=== PATIENT | female | born 1965 | race Caucasian/White ===

== ENCOUNTER → 2019-11-13 13:57 | Outpatient (BNVA) | payer BC, SELFPAY | PROVIDERS: PCP Internal Medicine; Visit Provider Internal Medicine | DX: Z76.89 Persons encountering health services in other specified circumstances (principal) ==

== ENCOUNTER → 2020-03-11 15:56 | Outpatient (BNVA) | payer BC, SELFPAY | PROVIDERS: PCP Internal Medicine; Visit Provider Internal Medicine ==

== ENCOUNTER 2021-01-25 08:32 | Outpatient (REF) | payer BC, SELFPAY ==
--- NOTE | ~2021-01-25 | XR_ITS ---
EXAMINATION: XR SHOULDER, RIGHT CLINICAL INFORMATION: Pain. COMPARISON: None TECHNIQUE: AP, scapular Y, and axillary views of the right shoulder. FINDINGS: Small acromioclavicular marginal osteophytes. Small lateral and anterior subacromial spurs. No acute fracture or dislocation. No glenohumeral joint space narrowing or marginal osteophytes. No osseous erosion. XR/XR shoulder RT min 2V IMPRESSION: Mild acromioclavicular osteoarthritis with anterior and lateral subchondral spurring.
== END 2021-01-25 08:33 | disposition home or self-care (01) ==
LOC: HO.HOSX 08:32
PROVIDERS: Visit Provider Orthopaedic Surgery
DX: M25.511 Pain in right shoulder (principal); R29.898 Other symptoms and signs involving the musculoskeletal system; G89.29 Other chronic pain; Z98.890 Other specified postprocedural states
CPT/HCPCS: 20610; 73030; J1100

== ENCOUNTER → 2021-02-10 10:58 | Outpatient (BNVA) | payer BC, SELFPAY | PROVIDERS: PCP Internal Medicine; Visit Provider Internal Medicine ==

== ENCOUNTER 2023-08-07 07:30 | Outpatient (REF) | payer BC, SELFPAY ==
--- NOTE | ~2023-08-07 | XR_ITS ---
EXAMINATION: XR BILATERAL KNEES STANDING AND RIGHT KNEE CLINICAL INFORMATION: Reason for Exam M25.561 - Pain in right knee COMPARISON: Knee radiographs 12/26/2013 TECHNIQUE: 1 view of the bilateral knees standing. 2 views of the right knee. FINDINGS: RIGHT KNEE: No acute fracture or dislocation. Moderate osteoporosis of the knee with mild loss of medial compartment joint space and tricompartmental osteophytes. No joint effusion. Soft tissues are unremarkable. LEFT KNEE: Limited single view of the left knee is remarkable for a knee arthroplasty in apparent alignment. XR/XR knee RT 3V IMPRESSION: Moderate degenerative changes of the right knee. Limited single view of the left knee is remarkable for a knee arthroplasty in apparent anatomic alignment.
== END 2023-08-07 07:31 | disposition home or self-care (01) ==
LOC: HO.HOSX 07:30
PROVIDERS: Visit Provider Orthopaedic Surgery
DX: M25.561 Pain in right knee (principal)
CPT/HCPCS: 73562

== ENCOUNTER 2023-08-07 11:31 | Outpatient (AMB) | payer BC, SELFPAY ==
--- NOTE | 2023-08-07 11:41 | A.OFFVIS_ITS ---
Vital Signs 08/07/23 11:43 Height 5 ft 10 in Weight 248 lb BMI 35.6 Intake Visit Reasons: Newprob-Right knee pain/pop noise-two weeks ago Intake Note: Christen is a 58 year old female who presents today as a new patient with complaints of right knee pain. Patient reports she started noticing really sharp pains about a month ago. She expresses she was at her [employer] concert when she stood up to talk to some friends and heard a loud pop when she pivoted her body. She states it got better for a few days but then gradually got a lot worse. She is having pain with flexion and extension. She is having burning sensations in the posterior aspect of her right knee and tightness and stiffness in the anterior aspect with prolonged sitting. She has a rolling chair she uses and a few days ago she tried to move around with her chair which results in shooting pain immediately. She has tried Tylenol and found very little relief. Hx of Left TKA in ~2012 w/ NE. Allergies timolol Allergy (Severe, Verified 08/07/23 15:44) Swelling fluticasone [From FLONASE] Allergy (Unknown, Verified 08/07/23 11:52) SWELLING TONGUE/THROAT propranolol [From INDERAL LA] Allergy (Unknown, Verified 08/07/23 11:52) HEADAACHE salmeterol [From ADVAIR DISKUS] Allergy (Unknown, Verified 08/07/23 11:52) RASH HPI HPI Newprob-Right knee pain/pop noise-two weeks ago: Details: Christen is a 58 year old female who presents today as a new patient with c omplaints of right knee pain. Patient reports she started noticing really sharp pains about a month ago. She expresses she was at her [employer] when she stood up to talk to some friends and heard a loud pop when she pivoted her body. She states it got better for a few days but then gradually got a lot worse. She is having pain with flexion and extension. She is having burning sensations in the posterior aspect of her right knee and tightness and stiffness in the anterior aspect with prolonged sitting. She has a rolling chair she uses and a few days ago she tried to move around with her chair which results in shooting pain immediately. She has tried Tylenol and found very little relief. Hx of Left TKA in ~2012 w/ [place]. [facility] Medical History Detached retina Asthma Allergic rhinitis Surgical History H/O eye surgery H/O hernia repair H/O Spinal surgery Social History Alcohol intake: never Patient Tobacco Use Status: Never used Tobacco Smoked in Last 30 Days: No Use of substances other than those prescribed or required for medical reasons: No Advance Directives: No service: No Current occupational status: unemployed Physical Exam Vital Signs: BMI result Body Mass Index 35.6 Extrem Other: ttp lateral compartment with no effusion + lateral Steinmen's Results Reviewed Results Reviewed: mild medial and anterior compartment OA, left knee Assessment & Plan Assessment & Plan (1) Internal derangement of right knee: Code(s): M23.91 - Unspecified internal derangement of right knee Category: Medical Plan: 58 yo F with mechanical symptoms and internal derangement of right knee. She has painful popping and I recommend MRI. She has not improved with PT. Orders: Orders XR knee RT 3V 08/07/23 M25.561 - Pain in right knee Coding Level of Care Code Est Pt Level 4 (91319) Diagnoses Internal derangement of right knee M23.91
[2023-08-07 11:43] VITALS: BMI 35.6
== END 2023-08-07 12:32 | disposition home or self-care (01) ==
PROVIDERS: PCP Internal Medicine; Referring Provider Internal Medicine; Visit Provider Orthopaedic Surgery
DX: M23.91 Unspecified internal derangement of right knee (principal)
CPT/HCPCS: 99213

== ENCOUNTER 2023-08-07 15:11 | Emergency (ER) | payer BC, SELFPAY ==
--- NOTE | ~2023-08-07 | US_ITS ---
EXAMINATION: US VENOUS ULTRASOUND WITH DOPPLER LOWER EXTREMITY, RIGHT CLINICAL INFORMATION: Pain COMPARISON: None available. TECHNIQUE: Ultrasound of the deep veins is performed from the hip to the calf with compression sonography and color and pulse Doppler assessment. Spectral analysis with color-flow imaging is performed. FINDINGS: There is normal venous compression and respiratory variation and augmented flow. The visualized common femoral vein, superficial femoral vein, profunda femoral vein, popliteal vein, and the trifurcation region shows no evidence of deep venous thrombosis. There is no significant popliteal fossa cyst. If the patient's symptoms persist, followup ultrasound in 5 days 7 days might be of value to exclude proximal propagation from a non-visualized calf vein. Small amount of fluid is seen in the anterior knee. US/US venous duplex LE RT IMPRESSION: No DVT demonstrated in the right lower extremity. Suspected small knee joint effusion.
[2023-08-07 15:35] VITALS: BP 142/60; PULSE 84; O2SAT 99
[2023-08-07 15:36] VITALS: BP 118/70; PULSE 83; RESP 18; TEMP 37.1; O2SAT 97; BMI 35.6
--- NOTE | 2023-08-07 15:48 | ED.GENADULT ---
HPI - General Adult General Chief complaint: Extremity Injury, Lower Stated complaint: R KNEE PAIN/PO,NO INJURY PER EMS Time Seen by Provider: 08/07/23 15:48 Source: patient, EMS and RN notes reviewed Mode of arrival: EMS Limitations: no limitations History of Present Illness ED Provider: Danette HPI narrative: Patient is a 58-year-old female presenting to the emergency department with acute worsening of right knee pain. Patient reports that she has had ongoing pain for the past month and saw Dr. Alvarado this morning for the same complaint. He ordered an MRI which patient has not scheduled yet. After her appointment she was walking upstairs at home and felt a snap/pop sensation and sudden increase in pain. States that previously her pain was to the lateral aspect of her right knee but after this incident on the stairs the pain has moved to her posterior knee. Also complains of some calf pain. Unable to flex due to pain. MD complaint: Right knee pain Onset (ago): month(s) Location: right and lower extremity Severity: severe Quality: aching Pain Consistency: constant Relieving factors: rest Exacerbating factors: movement Treatments prior to arrival: other (Tylenol) Related Data Home Medications ?Medication ?Instructions ?Recorded ?Confirmed atorvastatin 20 mg tablet 20 mg PO DAILY 11/02/19 11/13/19 estradiol 1 mg tablet 1 mg PO DAILY 11/02/19 11/13/19 montelukast 10 mg tablet 10 mg PO DAILY 11/02/19 11/13/19 peak flow meter #1 ea 11/02/19 11/13/19 zolpidem 10 mg tablet 10 mg PO BEDTIME PRN 11/02/19 11/13/19 COVID-19 vacc,mRNA(Pfizer)(PF) 30 ml IM 03/11/20 mcg/0.3 mL IM susp (purple) albuterol sulfate 90 mcg/actuation inhalation 03/11/20 aerosol inhaler azelastine 137 mcg (0.1 %) nasal 2 spray intranasal BID 03/11/20 spray epinephrine 0.3 mg/0.3 mL 1 IM ONCE 03/11/20 injection, auto-injector hydrocortisone 2.5 % topical cream topical 03/11/20 with perineal applicator ipratropium 20 mcg-albuterol 100 1 puff inhalation QID PRN 03/11/20 mcg/actuation mist for inhalation (Combivent Respimat) ketotifen fumarate 0.025 % (0.035 1 drp ophthalmic (eye) BID PRN itch 03/11/20 %) eye drops pantoprazole 20 mg tablet,delayed 20 mg PO DAILY 03/11/20 release diltiazem HCl 60 mg tablet 60 mg PO TID 01/25/21 bupropion HCl 150 mg tablet,12 hr 150 mg PO DAILY 02/10/21 sustained-release diltiazem HCl 180 mg 180 mg PO DAILY 08/07/23 capsule,extended release 24 hr, controlled (DILT-XR) gabapentin 300 mg capsule 300 mg PO PRN headache 08/07/23 Previous Rx's ?Medication ?Instructions ?Recorded Symbicort 160 mcg-4.5 2 puff inhalation BID #10.2 grams 04/26/21 mcg/actuation HFA aerosol inhaler (budesonide-formoterol) diclofenac sodium 3 % topical gel 1 appl topical BID #100 grams 08/07/23 oxycodone 5 mg tablet 5 mg PO Q8H PRN severe pain (scale 08/07/23 score 7-10) #6 tabs Allergies Allergy/AdvReac Type Severity Reaction Status Date / Time timolol Allergy Severe Swelling Verified 08/07/23 15:44 fluticasone [From FLONASE] Allergy Unknown SWELLING Verified 08/07/23 11:52 TONGUE/THROAT propranolol [From INDERAL LA] Allergy Unknown HEADAACHE Verified 08/07/23 11:52 salmeterol Allergy Unknown RASH Verified 08/07/23 11:52 [From ADVAIR DISKUS] Review of Systems Review of Systems: As per HPI. Yes all other systems are reviewed and are negative Constitutional: Constitutional: Reports as per HPI [facility] Past Medical History Medical History Detached retina Asthma Allergic rhinitis Surgical History H/O eye surgery H/O hernia repair H/O Spinal surgery Social History Social History Alcohol intake: never Patient Tobacco Use Status: Never used Tobacco Smoked in Last 30 Days: No Use of substances other than those prescribed or required for medical reasons: No Advance Directives: No service: No Current occupational status: unemployed Physical Exam ED Vital Signs: Vital Signs - 24 hr 08/07/23 15:36 Temperature 98.8 F Pulse Rate 83 Respiratory Rate 18 Blood Pressure 118/70 Pulse Oximetry 97 Oxygen Delivery Method Room Air BMI result Body Mass Index 35.6 Vital signs have been reviewed and appear to be correct. Blood pressure normal. Heart rate normal. Respiratory rate normal. Temperature normal. Oxygen saturation normal. Const General: cooperative, healthy appearing and no acute distress Orientation/consciousness: oriented to person, oriented to place, oriented to time and patient oriented x3 Limitations: no limitations HENMT Head: Yes normocephalic and Yes atraumatic Ears: external ears normal General nose exam: Normal external nose present Face and sinus: Yes face symmetric Mouth: oropharynx normal and moist mucous membranes Throat: Yes uvula midline Eyes Pupils: Equal, round and reactive pupils present Neck Neck: Yes normal visual inspection and Yes supple Resp Effort & Inspection: normal respiratory effort and able to speak in complete sentences Auscultation: clear to auscultation bilaterally Cardio Rate: regular rate Rhythm: regular rhythm Heart sounds: S1 normal heart sound present and S2 normal heart sound present GI Palpation (GI): Soft to palpation and nontender Auscultation: normoactive bowel sounds General: Yes no CVA tenderness Back/Spine/Pelvis Back: no CVA tenderness Skin General skin exam: elasticity normal and turgor normal Neuro General: oriented to person, oriented to place, oriented to time, patient oriented x3, moves all extremities, no focal motor deficits and CN's II-XI intact bilaterally Cranial nerves: Yes Equal, round and reactive pupils present Cognition (Neuro): normal cognition Extrem General: Yes full ROM, Yes no pedal edema and Yes no calf tenderness Right lower extremity: knee (unable to perform full assessment due to pain) Details: normal to inspection, tenderness Location: of the popliteal fossa and of the lateral joint line and abnormal ROM; no swelling, lower leg (calf pain with dorsiflexion) Details: normal to inspection; no tenderness and foot Details: normal capillary refill and vascular exam Details: dorsalis pedis pulse present and posterior tibial pulse present Psych Mental Status: mental status grossly normal Affect: normal affect Thought process: Normal thought process present Medications Administered Discontinued Medications Generic Name Dose Route Start Last Admin Trade Name Freq PRN Reason Stop Dose Admin Acetaminophen 650 mg 08/07/23 15:52 08/07/23 16:06 Acetaminophen 325 Mg Tablet PO 08/07/23 15:53 650 mg ONCE ONE Administration Oxycodone HCl 5 mg 08/07/23 15:52 08/07/23 16:07 Oxycodone Hcl Immed Release 5 Mg Tablet PO 08/07/23 15:53 5 mg ONCE ONE Administration Medical Decision Making Medical Decision Making [facility] Narrative: Patient is a 58-year-old female presenting to the emergency department with acute worsening of right knee pain. On exam patient is awake, A+Ox3, VS WNL, afebrile, normal neurological exam without focal deficits, physical exam findings as above. Given reported symptoms and physical exam findings, initial differential includes right knee strain, sprain, ligamentous injury, Castanon's cyst. Less likely DVT but will obtain ultrasound. Ultrasound notable for no evidence of DVT or cyst. My interpretation is in agreement with the radiologist's interpretation. Case discussed with kristofer Guthrie who is in agreement with placement of knee immobilizer, crutches, and advising patient to schedule her ordered MRI. Return precautions discussed with patient. Advised Tylenol, will prescribe diclofenac gel, oxycodone for severe pain. Discussed ortho follow up. Patient verbalized understanding of and agreement with plan. Differential Diagnosis Differential Diagnoses: The differential diagnosis associated with the presentation includes As per MDM. Consult Healthcare Provider Management of the patient was discussed with: Box Toe Stitcher (kristofer guthrie) Independent Interpretation I performed an independent interpretation of an: Ultrasound Interpretation: No evidence of DVT on ultrasound Radiology Impression Discussion of test interpretation with radiology: I have reviewed the radiologist's reading. Radiologist Impression: US/US venous duplex LE RT IMPRESSION: No DVT demonstrated in the right lower extremity. Suspected small knee joint effusion. External Record Review External record reviewed: Inpatient record, Office record and Outpatient record Prescription Management I considered prescription management with: Pain Medication Discharge Plan Discharge Clinical Impression: Strain of right knee Patient Disposition: Home, Self-Care Instructions: Crutch Instructions (ED), R.I.C.E. Treatment (ED), Knee Immobilizer (ED) Additional Instructions: You were evaluated in the emergency department today for right knee pain. Your ultrasound did not show evidence of DVT, also known as blood clot. You were provided with a knee immobilizer and crutches in the emergency department today. You should keep the knee immobilizer on until you follow-up with orthopedics. Please contact Radiology to schedule the MRI ordered by orthopedics. Return to the emergency department if you develop increasing pain, worsening swelling, redness, fever or any other concerning symptoms. Prescriptions: New diclofenac sodium 3 % gel 1 appl topical BID Qty: 100 0RF oxycodone 5 mg tablet 5 mg PO Q8H PRN (Reason: severe pain (scale score 7-10)) Qty: 6 0RF Rx Instructions: Partial Fill upon patient request. No Action budesonide-formoterol [Symbicort] 160-4.5 mcg/actuation HFA aerosol inhaler 2 puff inhalation BID Qty: 10.2 11RF Combivent Respimat 20-100 mcg/actuation mist 1 puff inhalation QID PRN Rx Instructions: space evenly during waking hours [employer] COVID-19 Vaccine (EUA) 30 mcg/0.3 mL suspension for reconstitution IM pantoprazole 20 mg tablet,delayed release (DR/EC) 20 mg PO DAILY albuterol sulfate 90 mcg/actuation HFA aerosol inhaler inhalation azelastine 137 mcg (0.1 %) aerosol,spray 2 spray intranasal BID ketotifen fumarate 0.025 % (0.035 %) drops 1 drp ophthalmic (eye) BID PRN (Reason: itch) hydrocortisone 2.5 % cream with perineal applicator topical epinephrine 0.3 mg/0.3 mL auto-injector 1 IM ONCE zolpidem 10 mg tablet 10 mg PO BEDTIME PRN montelukast 10 mg tablet 10 mg PO DAILY atorvastatin 20 mg tablet 20 mg PO DAILY (DME) Personal Best Full Range Device See Rx Instructions .ROUTE DIRECTED Qty: 1 Rx Instructions: As directed estradiol 1 mg tablet 1 mg PO DAILY bupropion HCl 150 mg tablet sustained-release 12 hr 150 mg PO DAILY diltiazem HCl 60 mg tablet 60 mg PO TID gabapentin 300 mg capsule 300 mg PO PRN (Reason: headache) diltiazem HCl [DILT-XR] 180 mg capsule,ext.rel 24h degradable 180 mg PO DAILY Referrals: Russell Alvarado MD [Physician] - Print Language: Tajik
[2023-08-07] MEDS: Acetaminophen 325 MG TABLET 650 MG PO (16:06)
[2023-08-07] MEDS: oxyCODONE HCl Immed Release 5 MG TABLET PO (16:07)
[2023-08-07 18:40] VITALS: BP 118/77; PULSE 78; RESP 16; TEMP 36.6; O2SAT 98
[2023-08-07 18:49] VITALS: BP 118/77; PULSE 78; RESP 16; TEMP 36.6; O2SAT 98
== END 2023-08-07 19:16 | disposition home or self-care (01) ==
PROVIDERS: Emergency Provider Emergency Medicine; PCP Internal Medicine
DX: S83.91XA Sprain of unspecified site of right knee, initial encounter (principal); R60.0 Localized edema; X58.XXXA Exposure to other specified factors, initial encounter; Y93.9 Activity, unspecified; Y92.9 Unspecified place or not applicable; Y99.8 Other external cause status
CPT/HCPCS: 93971; 99284

== ENCOUNTER 2023-08-17 08:38 | Outpatient (AMB) | payer BC, SELFPAY ==
--- NOTE | 2023-08-17 08:48 | A.OFFVIS_ITS ---
Vital Signs 08/17/23 08:49 Height 5 ft 10 in Weight 248 lb BMI 35.6 Intake Visit Reasons: OV-Right knee MRI review Intake Note: Christen is a 58 year old female who presents today for an MRI review of her right knee. MRI done at [facility]. Patient reports that she is having pain in the right knee, she is ambulating with crutches and a knee immobilizer. increased pain with twisting movements. Allergies timolol Allergy (Severe, Verified 08/07/23 15:44) Swelling fluticasone [From FLONASE] Allergy (Unknown, Verified 08/07/23 11:52) SWELLING TONGUE/THROAT propranolol [From INDERAL LA] Allergy (Unknown, Verified 08/07/23 11:52) HEADAACHE salmeterol [From ADVAIR DISKUS] Allergy (Unknown, Verified 08/07/23 11:52) RASH HPI HPI OV-Right knee MRI review: Details: Christen is a 58 year old female who presents today for an MRI review of her right knee. MRI done at [facility] Patient reports that she is having pain in the right knee, she is ambulating with crutches and a knee immobilizer. increased pain with twisting movements. She injured her knee again after I last saw her and reports a locking incident when she was descending stairs. [facility] Medical History Detached retina Asthma Allergic rhinitis Surgical History H/O eye surgery H/O hernia repair H/O Spinal surgery Social History Alcohol intake: never Patient Tobacco Use Status: Never used Tobacco service: No Current occupational status: unemployed Physical Exam Vital Signs: BMI result Body Mass Index 35.6 Extrem Other: ttp lateral compartment with no effusion + lateral Steinmen's Results Reviewed Results Reviewed: I personally reviewed the MR images. Horizontal oblique tear extending to the outer third of the the superior articular surface of post horn of the MM. Vertical tear of the root of the posterior horn of the medial meniscus. mild medial compartment OA Assessment & Plan Assessment & Plan (1) Medial meniscus tear: Code(s): S83.249A - Other tear of medial meniscus, current injury, unspecified knee, initial encounter Category: Medical Plan: This is a 58 yo with a MMT including the posterior root. She has mild OA. She has pain and cannot ambulate. I recommend righty knee with possible meniscectomy vs repair. I discussed this with her and I discussed the risks benefits and alternatives including but not limited to the risk of pain, infection, stiffness, need for further surgery as well as potential medical complications. She expressed understanding Coding Level of Care Code Est Pt Level 4 (65052) Diagnoses Medial meniscus tear S83.249A
[2023-08-17 08:49] VITALS: BMI 35.6
== END 2023-08-17 09:59 | disposition home or self-care (01) ==
PROVIDERS: PCP Internal Medicine; Visit Provider Orthopaedic Surgery
DX: S83.241A Other tear of medial meniscus, current injury, right knee, initial encounter (principal)
CPT/HCPCS: 99214

== ENCOUNTER → 2023-08-17 08:38 | Outpatient (BNVA) | payer BC, SELFPAY | PROVIDERS: PCP Internal Medicine; Visit Provider Orthopaedic Surgery ==

== ENCOUNTER 2023-09-06 05:52 | Day surgery (SDC) | payer BC, SELFPAY ==
[2023-09-04 11:36] VITALS: BMI 35.6
--- NOTE | 2023-09-05 09:55 | HO.ANESPROP2 ---
Documented by User: Yenifer Ace NP 09/05/23 10:06 HPI - Anesthesia Eval Consult details Narrative: 58yo F for Right Knee Arthroscopy medial meniscectomy, possbile root repair Follows [facility]: Afib s/p ablation 07/2022 by P[facility] and ablation of caval tricuspid isthmus dependent atrial flutter, atrial tach. Last office visit 04/2023, stable Hx of detached retina s/p surgical repair PMFSH Active Problems Active Problems: All Active Problems Medial meniscus tear (Acute) Internal derangement of right knee (Acute) H/O eye surgery (Acute) Shoulder weakness (Acute) Chronic periscapular pain on right side (Acute) Asthma (Acute) Allergic rhinitis (Acute) Past Medical History Medical History Eye abnormality Surgery, elective Glaucoma Hemidiaphragm paralysis Afib Detached retina Asthma Allergic rhinitis Surgical History Surgical History History of total left knee replacement H/O: hysterectomy S/P cervical spinal fusion H/O eye surgery H/O hernia repair H/O Spinal surgery Social History Social History Alcohol intake: never Patient Tobacco Use Status: Never used Tobacco Use of substances other than those prescribed or required for medical reasons: No Are you DNR?: No Advance Directives: No Advance Directives Information Provided: Yes service: No Current occupational status: unemployed Meds Allergies Allergy/AdvReac Type Severity Reaction Status Date / Time timolol Allergy Severe Swelling Verified 08/07/23 15:44 fluticasone [From FLONASE] Allergy Unknown SWELLING Verified 08/07/23 11:52 TONGUE/THROAT propranolol [From INDERAL LA] Allergy Unknown HEADAACHE Verified 08/07/23 11:52 salmeterol Allergy Unknown RASH Verified 08/07/23 11:52 [From ADVAIR DISKUS] dorzolamide Allergy Swelling Verified 09/06/23 06:16 Home Medications ?Medication ?Instructions ?Recorded ?Confirmed ?Last Taken ?Type atorvastatin 20 mg tablet 20 mg PO DAILY 11/02/19 11/13/19 Unknown History estradiol 1 mg tablet 1 mg PO DAILY 11/02/19 11/13/19 Unknown History montelukast 10 mg tablet 10 mg PO DAILY 11/02/19 11/13/19 Unknown History peak flow meter #1 ea 11/02/19 11/13/19 Unknown History zolpidem 10 mg tablet 10 mg PO BEDTIME PRN 11/02/19 11/13/19 Unknown History COVID-19 vacc,mRNA(Pfizer)(PF) 30 ml IM 03/11/20 Unknown History mcg/0.3 mL IM susp (purple) albuterol sulfate 90 mcg/actuation inhalation 03/11/20 Unknown History aerosol inhaler azelastine 137 mcg (0.1 %) nasal 2 spray intranasal BID 03/11/20 Unknown History spray epinephrine 0.3 mg/0.3 mL 1 IM ONCE 03/11/20 Unknown History injection, auto-injector hydrocortisone 2.5 % topical cream topical 03/11/20 Unknown History with perineal applicator ipratropium 20 mcg-albuterol 100 1 puff inhalation QID PRN 03/11/20 Unknown History mcg/actuation mist for inhalation (Combivent Respimat) ketotifen fumarate 0.025 % (0.035 1 drp ophthalmic (eye) BID PRN itch 03/11/20 Unknown History %) eye drops pantoprazole 20 mg tablet,delayed 20 mg PO DAILY 03/11/20 09/06/23 History release diltiazem HCl 60 mg tablet 60 mg PO TID 01/25/21 Unknown History bupropion HCl 150 mg tablet,12 hr 150 mg PO DAILY 02/10/21 09/06/23 History sustained-release diltiazem HCl 180 mg 180 mg PO DAILY 08/07/23 Unknown History capsule,extended release 24 hr, controlled (DILT-XR) gabapentin 300 mg capsule 300 mg PO PRN headache 08/07/23 Unknown History Exam Height,Weight and Vital Signs: Height 5 ft 10 in Weight 112.491 kg Narrative Narrative: EKG at 04/2023 cardiac office: [facility]ICH[facility] ECHO 07/2022: EF 65-70% LA nml in size, no WMA Documented by User: Xochitl Méndez MD 09/06/23 07:29 PMFSH Past Medical History Medical History Eye abnormality Surgery, elective Glaucoma Hemidiaphragm paralysis Afib Detached retina Asthma Allergic rhinitis Family History Family history of problems with anesthesia: No Surgical History Surgical History History of total left knee replacement H/O: hysterectomy S/P cervical spinal fusion H/O eye surgery H/O hernia repair H/O Spinal surgery History of Problems with Anesthesia: No Social History Social History Alcohol intake: never Patient Tobacco Use Status: Never used Tobacco Use of substances other than those prescribed or required for medical reasons: No Are you DNR?: No Advance Directives: No Advance Directives Information Provided: Yes service: No Current occupational status: unemployed Meds Allergies Allergy/AdvReac Type Severity Reaction Status Date / Time timolol Allergy Severe Swelling Verified 08/07/23 15:44 fluticasone [From FLONASE] Allergy Unknown SWELLING Verified 08/07/23 11:52 TONGUE/THROAT propranolol [From INDERAL LA] Allergy Unknown HEADAACHE Verified 08/07/23 11:52 salmeterol Allergy Unknown RASH Verified 08/07/23 11:52 [From ADVAIR DISKUS] dorzolamide Allergy Swelling Verified 09/06/23 06:16 Home Medications ?Medication ?Instructions ?Recorded ?Confirmed ?Last Taken ?Type atorvastatin 20 mg tablet 20 mg PO DAILY 11/02/19 11/13/19 Unknown History estradiol 1 mg tablet 1 mg PO DAILY 11/02/19 11/13/19 Unknown History montelukast 10 mg tablet 10 mg PO DAILY 11/02/19 11/13/19 Unknown History peak flow meter #1 ea 11/02/19 11/13/19 Unknown History zolpidem 10 mg tablet 10 mg PO BEDTIME PRN 11/02/19 11/13/19 Unknown History COVID-19 vacc,mRNA(Pfizer)(PF) 30 ml IM 03/11/20 Unknown History mcg/0.3 mL IM susp (purple) albuterol sulfate 90 mcg/actuation inhalation 03/11/20 Unknown History aerosol inhaler azelastine 137 mcg (0.1 %) nasal 2 spray intranasal BID 03/11/20 Unknown History spray epinephrine 0.3 mg/0.3 mL 1 IM ONCE 03/11/20 Unknown History injection, auto-injector hydrocortisone 2.5 % topical cream topical 03/11/20 Unknown History with perineal applicator ipratropium 20 mcg-albuterol 100 1 puff inhalation QID PRN 03/11/20 Unknown History mcg/actuation mist for inhalation (Combivent Respimat) ketotifen fumarate 0.025 % (0.035 1 drp ophthalmic (eye) BID PRN itch 03/11/20 Unknown History %) eye drops pantoprazole 20 mg tablet,delayed 20 mg PO DAILY 03/11/20 09/06/23 History release diltiazem HCl 60 mg tablet 60 mg PO TID 01/25/21 Unknown History bupropion HCl 150 mg tablet,12 hr 150 mg PO DAILY 02/10/21 09/06/23 History sustained-release diltiazem HCl 180 mg 180 mg PO DAILY 08/07/23 Unknown History capsule,extended release 24 hr, controlled (DILT-XR) gabapentin 300 mg capsule 300 mg PO PRN headache 08/07/23 Unknown History Exam Airway Mallampati Class: II TM Dist: >3cm Neck ROM: Full Heart: rrr Lungs: cta Assessment and Plan Assessment Anesthesia Assessment: Anesthesia Plan Discussed and Chart Reviewed Final Anesthetic Review Family History of Problems with Anesthesia: No History of Problems with Anesthesia: No NPO: Yes ASA Class: III Final Preanesthetic Review: No Changes in Pt Med Stat, Meds/Allgs Chart Reviewed, Consent Obtained/Reviewed and Anes Risks/Benef Reviewed Patient Risk: Intermediate Procedure Risk: Low Anesthetic Plan Anesthetic Plan: GA Disposition: Standard PACU
[2023-09-06] VITALS (17 sets, daily range): BP systolic 120–156; BP diastolic 63–90; PULSE 69–87; RESP 16–18; TEMP 36.3–36.4; O2SAT 90–99; BMI 36.3
--- NOTE | 2023-09-06 06:10 | ECG_ITS ---
Test Reason : preop Blood Pressure : / mmHG Vent. Rate : 075 BPM Atrial Rate : 075 BPM P-R Int : 178 ms QRS Dur : 102 ms QT Int : 418 ms P-R-T Axes : 046 -27 -21 degrees QTc Int : 466 ms Normal sinus rhythm Incomplete right bundle branch block Nonspecific ST and T wave abnormality Prolonged QT Abnormal ECG When compared with ECG of 20-FEB-2013 15:45, Nonspecific T wave abnormality now evident in Lateral leads Referred By: Yenifer Ace Electronically Signed By:Oracio Teran
[2023-09-06] MEDS: Lactated Ringers 1,000 ML 100 ML IVCONT (06:51)
--- NOTE | 2023-09-06 07:26 | MHC.SHP ---
Pre-Procedural Eval Section A - 24 Hr Update-Section A only Date of Service: 09/06/23 The patient is an INPATIENT: No Changes since office visit: No Cold of Flu in the past 2 weeks, No New Medical Problems, No Changes in Medication and No Patient answered all questions The patient has been examined within 24 hours of the surgical procedure. The History & Physical has been completed within 30 days and I have reviewed it.: Yes Section B - Complete if H&P > 30 days Chief Complaint: Other tear of medial meniscus, current injury, rig Allergies: Allergies Allergy/AdvReac Type Severity Reaction Status Date / Time timolol Allergy Severe Swelling Verified 08/07/23 15:44 fluticasone [From FLONASE] Allergy Unknown SWELLING Verified 08/07/23 11:52 TONGUE/THROAT propranolol [From INDERAL LA] Allergy Unknown HEADAACHE Verified 08/07/23 11:52 salmeterol Allergy Unknown RASH Verified 08/07/23 11:52 [From ADVAIR DISKUS] dorzolamide Allergy Swelling Verified 09/06/23 06:16 Plan I have reviewed the history and physical and performed a pertinent physical examination on my patient. No changes have occurred unless specified. Time Spent With Patient Time: Total time managing care of this patient today ____ minutes.
--- NOTE | 2023-09-06 08:46 | PM.OP ---
Brief Operative Note Date of Service: 09/06/23 Pre-op diagnosis: Right medial meniscus rrot tear Post-op diagnosis: same Procedure: Root repair right medial meniscus Implants: [employer] and Nephew x 1 Surgeon: Russell Alvarado MD Anesthesia: GETA Was an Manager Technology used for this Procedure?: No Manager Technology: Farrah Krueger Estimated blood loss (mL): 5 Tourniquet time (min): 40 IV fluids (mL): 800 Pathology: none sent Condition: stable Disposition: PACU
[2023-09-06] MEDS: fentaNYL citrate/PF 100 MCG/2 ML VIAL 25 MCG IVPUSH ×8 (09:16→10:05)
--- NOTE | 2023-09-15 13:20 | W.PM.OPN ---
Operative Note Operative Note Date of Service: 09/06/23 Narrative: Date of Service: 09/06/23 Pre-op diagnosis: Right medial meniscus root tear Post-op diagnosis: same Procedure: Root repair right medial meniscus Implants: Foot[employer] Eng and Nephew x 1 Surgeon: Russell Alvarado MD Anesthesia: GETA Was an Impact Retail Service Merchandiser used for this Procedure?: No Impact Retail Service Merchandiser: Farrah Krueger Estimated blood loss (mL): 5 Tourniquet time (min): 40 IV fluids (mL): 800 Pathology: none sent Condition: stable Disposition: PACU Procedure in detail: Patient was brought to the operating room placed supine on the arthroscopic table and prepped and draped in standard sterile fashion. A time-out was called to identify proper site proper procedure proper surgeon and IV antibiotics per weight were administered. I began by exsanguinating the limb and insufflating tourniquet to 300 mm Hg. Then made a standard anterolateral stab incision. The knee was insufflated with water and 30 degree arthroscope was placed. There was grade 1 fibrillations of the patella. The suprapatellar pouch and the gutters were clean. I descended into the medial compartment where I made my medial portal under direct visualization. There was a complete tear of the root at its insertion with an otherwise normal meniscus. There were grade 0-1 changes in the tibial plateau. I used shaver to perform a limited chondroplasty. I then used a suture passer to pass two suture tapes through the free edge of the medial meniscus. I then used a ringed currette to debride the root insertion site. I then drilled a spin through the anterolateral tibia through the footprint using the root repair guide set at 55deg. I passed a nitinol loop through this and retrieved the two limbs of suture tape attached to the meniscus. I then brought the meniscus to its insertion site while flexed at 30 deg. The suture was then dunked into a footprint anchor anterolateral to the tibial tubercle. The repair was anatomic and I was satisfied. The ACL was examined and found to be intact and the lateral compartment also was without the need for intervention. I then removed all instrumentation and closed the portals with skin glue. 25 mL of 2% Marcaine with epinephrine was injected into the joint and the surrounding soft tissues. Patient was then placed in sterile dressing extubated brought recovery room stable condition. There were no known complications.
== END 2023-09-06 10:52 | disposition home or self-care (01) ==
LOC: HO.SSS 05:53
PROVIDERS: PCP Internal Medicine; Visit Provider Orthopaedic Surgery
PROC: (CPT 29870; principal; 2023-09-06 07:30)
DX: S83.241A Other tear of medial meniscus, current injury, right knee, initial encounter (principal); J45.909 Unspecified asthma, uncomplicated; Z98.890 Other specified postprocedural states; Z88.8 Allergy status to other drugs, medicaments and biological substances; Z56.0 Unemployment, unspecified
CPT/HCPCS: 29882; 93005; C1713; J0131; J0171; J0690; J1100; J1170; J1885; J2250; J2405; J2704; J2795; J3010

== ENCOUNTER → 2023-09-06 05:52 | Outpatient (BNV) | payer BC, SELFPAY | PROVIDERS: PCP Internal Medicine; Visit Provider Orthopaedic Surgery | DX: S83.241A Other tear of medial meniscus, current injury, right knee, initial encounter (principal) | CPT/HCPCS: 29882 ==

== ENCOUNTER → 2023-09-06 06:10 | Outpatient (BNV) | payer BC, SELFPAY | PROVIDERS: PCP Internal Medicine; Visit Provider Internal Medicine Cardiovascular Disease | DX: R94.31 Abnormal electrocardiogram [ECG] [EKG] (principal) | CPT/HCPCS: 93010 ==

== ENCOUNTER 2023-09-14 14:53 | Outpatient (AMB) | payer BC, SELFPAY ==
--- NOTE | 2023-09-14 14:55 | MHC.OFFVIS ---
Intake Visit Reasons: PO RT knee /poss root repair 09/06/23 NE Intake Note: Christen is a 58 year old female who presents today for a post op appointment s/p right knee /poss root repair 09/06/23 NE. Patient reports she is having a lot of swelling. She mentions that her knee is feeling a little bit better. Allergies timolol Allergy (Severe, Verified 08/07/23 15:44) Swelling fluticasone [From FLONASE] Allergy (Unknown, Verified 08/07/23 11:52) SWELLING TONGUE/THROAT propranolol [From INDERAL LA] Allergy (Unknown, Verified 08/07/23 11:52) HEADAACHE salmeterol [From ADVAIR DISKUS] Allergy (Unknown, Verified 08/07/23 11:52) RASH dorzolamide Allergy (Verified 09/06/23 06:16) Swelling HPI HPI PO RT knee /poss root repair 09/06/23 NE: Details: 58-year-old female who presents in the office today 8 days status post right medial meniscus root repair, which was performed on 09/06/[address] Alvarado.? ? While in the office today, the patient reports she is having a lot of edema; however, states her right lower extremity feels a bit better. ? [facility] Medical History Eye abnormality Surgery, elective Glaucoma Hemidiaphragm paralysis Afib Detached retina Asthma Allergic rhinitis Surgical History History of total left knee replacement H/O: hysterectomy S/P cervical spinal fusion H/O eye surgery H/O hernia repair H/O Spinal surgery Social History Alcohol intake: never Patient Tobacco Use Status: Never used Tobacco service: No Current occupational status: unemployed Review of Systems Const All systems reviewed & are unremarkable except as noted in HPI and below Physical Exam Const General: cooperative, healthy appearing and no acute distress Resp Effort & Inspection: normal respiratory effort and able to speak in complete sentences Cardio Rate: regular rate Peripheral pulses: Peripheral pulses 2+ throughout GI Palpation (GI): Soft to palpation Skin Lesions: no lesions Rashes: no rashes Extrem Other: Right knee: Incision site is clean, dry, and intact. Steri-stripes are intact. No surrounding erythema or drainage. No signs of infection.? Assessment & Plan Assessment & Plan (1) Medial meniscus tear: Code(s): S83.249A - Other tear of medial meniscus, current injury, unspecified knee, initial encounter Category: Medical Plan Ms. Griggs is a 58-year-old female who presents in the office today 8 days status post right medial meniscus root repair, which was performed on 09/06/[address] Alvarado.? ? While in the office today, the patient reports she is having a lot of edema; however, states her right lower extremity feels a bit better.? ? The patient would like to attend a physical therapy facility outside of [facility]. She was provided with a copy of the protocol I would like for physical therapy to follow. She was also given a paper copy of the physical therapy order. I would like for her to begin PT within the next week. Follow-up will be in four weeks with Dr. Alvarado, or sooner if needed. ? Orders: Orders PT Evaluation and Treatment 09/14/23 M23.91 - Unspecified internal derangement of right knee, S83.249A - Other tear of medial meniscus, current injury, unspecified knee, initial encounter Patient Instructions: Scribed by Tonya Pizano medical office assistant instructor, for Farrah Krueger PA-C on 09/14/2023 at 3:08 pm, EST.? Coding Level of Care Code Global (26159) Diagnoses Medial meniscus tear S83.249A
== END 2023-09-14 16:57 | disposition home or self-care (01) ==
PROVIDERS: PCP Internal Medicine; Visit Provider Physician Assistant
DX: S83.249A Other tear of medial meniscus, current injury, unspecified knee, initial encounter (principal)
CPT/HCPCS: 99024

== ENCOUNTER → 2023-09-14 14:53 | Outpatient (BNVA) | payer BC, SELFPAY | PROVIDERS: PCP Internal Medicine; Visit Provider Physician Assistant ==

== ENCOUNTER 2023-10-12 14:14 | Outpatient (AMB) | payer BC, SELFPAY ==
--- NOTE | 2023-10-12 14:19 | A.OFFVIS_ITS ---
Intake Visit Reasons: PO RT knee /poss root repair 09/06/23 NE Intake Note: Christen is a 58 year old female who presents today for a post operative appointment s.p Right Knee - Root repair of right medial meniscus 09/06/23 Patient reports that she has been doing well, she has managable pain unless she is working with phyical therapy. Allergies timolol Allergy (Severe, Verified 10/12/23 14:23) Swelling fluticasone [From FLONASE] Allergy (Unknown, Verified 10/12/23 14:23) SWELLING TONGUE/THROAT propranolol [From INDERAL LA] Allergy (Unknown, Verified 10/12/23 14:23) HEADAACHE salmeterol [From ADVAIR DISKUS] Allergy (Unknown, Verified 10/12/23 14:23) RASH dorzolamide Allergy (Verified 10/12/23 14:23) Swelling HPI HPI PO RT knee /poss root repair 09/06/23 NE: Details: Doing well. Compliant with PT. No pain. [facility] Medical History Eye abnormality Surgery, elective Glaucoma Hemidiaphragm paralysis Afib Detached retina Asthma Allergic rhinitis Surgical History History of total left knee replacement H/O: hysterectomy S/P cervical spinal fusion H/O eye surgery H/O hernia repair H/O Spinal surgery Social History Alcohol intake: never Patient Tobacco Use Status: Never used Tobacco service: No Current occupational status: unemployed Physical Exam Extrem Other: 0-65 deg comfortably. Inc c/d/i No effusion Assessment & Plan Assessment & Plan (1) S/P medial meniscal repair: Code(s): Z98.890 - Other specified postprocedural states Category: Surgical Plan: s/p medial meniscus repair. Continue as per root repair protocol f/u 6 weeks Coding Level of Care Code Global (08624) Diagnoses S/P medial meniscal repair Z98.890
== END 2023-10-12 15:00 | disposition home or self-care (01) ==
PROVIDERS: PCP Internal Medicine; Visit Provider Orthopaedic Surgery
DX: Z98.890 Other specified postprocedural states (principal)
CPT/HCPCS: 99024

== ENCOUNTER → 2023-10-12 14:14 | Outpatient (BNVA) | payer BC, SELFPAY | PROVIDERS: PCP Internal Medicine; Visit Provider Orthopaedic Surgery ==

== ENCOUNTER 2023-11-23 14:37 | Outpatient (AMB) | payer BC, SELFPAY ==
--- NOTE | 2023-11-23 14:43 | A.OFFVIS_ITS ---
Intake Visit Reasons: PO 6wk RT knee /poss root repair 09/06/23 NE Intake Note: Christen is a 58 year old female who presents today for a post operative appointment s.p Right Knee - Root repair of right medial meniscus 09/06/23 Allergies timolol Allergy (Severe, Verified 10/12/23 14:23) Swelling fluticasone [From FLONASE] Allergy (Unknown, Verified 10/12/23 14:23) SWELLING TONGUE/THROAT propranolol [From INDERAL LA] Allergy (Unknown, Verified 10/12/23 14:23) HEADAACHE salmeterol [From ADVAIR DISKUS] Allergy (Unknown, Verified 10/12/23 14:23) RASH dorzolamide Allergy (Verified 10/12/23 14:23) Swelling HPI HPI PO 6wk RT knee /poss root repair 09/06/23 NE: Details: Christen is a 58 year old female who presents today for a post operative appointment s.p Right Knee - Root repair of right medial meniscus 09/06/23. She is doing pretty well she is still walking with a crutch and using brace and her motion is at 90 degrees. [facility] Medical History Eye abnormality Surgery, elective Glaucoma Hemidiaphragm paralysis Afib Detached retina Asthma Allergic rhinitis Surgical History History of total left knee replacement H/O: hysterectomy S/P cervical spinal fusion H/O eye surgery H/O hernia repair H/O Spinal surgery Social History Alcohol intake: never Patient Tobacco Use Status: Never used Tobacco service: No Current occupational status: unemployed Physical Exam Extrem Other: There is moderate lower extremity swelling with no calf tenderness. She has 0-90 degrees motion with a mild joint effusion Assessment & Plan Assessment & Plan (1) S/P medial meniscal repair: Code(s): Z98.890 - Other specified postprocedural states Category: Surgical Plan: 58-year-old with patellofemoral OA status post medial meniscus root repair. She has motion to 90 degrees with mild swelling. I do not think aspirating fluid would be beneficial for her. I recommend that she continue aggressive physical therapy. She may discontinue the brace and crutches. Work on gait mechanics and range of motion. I sent a prescription of Celebrex to her pharmacy. I will see her back in 4 weeks Medications: New celecoxib (Celebrex) 200 mg PO DAILY 30 caps 0RF Coding Level of Care Code Global (33414) Diagnoses S/P medial meniscal repair Z98.890
== END 2023-11-23 15:26 | disposition home or self-care (01) ==
PROVIDERS: PCP Internal Medicine; Visit Provider Orthopaedic Surgery
DX: Z98.890 Other specified postprocedural states (principal)
CPT/HCPCS: 99024

== ENCOUNTER → 2023-11-23 14:37 | Outpatient (BNVA) | payer BC, SELFPAY | PROVIDERS: PCP Internal Medicine; Visit Provider Orthopaedic Surgery ==

== ENCOUNTER 2023-12-25 08:25 | Outpatient (AMB) | payer BC, SELFPAY ==
--- NOTE | 2023-12-25 08:26 | MHC.OFFVIS ---
Intake Visit Reasons: OV - Right Medial Meniscus Root Repair - 09/06/23 Intake Note: Christen is a 58 year old female who presents today for a post operative appointment s.p Right Knee - Root repair of right medial meniscus 09/06/23. At her last visit on 11/23/23 she was instructed to discontinue brace and crutches, work on aggressive PT and a prescription of Celebrex was sent to her pharmacy. Patient reports that she is doing well, with no concerns. She has complaints of pain in the right Achilles and lower back pain, Low back pain is described as a burning. Denies numbness and tingling in the foot. Allergies timolol Allergy (Severe, Verified 12/25/23 08:33) Swelling fluticasone [From FLONASE] Allergy (Unknown, Verified 12/25/23 08:33) SWELLING TONGUE/THROAT propranolol [From INDERAL LA] Allergy (Unknown, Verified 12/25/23 08:33) HEADAACHE salmeterol [From ADVAIR DISKUS] Allergy (Unknown, Verified 12/25/23 08:33) RASH dorzolamide Allergy (Verified 12/25/23 08:33) Swelling HPI HPI OV - Right Medial Meniscus Root Repair - 09/06/23: Details: Christen is doing well 4 months status post right meniscal root repair. She is having some back and Achilles pain as she progresses with physical therapy. She feels some stiffness in her knee but no pain PFSH Medical History Eye abnormality Surgery, elective Glaucoma Hemidiaphragm paralysis Afib Detached retina Asthma Allergic rhinitis Surgical History History of total left knee replacement H/O: hysterectomy S/P cervical spinal fusion H/O eye surgery H/O hernia repair H/O Spinal surgery Social History Alcohol intake: never Patient Tobacco Use Status: Never used Tobacco service: No Current occupational status: unemployed Physical Exam Extrem Other: Right knee with 0-125 degrees of motion. Trace effusion. Negative Iban's. Mild tenderness over the pes anserinus bursa. No joint line tenderness. Assessment & Plan Assessment & Plan (1) S/P medial meniscal repair: Code(s): Z98.890 - Other specified postprocedural states Category: Surgical Plan: I refilled her Celebrex prescription and recommend she continue physical therapy. Follow up 2 months. Medications: Refilled celecoxib (Celebrex) 200 mg PO DAILY 30 caps 0RF Coding Level of Care Code Est Pt Level 3 (04512) Diagnoses S/P medial meniscal repair Z98.890
== END 2023-12-25 08:51 | disposition home or self-care (01) ==
PROVIDERS: PCP Internal Medicine; Visit Provider Orthopaedic Surgery
DX: S83.241D Other tear of medial meniscus, current injury, right knee, subsequent encounter (principal)
CPT/HCPCS: 99212

== ENCOUNTER 2024-02-19 08:18 | Outpatient (AMB) | payer BC, SELFPAY ==
--- NOTE | 2024-02-19 08:23 | A.OFFVIS_ITS ---
Vital Signs 02/19/24 08:26 Height 5 ft 10 in Weight 250 lb BMI 35.9 Intake Visit Reasons: OV - Right Medial Meniscus Root Repair - 09/06/23 Intake Note: Christen is a 58 year old female who presents today for a post operative appointment s.p Right Knee - Root repair of right medial meniscus 09/06/23. At her last visit her Celebrex was refilled and she was instructed to continue working with physical therapy. Patient reports that she is is doing well, she explains a popping sensation with extension of the leg. she also explains pain in tibial plateau, mostly felt with walking. Allergies timolol Allergy (Severe, Verified 12/25/23 08:33) Swelling fluticasone [From FLONASE] Allergy (Unknown, Verified 12/25/23 08:33) SWELLING TONGUE/THROAT propranolol [From INDERAL LA] Allergy (Unknown, Verified 12/25/23 08:33) HEADAACHE salmeterol [From ADVAIR DISKUS] Allergy (Unknown, Verified 12/25/23 08:33) RASH dorzolamide Allergy (Verified 12/25/23 08:33) Swelling HPI HPI OV - Right Medial Meniscus Root Repair - 09/06/23: Details: Right knee doing well s/p root tear with occasional noise but no pain. Doing well. Engaging in daily activity. [facility] Medical History Eye abnormality Surgery, elective Glaucoma Hemidiaphragm paralysis Afib Detached retina Asthma Allergic rhinitis Surgical History History of total left knee replacement H/O: hysterectomy S/P cervical spinal fusion H/O eye surgery H/O hernia repair H/O Spinal surgery Social History Alcohol intake: never Patient Tobacco Use Status: Never used Tobacco service: No Current occupational status: unemployed Physical Exam Vital Signs: BMI result Body Mass Index 35.9 Extrem Other: full ROM no pain mild ttp over tibial anchor Assessment & Plan Assessment & Plan (1) S/P medial meniscal repair: Code(s): Z98.890 - Other specified postprocedural states Category: Surgical Plan: Doing well with no pain. Continue strengthening and daily activity as tolerated. Coding Level of Care Code Est Pt Level 3 (73728) Diagnoses S/P medial meniscal repair Z98.890
[2024-02-19 08:26] VITALS: BMI 35.9
--- OUTSIDE RECORDS SUMMARY | 2024-02-19 08:27 | XMS_ITS | Data Portability ---
Author Organization [place] - [facility],, ELADIA MILLER MD Address [address] [address] Assessment No assessment recorded. Plan of Treatment Reminders Order Date Submit Date Provider Last Modified By Organization Details Last Modified Time Details Appointments ANNUAL EXAM 2024 10:40A M Eladia Miller MD Not available Not available Not available Lab pap, LB 2018 019 BELKIS [facility], Cytopathology Service, [address] [place] [address], [id number], 02/28/2018 13:20:24 pap, LB, vaginal 2019 020 [email or web address] [facility], Cytopathology Service, [address] [place] [address], [id number], 04/19/2019 07:51:18 fecal occult blood, stool 2019 020 [email or web address] In-Office Order, Internal Use Only DO Not Attach Compendium DO Not Attach Compendium, Do Not Delete/merge, [id number] 04/19/2019 07:51:17 pap test, thinprep , cervical 2020 021 [facility], Cytopathology Service, [address] [place] [address], [id number], 01/18/2021 08:27:08 fecal occult blood, stool 2020 021 [email or web address] 1 In-Office Order, Internal Use Only DO Not Attach Compendium DO Not Attach Compendium, Do Not Delete/merge, [id number] 12/28/2020 11:08:17 pap, LB, vaginal 2021 022 [email or web address] [facility], [address] [place], [address], 01/18/2022 07:42:30 fecal occult blood, stool 2021 022 [email or web address] 1 In-Office Order, Internal Use Only DO Not Attach Compendium DO Not Attach Compendium, Do Not Delete/merge, [id number] 01/10/2022 12:50:14 pap test, thinprep , cervical 2022 023 [facility], [address] [place], [address], 01/23/2023 10:53:54 fecal occult blood, stool 2022 023 [email or web address] 1 In-Office Order, Internal Use Only DO Not Attach Compendium DO Not Attach Compendium, Do Not Delete/merge, [id number] 01/16/2023 09:47:14 Referral None recorded . Procedures None recorded . Surgeries None recorded . Imaging MAMMO, screenin g, digital, bilatera l 2019 020 [facility] ([facility]), [address] [place], [address], 11/25/2019 17:04:33 MAMMO, screenin g, digital, bilatera l 2020 021 [facility] ([facility]), [address] [place], [address], 01/20/2021 16:07:28 MAMMO, screenin g, digital, bilatera l 2021 022 [facility] ([facility]), [address] [place], [address], 04/08/2022 16:32:42 MAMMO, screenin g, digital, bilatera l - Breast Aspirati on and/or Biopsy if needed 2022 023 [facility] (Mammography), [address] [facility], [place], [address], 04/14/2023 18:29:40 Medication Orders estradio l 1 mg tablet 2019 020 [facility], [address] [place] [address], [id number], 01/16/2023 09:18:39 estradio l 1 mg tablet 2020 021 [facility], [address] [place] [address], [id number], 01/16/2023 09:18:39 Patient TargetsNo targets recorded. Patient Instructions Encounter Date Encounter Id Patient Instructions Last Modified By Organization Details Last Modified Time 02/26/2018 [id number] abnormal Pap nate t: care instructions [email or web address] Not available 02/26/2018 13:12:57 She is here for a repeat pap 3 months after pap with ASCUS without HR HPV. Pap is taken, await results, options discussed. If negative then resume annual pap. If ASCUS or worse then colpo vaginal canal. Hysterectomy was done for prolapse, not dysplasia. Not available 02/26/2018 13:14:03 04/12/2019 [id number] She is here for annual exam, is on leave from work because she has severe allergic reactions at work but they do not want to do testing to find out what is causing it. She is doing well on the ERT and elects to continue. Note from 2018: She is here for annual exam, is doing well on the 1 mg estradiol and elects to continue. she has had a hysterectomy. She ran out of her meds for one week and had the return of severe vasomotor symptoms after a week! She appears to be doing well. She is advised to get 1500 mg of calcium daily into her diet and supplements combined. We discussed the benefits of adequate vitamin D supplementation to at least 400 units daily, daily aerobic exercise of 30 minutes, and stress reduction. Monthly self breast exam was taught, and stressed, and is advised to call if she discovers any new mass in the breast. Seat belt use for herself and passengers advised. The significant health benefits of becoming and remaining fit, with an optimal BMI, were discussed. We discussed the potential reduction in chronic discomfort, the diminished risks of hypertension, diabetes, and heart disease with the proper weight management, and improved mobility as she ages. Strategies to reach and maintain her target weight were discussed in detail. We discussed the avoidance of empty calories, the benefit of increasing her protein intake in the morning and diminishing her carbohydrate intake in the evening. A formalized dietary program was discussed, such as Weight Watchers. We discussed the use of the BMI calculator in following her progress. We discussed having her continue to take hormone replacement therapy. We discussed the need to take a progestin if a uterus is present, and the rationale behind that. We discussed the stated risks of one in 10,000 of development of a blood clot/DVT/PE that could be life threatening. We discussed the Women's Health Initiative study and the findings. We discused the PEPPI study as well. She is aware that there are conflicting reports in the medical literature concerning the risks and benefits of HRT. We disussed that women are advised by ACOG to take HRT in the lowest dose necessary, and for the shortest time necessary, to control their symptoms. After a long discussion of the potential risks and benefits of HRT she elects to continue HRT. All questions were answered. Rx for HRT is called in to the pharmacy. Call if any vaginal bleeding occurs upon initiation of HRT, or at any time postmenopausally. Not available 04/12/2019 11:38:11 12/28/2020 [id number] learning about healthy weight [email or web address] Not available 12/28/2020 11:08:18 She is here for annual exam, doing well on the ERT but has decided to wean down off of it because she has been stationary due to her eye surgery and will need to do so again in February. We discussed how to wean down by dropping a day a week. _ note from 2019: She is here for annual exam, is on leave from work because she has severe allergic reactions at work but they do not want to do testing to find out what is causing it. She is doing well on the ERT and elects to continue. She appears to be doing well. She is advised to get 1500 mg of calcium daily into her diet and supplements combined. We discussed the benefits of adequate vitamin D supplementation to at least 400 units daily, daily aerobic exercise of 30 minutes, and stress reduction. Monthly self breast exam was taught, and stressed, and is advised to call if she discovers any new mass in the breast. Not available 12/28/2020 11:09:23 01/10/2022 [id number] learning about healthy weight Not available 01/10/2022 12:50:14 She is here for annual, has had a rough year. Has afib, needs cardiac ablation. Still on half dose HRT, advised she should stop it in in afib, she agree sto do so. Note from 2020: She is here for annual exam, doing well on the ERT but has decided to wean down off of it because she has been stationary due to her eye surgery and will need to do so again in February. We discussed how to wean down by dropping a day a week. She agrees to stop HRT. She will discuss posible use of clonidine with her PCP as she has HTN. We also discussed posible gabapentin for vasomotor symptoms. She belinda try Remifemin black cohash now. She appears to be doing well. Monthly self breast exam was taught, and stressed, and is advised to call if she discovers any new mass in the breast. Not available 01/10/2022 12:51:26 01/16/2023 [id number] learning about healthy weight Not available 01/16/2023 09:47:14 It has been a difficult year. 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 The afib is finally gone, though. She is hainvg very significant depth perception issues. note from 2021: She is here for annual, has had a rough year. Has afib, needs cardiac ablation. Still on half dose HRT, advised she should stop it in in afib, she agree sto do so. We discussed that she should have her PCP get her a referral for home OT to assess her depth of perception problems in the home, on stairs, etc. 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 She appears to be doing well. Monthly self breast exam was taught, and stressed, and is advised to call if she discovers any new mass in the breast. Not available 01/16/2023 09:47:06 Reason for Referral None Reported. Results Created Date Observation Date Name Description Value Unit Range Abnormal Flag Note LastModifiedBy Organization Detail LastModifiedTime 04/12/2019 fecal occul t blood , stool Occult Blood negati ve Not Available In-Office Order Internal Use Only DO Not Attach Compendium DO Not Attach Compendium, Do Not Delete/merge, [id number] 04/12/2019 11:15:42 02/26/19 19 02/26/2018 pap, LB [id number] ThinP rep Pap, Image d: NEGAT CHRISTIANO FOR SQUAM OUS INTRA EPITH ELIAL ERICA Cast AND CARMELLA LOPEZ . Aissatou da is prese nt. Julieta Castanon , NELL( CP) (Case elect esau goldsmith rafaela d 02 28 2018) ADEQU ACY: Satis facto ry Endoc ervic al/tr ansfo rmati on zone compo nent absen t. SOURC E: ThinP rep Pap HPV IF ASCUS , Cervi nneka, Image d CLINI NNEKA INFOR MATIO N: HPV If Diagn osis of ASCUS . Z12.4 , ASCUS (-) HP, 3 MONTH REPEA T PAP Not Available [facility], Cytopathology Service [address] [place], [address], 02/28/2018 13:20:24 04/12/19 20 04/12/2019 pap, LB [id number] ThinP rep Pap, Image d: NEGAT CHRISTIANO FOR SQUAM OUS INTRA EPITH ELIAL LESIO N AND MALIG JESSICA . Mica singh , CT( CP) (Case elect esau goldsmith rafaela d 04 16 2019) ADEQU ACY: Satis facto ry . SOURC E: ThinP rep Pap HPV IF ASCUS , Vagin al, Image d CLINI NNEKA INFOR MATIO N: HPV If Diagn osis of ASCUS . lps neg, hyste recto my, no cervi x, z12.4 , z01.4 19 Not Available [facility], Cytopathology Service [address] [place], [address], 04/16/2019 11:17:55 12/29/19 21 12/28/2020 PAP1C ASE [id number] ThinP rep Pap, Image d: NEGAT CHRISTIANO FOR SQUAM OUS INTRA EPITH ELIAL LESIO N AND MALIG JESSICA . Note: The Pap test is a scree oc test with an inher ent false negat christiano rate. Autom ated presc reebakari ng of all liqui d based speci mens is perfo rmed by the ThinP rep Imagi ng Laly nur [facility] kenia grover , CT( CP) (Case elect esau goldsmith rafaela d 01 12 2021) ADEQU ACY: Satis facto ry . SOURC E: ThinP rep Pap HPV IF ASCUS , Vagin al, Image d CLINI NNEKA INFOR MATIO N: HPV If Diagn osis of ASCUS . LPS 0 neg, z01.4 19 Not Available [facility], Cytopathology Service [address] [place], [address], 01/12/2021 16:15:50 12/29/19 21 12/28/2020 fecal occul t blood , stool Occult Blood negati ve Not Available In-Office Order Internal Use Only DO Not Attach Compendium DO Not Attach Compendium, Do Not Delete/merge, [id number] 12/28/2020 10:03:41 01/11/20 22 01/10/2022 [facility] CYTOL OGY results Paticraig nt Name: ADRIAN LARKIN RA : 1965 (Age: 56) Lab Acces adriel #: [id number] Colle ction Date: 2021 Acces adriel Date: 2021 Sign Out Date: 2021 Tissu e Sourc e: 1: THINP REP MANAGER STERILE PROCESSING PAP TEST, VAGIN AL: Final Diagn osis: NEGAT CHRISTIANO FOR INTRA EPITH ELIAL LESIO N OR MALIG JESSICA . Satis facto ry for evalu ation . Clini nneka Histo ry: Date of Last Menst rual Perio d: not avail able Menst rual Histo ry: Hyste recto my Post- menop ausal Contr acept christiano Histo ry: not avail able Ancil radha Testi ng: HPV (ASCU S) Case image d by the ThinP rep Imagi ng Systcraig m with carmel hernandez or ct mclaughlin Perfprasanth rmed at [facility] ate Refer ence Labor atory depar tment of Cytol ogy, [address] [place] Clini nneka Histo ry (othe r): z01.4 19, LPS 2 neg, routi ne scree n Phone #: [phone], On-Ca ll Patho logis t: [id number] Not Available [facility] [address], [place], [address], 01/13/2022 15:20:05 01/11/20 22 01/10/2022 fecal occul t blood , stool Occult Blood negati ve Not Available In-Office Order Internal Use Only DO Not Attach Compendium DO Not Attach Compendium, Do Not Delete/merge, [id number] 01/10/2022 10:02:51 01/17/2001/16/2023 [facility] CYTOL OGY results Patie nt Name: ADRIAN LARKIN RA : 1965 (Age: 57) Lab Acces adriel #: [id number] Colle ction Date: 01/16 Acces adriel Date: 01/16 Sign Out Date: 01/20 Tissu e Sourc e: 1: THINP REP MANAGER STERILE PROCESSING PAP TEST, VAGIN AL: Final Diagn osis: NEGAT CHRISTIANO FOR INTRA EPITH ELIAL LESIO N OR MALIG JESSICA . Satis facto ry for evalu ation . Clini nneka Histo ry: Date of Last Menst rual Perio d: not avail able Menst rual Histo ry: Post- menop ausal Contr acept christiano Histo ry: not avail able Ancil radha Testi ng: HPV (ASCU S) Case image d by the ThinP rep Imagi ng Syste m with carmel hernandez or ct nugent. Perfo rmed at [facility] ate Refer ence Labor atory depar tment of Cytol ogy, [address] [place] Clini nneka Histo ry (othe r): Z01.4 19, routi ne carlose n, LPS neg Phone #: [phone], On-Ca ll Patho logis t: [id number] Not Available [facility] [address], [place], [address], 01/20/2023 11:19:57 01/17/20 23 01/16/2023 fecal occul t blood , stool Occult Blood negati ve Not Available In-Office Order Internal Use Only DO Not Attach Compendium DO Not Attach Compendium, Do Not Delete/merge, [id number] 01/16/2023 09:18:05 11/20/19 19 11/17/2018 MAMMO , vasu renae, digit al, bilat eral No observ ation record ed. [facility] ([facility]) [address] [facility], [place], [address], 11/19/2018 13:22:13 11/25/19 20 11/23/2019 MAMMO , scree oc, digit al, bilat eral No observ ation record ed. Not Available 11/07 08:49:03 01/21/20 21 01/19/2021 MAMMO , scree oc, digit al, bilat eral No observ ation record ed. Not Available 01/06 08:53:31 04/09/19 23 04/07/2022 MAMMO , scree oc, digit al, bilat eral No observ ation record ed. Not Available 2022 14:06:51 04/13/19 23 04/12/2022 US, breas t No observ ation record ed. Not Available 08/2022 13:56:26 04/13/19 23 04/12/2022 MAMMO , diagn ostic , digit al, unila teral No observ ation record ed. [address], [address], 04/12/2022 13:56:26 04/14/19 24 04/14/2023 MAMMO , scree oc, digit al, bilat eral No observ ation record ed. [facility] [address] [place], [address], 04/16/2023 08:28:33 Result Notes None recorded. Problems Name Problem SNOMED Code Status Onset Date Resolution Date Notes Provider Name and Address Organization Details Recorded Time Menopausal syndrome 106783866 Active Eladia Miller MD [address], [place], [address], [place] - [facility], 5 09:07:22 Candidal vulvovagini tis 41787406 Active Eladia Miller MD [address], [place], [address], [place] - [facility], 5 09:40:02 Vaginitis 64868008 Active Eladia Miller MD [address], [place], [address], [place] [facility], 5 09:40:02 Insomnia 461424920 Active 2017 Eladia Miller MD [address], [place], [address], [place] - [facility], 8 09:09:13 Hiatal hernia 13931145 Active 2020 Clarita chavez [place] - [facility], 1 10:14:30 Retinal detachment 09867101 Active 2020 Clarita chavez [place] - [facility], 1 10:14:37 Atrial fibrillatio n 06660513 Active 2021 Clarita chavez [place] - [facility], 2 10:11:52 Blind right eye 734544229 Active 2022 Clarita chavez [place] - [facility], 3 09:21:55 Complete blindness of right eye 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 Active 2022 Eladia Miller MD [address], [place], [address], [place] - [facility], 3 09:48:04 Tunnel vision of left eye 7412340839185 09 Active 2022 Eladia Miller MD [address], [place], [address], [place] - [facility], 3 09:48:17 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 Spinal stenosis Problem Notes None recorded. Procedures Surgical History Date Name Laterality Status Provider Name and Address Organization Details Recorded Time 04/13/19 23 Most Recent Mammogram completed Jessica Wagner in [facility], 01/09/2023 12:05:32 09/22/19 22 primary fusion of cervical spine completed Clarita Wagner in [facility], 01/10/2022 10:13:43 07/20/19 22 Glaucoma surgery completed Clarita Wagner in [facility], 01/10/2022 10:13:36 02/17/19 22 Eye surgery follow-up add-on completed Clarita Wagner in [facility], 01/10/2022 10:12:52 09/23/19 21 procedure on retina completed Clarita Wagner in [facility], 12/28/2020 10:14:03 07/16/19 21 esophageal hiatus hernia repair completed Clarita Wagner in [facility], 12/28/2020 10:12:43 06/10/19 21 excision of synovial cyst completed Clarita Hills [place] - [facility], 12/28/2020 10:11:56 03/09/19 16 Other completed Jessica Anderson [place] - [facility], 03/18/2016 08:27:52 03/09/19 14 Other completed Teresa Wagner in [facility], 09/22/2014 08:53:02 02/06/19 10 Other completed Jessica Anderson [place] - [facility], 10/24/2011 10:57:56 02/06/19 04 Other completed Jessica Anderson [place] - [facility], 10/24/2011 10:57:56 02/06/18 94 Hysterectomy completed Eladia Miller MD [address] [facility],[address], [place], [address], [place] - [facility], 02/07/2013 08:24:16 Imaging Results Imaging Date Name Status LastModified by [facility] Details LastModified Time 11/17/2018 MAMMO, screening, digital, bilateral completed [facility]) [address] [place], [address], 11/19/2018 13:22:13 11/23/2019 MAMMO, screening, digital, bilateral completed Information not available 11/26/2019 08:49:03 01/19/2021 MAMMO, screening, digital, bilateral completed Information not available 01/21/2021 08:53:31 04/07/2022 MAMMO, screening, digital, bilateral completed Information not available 04/14/2022 14:06:51 04/12/2022 US, breast completed Information n ot available 04/12/2022 13:56:26 04/12/2022 MAMMO, diagnostic, digital, unilateral completed [address], [address], 04/12/2022 13:56:26 04/14/2023 MAMMO, screening, digital, bilateral completed [facility] [address] [place], [address], 04/16/2023 08:28:33 Procedure Notes None recorded. Medical Equipment None Reported. Allergies Allergen ID Allergen Name Allergen Category Reaction Reaction Severity Criticality Documentation Date Start Date Code Code System Note Provider Name and Address Organization Details Recorded Time 81419 dorzolami de medicatio n facial swelling severe high 01/10/2022 24239 RxNorm [place] Valentin in [facility], 2 10:03:35 4141 Inderal medicatio n Not available Not available Not available 10/24/2011 68774 0 RxNorm bad heada ches [place] Marsh in [facility], 2 10:57:56 4142 Flonase medicatio n Not available Not available Not available 10/24/2011 74323 RxNorm throa t swell s [place] Marsh in [facility], 2 10:57:56 4143 fluticaso ne / salmetero l medicatio n Not available Not available Not available 10/24/2011 58601 5 RxNorm rash Jessica Justin chavez [place] - [facility], 2 10:57:56 Medications Name Sig Start Date Stop Date Status Note LastModified by Organization Details LastModified Time amoxicillin 500 mg capsule active Not Available Not Available Not Available latanoprost 0.005 % eye drops INSTILL 1 DROP IN RIGHT EYE AT BEDTIME 01/10 completed Not Available Not Available Not Available bupropion HCl SR 150 mg tablet,12 hr sustained-r elease TAKE 1 TABLET BY MOUTH TWICE DAILY active Not Available Not Available No t Available prednisone 10 mg tablet take 4 tablets by mouth every morning for 3 days then take 3 tabl... (REFER TO PRESCRIPT ION NOTES). 10/18 completed Not Available Not Available Not Available atorvastati n 20 mg tablet active Not Available Not Available Not Available tizanidine 2 mg tablet TAKE 1 TABLET BY MOUTH EVERY 8 HOURS NEEDED FOR SPASM active Not Available Not Available No t Available azithromyci n 250 mg tablet 03/18 completed Not Available Not Available Not Available ofloxacin 0.3 % eye drops INSTILL 1 DROP IN RIGHT EYE FOUR TIMES DAILY 3 DAYS PRIOR TO SURGERY CONTINUE AFTER SURGERY DIRECTED 01/10 completed Not Available Not Available Not Available tizanidine 4 mg tablet TAKE 1/2 TABLET BY MOUTH THREE TIMES DAILY NEEDED FOR SPASM 12/28 completed Not Available Not Available Not Available fluconazole 150 mg tablet TAKE 1 TABLET BY MOUTH AT BEDTIME FOR 1 DAY 03/18 completed Not Available Not Available Not Available citalopram 10 mg tablet 03/18 completed Not Available Not Available Not Available ranitidine 300 mg tablet 04/11 completed Not Available Not Available Not Available diltiazem CD 240 mg capsule,ext ended release 24 hr 01/10 completed Not Available Not Available Not Available fluconazole 200 mg tablet 04/11 completed Not Available Not Available Not Available sucralfate 1 gram tablet TAKE 1 TABLET BY MOUTH EVERY 6 HOURS NEEDED FOR ACID REFLUX 12/28 completed Not Available Not Available Not Available prednisone 20 mg tablet take 3 tablets by mouth for 3 days then take 2 tablets by mouth f... (REFER TO PRESCRIPT ION NOTES). 04/11 completed Not Available Not Available Not Available sulindac 150 mg tablet 12/28 completed Not Available Not Available Not Available amlodipine 2.5 mg tablet TAKE 1 TABLET BY MOUTH ONCE DAILY 12/28 completed Not Available Not Available Not Available acetaminoph en 300 mg-codeine 30 mg tablet TAKE 2 TABLETS BY MOUTH EVERY 4 HOURS NEEDED FOR PAIN. 01/16 completed Not Available Not Available Not Available methazolami de 50 mg tablet TAKE 1 TABLET BY MOUTH THREE TIMES DAILY WITH MEALS 01/16 completed Not Available Not Available Not Available aspirin 81 mg tablet,pradeep yed release 12/28 completed Not Available Not Available Not Available tramadol 50 mg tablet TAKE 1 TO 2 TABLETS BY MOUTH EVERY 8 HOURS NEEDED FOR PAIN 01/16 completed Not Available Not Available Not Available acetaminoph en 500 mg tablet TAKE 2 TABLET BY MOUTH EVERY 8 HOURS 12/28 completed Not Available Not Available Not Available amoxicillin 500 mg tablet 04/11 completed Not Available Not Available Not Available ketorolac 0.5 % eye drops 10/18 completed Not Available Not Available Not Available oxycodone-a cetaminophe n 5 mg-325 mg tablet take 1 tablet by mouth every 12 hours if needed for pain for UP TO 7 DAYS. 10/18 completed Not Available Not Available Not Available hydrocortis one 2.5 % topical cream with perineal applicator active Not Available Not Available N ot Available alprazolam 0.5 mg tablet 10/18 completed Not Available Not Available Not Available famotidine 20 mg tablet TAKE 1 TABLET BY MOUTH TWICE DAILY FOR 6 DAYS. AVOID EATING AND DRINKING FOR 10 MINUTES AFTER EACH DOSE active Not Available Not Available No t Available prednisolon e acetate 1 % eye drops,suspe nsion INSTILL 1 DROP INTO THE RIGHT EYE EVERY DAY DIRECTED active Not Available Not Available No t Available lorazepam 0.5 mg tablet TAKE 1 TABLET BY MOUTH TWICE DAILY FOR UP TO 4 DOSES NEEDED FOR ANXIETY 01/16 completed Not Available Not Available Not Available methocarbam ol 750 mg tablet take 1 tablet by mouth three times a day if needed for MUSCLE SPASM FOR UP TO 10 DAYS. 10/18 completed Not Available Not Available Not Available estradiol 1 mg tablet TAKE 1 TABLET DAILY 01/16 completed Not Available Not Available Not Available diltiazem CD 300 mg capsule,ext ended release 24 hr 01/16 completed Not Available Not Available Not Available pantoprazol e 40 mg tablet,pradeep yed release 04/11 completed Not Available Not Available Not Available erythromyci n 5 mg/gram (0.5 %) eye ointment USE ON THE RIGHT EYE LID AT BEDTIME DIRECTED 01/16 completed Not Available Not Available Not Available nortriptyli ne 10 mg capsule TAKE 1 CAPSULE BY MOUTH AT BEDTIME 01/10 completed Not Available Not Available Not Available oseltamivir 75 mg capsule take 1 capsule by mouth twice a day for 5 days 04/11 completed Not Available Not Available Not Available fluorometho lone 0.1 % eye drops,suspe nsion SHAKE LIQUID AND INSTILL 1 DROP IN RIGHT EYE EVERY DAY DIRECTED active Not Available Not Available No t Available brimonidine 0.2 % eye drops INSTILL 1 DROP RIGHT EYE THREE TIMES DAILY active Not Available Not Available No t Available progesteron e micronized 200 mg capsule TAKE 1 CAPSULE DAILY at HS 04/11 completed Not Available Not Available Not Available nitroglycer in 0.[address] 1 tablet under the tongue every 5 minutes for chest pain if needed 04/11 completed Not Available Not Available Not Available gabapentin 300 mg capsule TAKE 1 CAPSULE BY MOUTH NEEDED FOR HEADACHE UP TO 2 TIMES A DAY active Not Available Not Available No t Available estradiol 2 mg tablet TAKE 1 TABLET DAILY (NEEDS APPOINTME NT) 10/18 completed Not Available Not Available Not Available montelukast 10 mg tablet Take 1 tablet every day by oral route. active Not Available Not Available No t Available lorazepam 1 mg tablet 04/11 completed Not Available Not Available Not Available azelastine 137 mcg (0.1 %) nasal spray USE 2 SPRAYS IN EACH NOSTRIL TWICE DAILY active Not Available Not Available No t Available epinephrine 0.3 mg/0.3 mL injection, auto-inject or active Not Available Not Available Not Available zolpidem 10 mg tablet TAKE 1 TABLET BY MOUTH AT BEDTIME active Not Available Not Available No t Available methylpredn isolone 4 mg tablets in a dose pack FOLLOW PACKAGE DIRECTION S 12/11 /2023 completed Not Available Not Available Not Available albuterol sulfate HFA 90 mcg/actuati on aerosol inhaler active Not Available Not Available Not Available timolol maleate 0.5 % eye drops INSTILL 1 DROP IN RIGHT EYE TWICE DAILY 01/10 completed Not Available Not Available Not Available ketoconazol e 2 % topical cream active Not Available Not Available Not Available atropine 1 % eye drops INSTILL 1 DROP RIGHT EYE TWICE DAILY active Not Available Not Available No t Available diltiazem 60 mg tablet TAKE 1 TABLET BY MOUTH FOUR TIMES DAILY 01/10 completed Not Available Not Available Not Available fludrocorti sone 0.1 mg tablet 04/11 completed Not Available Not Available Not Available doxycycline hyclate 100 mg tablet 03/18 completed Not Available Not Available Not Available brimonidine 0.15 % eye drops INSTILL 1 DROP IN LEFT EYE TWICE DAILY DIRECTED active Not Available Not Available No t Available amoxicillin 875 mg-potassiu m clavulanate 125 mg tablet TAKE 1 TABLET BY MOUTH TWICE DAILY 12/28 completed Not Available Not Available Not Available dorzolamide 2 % eye drops 01/10 completed Not Available Not Available Not Available nabumetone 500 mg tablet active Not Available Not Available Not Available amoxicillin 500 mg-potassiu m clavulanate 125 mg tablet 04/11 completed Not Available Not Available Not Available oxycodone 5 mg tablet TAKE 1 TABLET BY MOUTH EVERY 6 HOURS NEEDED FOR PAIN 01/16 completed Not Available Not Available Not Available Pneumovax-2 3 25 mcg/0.5 mL injection syringe inject 0.5 millilite r intramusc ularly active Not Available Not Available No t Available azithromyci n 500 mg tablet take 1 tablet by mouth once daily for 7 days 04/11 completed Not Available Not Available Not Available moxifloxaci n 0.5 % eye drops INSTILL 1 DROP IN RIGHT EYE FOUR TIMES DAILY DIRECTED active Not Available Not Available No t Available DILT-XR 180 mg capsule, extended release active Not Available Not Available Not Available Alphagan P 0.1 % eye drops INSTILL 1 DROP LEFT EYE TWICE DAILY 01/16 completed Not Available Not Available Not Available Pulmicort Flexhaler 180 mcg/actuati on breath activated 12/28 completed Not Available Not Available Not Available Symbicort 160 mcg-4.5 mcg/actuati on HFA aerosol inhaler INHALE 2 PUFFS BY MOUTH TWICE A DAY active Not Available Not Available No t Available diflupredna te 0.05 % eye drops INSTILL 1 DROP IN RIGHT EYE FOUR TIMES DAILY DIRECTED. DO NOT START UNTIL DIRECTED AFTER SURGERY active Not Available Not Available No t Available Gavilyte-C 240 gram-22.72 gram-6.72 gram-5.84 gram oral solution 12/28 completed Not Available Not Available Not Available Lumigan 0.01 % eye drops INTILL 1 DROP LEFT EYE EVERY NIGHT AT BEDTIME active Not Available Not Available No t Available Combivent Respimat 20 mcg-100 mcg/actuati on solution for inhalation inhale 1 puff by mouth three times a day if needed for shortness of breath ,WHEEZING OR COUGH active Not Available Not Available No t Available Linzess 145 mcg capsule TAKE 1 CAPSULE BY MOUTH DAILY 01/10 completed Not Available Not Available Not Available Eliquis 5 mg tablet TAKE 1 TABLET BY MOUTH TWICE DAILY 01/16 completed Not Available Not Available Not Available Fluvirin 2518-1579(P F) 45 mcg (15 mcg x3)/0.5 mL intramuscul ar syringe inject 0.5 millilite r intramusc ularly active Not Available Not Available No t Available Afluria 8181-9548 (PF) 45 mcg (15 mcg x 3)/0.5 mL IM syringe active Not Available Not Available N ot Available Shingrix (PF) 50 mcg/0.5 mL intramuscul ar suspension, kit active Not Available Not Available Not Available Afluria Quad (PF) 60 mcg (15 mcg x 4)/0.5 mL IM syringe inject 0.5 millilite r intramusc ularly active Not Available Not Available No t Available Flucelvax Quad (PF) 60 mcg (15 mcg x 4)/0.5 mL IM syringe inject 0.5 millilite rs intramusc ularly active Not Available Not Available No t Available Flowflex COVID-19 Antigen Home Test kit active Not Available Not Available Not Available Vitals Date Recorded Body height Body mass index (BMI) Body weight Heart rate Systolic blood pressure Diastolic blood pressure Provider Name and Address Organization Details Last Updated DateTime 9 177.8 cm 35.8 kg/m2 500385. 22 g 73 /min 142 mm[Hg] 66 mm[Hg] Jessica Wagner in [facility], 9 12:58:32 Date Recorded Body height Heart rate Body mass index (BMI) Body weight Systolic blood pressure Diastolic blood pressure Provider Name and Address Organization Details Last Updated DateTime 0 177.8 cm 76 /min 36.3 kg/m2 176408. 87 g 154 mm[Hg] 77 mm[Hg] Jessica Wagner in [facility], 0 11:09:01 Date Recorded Body height Body temperature Body mass index (BMI) Body weight Heart rate Systolic blood pressure Diastolic blood pressure Provider Name and Address Organization Details Last Updated DateTime 1 177.8 cm 97.2 [degF] 32.7 kg/m2 675279. 06 g 67 /min 132 mm[Hg] 63 mm[Hg] Clarita Wagner in [facility], 1 10:06:49 Date Recorded Body weight Body mass index (BMI) Body height Systolic blood pressure Diastolic blood pressure Provider Name and Address Organization Details Last Updated DateTime 01/10/2022 006011.0 9 g 35.9 kg/m2 177.8 cm 116 mm[Hg] 56 mm[Hg] Clarita Wagner in [facility], 2 10:08:08 Date Recorded Body weight Body mass index (BMI) Body height Heart rate Systolic blood pressure Diastolic blood pressure Provider Name and Address Organization Details Last Updated DateTime 3 927383. 02 g 33.4 kg/m2 177.8 cm 73 /min 133 mm[Hg] 66 mm[Hg] Clarita Wagner in [facility], 3 09:21:16 Social History Question Answer Notes LastModified by Organizat ion Details LastModified Time Tobacco Smoking Status Never Smoker Not Available [employer] 12/10/2019 03:19:40 What Is Your Level Of Alcohol Consumption? None Information not available 01/10/2022 How Many Years Have You Consumed Alcohol? 35 Information not available 12/28/2020 What Is Your Level Of Caffeine Consumption? None Information not available 01/10/2022 In The 14 Days Before Symptom Onset, Have You Had Close Contact With A Laboratory-confir med COVID-19 While That Case Was Ill? No Information not available 01/10/2022 In The 14 Days Before Symptom Onset, Have You Had Close Contact With A Person Who Is Under Investigation For COVID-19 While That Person Was Ill? No Information not available 12/28/2020 Have You Been To An Area Known To Be High Risk For COVID-19? No Information not available 12/28/2020 Are You Currently Employed? No Information not available 12/28/2020 What Type Of Diet Are You Following? REGULAR [id number] Information not available 12/10/2019 Which Illicit Or Recreational Drugs Have You Used? No [id number] Information not available 12/10/2019 Do You Reside In Or Have You Traveled To An Area Where Ebola Virus Transmission Is Active? No [id number] Information not available 12/10/2019 Do You Or Have You Ever Used E-cigarettes Or Vape? Never Used Electronic Cigarettes [id number] Information not available 12/10/2019 Education 12 Information no t available 10/24/2011 What Is The Highest Grade Or Level Of School You Have Completed Or The Highest Degree You Have Received? [id number] Information not available 12/28/2020 What Is Your Occupation? Not Working At This Time. [id number] Information not available 12/10/2019 How Many Days In The Past Year Have You Had A Heavy Drinking Consumption (4+ Female, 5+ Male)? 3 Information no t available 04/12/2019 Are There Any Guns Present In Your Home? No Information not available 12/28/2020 High Number Of Sexual Partners No Information not available 03/18/2016 To Which Gender Do You Self-identify? Female Information not available 03/18/2016 Marital Status Informatio n not available 10/24/2011 What Was The Date Of Your Most Recent Tobacco Screening? 01/16/2023 Information not available 01/16/2023 What Is Your Relationship Status? Information not available 12/28/2020 Are You Sexually Active? Yes [id number] Information not available 12/10/2019 Do You Or Have You Ever Used Smokeless Tobacco? Never Used Smokeless Tobacco [id number] Information not available 12/10/2019 How Much Tobacco Do You Smoke? No [id number] Information not available 12/10/2019 General Stress Level High Information not available 10/24/2011 Do You Feel Stressed (tense, Restless, Nervous, Or Anxious, Or Unable To Sleep At Night)? [id number] Information not available 12/28/2020 Do You Use Any Illicit Or Recreational Drugs? No Information not available 12/28/2020 How Many Years Have You Smoked Tobacco? 0 [id number] Information not available 12/10/2019 Have You Recently (within The Last 12 Weeks, Or During A Current ) Traveled To Or Lived In A Zika-affected Area? No Information not available 03/18/2016 Do You Or Have You Ever Used Any Other Forms Of Tobacco Or Nicotine? No Information not available 12/28/2020 How Many Days In The Past Year Have You Consumed 4 Or More Drinks? 0 Information no t available 12/28/2020 Sex: Female Functional Status Question Answer Note LastModified by Organization D etails LastModified Time What is your exercise level? None [id number] Information not available 12/10/2019 Mental Status None recorded. Family History Relationship Description Onset Age of this Age Resolved Age Notes LastModified by Organization Details LastModified Time Maternal Grandmother Problem arthri tis (previ ously record ed as Other) Not available 09/30/2014 09:39:31 Brother Problem arthri tis (previ ously record ed as Other) Not available 09/30/2014 09:39:31 Brother Malignant neoplastic disease skin (previ ously record ed as Cancer ) Not available 09/30/2014 09:39:31 Mother Cerebrovascu lar accident and arthri tis (previ ously record ed as Stroke ) Not available 09/30/2014 09:39:31 Father Problem arthri tis (previ ously record ed as Other) Not available 09/30/2014 09:39:31 Father Malignant tumor of lung previo usly record ed as Lung Cancer Not available 09/30/2014 09:39:31 Paternal Grandfather Malignant neoplastic disease sinus (previ ously record ed as Cancer ) Not available 09/30/2014 09:39:31 Paternal Grandmother Malignant neoplastic disease leukem ia, (previ ously record ed as Cancer ) Not available 09/30/2014 09:39:31 Paternal Grandmother Heart disease previo usly record ed as Heart Proble m Not available 09/30/2014 09:39:31 Maternal Grandfather Diabetes mellitus previo usly record ed as Diabet es Not available 09/30/2014 09:39:31 Maternal Grandfather Heart disease previo usly record ed as Heart Proble m Not available 09/30/2014 09:39:31 Medical History Condition Response Anesthesia complications N High Blood Pressure N Candidate for MyRisk panel N Autoimmune Condition N Thyroid Problems N Kidney or Bladder Problems N GI Problems Y Lung Disease N Depression N Defects or Inherited Disease N History of Ovarian Cancer N Anemia N History of Breast Cancer N LC exposure N BRCA testing in past N Osteopenia N Psychiatric Illness N Anxiety Disorder N Diabetes N Arthritis Y Headaches or Migraines N Infertility N Asthma Y History of Cancer N Endometriosis N Hepatitis N Heart Disease N Hypertension N Osteoporosis N Gynecological History Statement/Question Response Menses Monthly N Age at Menarche 11 Current Control Method Hysterectom y Most Recent Mammogram 04/12/2022 Age at First Child 20 Obstetrics History GPAL:G 2 P 2 0 0 2 Type Value Full Term 2 Living 2 Total 2 Immunizations Vaccine Type Date Status Note Provider Nam e and Address Organization Details Recorded Time influenza, unspecified formulation 3 completed WILLY Valentin in [facility], 01/16/2023 09:20:31 Influenza, split virus, trivalent, preservative 4 completed WILLY Khoury in [facility], 09/22/2014 08:54:38 Influenza, split virus, quadrivalent, preservative 6 completed Jessica [facility]avez, [facility], 03/18/2016 08:25:55 Influenza, split virus, quadrivalent, preservative 8 completed Clarita chavez [facility] - [facility], 01/16/2023 09:20:31 Pneumococcal Conjugate, unspecified formulation 8 completed Clarita chavez [facility] - [facility], 01/16/2023 09:20:32 varicella 9 completed Jessica chavez, [place] - [facility], 04/12/2019 11:04:08 Influenza, split virus, quadrivalent, preservative 9 completed Clarita chavez [facility] - [facility], 01/16/2023 09:20:31 COVID-19, mRNA, LNP-S, PF, 30 mcg/0.3 mL dose 1 completed Clarita chavez [facility] - [facility], 01/16/2023 09:20:31 COVID-19, mRNA, LNP-S, PF, 30 mcg/0.3 mL dose 1 completed Clarita chavez [facility] - [facility], 01/16/2023 09:20:31 COVID-19, mRNA, LNP-S, PF, 30 mcg/0.3 mL dose 1 completed Clarita chavez [facility] - [facility], 01/16/2023 09:20:31 Influenza, split virus, quadrivalent, preservative 1 completed Clarita chavez [facility] - [facility], 01/16/2023 09:20:31 influenza, unspecified formulation 2 completed Clarita chavez [facility] - [facility], 01/16/2023 09:20:31 Pneumococcal Conjugate, unspecified formulation 2 completed Clarita chavez [facility] - [facility], 01/16/2023 09:20:32 Influenza, split virus, trivalent, preservative 2 completed Clarita chavez, [place] - [facility], 01/16/2023 09:20:31 Influenza, MDCK, quadrivalent, PF 0 completed Clarita [place] null, [place] - [facility], 01/16/2023 09:20:31 Influenza, MDCK, quadrivalent, PF 2 completed Clarita [place] null, [place] - [facility], 01/16/2023 09:20:31 zoster recombinant 9 completed Clarita [place] null, [place] - [facility], 01/16/2023 09:20:31 COVID-19, mRNA, LNP-S, PF, 30 mcg/0.3 mL dose 1 completed Clarita [place] null, [place] - [facility], 01/16/2023 09:20:31 COVID-19, mRNA, LNP-S, PF, 30 mcg/0.3 mL dose 1 completed Clarita [place] null, [place] - [facility], 01/16/2023 09:20:31 Pneumococcal conjugate PCV20, polysaccharide [id number] conjugate, adjuvant, PF 2 completed Clarita [place] null, [place] - [facility], 01/16/2023 09:20:31 COVID-19, mRNA, LNP-S, PF, 30 mcg/0.3 mL dose, dmitri-sucrose 2 completed Clarita [place] null, [place] - [facility], 01/16/2023 09:20:31 COVID-19, mRNA, LNP-S, bivalent, PF, 30 mcg/0.3 mL dose 2 completed Clarita chavez, [facility] - [facility], 01/16/2023 09:20:31 pneumococcal polysaccharide PPV23 8 completed Clarita [place] null, [place] - [facility], 01/16/2023 09:20:31 Tdap 8 completed Clarita [place] null, [place] - [facility], 01/16/2023 09:20:31 Pneumococcal conjugate PCV 13 8 completed Clarita chavez [facility] - [facility], 01/16/2023 09:20:31 Influenza, split virus, trivalent, preservative 2 completed Clarita chavez [facility] - [facility], 01/16/2023 09:20:31 Influenza, split virus, trivalent, preservative 2 completed Clarita chavez [facility] - [facility], 01/16/2023 09:20:32 Influenza, split virus, trivalent, preservative 0 completed Clarita chavez [facility] - [facility], 01/16/2023 09:20:32 Influenza, split virus, trivalent, preservative 6 completed Clarita chavez [facility] - [facility], 01/16/2023 09:20:32 Influenza, split virus, trivalent, preservative 9 completed Clarita chavez [facility] - [facility], 01/16/2023 09:20:32 Influenza, split virus, trivalent, preservative 1 completed Clarita chavez [facility] - [facility], 01/16/2023 09:20:32 Influenza, split virus, trivalent, preservative 3 completed Clarita chavez [facility] - [facility], 01/16/2023 09:20:32 Influenza, split virus, trivalent, preservative 9 completed Clarita chavez [facility] - [facility], 01/16/2023 09:20:32 Influenza, split virus, trivalent, PF 6 completed Clarita chavez [facility] - [facility], 01/16/2023 09:20:32 Novel [id number], preservative-free 9 completed Clarita chavez [facility] - [facility], 01/16/2023 09:20:32 Td (adult), 2 Lf tetanus toxoid, preservative free, adsorbed 9 completed WILLY Valentin in [facility], 01/16/2023 09:20:32 Influenza, split virus, quadrivalent, PF 8 completed WILLY Valentin in [facility], 01/16/2023 09:20:32 Past Encounters Encounter ID Performer Location Encounter Start Date Encounter Closed Date Diagnosis/Indication Diagnosis SNOMED-CT Code Diagnosis ICD10 Code Diagnosis Note [id number] MD ELADIA Page MD [address],[place] [address] [place] [address] 10/24/2011 10:31:05 10/24/2011 15:38:00 [id number] Teresa Palafox ELADIA MILLER MD [address] [facility],[place] [address] [place] [address] 02/07/2013 07:52:20 02/07/2013 12:49:34 Specialized medical examination [id number] Screening for malignant neoplasm of rectum 131290783 Screening mammography 34284454 Menopausal syndrome [id number] ELADIA MILLER MD [address] [place] [address] [place] [address] 09/22/2014 08:35:54 09/22/2014 11:06:38 Specialized medical examination [id number] Screening for malignant neoplasm of rectum 971508747 Screening mammography 99904814 Menopausal syndrome [id number] Jessica MILLER MD [address] [place] [address] [place] [address] 09/30/2014 08:19:34 09/30/2014 10:27:10 Candidal vulvovaginitis 85942573 Vaginitis [id number] MD ELADIA Page MD [address] [place] [address] [place] [address] 03/18/2016 08:16:00 03/18/2016 11:30:40 Specialized medical examination 24263108 Z01.419 Screening for malignant neoplasm of rectum 729384892 Z12.12 Screening mammography 24 121631 Z12.31 Menopausal syndrome 1237 38027 N95.9 [id number] MD ELADIA Page MD [address] [place] [address], [address] [address] 10/18/2017 08:07:22 10/18/2017 11:25:05 Specialized medical examination 04919183 Z01.419 Screening for malignant neoplasm of rectum 034795735 Z12.12 Screening mammography 24 683567 Z12.31 Menopausal syndrome 1237 71948 N95.1 [facility] [id number] G47.0 0 [id number] MD ELADIA Page MD [address] [place] [address], [place] [address] 02/26/2018 12:51:24 02/26/2018 14:02:51 Atypical squamous cells of undetermined significance on cervical Papanicolaou smear 144955187 R87.610 [id number] MD ELADIA Page MD [address] [place] [address], [place] [address] 04/12/2019 10:45:52 04/12/2019 12:08:59 Menopausal syndrome 410108356 N95.1 Specialize d medical examination 99340337 Z01.419 Screening for malignant neoplasm of rectum 703343070 Z12.12 Screening mammography 24 609188 Z12.31 [id number] MD ELADIA Page MD [address] [place] [address], [place] [address] 12/28/2020 10:02:44 12/28/2020 11:37:50 Specialized medical examination 07369131 Z01.419 Screening for malignant neoplasm of rectum 102797778 Z12.12 Screening mammography 24 879411 Z12.31 Menopausal syndrome 1237 77445 N95.1 [id number] MD ELADIA Page MD [address] [place] [address], [place] [address] 01/10/2022 09:59:11 01/10/2022 13:57:13 Specialized medical examination 04654727 Z01.419 Screening for malignant neoplasm of rectum 116397802 Z12.12 Screening mammography 24 834139 Z12.31 [id number] MD ELADIA Page MD [address] [place] [address],[place] [address] [place] [id number] 01/16/2023 09:13:08 01/16/2023 10:58:56 Specialized medical examination 75264506 Z01.419 Screening for malignant neoplasm of rectum 017458234 Z12.12 Screening mammography 24 194878 Z12.31 Complete b lindness of right eye 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.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 Tunnel vis ion of left eye 0522463013 17674 H53.40 Health Concerns Section Related Observation LastModified by Organization Detai ls LastModified Time None Recorded Concern Status LastModified by Organization Details LastModified Time None Recorded Advance Directives Directive None Recorded Payers Encounter Date Sequence Insurance Name Policy Number Policy Horne Covered Member ID Horne Member ID Guarantor Name 02/26/2018 1 [place] [facility] [place] - HMO [facility] (O) [id number] Vicente Griggs [id number] Christen Griggs 04/12/2019 1 [place] [facility] [facility] (HMO) [id number] Vicente Griggs [id number] Christen Griggs 12/28/2020 1 [place] [facility] (HMO) [id number] Vicente Griggs [id number] Christen Griggs 01/10/2022 1 [place] [facility] (HMO) [id number] Vicente Griggs [id number] Christen Griggs 01/16/2023 1 [place] [facility] (O) [id number] Vicente Griggs [id number] Christen Griggs Notes Date Note Type Note Provider Name and Address Organization Details Recorded Time 02/26/2018 text/html She is here for a repeat pap 3 months after pap with ASCUS without HR HPV. Eladia Miller MD [address] [facility],[address], [place], [id number], [place] [facility], 02/26/2018 13:14:15 04/12/2019 text/html She is here for annual exam, is on leave from work because she has severe allergic reactions at work but they do not want to do testing to find out what is causing it. She is doing well on the ERT and elects to continue. Note from 2018: She is here for annual exam, is doing well on the 1 mg estradiol and elects to continue. she has had a hysterectomy. She ran out of her meds for one week and had the return of severe vasomotor symptoms after a week! Eladia Miller MD [address], [place], [phone], [facility] in [facility], 04/12/2019 12:05:25 12/28/2020 text/html She is here for annual exam, doing well on the ERT and elects to continue. She had a retinal detachment and also hiatal hernia. __ note from 2019: She is here for annual exam, is on leave from work because she has severe allergic reactions at work but they do not want to do testing to find out what is causing it.She is doing well on the ERT and elects to continue. Eladia Miller MD [address], [place], [phone], [facility], 12/28/2020 11:09:53 01/10/2022 text/html She is here for annual, has had a rough year. Has afib, needs cardiac ablation. Still on half dose HRT, advised she should stop it in in afib, she agree sto do so. Note from 2020: She is here for annual exam, doing well on the ERT but has decided to wean down off of it because she has been stationary due to her eye surgery and will need to do so again in February. We discussed how to wean down by dropping a day a week. Eladia Miller MD [address], [place], [phone], [facility] [employer] in [facility], 01/10/2022 12:51:47 01/16/2023 text/html It has been a difficult year. 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 The afib is finally gone, though. She is hainvg very significant depth perception issues. note from 2021: She is here for annual, has had a rough year. Has afib, needs cardiac ablation. Still on half dose HRT, advised she should stop it in in afib, she agree sto do so. Eladia Miller MD [address] [facility],[address], [place], [phone], [place] - [facility], 01/16/2023 09:52:22 OBGyn Episode No OBEpisode recorded.
== END 2024-02-19 09:11 | disposition home or self-care (01) ==
PROVIDERS: PCP Internal Medicine; Visit Provider Orthopaedic Surgery
DX: S83.281D Other tear of lateral meniscus, current injury, right knee, subsequent encounter (principal)
CPT/HCPCS: 99212

== ENCOUNTER → 2024-02-19 08:18 | Outpatient (BNVA) | payer BC, SELFPAY | PROVIDERS: PCP Internal Medicine; Visit Provider Orthopaedic Surgery ==

== ENCOUNTER 2024-03-04 08:56 | Outpatient (AMB) | payer BC, SELFPAY ==
--- NOTE | 2024-03-04 08:57 | MHC.OFFVIS ---
Intake Visit Reasons: OV - Right MMR - 09/06/23 - Increased pain Intake Note: Christen is a 58 year old female who presents today for a follow up of her Right Knee s/p Right Medial Meniscus Root Repair - 09/06/23. Patient states that she has been having intermittent locking of the knee since Monday (02/27/24) and morning(02/29/24) she went to stand up and had a shooting pain from the posterior aspect of the knee that radiated to her toes. She is having pain with walking and has started using crutches again. She feels a sharp pain ion the medial aspect of the knee and aching/throbbing. She is taking tylenol for her pain - but it is not helping . She is set to have surgery on her Right eye on . Allergies timolol Allergy (Severe, Verified 12/25/23 08:33) Swelling fluticasone [From FLONASE] Allergy (Unknown, Verified 12/25/23 08:33) SWELLING TONGUE/THROAT propranolol [From INDERAL LA] Allergy (Unknown, Verified 12/25/23 08:33) HEADAACHE salmeterol [From ADVAIR DISKUS] Allergy (Unknown, Verified 12/25/23 08:33) RASH dorzolamide Allergy (Verified 12/25/23 08:33) Swelling HPI HPI OV - Right MMR - 09/06/23 - Increased pain: Details: Christen is a 58 year old female who presents today for a follow up of her Right Knee s/p Right Medial Meniscus Root Repair - 09/06/23. Patient states that she has been having intermittent locking of the knee since Monday (02/27/24) and morning(02/29/24) she went to stand up and had a shooting pain from the posterior aspect of the knee that radiated to her toes. She is having pain with walking and has started using crutches again. She feels a sharp pain ion the medial aspect of the knee and aching/throbbing. The knee ?unlocked? on but she is very worried about repeat of locking given her upcoming eye surgery and knee she maintain low pressures postop. [facility] Medical History Eye abnormality Surgery, elective Glaucoma Hemidiaphragm paralysis Afib Detached retina Asthma Allergic rhinitis Surgical History History of total left knee replacement H/O: hysterectomy S/P cervical spinal fusion H/O eye surgery H/O hernia repair H/O Spinal surgery Social History Alcohol intake: never Patient Tobacco Use Status: Never used Tobacco service: No Current occupational status: unemployed Physical Exam Extrem Other: 0-120 degrees motion with discomfort on extension and tenderness over the medial joint line with a positive medial Iban's. Assessment & Plan Assessment & Plan (1) S/P medial meniscal repair: Code(s): Z98.890 - Other specified postprocedural states Category: Surgical Plan: Status post meniscal root repair now with acute onset of locking almost 6 months status post right knee surgery. She has upcoming eye surgery in his very concerned about locking while she is in recovery as she is supposed to maintain low pressures and do no straining. When it does lock up is extremely painful. I ordered a stat MRI as her eye surgery is scheduled for later this week. (2) Locking of right knee: Code(s): M23.91 - Unspecified internal derangement of right knee Category: Medical Plan: Stat MRI Orders: Orders MR knee RT wo con Today M23.91 - Unspecified internal derangement of right knee, Z98.890 - Other specified postprocedural states Coding Level of Care Code Est Pt Level 4 (27279) Diagnoses S/P medial meniscal repair Z98.890 Locking of right knee M23.91
--- OUTSIDE RECORDS SUMMARY | 2024-03-04 13:14 | XMS_ITS | Data Portability ---
Author Organization [place] - [facility],, ELADIA MILLER MD Address [address] [address] Assessment No assessment recorded. Plan of Treatment Reminders Order Date Submit Date Provider Last Modified By Organization Details Last Modified Time Details Appointments ANNUAL EXAM 2024 10:40A M Eladia Miller MD Not available Not available Not available Lab pap, LB 2018 019 BELKIS [facility], Cytopathology Service, [address] [place] [address], [id number], 02/28/2018 13:20:24 pap, LB, vaginal 2019 020 [email or web address] [facility], Cytopathology Service, [address] [place] [address], [id number], 04/19/2019 07:51:18 fecal occult blood, stool 2019 020 [email or web address] In-Office Order, Internal Use Only DO Not Attach Compendium DO Not Attach Compendium, Do Not Delete/merge, [id number] 04/19/2019 07:51:17 pap test, thinprep , cervical 2020 021 [facility], Cytopathology Service, [address] [place] [address], [address], 01/18/2021 08:27:08 fecal occult blood, stool 2020 021 [email or web address] 1 In-Office Order, Internal Use Only DO Not Attach Compendium DO Not Attach Compendium, Do Not Delete/merge, [id number] 12/28/2020 11:08:17 pap, LB, vaginal 2021 022 [email or web address] [facility], [address] [place], [address], 01/18/2022 07:42:30 fecal occult blood, stool 2021 022 [email or web address] 1 In-Office Order, Internal Use Only DO Not Attach Compendium DO Not Attach Compendium, Do Not Delete/merge, [id number] 01/10/2022 12:50:14 pap test, thinprep , cervical 2022 023 [facility], [address] [place], [address], 01/23/2023 10:53:54 fecal occult blood, stool 2022 023 [email or web address] 1 In-Office Order, Internal Use Only DO Not Attach Compendium DO Not Attach Compendium, Do Not Delete/merge, [id number] 01/16/2023 09:47:14 Referral None recorded . Procedures None recorded . Surgeries None recorded . Imaging MAMMO, screenin g, digital, bilatera l 2019 020 [facility] ([facility]), [address] [place], [address], 11/25/2019 17:04:33 MAMMO, screenin g, digital, bilatera l 2020 021 [facility] ([facility]), [address] [place], [address], 01/20/2021 16:07:28 MAMMO, screenin g, digital, bilatera l 2021 022 [facility] ([facility]), [address] [place], [address], 04/08/2022 16:32:42 MAMMO, screenin g, digital, bilatera l - Breast Aspirati on and/or Biopsy if needed 2022 023 [facility] (Mammography), [address] [facility], [place], [address], 04/14/2023 18:29:40 Medication Orders estradio l 1 mg tablet 2019 020 [facility], [address] [place] [address], [address], 01/16/2023 09:18:39 estradio l 1 mg tablet 2020 021 [facility], [address] [place] [address], [address], 01/16/2023 09:18:39 Patient TargetsNo targets recorded. Patient Instructions Encounter Date Encounter Id Patient Instructions Last Modified By Organization Details Last Modified Time 02/26/2018 [id number] abnormal Pap nate t: care instructions [email or web address] Not available 02/26/2018 13:12:57 She is here for a repeat pap 3 months after pap with ASCUS without HR HPV. Pap is taken, await results, options discussed. If negative then resume annual pap. If ASCUS or worse then colpo vaginal canal. Hysterectomy was done for prolapse, not dysplasia. Not available 02/26/2018 13:14:03 04/12/2019 [id number] She is here for annual exam, is [...] time postmenopausally. Not available 04/12/2019 11:38:11 12/28/2020 [id number] learning about healthy weight [email or web address] Not available [...] the breast. Not available 12/28/2020 11:09:23 01/10/2022 [id number] learning about healthy weight Not available 01/10/2022 [...] the breast. Not available 01/10/2022 12:51:26 01/16/2023 [id number] learning about healthy weight Not available 01/16/2023 [...] Abnormal Flag Note LastModifiedBy Organization Detail LastModifiedTime 04/12/19 20 04/12/2019 fecal occul t blood , stool Occult Blood negati ve Not Available In-Office Order Internal Use Only DO Not Attach Compendium DO Not Attach Compendium, Do Not Delete/merge, [id number] 04/12/2019 11:15:42 02/26/19 19 02/26/2018 pap, LB [id number] ThinP rep Pap, Image d: NEGAT CHRISTIANO FOR SQUAM OUS INTRA EPITH ELIAL LESLINA N AND CARMELLA LOPEZ . Aissatou da is prese nt. Julieta Castanon , NELL( CP) (Case elect esau rupal russo d 02 28 2018) ADEQU ACY: Satis facto ry Endoc ervic al/tr ansfo rmati on zone compo nent absen t. SOURC E: ThinP rep Pap HPV IF ASCUS , Cervi nneka, Image d CLINI NNEKA INFOR MATIO N: HPV If Diagn osis of ASCUS . Z12.4 , ASCUS (-) HP, 3 MONTH REPEA T PAP Not Available [facility], Cytopathology Service [address] [place], [address], 02/28/2018 13:20:24 04/12/19 20 04/12/2019 pap, LB [id number] ThinP rep Pap, Image d: NEGAT CHRISTIANO [...] x, z12.4 , z01.4 19 Not Available [facility], Cytopathology Service [address] [place], [address], 04/16/2019 11:17:55 12/29/19 21 12/28/2020 PAP1C ASE [id number] ThinP rep Pap, Image d: NEGAT CHRISTIANO FOR SQUAM OUS INTRA EPITH ELIAL LESIO N AND MALIG JESSICA . Note: The Pap test is a scree oc test with an inher ent false negat christiano rate. Autom ated presc reeni ng of all liqui d based speci mens is perfo rmed by the ThinP rep Imagi ng Laly nur [facility] kenia grover , [place]( CP) (Case elect esau goldsmith rafaela d 01 12 2021) ADEQU ACY: Satis facto ry . SOURC E: ThinP rep Pap HPV IF ASCUS , Vagin al, Image d CLINI NNEKA INFOR MATIO N: HPV If Diagn osis of ASCUS . LPS 0 neg, z01.4 19 Not Available [facility], Cytopathology Service [address] [place], [address], 01/12/2021 16:15:50 12/29/19 21 12/28/2020 fecal occul t blood , stool Occult Blood negati ve Not Available In-Office Order Internal Use Only DO Not Attach Compendium DO Not Attach Compendium, Do Not Delete/merge, [id number] 12/28/2020 10:03:41 01/11/20 22 01/10/2022 [facility]GY results Patie nt Name: ADRIAN LARKIN RA nt : 1965 (Age: 56) Lab Acces adriel #: [id number] Colle ction Date: 2021 Acces adriel Date: 2021 Sign Out Date: 2021 Tissu e Sourc e: 1: THINP REP FILLER ROOM 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 PAP TEST, VAGIN AL: Final Diagn osis: [...] Syste m with carmel hernandez or ct mclaughlin Perfo rmed at [facility] ate Refer ence Labor atory depar tment of Cytol ogy, [address], [place] Clini nneka Histo ry (othe r): z01.4 19, LPS 2 neg, routi ne scree n Phone #: [phone], On-Ca ll Patho logis t: [id number] Not Available [facility] [address], [place], [address], 01/13/2022 15:20:05 01/11/20 22 01/10/2022 fecal occul t blood , stool Occult Blood negati ve Not Available In-Office Order Internal Use Only DO Not Attach Compendium DO Not Attach Compendium, Do Not Delete/merge, [id number] 01/10/2022 10:02:51 01/17/20 23 01/16/2023 [facility] Patie nt Name: ADRIAN LARKIN RA nt : 1965 (Age: 57) Lab Acces adriel #: [id number] Colle ction Date: 01/16 Acces adriel Date: 01/16 Sign Out Date: 01/20 Tissu e Sourc e: 1: THINP REP FILLER ROOM ATTENDANT PAP TEST, VAGIN AL: Final Diagn osis: [...] hernandez or ct nugent. Perfo rmed at [facility] ate Refer ence Labor atory depar tment of Cytol ogy, [address] [place] Clini nneka Histo ry (othe r): Z01.4 19, routi ne carlose n, LPS neg Phone #: [phone], On-Ca ll Patho logis t: [id number] Not Available [facility] [address] [place], [address], 01/20/2023 11:19:57 01/17/20 23 01/16/2023 fecal occul t blood , stool Occult Blood negati ve Not Available In-Office Order Internal Use Only DO Not Attach Compendium DO Not Attach Compendium, Do Not Delete/merge, [id number] 01/16/2023 09:18:05 11/20/19 19 11/17/2018 MAMMO , scree oc, digit al, bilat eral No observ ation record ed. [facility] ([facility]) [address] [facility], [place], [address], 11/19/2018 13:22:13 11/25/19 20 11/23/2019 MAMMO , [...] unila teral No observ ation record ed. [address], [address], 04/12/2022 13:56:26 04/14/19 24 04/14/2023 MAMMO , scree oc, digit al, bilat eral No observ ation record ed. [facility] [address] [place], [address], 04/16/2023 08:28:33 Result Notes None recorded. Problems Name Problem SNOMED Code Status Onset Date Resolution Date Notes Provider Name and Address Organization Details Recorded Time Menopausal syndrome 249675893 Active Eladia Miller MD [address], [place], [address], [place] - [facility], 5 09:07:22 Candidal vulvovagini tis 26601565 Active Eladia Miller MD [address], [place], [address], [place] - [facility], 5 09:40:02 Vaginitis 07443669 Active Eladia Miller MD [address], [place], [address], [place] - [facility], 5 09:40:02 Insomnia 001942962 Active 2017 Eladia Miller MD [address], [place], [address], [place] - [facility], 8 09:09:13 Hiatal hernia 76057599 Active 2020 Clarita chavez [place] - [facility], 1 10:14:30 Retinal detachment 77810079 Active 2020 Clarita chavez [place] - [facility], 1 10:14:37 Atrial fibrillatio n 55544112 Active 2021 Clarita chavez [place] - [facility], 2 10:11:52 Blind right eye 654141195 Active 2022 Clarita chavez [place] - [facility], 3 09:21:55 Complete blindness of right eye 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 2022 Eladia Miller MD [address], [place], [address], [place] - [facility], 3 09:48:04 Tunnel vision of left eye 8777150837799 09 Active 2022 Eladia Miller MD [address], [place], [address], [place] - [facility], 3 09:48:17 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 Spinal stenosis Problem Notes None recorded. Procedures Surgical History Date Name Laterality Status Provider Name and Address Organization Details Recorded Time 04/14/19 24 Most Recent Mammogram completed Jessica Wagner in [facility], 02/19/2024 08:31:03 09/22/19 22 primary fusion of cervical spine completed Clarita Wagner in [facility], 01/10/2022 10:13:43 07/20/19 22 Glaucoma surgery completed Clarita Wagner in [facility], 01/10/2022 10:13:36 02/17/19 22 Eye surgery follow-up add-on completed Clarita Wagner in [facility], 01/10/2022 10:12:52 09/23/19 21 procedure on retina completed Clarita Wagner in [facility], 12/28/2020 10:14:03 07/16/19 21 esophageal hiatus hernia repair completed Clarita Wagner in [facility], 12/28/2020 10:12:43 06/10/19 21 excision of synovial cyst completed Clarita Wagner in [facility], 12/28/2020 10:11:56 03/09/19 16 Other completed Jessica Ramos [facility], 03/18/2016 08:27:52 03/09/19 14 Other completed Teresa Wagner in [facility], 09/22/2014 08:53:02 02/06/19 10 Other completed Jessica Anderson [place] - [facility], 10/24/2011 10:57:56 02/06/19 04 Other completed Jessica Anderson [place] - [facility], 10/24/2011 10:57:56 02/06/18 94 Hysterectomy completed Eladia Miller MD [address] [place] [address],[address], [place], [address], [place] - [facility], 02/07/2013 08:24:16 Imaging Results Imaging Date Name Status LastModified by [facility] Details LastModified Time 11/17/2018 MAMMO, screening, digital, bilateral completed [facility] [address] [place], [address], 11/19/2018 13:22:13 11/23/2019 MAMMO, screening, digital, bilateral completed Information not available 11/26/2019 08:49:03 01/19/2021 MAMMO, screening, digital, bilateral completed Information not available 01/21/2021 08:53:31 04/07/2022 MAMMO, screening, digital, bilateral completed Information not available 04/14/2022 14:06:51 04/12/2022 US, breast completed Information n ot available 04/12/2022 13:56:26 04/12/2022 MAMMO, diagnostic, digital, unilateral completed [address], [address], 04/12/2022 13:56:26 04/14/2023 MAMMO, screening, digital, bilateral completed [facility] [address] [place], [address], 04/16/2023 08:28:33 Procedure Notes None recorded. Medical Equipment None Reported. Allergies Allergen ID Allergen Name Allergen Category Reaction Reaction Severity Criticality Documentation Date Start Date Code Code System Note Provider Name and Address Organization Details Recorded Time 62095 dorzolami de medicatio n facial swelling severe high 01/10/2022 80059 RxNorm [place] Valentin in [facility], 2 10:03:35 4141 Inderal medicatio n Not available Not available Not available 10/24/2011 25792 0 RxNorm bad heada ches [place] Marsh in [facility], 2 10:57:56 4142 Flonase medicatio n Not available Not available Not available 10/24/2011 54443 RxNorm throa t swell s [place] Marsh in [facility], 2 10:57:56 4143 fluticaso ne / salmetero l medicatio n Not available Not available Not available 10/24/2011 10809 5 RxNorm rash Jessica Justin chavez [place] - [facility], 2 10:57:56 Medications Name Sig Start Date [...] a dose pack FOLLOW PACKAGE DIRECTION S 01/16 completed Not Available Not Available Not [...] Not Available Not Available Not Available Fluvirin 7670-6815(P F) 45 mcg (15 mcg x3)/0.5 mL intramuscul ar syringe inject 0.5 millilite r intramusc ularly active Not Available Not Available No t Available Afluria 0450-0435 (PF) 45 mcg (15 mcg x 3)/0.5 [...] Updated DateTime 9 177.8 cm 35.8 kg/m2 368056. 22 g 73 /min 142 mm[Hg] 66 mm[Hg] Jessica Wagner in [facility], 9 12:58:32 Date Recorded Body height Heart rate Body mass index (BMI) Body weight Systolic blood pressure Diastolic blood pressure Provider Name and Address Organization Details Last Updated DateTime 0 177.8 cm 76 /min 36.3 kg/m2 091131. 87 g 154 mm[Hg] 77 mm[Hg] Jessica Wagner in [facility], 0 11:09:01 Date Recorded Body height Body temperature Body mass index (BMI) Body weight Heart rate Systolic blood pressure Diastolic blood pressure Provider Name and Address Organization Details Last Updated DateTime 1 177.8 cm 97.2 [degF] 32.7 kg/m2 542236. 06 g 67 /min 132 mm[Hg] 63 mm[Hg] Clarita Wagner in [facility], 1 10:06:49 Date Recorded Body weight Body mass index (BMI) Body height Systolic blood pressure Diastolic blood pressure Provider Name and Address Organization Details Last Updated DateTime 01/10/2022 181623.0 9 g 35.9 kg/m2 177.8 cm 116 mm[Hg] 56 mm[Hg] Clarita Wagner in [facility], 2 10:08:08 Date Recorded Body weight Body mass index (BMI) Body height Heart rate Systolic blood pressure Diastolic blood pressure Provider Name and Address Organization Details Last Updated DateTime 3 225033. 02 g 33.4 kg/m2 177.8 cm 73 /min 133 mm[Hg] 66 mm[Hg] Clarita Wagner in [facility], 3 09:21:16 Social History Question Answer Notes LastModified by Organizat ion Details LastModified Time Tobacco Smoking Status Never Smoker Not Available [facility] 12/10/2019 03:19:40 What Is Your Level Of [...] Type Of Diet Are You Following? REGULAR [id number] Information not available 12/10/2019 Which Illicit Or Recreational Drugs Have You Used? No [id number] Information not available 12/10/2019 Do You Reside In Or Have You Traveled To An Area Where Ebola Virus Transmission Is Active? No [id number] Information not available 12/10/2019 Do You Or Have You Ever Used E-cigarettes Or Vape? Never Used Electronic Cigarettes [id number] Information not available 12/10/2019 Education 12 Information no t available 10/24/2011 What Is The Highest Grade Or Level Of School You Have Completed Or The Highest Degree You Have Received? [id number] Information not available 12/28/2020 What Is Your Occupation? Not Working At This Time. [id number] Information not available 12/10/2019 How Many Days [...] available 12/28/2020 Are You Sexually Active? Yes [id number] Information not available 12/10/2019 Do You Or Have You Ever Used Smokeless Tobacco? Never Used Smokeless Tobacco [id number] Information not available 12/10/2019 How Much Tobacco Do You Smoke? No [id number] Information not available 12/10/2019 General Stress Level High Information not available 10/24/2011 Do You Feel Stressed (tense, Restless, Nervous, Or Anxious, Or Unable To Sleep At Night)? [id number] Information not available 12/28/2020 Do You Use Any Illicit Or Recreational Drugs? No Information not available 12/28/2020 How Many Years Have You Smoked Tobacco? 0 [id number] Information not available 12/10/2019 Have You Recently [...] Time What is your exercise level? None [id number] Information not available 12/10/2019 Mental Status None [...] Control Method Hysterectom y Most Recent Mammogram 04/14/2023 Age at First Child 20 Obstetrics History GPAL:G 2 P 2 0 0 2 Type Value Full Term 2 Living 2 Total 2 Immunizations Vaccine Type Date Status Note Provider Nam e and Address Organization Details Recorded Time influenza, unspecified formulation 3 completed Clarita chavez [place] - [facility], 01/16/2023 09:20:31 Influenza, split virus, trivalent, preservative 4 completed [place] Khoury in [facility], 09/22/2014 08:54:38 Influenza, split virus, quadrivalent, preservative 6 completed Jessica chavez [place] - [facility], 03/18/2016 08:25:55 Influenza, split virus, quadrivalent, preservative 8 completed Clarita chavez [place] - [facility], 01/16/2023 09:20:31 Pneumococcal Conjugate, unspecified formulation 8 completed Clarita chavez [place] - [facility], 01/16/2023 09:20:32 varicella 9 completed Jessica chavez [place] - [facility] [...] split virus, trivalent, preservative 2 completed Clarita Hills null, [place] - [...] Care, 01/16/2023 09:20:31 Pneumococcal conjugate PCV20, polysaccharide [id number] conjugate, adjuvant, PF 2 completed Clarita [place] null, [place] - [facility], 01/16/2023 09:20:31 COVID-19, mRNA, LNP-S, PF, 30 mcg/0.3 mL dose, dmitri-sucrose 2 completed Clarita [place] null, [place] - [facility], 01/16/2023 09:20:31 COVID-19, mRNA, LNP-S, bivalent, PF, 30 mcg/0.3 mL dose 2 completed Clarita [place] null, [place] - [...] [facility], 01/16/2023 09:20:32 Novel [id number], preservative-free 9 completed Clarita chavez [place] - [facility], 01/16/2023 09:20:32 Td (adult), 2 Lf tetanus toxoid, preservative free, adsorbed 9 completed [place] Valentin in [facility], 01/16/2023 09:20:32 Influenza, split virus, quadrivalent, PF 8 completed [place] Valentin in [facility], 01/16/2023 09:20:32 Past Encounters Encounter ID Performer Location Encounter Start Date Encounter Closed Date Diagnosis/Indication Diagnosis SNOMED-CT Code Diagnosis ICD10 Code Diagnosis Note [id number] MD ELADIA Page MD [address] [facility] [place] [address] 10/24/2011 10:31:05 10/24/2011 15:38:00 [id number] Teresa Quirozdeboracamilo MILLER MD [address] [facility] [place] [address] 02/07/2013 07:52:20 02/07/2013 12:49:34 Specialized medical examination 82499643 Screening for malignant neoplasm of rectum 006555841 Screening mammography 50894785 Menopausal syndrome 060201553 [id number] ELADIA MILLER MD [address] [facility] [place] [address] 09/22/2014 08:35:54 09/22/2014 11:06:38 Specialized medical examination 97591499 Screening for malignant neoplasm of rectum 190849269 Screening mammography 22123136 Menopausal syndrome 429436712 [id number] Jessica MILLER MD [address] [facility] [place] [address] 09/30/2014 08:19:34 09/30/2014 10:27:10 Candidal vulvovaginitis 41954676 Vaginitis 35870783 [id number] MD ELADIA Page MD [address] [facility] [place] [address] 03/18/2016 08:16:00 03/18/2016 11:30:40 Specialized medical examination 98014799 Z01.419 Screening for malignant neoplasm of rectum 479184091 Z12.12 Screening mammography 24 402458 Z12.31 Menopausal syndrome 1237 37405 N95.9 [id number] MD ELADIA Page MD [address] [place] [address], [place] [address] 10/18/2017 08:07:22 10/18/2017 11:25:05 Specialized medical examination 69446053 Z01.419 Screening for malignant neoplasm of rectum 717449121 Z12.12 Screening mammography 24 466366 Z12.31 Menopausal syndrome 1237 41035 N95.1 [facility] 243528545 G47.0 0 [id number] MD ELADIA Page MD [address] [place] [address], [place] [address] 02/26/2018 12:51:24 02/26/2018 14:02:51 Atypical squamous cells of undetermined significance on cervical Papanicolaou smear 519301528 R87.610 [id number] MD ELADIA Page MD [address] [place] [address], [address] [place] [address] 04/12/2019 10:45:52 04/12/2019 12:08:59 Menopausal syndrome 290116271 N95.1 Specialize d medical examination 27212583 Z01.419 Screening for malignant neoplasm of rectum 605159618 Z12.12 Screening mammography 24 220125 Z12.31 [id number] MD ELADIA Page MD [address] [place] [address], [address] [place] [address] 12/28/2020 10:02:44 12/28/2020 11:37:50 Specialized medical examination 74671883 Z01.419 Screening for malignant neoplasm of rectum 729894757 Z12.12 Screening mammography 24 843110 Z12.31 Menopausal syndrome 1237 82445 N95.1 [id number] MD ELADIA Page MD [address] [place] [address], [place] [address] 01/10/2022 09:59:11 01/10/2022 13:57:13 Specialized medical examination 37756767 Z01.419 Screening for malignant neoplasm of rectum 643554624 Z12.12 Screening mammography 24 928445 Z12.31 [id number] MD ELADIA PageAN MD [address] [facility] [place] [address] 01/16/2023 09:13:08 01/16/2023 10:58:56 Specialized medical examination 57071802 Z01.419 Screening for malignant neoplasm of rectum 908903157 Z12.12 Screening mammography 24 168308 Z12.31 Complete b lindness of right eye 843456839 H54.415A Tunnel vis ion of left eye 4810696801 25621 H53.40 Health Concerns Section Related Observation LastModified by Organization Detai ls LastModified Time None Recorded Concern Status LastModified by Organization Details LastModified Time None Recorded Advance Directives Directive None Recorded Payers Encounter Date Sequence Insurance Name Policy Number Policy Horne Covered Member ID Horne Member ID Guarantor Name 02/26/2018 1 [place] [facility] (HMO) [id number] Vicente Griggs [id number] Christen Griggs 04/12/2019 1 [place] [id number] Vicente Griggs [id number] Christen Griggs 12/28/2020 1 [place]) [id number] Vicente Griggs [id number] Christen Griggs 01/10/2022 1 [place] BLUE - HMO [place]) [id number] Vicente Griggs [id number] 40 Christen Griggs 01/16/2023 1 [place] [id number] Vicente Griggs [id number] 40 Christen Griggs Notes Date Note Type Note Provider Name and Address Organization Details Recorded Time 02/26/2018 text/html She is here for a repeat pap 3 months after pap with ASCUS without HR HPV. Eladia Miller MD [address] [facility],[address], [place], [address], [place] [facility], [...] [address], [place], [address], [employer] in [facility], 04/12/2019 12:05:25 12/28/2020 text/html She is here [...] [address], [place], [address], [place] [facility], 12/28/2020 11:09:53 01/10/2022 text/html She is here [...] [address], [place], [address], [employer] in [facility], 01/10/2022 12:51:47 01/16/2023 text/html It has been [...] sto do so. Eladia Miller MD [address] [facility],[address], [place], [address], [place] - [facility], 01/16/2023 09:52:22 OBGyn Episode No OBEpisode recorded.
--- OUTSIDE RECORDS SUMMARY | 2024-03-04 13:14 | XMS_ITS | Encounter Summary ---
Author Organization [facility] Address [address] [place] [address] Care Team Providers Care Aircraft Maintenance Director Name Role Phone Anuja Gale MD Primary Care Prov ider Reason for Visit * Reason Onset Date Comments Referral 02/16/2024 Encounter Details Date Type Department Care Team (Late st Contact Info) Description 02/16/2024 Telephone Adult [facility] [address] [place] [phone] Anuja Gale MD [address] [place] [phone] Referral Social History Tobacco Use Types Packs/Day Years Used Date Smoking Tobacco: Never Smokeless Tobacco: Never Alcohol Use Standard Drinks/Week Comments Yes 0 (1 standard drink = 0.6 oz pur e alcohol) Sex and Gender Information Value Date Recorded Sex Assigned at Female 12/15/2023 1:39 PM EST Gender Identity Female 12/15/2023 1:39 PM EST Sexual Orientation Straight 12/15/2023 1: 39 PM EST Job Start Date Occupation Industry Not on file Not on file Not on file documented as of this encounter Progress Notes * Thais Sommers RN - 02/16/2024 11:02 AM EST Please see other from today seems order for received and sent to pcp to sign already * Pia King - 02/16/2024 9:35 AM EST Referral Request: What insurance does the patient have today? BC-BS Referrals cannot be processed if the insurance is not accurate. If the insurance listed above in red is NO BILLING INFORMATION FOUND FOR THIS ENCOUTNER The patients correct insurance must be obtained and registered in [facility] or their referral can not be processed. Is this a retro request? yes. If yes for what date of service do you need the retro referral? 02-08-24 Who is calling to request this referral? [facility] If the caller is not the patient, what is their name? Romy Ask the patient WHO referred them to this specialty: Patient self referred FIRST and LAST NAME of SPECIALIST PATIENT is seeing: n/a What specialty is this? Physical Therapy DIAGNOSIS Patient is being seen for (Not a body part or a procedure): Surgery Have you seen this SPECIALIST for this PROBLEM/DX before? If YES, when? Yes. Have you checked REVIEW or the APPT DESK to see if this referral has already been done or has visits left? yes Is this visit: Follow Up Address of Specialist: [address], [place] [address] Phone # of Specialist: [phone] Fax #: (if applicable): [phone] Does patient have an appointment scheduled?: no Date of appointment- (including a retro-request): n/a Is this appointment related to: Surgery documented in this encounter Plan of Treatment Upcoming Encounters Date Type Department Care Team (Late st Contact Info) Description 03/05/2024 10:00 AM EST Consult Adult Medicine [address] [phone] Anuja Gale MD [address] [place] [address] 04/11/2024 12:00 PM EST Office Visit Adult Medicine [address] [phone] Anuja Gale MD [address] [place] [address] 04/15/2024 8:45 AM EDT Office Visit Pulmonolgy - [place] [address] [phone] Sarah Beckett MD [address] [address] 04/16/2024 2:10 PM EDT Appointment Radiology Department - [address] [phone] documented as of this encounter Visit Diagnoses Not on filedocumented in this encounter Care Teams Aircraft Maintenance Director Relationship Specialty Start Date End Date Anuja Gale MD [address] [place] [address] PCP - General Internal Medicine 08/13/21 documented as of this encounter
--- OUTSIDE RECORDS SUMMARY | 2024-03-04 13:15 | XMS_ITS | Encounter Summary ---
Author Organization [facility] Address [address] [place] [address] Care Team Providers Care Caretaker Grounds Name Role Phone Anuja Gale MD Primary Care Prov ider Reason for Visit * Reason Onset Date Comments faxed order 02/16/2024 AT Physical The rapy Doc ID:[id number] Encounter Details Date Type Department Care Team (Late Contact Info) Description 02/16/2024 Telephone Adult [address] [phone] Mallorie Leal MA faxed order ([facility] Physical Therapy Doc ID:[id number]) Social History Tobacco Use Types Packs/Day Years [...] as of this encounter Progress Notes * Mallorie Leal MA - 02/16/2024 9:31 AM EST Received orders from [facility] Physical Therapy Doc ID:[id number]. Please sign and fax to [phone] documented in this encounter Plan of Treatment Upcoming Encounters Date Type Department Care Team (Late st Contact Info) Description 03/05/2024 10:00 AM EST Consult Adult Medicine [address] [phone] Anuja Gale MD [address] [place] [address] 04/11/2024 12:00 PM EST Office Visit Adult Medicine [address] [phone] Anuja Gale MD [address] [place] [address] 04/15/2024 8:45 AM EDT Office Visit Pulmonolgy - [address] [phone] Sarah Beckett MD [address] [place] [phone] 04/16/2024 2:10 PM EDT Appointment Radiology Department [address] [phone] documented as of this encounter Visit Diagnoses Not on filedocumented in this encounter Care Teams Caretaker Grounds Relationship Specialty Start Date End Date Anuja Gale MD [address] [place] [address] PCP - General Internal Medicine 08/13/21 documented as of this encounter
--- OUTSIDE RECORDS SUMMARY | 2024-03-04 13:15 | XMS_ITS | Encounter Summary ---
Author Organization [facility] Address [address] [place] [address] Care Team Providers Care Press Clipper Name Role Phone Anuja Gale MD Primary Care Prov ider Encounter Details Date Type Department Care Team (Latest Contact Info) Description 03/01/2024 9:46 AM EST - 03/01/2024 11:59 PM [facility] Hospital Encounter XRAY - [place] [address] [place] [address] Acute pain of right knee Discharge Disposition: Home or Self Care Social History Tobacco Use Types Packs/Day Years Used Date Smoking Tobacco: Never Smokeless Tobacco: Never Alcohol Use Standard Drinks/Week Comments Yes 0 (1 standard drink = 0.6 oz pur e alcohol) Housing Instability Answer Date Recorde d Are you worried that in the next 2 months you may not have stable housing? No 02/29/2024 Food Access & Nutrition Answer Date Rec orded Do you have access to a vari ety of food including fruits and vegetables? Yes 02/29/2024 Access to Healthcare Answer Date Record ed Within the last 3 months, ho w many times did you visit the emergency department for your medical care? 0 02/29/2024 Health Literacy Answer Date Recorded How often do you need to hav e someone help you when you read instructions, pamphlets, or other written material from your doctor or pharmacy? Patient declined 02/29/2024 Caregiver: How often do you need to have someone help you when you read instructions, pamphlets, or other written material from your doctor or pharmacy? Not on file 025 Financial Risk Answer Date Recorded How hard is it for you to pa y for the very basics like food, housing, medical care, and air conditioning / heating? Patient declined 02/29/2024 Transportation Answer Date Recorded Has the lack of transportati on kept you from meetings, work, or from getting things needed for daily living? No Has the lack of transportati on kept you from medical appointments or from getting medications? No 02/29/2024 Social Isolation Answer Date Recorded How often do you feel lonely or isolated from th ose around you? Never 02/29/2024 Food Risk Answer Date Recorded Within the past 12 months we worried whether our food would run out before we got money to buy more. Never true 02/29/2024 Within the past 12 months th e food we bought just didn't last and we didn't have money to get more. Never true 02/29/2024 Dependent Care Answer Date Recorded Do you need help finding or paying for care for your loved ones. For example, child and adolescent psychologist or elderly care for an older adult? No 02/29/2024 Education Answer Date Recorded Do you think completing more education or training, like finishing a GED, going to college, or learning a trade, would be helpful for you? Patient declined 02/29/2024 Employment and Income Answer Date Recor ded During the last four weeks, have you been actively looking for work? No 02/29/2024 Living Situation Answer Date Recorded What is your living situation? 0 02/29/2024 Sex and Gender Information Value Date Recorded Sex Assigned at Female 12/15/2023 1:39 PM EST Gender Identity Female 12/15/2023 1:39 PM EST Sexual Orientation Straight 12/15/2023 1: 39 PM EST Job Start Date Occupation Industry Not on file Not on file Not on file documented as of this encounter Medications at Time of Discharge Medication Sig Dispensed Refills Start Date End Date albuterol HFA (PROAIR HFA ; PROVENTIL HFA ; VENTOLIN HFA) 90 mcg/actuation inhaler USE 2 INHALATIONS ORALLY EVERY 6 HOURS NEEDED FORCOUGH OR WHEEZING 07/07/2022 atorvastatin (LIPITOR) 20 mg tablet TAKE 1 TABLET DAILY 10/16/2023 atropine sulfate (ATROPINE-CARE OPHT) apply to the eye 2 times daily. r eye azelastine (ASTELIN) 137 mcg (0.1 %) nasal spray USE 2 SPRAYS IN EACH NOSTRIL TWICE DAILY bimatoprost (Lumigan) 0.01 % ophthalmic drops INSTIL 1 DROP IN BOTH EYES AT BEDTIME DIRECTED 03/07/2023 brimonidine (ALPHAGAN) 0.2 % ophthalmic solution 10/26/2023 budesonide-formoteroL (SYMBICORT) 160-4.5 mcg/actuation inhaler Inhale 2 Puffs into the lungs 2 times daily for 360 days. 07/28/2023 07/22/2024 buPROPion SR (WELLBUTRIN SR) 150 mg 12 hr tablet Take 1 Tablet by mouth daily. 03/22/2022 calcium carbonate (CALCIUM 600 ORAL) Take 1 Tab by mouth 2 times daily. diclofenac sodium 3 % gel APPLY TOPICALLY TO THE AFFECTED AREA TWICE DAILY 08/08/2023 dilTIAZem XR (DILACOR XR) 240 mg 24 hr capsule Take 1 Capsule by mouth daily for 360 days. 03/14/2023 03/08/2024 EPINEPHrine (EpiPen 2-Jd) 0.3 mg/0.3 mL injection Inject 0.3 mg as directed as needed (As needed for anaphylaxis). Use as directed 10/20/2023 fexofenadine HCl (HUMA ORAL) Take by mouth. gabapentin (NEURONTIN) 300 mg capsule TAKE 1 CAPSULE BY MOUTH NEEDED FOR HEADACHE UP TO 2 TIMES A DAY 04/04/2023 glucose blood test strip Test every day 10/25/2023 11/18/2024 hydrocortisone (ANUSOL-HC) 2.5 % rectal cream APPLY 1 APPLICATOR TOPICALLY TWO TIMES A DAY NEEDED FOR HEMORRHOID 11/13/2023 ipratropium-albuteroL (Combivent Respimat) 20-100 mcg/actuation inhaler Inhale 1 Puff into the lungs every 6 hours as needed for Other (wheezing) for up to 363 days. 07/28/2023 07/25/2024 loteprednol (LOTEMAX) 0.5 % ophthalmic suspension INSTILL 1 DROP IN RIGHT EYE AT BEDTIME DIRECTED. 03/07/2023 montelukast (SINGULAIR) 10 mg tablet TAKE 1 TABLET AT BEDTIME 11/01/2023 pantoprazole (PROTONIX) 40 mg EC tablet Take 1 Tablet by mouth 2 times daily for 360 days. 05/10/2023 05/04/2024 tiZANidine (ZANAFLEX) 2 mg tablet Take 1 tablet (2 mg total) by mouth at bedtime as needed for muscle spasms. 30 tablet 01/25/2024 zolpidem (AMBIEN) 10 mg tablet Take by mouth at bedtime as needed. documented as of this encounter Discharge Disposition Disposition Code Departure Means Destination Home or Self Care documented in this encounter Plan of Treatment Upcoming Encounters Date Type Department Care Team (Late st Contact Info) Description 03/05/2024 10:00 AM EST Consult Adult Medicine [address] [phone] Anuja Gale MD [address] [place] [address] 04/11/2024 12:00 PM EST Office Visit Adult Medicine [address] [phone] Anuja Gale MD [address] [place] [address] 04/15/2024 8:45 AM EDT Office Visit Pulmonolgy - [address] [phone] Sarah Beckett MD [address] [place] [phone] 04/16/2024 2:10 PM EDT Appointment Radiology Department - [address] [phone] documented as of this encounter Procedures Procedure Name Priority Date/Time Associated Diagnosis Comments XR KNEE 4+ VIEWS RIGHT STAT 03/01/2024 10:02 AM EST Acute pain of right knee documented in this encounter Results * XR Knee 4+ Views Right (03/01/2024 10:02 AM EST) Anatomical Region Laterality Modality Lower Extremities, Knee Right Radiogra phic Imaging 03/01/2024 11:1 1 AM EST Impressions 03/01/2024 11:13 AM EST No acute fracture or dislocation of the right knee. ?? Degenerative changes as above -------- FINAL REPORT -------- Dictated By: Tai Steven Dictated Date: 03/01/2024 11:11 ET Assigned Physician: Tai Steven Reviewed and Electronically Signed By: Tai Steven Signed Date: 03/01/2024 11:13 ET Workstation ID: [id number] Transcribed By: Self Edit Transcribed Date: 03/01/2024 11:11 ET Narrative 03/01/2024 11:13 AM EST HISTORY: pain TECHNIQUE: 6 views of the right knee COMPARISON: None FINDINGS: ?? No acute fracture or dislocation is identified. ??There is mild medial and lateral compartmental joint space narrowing. ??Small osteophytes of the medial femoral condyle and medial tibial plateau. ??A small suprapatellar joint effusion is present. ??No significant patellofemoral joint space narrowing. ??Enthesopathy of the patella. ??Spurring of the tibial spine Procedure Note Tai Steven MD - 03/01/2024 HISTORY: pain TECHNIQUE: 6 views of the right knee COMPARISON: None FINDINGS: No acute fracture or dislocation is identified. There is mild medial andlateral compartmental joint space narrowing. Small osteophytes of themedial femoral condyle and medial tibial plateau. A small suprapatellarjoint effusion is present. No significant patellofemoral joint spacenarrowing. Enthesopathy of the patella. Spurring of the tibial spine IMPRESSION: No acute fracture or dislocation of the right knee. Degenerative changes as above -------- FINAL REPORT -------- Dictated By: Tai Steven Dictated Date: 03/01/2024 11:11 ET Assigned Physician: Tai Steven Reviewed and Electronically Signed By: Tai Steven Signed Date: 03/01/2024 11:13 ET Workstation ID: [id number] Transcribed By: Self Edit Transcribed Date: 03/01/2024 11:11 ET Janeth BIANCHI IMG XR PROCEDURES documented in this encounter Visit Diagnoses Diagnosis Acute pain of right knee Encounter for screening mammogram for breast cancer documented in this encounter Additional Health Concerns Assessment Noted Time PHQ-9 Depression Total Score: 0 02/28/19 25 5:30 PM EST documented as of this encounter Care Teams Press Clipper Relationship Specialty Start Date End Date Anuja Gale MD [address] [place] [address] PCP - General Internal Medicine 08/13/21 documented as of this encounter
--- OUTSIDE RECORDS SUMMARY | 2024-03-04 13:15 | XMS_ITS | Clinical Summary ---
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 Name Role Phone Anuja Gale MD Primary Care Prov ider Allergies Active Allergy Reactions Criticality Noted Date Comments Dorzolamide High 06/29/2021 Other reaction(s): Facial Swelling Fluticasone Propion-Salmeterol 07/19/2005 Other Reaction(s): Rash/Dermatitis Fluticasone Propionate 03/10/2005 Other Reaction(s): Numbness, tingling or swelling of the lips, tongue or mouth Mometasone-Formoterol Other Medium 03/23/2023 Has sore throat Propranolol Hcl Headache 03/10/2005 Medications Medication Sig Dispensed Refills Start Date End Date Status hydrocortisone (ANUSOL-HC) 2.5 % rectal cream APPLY 1 APPLICATOR TOPICALLY TWO TIMES A DAY NEEDED FOR HEMORRHOID 11/13/2023 Active montelukast (SINGULAIR) 10 mg tablet TAKE 1 TABLET AT BEDTIME 11/01/2023 Active EPINEPHrine (EpiPen 2-Jd) 0.3 mg/0.3 mL injection Inject 0.3 mg as directed as needed (As needed for anaphylaxis). Use as directed 10/20/2023 Active atorvastatin (LIPITOR) 20 mg tablet TAKE 1 TABLET DAILY 10/16/2023 Active budesonide-formo teroL (SYMBICORT) 160-4.5 mcg/actuation inhaler Inhale 2 Puffs into the lungs 2 times daily for 360 days. 07/28/2023 07/22/2024 Active ipratropium-albu teroL (Combivent Respimat) 20-100 mcg/actuation inhaler Inhale 1 Puff into the lungs every 6 hours as needed for Other (wheezing) for up to 363 days. 07/28/2023 07/25/2024 Active pantoprazole (PROTONIX) 40 mg EC tablet Take 1 Tablet by mouth 2 times daily for 360 days. 05/10/2023 05/04/2024 Active bimatoprost (Lumigan) 0.01 % ophthalmic drops INSTIL 1 DROP IN BOTH EYES AT BEDTIME DIRECTED 03/07/2023 Active gabapentin (NEURONTIN) 300 mg capsule TAKE 1 CAPSULE BY MOUTH NEEDED FOR HEADACHE UP TO 2 TIMES A DAY 04/04/2023 Active loteprednol (LOTEMAX) 0.5 % ophthalmic suspension INSTILL 1 DROP IN RIGHT EYE AT BEDTIME DIRECTED. 03/07/2023 Active dilTIAZem XR (DILACOR XR) 240 mg 24 hr capsule Take 1 Capsule by mouth daily for 360 days. 03/14/2023 03/08/2024 Active albuterol HFA (PROAIR HFA ; PROVENTIL HFA ; VENTOLIN HFA) 90 mcg/actuation inhaler USE 2 INHALATIONS ORALLY EVERY 6 HOURS NEEDED FORCOUGH OR WHEEZING 07/07/2022 Active buPROPion SR (WELLBUTRIN SR) 150 mg 12 hr tablet Take 1 Tablet by mouth daily. 03/22/2022 Active atropine sulfate (ATROPINE-CARE OPHT) apply to the eye 2 times daily. r eye Active zolpidem (AMBIEN) 10 mg tablet Take by mouth at bedtime as needed. Active calcium carbonate (CALCIUM 600 ORAL) Take 1 Tab by mouth 2 times daily. Active fexofenadine HCl (HUMA ORAL) Take by mouth. Active brimonidine (ALPHAGAN) 0.2 % ophthalmic solution 10/26/2023 Active diclofenac sodium 3 % gel APPLY TOPICALLY TO THE AFFECTED AREA TWICE DAILY 08/08/2023 Active azelastine (ASTELIN) 137 mcg (0.1 %) nasal spray USE 2 SPRAYS IN EACH NOSTRIL TWICE DAILY Active glucose blood test strip Test every day 10/25/2023 11/18/2024 Active tiZANidine (ZANAFLEX) 2 mg tablet Take 1 tablet (2 mg total) by mouth at bedtime as needed for muscle spasms. 30 tablet 01/25/2024 Active budesonide-formo teroL (Symbicort) 160-4.5 mcg/actuation inhaler Inhale 2 Puffs into the lungs 2 times daily. 03/23/2023 03/01/2024 Discontinue d(Duplicate order) oxyCODONE (ROXICODONE) 5 mg immediate release tablet TAKE 1 TABLET BY MOUTH EVERY 8 HOURS NEEDED FOR SEVERE PAIN 08/08/2023 03/01/2024 Discontinue d(Therapy completed) oxyCODONE-acetam inophen (PERCOCET) 5-325 mg per tablet TAKE 1 TABLET BY MOUTH EVERY 4-6 HOURS NEEDED FOR PAIN 09/15/2023 03/01/2024 Discontinue d(Therapy completed) Active Problems Problem Noted Date Diagnosed Date Complete blindness of right eye 01/16/2023 Diaphragmatic paralysis 08/16/2022 Overview (11/14/2023): Last Assessment & Plan: It is encouraging, that the pulmonary function test and symptomatically the dyspnea on exertion has improved. We will continue with the pulmonary rehab at home I explained her that complete recovery is uncertain but patient is usually recovered between 6 and 12 months. Will see her back in 6 months with new pulmonary function test. PAC (premature atrial contraction) 05/25/2022 SOB (shortness of breath) 05/25/2022 Atrial fibrillation 12/20/2021 Atrial tachycardia 12/20/2021 Hyperlipidemia 12/20/2021 Palpitations 12/20/2021 PAF (paroxysmal atrial fibrillation) 09/27/2021 Tachycardia 09/27/2021 Esophageal dysmotility 04/07/2020 HTN (hypertension), benign 12/24/2018 Severe obesity (BMI 35.0-39.9) with comorbidity 10/06/2018 Benign essential tremor 06/04/2018 Musculoskeletal neck pain 06/04/2018 Vasovagal syncope 06/04/2018 Allergic rhinitis due to cat hair 03/09/2018 Overview (11/14/2023): Last Assessment & Plan: Continue with Huma every day as indicated Allergic rhinitis due to pollen 03/09/2018 Hiatal hernia 03/09/2018 Overview (11/14/2023): S/p repair Moderate persistent asthma 03/09/2018 Overview (11/14/2023): without complication Last Assessment & Plan: We will change Symbicort for Dulera (mometasone) 1 puff twice a day. Pure hypercholesterolemia 10/12/2017 Retinal detachment 03/09/2015 Insomnia 12/19/2011 Overview (11/14/2023): Last Assessment & Plan: On [place] Osteoarthritis of knee 12/24/2008 Overview (11/14/2023): Left > Right IBS (irritable bowel syndrome) 03/05/2007 Allergic rhinitis 08/08/2006 Encounters Date Type Department Care Team Description 03/01/2024 9:46 AM EST - 03/01/2024 11:59 PM EST Hospital Encounter [address] [phone] Acute pain of right knee Discharge Disposition: Home or Self Care 03/01/2024 9:30 AM EST Office Visit Adult Medicine [address] [phone] Janeth Neal PA Urinary frequency (Primary Dx); Acute pain of right knee 02/16/2024 Telephone Adult Medicine [address] [phone] Anuja Russo MD Referral 02/16/2024 Telephone Adult Medicine [address] [phone] Mallorie Leal MA faxed order ([facility] Doc ID:[id number]) 01/07/2024 Telephone Adult Medicine [address] [phone] Anuja Russo MD 01/05/[address] [phone] Sarah Beckett MD Medication Problem 12/15/2023 Nurse Triage Adult Medicine [address] [phone] Anuja Russo MD Urinary Problem from Last 3 Months Immunizations Name Administration Dates Next Due H1N1 Inj Preservative Free 01/12/2009 Influenza Quadravalent, MDCK , 0.5ml, preservative free (Flucelvax) 6mo and older 10/13/2023,10/19/2021,09/27/2019 Influenza Quadravalent, MDCK , 0.5ml, with preservative (Flucelvax) 6mo and older 11/05/2022,10/15/2020,11/24/2016 Influenza trivalent, 0.5mL, preservative free (Fluarix; FluLaval; Fluzone) ages 6mo and older (Afluria) 3 years and older 02/07/2015 Influenza trivalent, with pr eservative (Fluzone; Afluria) 6mo and older 11/16/2021,10/19/2021,11/11/2020,10/15,09/27/2019,11/06/2018,11/06/2018 ,10/02/2017,11/24/2016,11/10/2015,10/07,02/07/2015,11/24/2013, 3,10/18/2011,02/06/2011,10/19/2009,08/2008 Influenza, Unspecified 10/19/2021,10/02/2017 Pfizer (ages 12 & older) Biv alent, COVID-19 12/09/2021 Pfizer SARS-CoV-2 COVID-19, mRNA, LNP-S, preservative free 05/20/2021 Pneumococcal conjugate 13 va lent (Prevnar 13, PCV13) 2mo and older 12/28/2021,10/02/2017 Pneumococcal conjugate 20 va lent (Prevnar 20, PCV 20) 2mo and older 10/19/2021 Pneumococcal polysaccharide 23 valent (Pneumovax 23) 2yo and older 12/28/2021,10/02/2017 Td Tetanus diptheria (Tdvax) 7yo and older 06/04/2018 Tdap Tetanus diptheria acell ular pertussis (Boostrix; Adacel) 7yo and older 03/05/2007 Varicella live (Varivax) 12m o and older 09/05/2018 Zoster recombinant (Shingrix ) 19yo and older 06/16/2018,06/16/2018 Surgical History Surgery Date Site/Laterality Comments OTHER SURGICAL HISTORY age 28, PROCEDURE: HISTORICAL TOTAL HYSTERECTOMY W/O BSO; COMMENT: ZORAN ?TVH combined procedure due to adhesions, was in hospital post op for a week SALPINGOOPHORECTOMY 03/08/2002 PROCEDURE: [place] LAPAROSCOPY W/RMVL ADNEXAL STRUCTURES; COMMENT: diagnostic laparoscopy, no pathology found, no adhesions or endometriosis KNEE SURGERY 06/2009 PROCEDURE: HISTORICAL KNEE SURGERY; COMMENT: Left knee EYE SURGERY PROCEDURE: HISTORICAL EYE SURGERY; COMMENT: retina and cataract surgery left EYE SURGERY 03/10/2015 Right PROCEDURE: HISTORICAL EYE SURGERY; COMMENT: Dr. Rojo retinal Detachment BREAST BIOPSY 10/2006 PROCEDURE: BX BREAST; PERC NEEDLE CORE W/IMAG GUID; COMMENT: rt bx neg-fibroadenoma COLONOSCOPY 01/02/2017 PROCEDURE: HISTORICAL COLONOSCOPY; COMMENT: tics and hemorrhoids; repeat in 10 yrs ESOPHAGOGASTRODUODENOSCOPY 01/02/2017 PROCEDURE: [place] ESOPHAGOGASTRODUODENOSCOPY TRANSORAL DIAGNOSTIC; COMMENT: normal OTHER SURGICAL HISTORY 08/28/2020 PROCEDURE: HISTORY OTHER; COMMENT: hiatal hernia procedure KNEE SURGERY Right meniscus Medical History Medical History Date Comments Unspecified asthma(493.90) DX:Un specified asthma(493.90) Abdominal pain, other specified site DX:Abdominal pain, other specified site; COMMENT: right lower quadarant Unsatisfactory cervical cytology smear 1 DX:Unsatisfactory cervical cytology smear; COMMENT: ASCUS/favor Dysplasia Encounter for Papanicolaou c ervical smear to confirm findings of recent normal smear following initial abnormal smear 11/10/2000 DX:Encounter for Papanicolao u cervical smear to confirm findings of recent normal smear following initial abnormal smear; COMMENT: Colpo. BX./Squamous [place] with reactive Squamous Epithellial cahnge and Chronic inflamation Allergic rhinitis, cause unspecified 08/08/2006 DX:Allergic rhinitis, cause unspecified IBS (irritable bowel syndrome) 03/05/2007 D X:IBS (irritable bowel syndrome) VSD (ventricular septal defect) 03/05/2007 DX:VSD (ventricular septal defect) Pulmonic stenosis 03/05/2007 DX:Pulmonic st enosis Osteoarthritis of knee 12/24/2008 DX:Osteoa rthritis of knee Incomplete RBBB 07/09/2012 DX:Incomplete RB BB Pulmonic stenosis 03/05/2007 DX:Pulmonic st enosis Retinal detachment 03/09/2015 DX:Retinal de tachment Musculoskeletal neck pain 06/04/2018 DX:Mus culoskeletal neck pain Benign essential tremor 06/04/2018 DX:Benig n essential tremor Moderate persistent asthma w ithout complication 03/09/2018 DX:Moderate persistent asthm a without complication Esophageal dysmotility 04/07/2020 DX:Esopha geal dysmotility Class 1 obesity DX:Class 1 obesi ty Esophageal spasm DX:Esophageal s pasm Anxiety DX:Anxiety Glaucoma DX:Glaucoma Acid reflux disease DX:Acid refl ux disease Chronic insomnia DX:Chronic inso mnia Hemorrhoids DX:Hemorrhoids Hormone replacement therapy (HRT) DX:Hormone replacement therapy (HRT) Mild major depression (CMS/HCC) DX:Mild major depression (HCC) Moderate persistent asthma DX:Mo derate persistent asthma Other retinal detachments DX:Oth er retinal detachments Family History Medical History Relation Name Comments Other: Lupus Brother 1 Arthritis Father dx'd 65 hx RA Breast cancer Father dx'd 65 Lung cancer Father dx'd 65 Other: aortic aneurysm Father dx'd 65 thora cic and abdominal Stroke Father dx'd 65 Diabetes Maternal Grandfather Arthritis Mother in spine Other: brain aneursym Mother Blindness Neg Hx Cataracts Neg Hx Colon cancer Neg Hx Glaucoma Neg Hx Macular degeneration Neg Hx Ovarian cancer Neg Hx Strabismus Neg Hx Relation Name Status Comments Brother 1 Brother 2 Alive fibromyalgia Brother 3 Alive asthma, melanom a Brother 4 Alive Daughter Alive Asthma Father dx'd 65 Maternal Grandfather Mother (Age 53) brain aneu rysm Son Alive ADD Social History Tobacco Use Types Packs/Day Years Used Date Smoking Tobacco: Never Smokeless Tobacco: Never Tobacco Cessation:Counseling Given: Not Answered Alcohol Use Standard Drinks/Week Comments Yes 0 [...] for your loved ones. For example, child welfare worker or elderly care for an older adult? [...] 1:39 PM EST Sexual Orientation Straight 12/15/2023 1 :39 PM EST Job Start Date Occupation Industry Not on file Not on file Not on file Obstetrics History Last Filed Vital Signs Vital Sign Reading Time Taken Comments Blood Pressure 117/67 03/01/2024 9:19 AM EST Pulse 72 03/01/2024 9:19 AM EST Temperature 36.8 ??C (98.3 ??F) 03/01/2024 9:19 AM ES T Respiratory Rate 16 03/01/2024 9:19 AM EST Oxygen Saturation - - Inhaled Oxygen Concentration - - Weight 118 kg (260 lb) 03/01/2024 9:19 AM EST Height 177.8 cm (5' 10 ) 03/01/2024 9:19 AM EST Body Mass Index 37.31 03/01/2024 9:19 AM EST Plan of Treatment Upcoming Encounters Date Type Department Care Team (Late st Contact Info) Description 03/05/2024 10:00 AM EST Consult Adult Medicine [address] [phone] Anuja Gale MD [address] [place] [address] 04/11/2024 12:00 PM EST Office Visit Adult Medicine [address] [phone] Anuja Gale MD [address] [place] [phone] 04/15/2024 8:45 AM EDT Office Visit Pulmonolgy [facility] [address] [phone] Sarah Beckett MD [address] [phone] 04/16/2024 2:10 PM EDT Appointment Radiology Department [address] [phone] Health Maintenance Due Date Last Done Comments Hepatitis B Vaccines (1 of 3 - 19+ 3-dose series) 1983 Zoster Vaccines (2 of 2) 10/31/2018 019, 06/16/2018, 06/16/2018 HIV Screening 01/15/2022 Cervical Cancer Screening: Pap Smear 03/27/2024 03/27/2021 Hypertension/CHF/CAD Annual BMP Blood Test 10/17/2024 10/18/2023, 10/18/2023 Social Influencers of Health Screening 02/28/2025 02/29/2024 Depression Screening 03/01/2025 03/01/2024, 02/28/19 Breast Cancer Screening 04/13/2025 04/14/19, 04/12/2022, 04/07/2022, Additional history exists Colorectal Cancer Screening: Colonoscopy 01/02/2027 01/02/2017 DTaP,Tdap,and Td Vaccines (3 - Td or Tdap) 06/04/2028 06/04/2018, 03/05/2007 Cholesterol Screening (Lipid Panel) 10/17/2028 10/18/2023, 10/18/2023 RSV Immunization Patients 60+ Years Old (1 - 1-dose 75+ series) 2039 Hepatitis C Screening Completed 09/04/2014 Varicella Vaccines Aged Out 09/05/2018 No longer eligible based on patient's age to complete this topic Pneumococcal Vaccine: Pediatrics (0 to 5 Years) and At-Risk Patients (6 to 64 Years) Completed 12/28/2021, 12/28/2021, 10/19/2021, Additional history exists Influenza Vaccine Completed 10/13/2023, , 11/16/2021, Additional history exists COVID-19 Vaccine Completed 02/24/2024, , 12/09/2021, Additional history exists HIB Vaccines Aged Out No longer eligi ble based on patient's age to complete this topic HPV Vaccines Aged Out No longer eligi ble based on patient's age to complete this topic Hepatitis A Vaccines Aged Out No long er eligible based on patient's age to complete this topic IPV Vaccines Aged Out No longer eligi ble based on patient's age to complete this topic MMR Vaccines Aged Out No longer eligi ble based on patient's age to complete this topic Meningococcal ACWY Vaccine Aged Out N o longer eligible based on patient's age to complete this topic RSV Immunization Patients Under 20 months Aged Out No longer eligible based on patient's age to complete this topic Procedures Procedure Name Priority Date/Time Associated Diagnosis Comments XR KNEE 4+ VIEWS RIGHT STAT 03/01/2024 10:02 AM EST Acute pain of right knee POC URINE AUTO W/O MICRO Routine 03/01/2024 9:29 AM EST Urinary frequency SANCHEZ URINE CULTURE TUBE Routine 12/15/2023 3:57 PM EST Urinary tract infection without hematuria, site unspecified URINALYSIS WITH REFLEX MICROSCOPIC AND CULTURE Routine 12/15/2023 3:57 PM EST Urinary tract infection without hematuria, site unspecified URINALYSIS WITH REFLEX MICROSCOPIC AND CULTURE Routine 12/15/2023 3:57 PM EST Urinary tract infection without hematuria, site unspecified CULTURE URINE Routine 12/15/2023 3:57 PM EST Urinary tract infection without hematuria, site unspecified ANNUAL BMP BLOOD TEST Routine 10/18/2023 LIPID PANEL Routine 10/18/2023 SCREENING MAMMOGRAPHY BI 2-VIEW BREAST INC CAD Routine 04/14/2023 10:01 AM EST Encounter for screening mammogram for malignant neoplasm of breast PAP SMEAR Routine 03/27/2021 COLONOSCOPY Routine 01/02/2017 HEPATITIS C SCREENING Routine 09/04/2014 from Last 3 Months or Most Recently Relevant to Health Maintenance Results * XR Knee 4+ Views Right (03/01/2024 10:02 AM EST) Anatomical Region Laterality Modality Lower Extremities, Knee Right Radiogra [facility] 03/01/2024 11:1 1 AM EST Impressions 03/01/2024 11:13 AM EST No acute fracture or dislocation of the right knee. ?? Degenerative changes as above -------- FINAL REPORT -------- Dictated By: Tai Steven Dictated Date: 03/01/2024 11:11 ET Assigned Physician: Tai Steven Reviewed and Electronically Signed By: Tai Steven Signed Date: 03/01/2024 11:13 ET Workstation ID: [id number] Transcribed By: Self Edit Transcribed Date: 03/01/2024 [...] Signed Date: 03/01/2024 11:13 ET Workstation ID: [id number] Transcribed By: Self Edit Transcribed Date: 03/01/2024 11:11 ET Janeth BIANCHI IMG XR PROCEDURES * POC Urine Auto W/O Micro (03/01/2024 9:29 AM EST) Leukocytes UA POC Negative Negative Nitrite UA POC Negative Negative Urobilinogen UA POC Negative Negative Protein UA POC Negative Negative PH UA POC 7.0 5.0 - 9.0 Blood UA POC Negative Negative, Trace Specific [place] UA POC 1.005 1.001 - 1.035 Ketones UA POC Negative Negative Bilirubin UA POC Negative Negative Glucose UA POC Normal Normal, Trace Urine Urine specimen obtained by clean catch procedure / Unknown 03/01/2024 9:29 AM EST Janeth BIANCHI POINT OF CARE TEST E NTER/EDIT ORDERABLES * (ABNORMAL) Urinalysis with reflex microscopic and culture (12/15/2023 3:57 PM EST) Pathologist [facility] Specific [place] Urine 1.014 1.003 - 1.030 LAB URINALYSIS - AUTOMATED METHOD 12/15/2023 5:49 PM [facility] pH, Urine 6.0 5.0 - 8.0 pH LAB URINALYSIS - AUTOMATED METHOD 12/15/2023 5:49 PM [facility] Leukocytes, Urine Trace(A) Negative LAB URINALYSIS - AUTOMATED METHOD 12/15/2023 5:49 PM [facility] Nitrite, Urine Negative Negative LAB URINALYSIS - AUTOMATED METHOD 12/15/2023 5:49 PM [facility] Protein, Urine Negative <=Trace mg/dL LAB URINALYSIS - AUTOMATED METHOD 12/15/2023 5:49 PM [facility] Glucose, Urine Negative Negative mg/dL LAB URINALYSIS - AUTOMATED METHOD 12/15/2023 5:49 PM [facility] Ketones, Urine Negative Negative mg/dL LAB URINALYSIS - AUTOMATED METHOD 12/15/2023 5:49 PM EST [facility] Urobilinogen, Urine 0.2 0.2 - 1.0 mg/dL LAB URINALYSIS - AUTOMATED METHOD 12/15/2023 5:49 PM [facility] Bilirubin, Urine Negative Negative LAB URINALYSIS - AUTOMATED METHOD 12/15/2023 5:49 PM [facility] Blood, Urine Negative Negative LAB URINALYSIS - AUTOMATED METHOD 12/15/2023 5:49 PM [facility] RBC, Urine 2.0 0 - 4 /HPF LAB URINALYSIS - AUTOMATED METHOD 12/15/2023 5:49 PM [facility] WBC, Urine 4.2(H) 0 - 4 /HPF LAB URINALYSIS - AUTOMATED METHOD 12/15/2023 5:49 PM [facility] Squamous Epithelial, Urine 79(H) 0 - 60 /LPF LAB URINALYSIS - AUTOMATED METHOD 12/15/2023 5:49 PM [facility] Bacteria, Urine Negative Negative /HPF LAB URINALYSIS - AUTOMATED METHOD 12/15/2023 5:49 PM [facility] Hyaline Casts, Urine 2.8 0 - 3 /LPF LAB URINALYSIS - AUTOMATED METHOD 12/15/2023 5:49 PM [facility] Urine Urine specimen obtained by clean catch procedure / Unknown Non-blood Collection / Unknown 12/15/2023 3:57 PM EST 12/15/2023 3:57 PM EST Anuja Gale MD LAB URINE ORDERABLES [facility] [address] [place] [address], * Sanchez urine culture tube (12/15/2023 3:57 PM EST) Extra Tube Hold for add-ons. 12/15/2023 6:01 PM EST [facility] Comment:Auto resulted. Urine Urine specimen obtained by clean catch procedure / Unknown Non-blood Collection / Unknown 12/15/2023 3:57 PM EST 12/15/2023 3:57 PM EST Anuja Gale MD LAB URINE ORDERABLES Performing Organization Address City/[facility]/ZIP Co de Phone Number [facility] [address] [place] [address], [place] [phone] * Culture urine (12/15/2023 3:57 PM EST) [facility] Culture, Urine No growth 12/16/2023 11:35 AM EST [facility] Urine Urine specimen obtained by clean catch procedure / Unknown Non-blood Collection / Unknown 12/15/2023 3:57 PM EST 12/15/2023 5:49 PM EST Anuja Gale MD LAB MICROB IOLOGY - GENERAL ORDERABLES [facility] [address] [place] [address], [place] [phone] * Annual BMP Blood Test (10/18/2023) Pathologist [facility] Annual BMP Blood Test Abstracted Historical Provider [facility] * Lipid panel (10/18/2023) [facility] LDL/HDL Ratio 2 0 - 4 Triglycerides 77 0 - 150 mg/dL Cholesterol 171 0 - 200 mg/dL HDL 79 40 mg/dL LDL Cholesterol 77 0 - 100 mg/dL Blood Venous blood specimen / Unknown Historical Provider LAB BLOOD ORDERAB LES * SCREENING MAMMOGRAPHY BI 2-VIEW BREAST INC CAD (04/14/2023 10:01 AM EST) Anatomical Region Laterality Modality Radiographic Ivory ging 04/07/2022 5:28 PM EST Narrative 04/14/2023 6:27 PM EST This is a summary report. The complete report is available in the patient's medical record. If you cannot access the medical record, please contact the sending organization for a detailed fax or copy. Exam: Screening mammogram Findings: Digital bilateral full-field screening mammography is performed with tomosynthesis and interpreted with the aid of computer-aided detection. ??Comparison is made with 04/07/2022 and as far back as 11/17/2018. Breast parenchyma is composed of scattered fibroglandular densities. ??No new suspicious mass, architectural distortion, or suspicious calcifications. Impression: No mammographic evidence of malignancy. BI-RADS 1 - negative Procedure Note Johnna Mansfield MD - 09/25/2023 This is a summary report. The complete report is available in thepatient's medical record. If you cannot access the medical record, pleasecontact the sending organization for a detailed fax or copy. Exam: Screening mammogram Findings: Digital bilateral full-field screening mammography is performedwith tomosynthesis and interpreted with the aid of computer-aideddetection. Comparison is made with 04/07/2022 and as far back as1. Breast parenchyma is composed of scattered fibroglandular densities. Nonew suspicious mass, architectural distortion, or suspiciouscalcifications. Impression: No mammographic evidence of malignancy. 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 Health Care Decision (hx) 10/12/2020 AD OLIVAS DIRECTIVE Health Care Decision (hx) 10/12/2020 AD OLIVAS DIRECTIVE Health Care Decision (hx) 10/12/2020 AD OLIVAS DIRECTIVE Health Care Decision (hx) 10/12/2020 AD OLIVAS DIRECTIVE Health Care Decision (hx) 10/12/2020 AD OLIVAS DIRECTIVE Health Care Decision (hx) 10/12/2020 AD OLIVAS DIRECTIVE Health Care Decision (hx) 10/12/2020 AD OLIVAS DIRECTIVE Health Care Decision (hx) 10/12/2020 AD OLIVAS DIRECTIVE Health Care Decision (hx) 10/12/2020 AD OLIVAS DIRECTIVE Health Care Decision (hx) 10/12/2020 AD OLIVAS DIRECTIVE Health Care Decision (hx) 10/12/2020 AD OLIVAS DIRECTIVE Health Care Decision (hx) 10/12/2020 AD OLIVAS DIRECTIVE Health Care Decision (hx) 10/12/2020 AD OLIVAS DIRECTIVE Care Teams 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
--- OUTSIDE RECORDS SUMMARY | 2024-03-04 13:15 | XMS_ITS | Encounter Summary ---
Author Organization [facility] Address [address] [place] [address] Care Team Providers Care Medical Reimbursement Manager Name Role Phone Anuja Gale MD Primary Care Prov ider Reason for Visit * Reason Comments UTI Encounter Details Date Type Department Care Team ([facility] st Contact Info) Description 03/01/2024 9:30 AM EST Office Visit Adult Medicine [facility] [address] [place] [address] Janeth Neal PA [address] [place] [address] Urinary frequency (Primary Dx); Acute pain of right knee Social History Tobacco Use Types Packs/Day Years [...] Record ed Within the last 3 months, gladys nugent many times did you visit the emergency [...] for your loved ones. For example, child monitor or elderly care for an older adult? [...] on file documented as of this encounter Last Filed Vital Signs Vital Sign Reading [...] Mass Index 37.31 03/01/2024 9:19 AM EST documented in this encounter Progress Notes * Justina Rico MA - 03/01/2024 9:30 AM EST Depression Screening Over the last 2 weeks, how often have you been bothered by little interest or pleasure in doing things?: Not at all Over the last 2 weeks, how often have you been bothered by feeling down, depressed, or hopeless?: Several days Depression Risk: 1 Social Influencers of Health Within the past 12 months we worried whether our food would run out before we got money to buy more.: Never true Within the past 12 months the food we bought just didn't last and we didn't have money to get more.: Never true How hard is it for you to pay for the very basics like food, housing, medical care, and air conditioning / heating?: Patient declined Are you worried that in the next 2 months you may not have stable housing?: No Do you have access to a variety of food including fruits and vegetables?: Yes Within the last 3 months, how many times did you visit the emergency department for your medical care?: 0 Has the lack of transportation kept you from meetings, work, or from getting things needed for daily living?: No Has the lack of transportation kept you from medical appointments or from getting medications?: No How often do you feel lonely or isolated from those around you?: Never How often do you need to have someone help you when you read instructions, pamphlets, or other written material from your doctor or pharmacy?: Patient declined * TASH Enriquez - 03/01/2024 9:30 AM EST CHIEF COMPLAINT: UTI IDENTIFIER: Christen Griggs is a 58 y.o. old female. HPI: Patient presents to the office today endorsing a few days of urinary frequency, urgency, burning, and odor earlier in the week. She increased water intake and started taking cranberry juice as well. Symptoms are almost fully resolved. No visible blood in the urine. No fever or chills. No flank pain. No N/V. No abdominal pain. No suprapubic discomfort. No vaginal bleeding or discharge. She had right knee meniscal repair in the summer and has been following closely with orthopedics. Notes that she had appointment 1.5 weeks ago and was told that things were doing very well. Yesterdayshe started to experience sudden onset knee pain aggravated by bearing weight, walking. Feels different than her most recent knee pain. Feels like the bone . No injury, fall, or blunt trauma. No swelling. No redness or warmth. No blue or pale discoloration. Extremity is not cold to touch. No numbness or tingling. No weakness. Ambulating with crutches. She contacted orthopedics and has an appointment scheduled in 3 days. ROS: GENERAL: SEE HPI and No malaise, significant weight loss RESPIRATORY: No cough, wheezing or shortness of breath CARDIOVASCULAR: No chest pain, leg swelling or palpitations GI: SEE HPI : SEE HPI DOPER OPERATOR: SEE HPI. MUSCULOSKELETAL: See HPI NEURO: No persistent headache, syncope, seizures, weakness or numbness PAST MEDICAL HISTORY: Patient Active Problem List Diagnosis Date Noted Complete blindness of right eye 01/16/2023 Diaphragmatic paralysis 08/16/2022 PAC (premature atrial contraction) 05/25/2022 SOB (shortness of breath) 05/25/2022 Atrial fibrillation ([facility]) 12/20/2021 Atrial tachycardia ([facility]) 12/20/2021 Hyperlipidemia 12/20/2021 Palpitations 12/20/2021 PAF (paroxysmal atrial fibrillation) (CMS/HCC) 09/27/2021 Tachycardia 09/27/2021 Esophageal dysmotility 04/07/2020 HTN (hypertension), benign 12/24/2018 Severe obesity (BMI 35.0-39.9) with comorbidity ([facility]) 10/06/2018 Benign essential tremor 06/04/2018 Musculoskeletal neck pain 06/04/2018 Vasovagal syncope 06/04/2018 Allergic rhinitis due to cat hair 03/09/2018 Allergic rhinitis due to pollen 03/09/2018 Hiatal hernia 03/09/2018 Moderate persistent asthma 03/09/2018 Pure hypercholesterolemia 10/12/2017 Retinal detachment 03/09/2015 Insomnia 12/19/2011 Osteoarthritis of knee 12/24/2008 IBS (irritable bowel syndrome) 03/05/2007 Allergic rhinitis 08/08/2006 SOCIAL HISTORY: Social History Tobacco Use Smoking status: Never Smokeless tobacco: Never Substance Use Topics Alcohol use: Yes FAMILY HISTORY: Family Status Relation Name Status Mother at age 53 brain aneurysm Father dx'd 65 Brother (Not Specified) MGF (Not Specified) Neg Hx (Not Specified) Brother Alive fibromyalgia Brother Alive asthma, melanoma Brother Alive Daughter Alive Asthma Son Alive ADD No partnership data on file Family History Problem Relation Name Age of Onset Arthritis Mother in spine Other (Other: brain aneursym) Mother Stroke Father dx'd 65 Breast cancer Father dx'd 65 Arthritis Father dx'd 65 hx RA Lung cancer Father dx'd 65 Other (Other: aortic aneurysm) Father dx'd 65 thoracic and abdominal Other (Other: Lupus) Brother Diabetes Maternal Grandfather Blindness Neg Hx Cataracts Neg Hx Glaucoma Neg Hx Macular degeneration Neg Hx Strabismus Neg Hx Ovarian cancer Neg Hx Colon cancer Neg Hx ACTIVE MEDICATIONS: Outpatient Medications Marked as Taking for the 03/01/24 encounter (Office Visit) with TASH Enriquez Medication Sig Dispense Refill albuterol HFA (PROAIR HFA ; PROVENTIL HFA ; VENTOLIN HFA) 90 mcg/actuation inhaler USE 2 INHALATIONS ORALLY EVERY 6 HOURS NEEDED FORCOUGH OR WHEEZING atorvastatin (LIPITOR) 20 mg tablet TAKE 1 TABLET DAILY atropine sulfate (ATROPINE-CARE OPHT) apply to the eye 2 times daily. r eye azelastine (ASTELIN) 137 mcg (0.1 %) nasal spray USE 2 SPRAYS IN EACH NOSTRIL TWICE DAILY bimatoprost (Lumigan) 0.01 % ophthalmic drops INSTIL 1 DROP IN BOTH EYES AT BEDTIME DIRECTED brimonidine (ALPHAGAN) 0.2 % ophthalmic solution budesonide-formoteroL (SYMBICORT) 160-4.5 mcg/actuation inhaler Inhale 2 Puffs into the lungs 2 times daily for 360 days. buPROPion SR (WELLBUTRIN SR) 150 mg 12 hr tablet Take 1 Tablet by mouth daily. calcium carbonate (CALCIUM 600 ORAL) Take 1 Tab by mouth 2 times daily. diclofenac sodium 3 % gel APPLY TOPICALLY TO THE AFFECTED AREA TWICE DAILY dilTIAZem XR (DILACOR XR) 240 mg 24 hr capsule Take 1 Capsule by mouth daily for 360 days. EPINEPHrine (EpiPen 2-Jd) 0.3 mg/0.3 mL injection Inject 0.3 mg as directed as needed (As needed for anaphylaxis). Use as directed fexofenadine HCl (HUMA ORAL) Take by mouth. gabapentin (NEURONTIN) 300 mg capsule TAKE 1 CAPSULE BY MOUTH NEEDED FOR HEADACHE UP TO 2 TIMES A DAY glucose blood test strip Test every day hydrocortisone (ANUSOL-HC) 2.5 % rectal cream APPLY 1 APPLICATOR TOPICALLY TWO TIMES A DAY NEEDED FOR HEMORRHOID ipratropium-albuteroL (Combivent Respimat) 20-100 mcg/actuation inhaler Inhale 1 Puff into the lungs every 6 hours as needed for Other (wheezing) for up to 363 days. loteprednol (LOTEMAX) 0.5 % ophthalmic suspension INSTILL 1 DROP IN RIGHT EYE AT BEDTIME DIRECTED. montelukast (SINGULAIR) 10 mg tablet TAKE 1 TABLET AT BEDTIME pantoprazole (PROTONIX) 40 mg EC tablet Take 1 Tablet by mouth 2 times daily for 360 days. tiZANidine (ZANAFLEX) 2 mg tablet Take 1 tablet (2 mg total) by mouth at bedtime as needed for muscle spasms. 30 tablet 0 zolpidem (AMBIEN) 10 mg tablet Take by mouth at bedtime as needed. [DISCONTINUED] budesonide-formoteroL (Symbicort) 160-4.5 mcg/actuation inhaler Inhale 2 Puffs into the lungs 2 times daily. [DISCONTINUED] oxyCODONE (ROXICODONE) 5 mg immediate release tablet TAKE 1 TABLET BY MOUTH EVERY 8 HOURS NEEDED FOR SEVERE PAIN [DISCONTINUED] oxyCODONE-acetaminophen (PERCOCET) 5-325 mg per tablet TAKE 1 TABLET BY MOUTH EVERY 4-6 HOURS NEEDED FOR PAIN ALLERGIES: Dorzolamide, Mometasone-formoterol, Fluticasone propion-salmeterol, Fluticasone propionate, and Propranolol hcl PHYSICAL EXAM: Blood pressure 117/67, pulse 72, temperature 36.8 ??C (98.3 ??F), temperature source Temporal, resp. rate 16, height 1.778 m (70 ), weight 118 kg (260 lb). Body mass index is 37.31 kg/m??. Plan is deferred until next visit APPEARANCE: Alert and in no acute distress HEART: RRR with normal S1 and S2, no murmurs LUNG: clear to auscultation ABDOMEN: Bowel sounds normoactive, no bruits, soft, non-tender, without organomegaly or palpable masses BACK: No CVA tenderness EXTREMITIES: Extremities warm and well perfused without clubbing, cyanosis, or edema. No calf tenderness. Negative Homans. No palpable cords. Slight tenderness to palpation of right anterior inferiorpatella. Left patella nontender. NEURO: Awake, alert and oriented x 3. Ambulating with crutches. SKIN: Skin color, texture, turgor normal. No erythema, warmth, rashes, ecchymosis or abrasions. LABS: Urine dipstick 03/01/24 Unremarkable. Negative leukocytes, nitrates, protein, blood, ketones, bilirubin, glucose. Specific gravity 1.005. pH 7.0. NA 144 04/14/2023 K 4.3 04/14/2023 CO2 29 04/14/2023 CL 109 04/14/2023 BUN 14 04/14/2023 CREAT 0.76 04/14/2023 GLU 92 04/14/2023 ALB 3.8 04/14/2023 SGOT 15 04/14/2023 SGPT 22 04/14/2023 TBILI 0.5 04/14/2023 ALKPHOS 80 04/14/2023 TP 6.8 04/14/2023 CA 9.8 04/14/2023 GFR 90 04/14/2023 IMAGIN07/14/2023 RIGHT KNEE VIEWS: Lateral, Frontal (bilateral), and Merchant (bilateral) HISTORY: Arthritis of right knee. Acute pain of right knee. PRIOR: Right knee 07/16/2021. FINDINGS: There is degenerative spurring about all 3 compartments. No fracture or malalignment is seen. Soft tissues are normal. The patellae are normally positioned on the Merchant view. A left knee joint prosthesis is noted on the merchant view. No joint effusion is seen. IMPRESSION: IMPRESSION: Moderate osteoarthritis. IMPRESSION: 1. Urinary frequency 2. Acute pain of right knee PLAN: Patient with 2 days of urinary frequency, urgency, burning, and slight urine odor earlier in the week. Symptoms have almost fully resolved with increase in water intake and consumption of cranberry juice. Urine dipstick in the office today is unremarkable. No indication for urine culture at this time. Patient will continue with good hydration, proper hygiene and wiping practices, UTI prevention. Acute right knee pain with history of recent surgery. She has contacted orthopedics and has appointment in 3 days. She is ordered for right knee x-ray today so that results are available for orthopedic appointment. For now she is advised on rest, ice, compression, elevation, moist heat. She will continue with crutches for ambulation. Pt is educated on alarm sx's that would warrant emergency room evaluation. Patient understands and agrees to plan. Patient will return to the office for routine care with PCP. Will contact the officesooner with any further problems or concerns. Orders Placed This Encounter Procedures XR Knee 4+ Views Right POC Urine Auto W/O Micro ADDITIONAL ORDERS: None TASH Enriquez on 03/01/2024 at 9:55 AM EST documented in this encounter Plan of Treatment Upcoming Encounters Date Type Department Care Team (Late st Contact Info) Description 03/05/2024 10:00 AM EST Consult Adult Medicine [address] [phone] Anuja Gale MD [address] [place] [address] 04/11/2024 12:00 PM EST Office Visit Adult Medicine [address] [phone] Anuja Gale MD [address] [place] [address] 04/15/2024 8:45 AM EDT Office Visit [address] [phone] Sarah Beckett MD [address] [place] [address] 04/16/2024 2:10 PM EDT Appointment Radiology Department [address] [phone] documented as of this encounter Procedures Procedure Name Priority Date/Time Associated Diagnosis Comments POC URINE AUTO W/O MICRO Routine 03/01/2024 9:29 AM EST Urinary frequency documented in this encounter Results * XR [...] Signed Date: 03/01/2024 11:13 ET Workstation ID: [id number] Transcribed By: Self Edit Transcribed Date: 03/01/2024 [...] Signed Date: 03/01/2024 11:13 ET Workstation ID: [id number] Transcribed By: Self Edit Transcribed Date: 03/01/2024 11:11 ET Janeth BIANCHI IMG XR PROCEDURES * POC Urine Auto W/O Micro (03/01/2024 9:29 AM EST) Leukocytes UA POC Negative Negative Nitrite UA POC Negative Negative Urobilinogen UA POC Negative Negative Protein UA POC Negative Negative PH UA POC 7.0 5.0 - 9.0 Blood UA POC Negative Negative, Trace Specific [place] UA POC 1.005 1.001 - 1.035 Ketones UA POC Negative Negative Bilirubin UA POC Negative Negative Glucose UA POC Normal Normal, Trace Urine Urine specimen obtained by clean catch procedure / Unknown 03/01/2024 9:29 AM EST Janeth BIANCHI POINT OF CARE TEST E NTER/EDIT ORDERABLES documented in this encounter Visit Diagnoses Diagnosis Urinary frequency- Primary Acute pain of right knee Acute pain of right knee Encounter for screening mammogram for breast cancer documented in this encounter Discontinued Medications Medication Sig Discontinue Reason Start Date End Da te budesonide-formoteroL (Symbicort) 160-4.5 mcg/actuation inhaler Inhale 2 Puffs into the lungs 2 times daily. Duplicate order 03/23/2023 03/01/2024 oxyCODONE (ROXICODONE) 5 mg immediate release tablet TAKE 1 TABLET BY MOUTH EVERY 8 HOURS NEEDED FOR SEVERE PAIN Therapy completed 08/08/2023 03/01/2024 oxyCODONE-acetaminophen (PERCOCET) 5-325 mg per tablet TAKE 1 TABLET BY MOUTH EVERY 4-6 HOURS NEEDED FOR PAIN Therapy completed 09/15/2023 03/01/2024 documented as of this encounter Additional Health Concerns Assessment Noted Time PHQ-9 Depression Total Score: 0 02/28/19 25 5:30 PM EST documented as of this encounter Care Teams Medical Reimbursement Manager Relationship Specialty Start Date End Date Anuja Gale MD [address] [place] [address] PCP - General Internal Medicine 08/13/21 documented as of this encounter
== END 2024-03-04 09:35 | disposition home or self-care (01) ==
PROVIDERS: PCP Internal Medicine; Visit Provider Orthopaedic Surgery
DX: S83.241D Other tear of medial meniscus, current injury, right knee, subsequent encounter (principal); M23.91 Unspecified internal derangement of right knee
CPT/HCPCS: 99214

== ENCOUNTER → 2024-03-04 19:07 | Outpatient (BNV) | payer BC, SELFPAY | PROVIDERS: PCP Internal Medicine; Visit Provider Radiology Diagnostic Radiology | DX: M23.91 Unspecified internal derangement of right knee (principal); Z98.890 Other specified postprocedural states | CPT/HCPCS: 73721 ==

== ENCOUNTER 2024-03-04 19:15 | Outpatient (REF) | payer BC, SELFPAY ==
--- NOTE | ~2024-03-04 | MR_ITS ---
CLINICAL HISTORY: Z98.890 - Other specified postprocedural states MR right knee without gadolinium Comparison: None Findings: No fractures. No pathologic bone lesions. Moderate tricompartmental periarticular osteophyte formation. Severe articular cartilage loss diffusely overlies the weight-bearing aspects of the medial femoral condyle and medial tibial plateau. Severe articular cartilage loss overlying the posterior weight-bearing aspect of the lateral femoral condyle. Severe articular cartilage loss overlying the medial and lateral patellar facets. Moderate knee joint effusion and small Castanon's cyst. Mild T2 signal elevation within and adjacent to the anterior cruciate ligament. Moderate T2 signal elevation within the posterior cruciate ligament. There is mild T2 signal elevation within the medial and lateral collateral ligaments at the femoral origins Patellar retinacula and iliotibial band are intact. Quadriceps, patellar, popliteus, and flexor tendons are intact. Mild T2 signal elevation within the quadriceps and patellar tendons at the patellar insertion sites. Medial extrusion of the medial meniscus. Vertically oriented tear of the posterior horn medial meniscus at the meniscal root ligament insertion site is present. Lateral meniscus is intact. IMPRESSION: 1. ACL strain. 2. Partial-thickness posterior cruciate ligament tear. 3. Low-grade tearing of the medial and lateral collateral ligaments. 4. Medial meniscal tearing. 5. Knee joint effusion and Castanon's cyst. 6. Tricompartmental osteoarthritis with associated articular cartilage loss 7. Quadriceps and patellar tendinopathy. This document has been electronically signed by: Ankit Nguyen MD on 03/04/2024 20:46:59
--- OUTSIDE RECORDS SUMMARY | 2024-03-04 20:12 | XMS_ITS | Clinical Summary ---
Author Organization [facility] Address [address] [place] [address] Phone Care Team Providers Care Machine Heel Seat Fitter Name Role Phone Anuja Gale MD Primary [...] - 03/01/2024 11:59 PM EST Hospital Encounter [address] [phone] Acute pain of right knee Discharge Disposition: Home or Self Care 03/01/2024 9:30 AM EST Office Visit Adult Medicine [address] [phone] Janeth Neal PA Urinary frequency (Primary Dx); Acute pain of right knee 02/16/2024 Telephone Adult Medicine [address] [phone] Anuja Russo MD Referral 02/16/2024 Telephone Adult Medicine [address] [phone] Mallorie Leal MA faxed order ([facility] Physical Therapy Doc ID:[id number]) 01/07/2024 Telephone Adult Medicine [address] [phone] nAuja Russo MD 01/05/[address] [phone] Sarah Beckett MD Medication Problem 12/15/2023 Nurse Triage Adult Medicine [address] [phone] Anuja Russo MD Urinary Problem from Last [...] op for a week SALPINGOOPHORECTOMY 03/08/2002 PROCEDURE: SD LAPAROSCOPY W/RMVL ADNEXAL STRUCTURES; COMMENT: diagnostic laparoscopy, [...] repeat in 10 yrs ESOPHAGOGASTRODUODENOSCOPY 01/02/2017 PROCEDURE: SD ESOPHAGOGASTRODUODENOSCOPY TRANSORAL DIAGNOSTIC; COMMENT: normal OTHER SURGICAL [...] for your loved ones. For example, child care giver or elderly care for an older adult? [...] 03/05/2024 10:00 AM EST Consult Adult Medicine [address] [phone] Anuja Gale MD [address] [place] [address] 04/11/2024 12:00 PM EST Office Visit Adult Medicine [address] [phone] Anuja Gale MD [address] [place] [address] 04/15/2024 8:45 AM EDT Office Visit Pulmonolgy [facility] [address] [phone] Sarah Beckett MD [address] [address] 04/16/2024 2:10 PM EDT Appointment Radiology Department [address] [phone] Health Maintenance Due Date Last Done Comments [...] Laterality Modality Lower Extremities, Knee Right Radiogra [facility] 03/01/2024 11:1 1 AM EST Impressions 03/01/2024 11:13 AM EST No acute fracture or dislocation of the right knee. ?? Degenerative changes as above -------- FINAL REPORT -------- Dictated By: Tai Steven Dictated Date: 03/01/2024 11:11 ET Assigned Physician: Tai Steven Reviewed and Electronically Signed By: Tai Steven Signed Date: 03/01/2024 11:13 ET Workstation ID: [id number] Transcribed By: Self Edit Transcribed Date: 03/01/2024 [...] Signed Date: 03/01/2024 11:13 ET Workstation ID: [id number] Transcribed By: Self Edit Transcribed Date: 03/01/2024 11:11 ET Janeth BIANCHI IMG XR PROCEDURES * POC Urine Auto W/O Micro (03/01/2024 9:29 AM EST) Leukocytes UA POC Negative Negative Nitrite UA POC Negative Negative Urobilinogen UA POC Negative Negative Protein UA POC Negative Negative PH UA POC 7.0 5.0 - 9.0 Blood UA POC Negative Negative, Trace Specific [place] UA POC 1.005 1.001 - 1.035 Ketones UA POC Negative Negative Bilirubin UA POC Negative Negative Glucose UA POC Normal Normal, Trace Urine Urine specimen obtained by clean catch procedure / Unknown 03/01/2024 9:29 AM EST Janeth BIANCHI POINT OF CARE TEST E NTER/EDIT ORDERABLES * (ABNORMAL) Urinalysis with reflex microscopic and culture (12/15/2023 3:57 PM EST) Pathologist [facility] Specific [place] Urine 1.014 1.003 - 1.030 LAB URINALYSIS - AUTOMATED METHOD 12/15/2023 5:49 PM [facility] pH, Urine 6.0 5.0 - 8.0 pH LAB URINALYSIS - AUTOMATED METHOD 12/15/2023 5:49 PM [facility] Leukocytes, Urine Trace(A) Negative LAB URINALYSIS - AUTOMATED METHOD 12/15/2023 5:49 PM [facility] Nitrite, Urine Negative Negative LAB URINALYSIS - AUTOMATED METHOD 12/15/2023 5:49 PM [facility] Protein, Urine Negative <=Trace mg/dL LAB URINALYSIS - AUTOMATED METHOD 12/15/2023 5:49 PM [facility] Glucose, Urine Negative Negative mg/dL LAB URINALYSIS - AUTOMATED METHOD 12/15/2023 5:49 PM [facility] Ketones, Urine Negative Negative mg/dL LAB URINALYSIS - AUTOMATED METHOD 12/15/2023 5:49 PM EST [facility] Urobilinogen, Urine 0.2 0.2 - 1.0 mg/dL LAB URINALYSIS - AUTOMATED METHOD 12/15/2023 5:49 PM [facility] Bilirubin, Urine Negative Negative LAB URINALYSIS - AUTOMATED METHOD 12/15/2023 5:49 PM [facility] Blood, Urine Negative Negative LAB URINALYSIS - AUTOMATED METHOD 12/15/2023 5:49 PM [facility] RBC, Urine 2.0 0 - 4 /HPF LAB URINALYSIS - AUTOMATED METHOD 12/15/2023 5:49 PM [facility] WBC, Urine 4.2(H) 0 - 4 /HPF LAB URINALYSIS - AUTOMATED METHOD 12/15/2023 5:49 PM [facility] Squamous Epithelial, Urine 79(H) 0 - 60 /LPF LAB URINALYSIS - AUTOMATED METHOD 12/15/2023 5:49 PM [facility] Bacteria, Urine Negative Negative /HPF LAB URINALYSIS - AUTOMATED METHOD 12/15/2023 5:49 PM [facility] Hyaline Casts, Urine 2.8 0 - 3 /LPF LAB URINALYSIS - AUTOMATED METHOD 12/15/2023 5:49 PM [facility] Urine Urine specimen obtained by clean catch procedure / Unknown Non-blood Collection / Unknown 12/15/2023 3:57 PM EST 12/15/2023 3:57 PM EST Anuja Gale MD LAB URINE ORDERABLES [facility] [address] [place] [address], * Sanchez urine culture tube (12/15/2023 3:57 PM EST) Extra Tube Hold for add-ons. 12/15/2023 6:01 PM EST [facility] Comment:Auto resulted. Urine Urine specimen obtained by clean catch procedure / Unknown Non-blood Collection / Unknown 12/15/2023 3:57 PM EST 12/15/2023 3:57 PM EST Anuja Gale MD LAB URINE ORDERABLES Performing Organization Address City/[facility]/ZIP Co de Phone Number [facility] [address] [place] [address], [place] [phone] * Culture urine (12/15/2023 3:57 PM EST) [facility] Culture, Urine No growth 12/16/2023 11:35 AM EST [facility] Urine Urine specimen obtained by clean catch procedure / Unknown Non-blood Collection / Unknown 12/15/2023 3:57 PM EST 12/15/2023 5:49 PM EST Anuja Gale MD LAB MICROB IOLOGY - GENERAL ORDERABLES [facility] [address] [place] [address], [place] [phone] * Annual BMP Blood Test (10/18/2023) Pathologist [facility] Annual BMP Blood Test Abstracted Historical Provider [facility] MAINTENANC E * Lipid panel (10/18/2023) [facility] LDL/HDL Ratio 2 0 - [...] interpretation , Abstracted Historical Provider MD [facility] E * Colonoscopy (01/02/2017) Colonoscopy No interpretation , Abstracted Anatomical Region Laterality Modality Other Historical Provider MD [facility] E * Hepatitis C Screening (09/04/2014) Hepatitis C Screening Abstracted Historical Provider MD FARIDA Butler from Last 3 Months or Most Recently Relevant to Health Maintenance Advance Directives Documents on File Type Date Recorded 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
--- OUTSIDE RECORDS SUMMARY | 2024-03-04 20:12 | XMS_ITS | Encounter Summary ---
Author Organization [facility] Address [address] [place] [address] Care Team Providers Care Metal Cut Off Saw Tender Name Role Phone Anuja Gale MD Primary Care Prov ider Reason for Visit * Reason Onset Date Comments Referral 02/16/2024 Encounter Details Date Type Department Care Team (Late st Contact Info) Description 02/16/2024 Telephone Adult [facility] [address] [place] [phone] Anuja Gale MD [address] [place] [address] Referral Social History Tobacco Use Types Packs/Day [...] insurance must be obtained and registered in [facility] or their referral can not be [...] Up Address of Specialist: [address], [place] [address] Phone # of Specialist: [phone] Fax #: (if applicable): [phone] Does patient have an appointment scheduled?: no Date of appointment- (including a retro-request): n/a Is this appointment related to: Surgery documented in this encounter Plan of Treatment Upcoming Encounters Date Type Department Care Team (Late st Contact Info) Description 03/05/2024 10:00 AM EST Consult Adult Medicine [address] [phone] Anuja Gale MD [address] [place] [address] 04/11/2024 12:00 PM EST Office Visit Adult Medicine [address] [phone] Anuja Gale MD [address] [place] [address] 04/15/2024 8:45 AM EDT Office Visit Pulmonolgy - [place] [address] [phone] Sarah Beckett MD [address] [address] 04/16/2024 2:10 PM EDT Appointment Radiology Department - [address] [phone] documented as of this encounter Visit Diagnoses Not on filedocumented in this encounter Care Teams Metal Cut Off Saw Tender Relationship Specialty Start Date End Date Anuja Gale MD [address] [place] [address] PCP - General Internal Medicine 08/13/21 documented as of this encounter
--- OUTSIDE RECORDS SUMMARY | 2024-03-04 20:12 | XMS_ITS | Encounter Summary ---
Author Organization [facility] Address [address] [place] [address] Care Team Providers Care Digital Performance Analyst Name Role Phone Anuja Gale MD Primary Care Prov ider Reason for Visit * Reason Comments UTI Encounter Details Date Type Department Care Team ([facility] st Contact Info) Description 03/01/2024 9:30 AM EST Office Visit Adult Medicine [facility] [address] [place] [phone] Janeth Neal PA [address] [place] [address] Urinary frequency (Primary Dx); Acute pain of [...] your loved ones. For example, child care center administrator or elderly care for an older adult? 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 MUSCULOSKELETAL: See HPI NEURO: No persistent headache, syncope, seizures, weakness or numbness PAST MEDICAL HISTORY: Patient Active Problem List Diagnosis Date Noted Complete blindness of right eye 01/16/2023 Diaphragmatic paralysis 08/16/2022 PAC (premature atrial contraction) 05/25/2022 SOB (shortness of breath) 05/25/2022 Atrial fibrillation ([facility]) 12/20/2021 Atrial tachycardia ([facility]) 12/20/2021 Hyperlipidemia 12/20/2021 Palpitations 12/20/2021 PAF (paroxysmal atrial fibrillation) (CMS/HCC) 09/27/2021 Tachycardia 09/27/2021 Esophageal dysmotility 04/07/2020 HTN (hypertension), benign 12/24/2018 Severe obesity (BMI 35.0-39.9) with comorbidity ([facility]) 10/06/2018 Benign essential tremor 06/04/2018 Musculoskeletal [...] 03/05/2024 10:00 AM EST Consult Adult Medicine [address] [phone] Anuja Gale MD [address] [place] [address] 04/11/2024 12:00 PM EST Office Visit Adult Medicine [address] [phone] Anuja Gale MD [address] [place] [address] 04/15/2024 8:45 AM EDT Office Visit [address] [phone] Sarah Beckett MD [address] [place] [address] 04/16/2024 2:10 PM EDT Appointment Radiology Department [address] [phone] documented as of this encounter Procedures Procedure [...] Signed Date: 03/01/2024 11:13 ET Workstation ID: [id number] Transcribed By: Self Edit Transcribed Date: 03/01/2024 [...] Signed Date: 03/01/2024 11:13 ET Workstation ID: [id number] Transcribed By: Self Edit Transcribed Date: 03/01/2024 11:11 ET Janeth BIANCHI IMG XR PROCEDURES * POC Urine Auto W/O Micro (03/01/2024 9:29 AM EST) Leukocytes UA POC Negative Negative Nitrite UA POC Negative Negative Urobilinogen UA POC Negative Negative Protein UA POC Negative Negative PH UA POC 7.0 5.0 - 9.0 Blood UA POC Negative Negative, Trace Specific [place] UA POC 1.005 1.001 - 1.035 Ketones [...] documented as of this encounter Care Teams Digital Performance Analyst Relationship Specialty Start Date End Date Anuja Gale MD [address] [place] [address] PCP - General Internal Medicine 08/13/21 documented as of this encounter
--- OUTSIDE RECORDS SUMMARY | 2024-03-04 20:12 | XMS_ITS | Encounter Summary ---
Author Organization [facility] Address [address] [place] [address] Care Team Providers Care Powder Monkey Name Role Phone Anuja Gale MD Primary Care Prov ider Encounter Details Date Type Department Care Team (Latest Contact Info) Description 03/01/2024 9:46 AM EST - 03/01/2024 11:59 PM [facility] Hospital Encounter XRAY - [place] [address] [place] [address] Acute pain of right knee Discharge Disposition: [...] care for your loved ones. For example, early childhood coordinator or elderly care for an older adult? [...] 03/05/2024 10:00 AM EST Consult Adult Medicine [address] [phone] Anuja Gale MD [address] [place] [address] 04/11/2024 12:00 PM EST Office Visit Adult Medicine [address] [phone] Anuja Gale MD [address] [place] [address] 04/15/2024 8:45 AM EDT Office Visit Pulmonolgy - [address] [phone] Sarah Beckett MD [address] [place] [address] 04/16/2024 2:10 PM EDT Appointment Radiology Department - [address] [phone] documented as of this encounter Procedures Procedure [...] Signed Date: 03/01/2024 11:13 ET Workstation ID: [id number] Transcribed By: Self Edit Transcribed Date: 03/01/2024 [...] Signed Date: 03/01/2024 11:13 ET Workstation ID: [id number] Transcribed By: Self Edit Transcribed Date: 03/01/2024 11:11 ET Janeth BIANCHI IMG XR PROCEDURES documented in this encounter Visit Diagnoses Diagnosis Acute pain of right knee Encounter for screening mammogram for breast cancer documented in this encounter Additional Health Concerns Assessment Noted Time PHQ-9 Depression Total Score: 0 02/28/19 25 5:30 PM EST documented as of this encounter Care Teams Powder Monkey Relationship Specialty Start Date End Date Anuja Gale MD [address] [place] [address] PCP - General Internal Medicine 08/13/21 documented as of this encounter
--- OUTSIDE RECORDS SUMMARY | 2024-03-04 20:12 | XMS_ITS | Encounter Summary ---
Author Organization [facility] Address [address] [place] [address] Care Team Providers Care Manager Ethics Name Role Phone Anuja Gale MD Primary Care Prov ider Reason for Visit * Reason Onset Date Comments faxed order 02/16/2024 AT Physical The rapy Doc ID:[id number] Encounter Details Date Type Department Care Team (Late Contact Info) Description 02/16/2024 Telephone Adult [address] [phone] Mallorie Leal [place] faxed order ([facility] Physical Therapy Doc ID:[id number]) Social History Tobacco Use Types Packs/Day Years [...] 02/16/2024 9:31 AM EST Received orders from [facility] Physical Therapy Doc ID:[id number]. Please sign and fax to [phone] documented in this encounter Plan of Treatment Upcoming Encounters Date Type Department Care Team (Late st Contact Info) Description 03/05/2024 10:00 AM EST Consult Adult Medicine [address] [phone] Anuja Gale MD [address] [place] [address] 04/11/2024 12:00 PM EST Office Visit Adult Medicine [address] [phone] Anuja Gale MD [address] [place] [address] 04/15/2024 8:45 AM EDT Office Visit Pulmonolgy - [address] [phone] Sarah Beckett MD [address] [place] [address] 04/16/2024 2:10 PM EDT Appointment Radiology Department [address] [phone] documented as of this encounter Visit Diagnoses Not on filedocumented in this encounter Care Teams Manager Ethics Relationship Specialty Start Date End Date Anuja Gale MD [address] [place] [address] PCP - General Internal Medicine 08/13/21 documented as of this encounter
== END 2024-03-04 19:16 | disposition home or self-care (01) ==
LOC: HO.MRI 19:15
PROVIDERS: PCP Internal Medicine; Visit Provider Orthopaedic Surgery
DX: M23.91 Unspecified internal derangement of right knee (principal); Z98.890 Other specified postprocedural states
CPT/HCPCS: 73721

== ENCOUNTER 2024-04-11 11:21 | Outpatient (AMB) | payer BC, SELFPAY ==
--- NOTE | 2024-04-11 11:30 | MHC.OFFVIS ---
Intake Visit Reasons: OV - Right Knee MRI Review Intake Note: Christen is a 58 year old female who presents today for a follow up of her Right Knee s/p Right Medial Meniscus Root Repair 09/06/23. Patient reports that she is felling about the same, she contiues to have popping an locking of the knee. Allergies timolol Allergy (Severe, Verified 12/25/23 08:33) Swelling fluticasone [From FLONASE] Allergy (Unknown, Verified 12/25/23 08:33) SWELLING TONGUE/THROAT propranolol [From INDERAL LA] Allergy (Unknown, Verified 12/25/23 08:33) HEADAACHE salmeterol [From ADVAIR DISKUS] Allergy (Unknown, Verified 12/25/23 08:33) RASH dorzolamide Allergy (Verified 12/25/23 08:33) Swelling HPI HPI OV - Right Knee MRI Review: Details: Christen is a 58 year old female who presents today for a follow up of her Right Knee s/p Right Medial Meniscus Root Repair 09/06/23. Patient reports that she is felling about the same, she continues to have popping an locking of the knee. She underwent a root repair and was doing very well until she re-injured it about 6 weeks ago. She has since been having recurrent painful locking and csatching. A repeat MRI was obtained and she is here today for follow up. [facility] Medical History Eye abnormality Surgery, elective Glaucoma Hemidiaphragm paralysis Afib Detached retina Asthma Allergic rhinitis Surgical History History of total left knee replacement H/O: hysterectomy S/P cervical spinal fusion H/O eye surgery H/O hernia repair H/O Spinal surgery Social History Alcohol intake: never Patient Tobacco Use Status: Never used Tobacco service: No Current occupational status: unemployed Physical Exam Extrem Other: 0-120 degrees motion with discomfort on extension and tenderness over the medial joint line with a positive medial Iban's. Results Reviewed Results Reviewed: I personally reviewed the MR images. 1. Diffuse complex tearing of the medial meniscal body with a complete radial component measuring 0.4 cm in AP dimension. Complex tearing extends anteriorly through the meniscal body where there is a dominant femoral articular surface component as well as a superiorly displaced meniscal flap. 2. Inner margin fraying of the lateral meniscus anterior and posterior roots as well as the meniscal body. 3. Early mucoid degeneration of the anterior cruciate ligament. 4. Kivuljte-ik-llrnez medial as well as moderate patellofemoral and mild lateral compartment osteoarthritis. Ujifiyoc-wj-ylpeh joint effusion and small Castanon's cyst with moderate synovitis. Assessment & Plan Assessment & Plan (1) S/P medial meniscal repair: Code(s): Z98.890 - Other specified postprocedural states Category: Surgical Plan: Failed repair now with menbiscal mechanical symptoms. I recommend knee for meniscectomy. I discussed the risks benefits and alternatives including but not limited to the risk of pain, infection, stiffness, need for further surgery as well as potential medical complications such as blood clots, pulmonary embolism among others. All her questions were answered. (2) Medial meniscus tear: Code(s): S83.249A - Other tear of medial meniscus, current injury, unspecified knee, initial encounter Category: Medical Plan: (3) Locking of right knee: Code(s): M23.91 - Unspecified internal derangement of right knee Category: Medical Plan: Coding Level of Care Code Est Pt Level 4 (98855) Diagnoses S/P medial meniscal repair Z98.890 Medial meniscus tear S83.249A Locking of right knee M23.91
--- OUTSIDE RECORDS SUMMARY | 2024-04-11 13:58 | XMS_ITS | Clinical Summary ---
Author Organization [facility] Address [address] [place] [address] Phone Care Team Providers Care Shot Polisher Name Role Phone Anuja Gale MD Primary Care Prov ider Allergies Active Allergy Reactions Criticality Noted Date Comments Dorzolamide High 06/29/2021 Other reaction(s): Facial Swelling Fluticasone Propion-Salmeterol 07/19/2005 Other Reaction(s): Rash/Dermatitis Fluticasone Propionate 03/10/2005 Other Reaction(s): Numbness, tingling or swelling of the lips, tongue or mouth Mometasone-Formoterol Other Medium 03/23/2023 Has sore throat Propranolol Hcl Headache 03/10/2005 Medications hydrocortison e (ANUSOL-HC) 2.5 % rectal cream APPLY 1 APPLICATOR TOPICALLY TWO TIMES A DAY NEEDED FOR HEMORRHOID 11/13/19 24 Active montelukast (SINGULAIR) 10 mg tablet TAKE 1 TABLET AT BEDTIME 11/01/19 24 Active EPINEPHrine (EpiPen 2-Jd) 0.3 mg/0.3 mL injection Inject 0.3 mg as directed as needed (As needed for anaphylaxis). Use as directed 10/20/19 24 Active atorvastatin (LIPITOR) 20 mg tablet TAKE 1 TABLET DAILY 10/16/19 24 Active ipratropium-a lbuteroL (Combivent Respimat) 20-100 mcg/actuation inhaler Inhale 1 Puff into the lungs every 6 hours as needed for Other (wheezing) for up to 363 days. 07/28/19 24 025 Active pantoprazole (PROTONIX) 40 mg EC tablet Take 1 Tablet by mouth 2 times daily for 360 days. 05/10/19 24 025 Active bimatoprost (Lumigan) 0.01 % ophthalmic drops INSTIL 1 DROP IN BOTH EYES AT BEDTIME DIRECTED 03/07/19 24 Active gabapentin (NEURONTIN) 300 mg capsule TAKE 1 CAPSULE BY MOUTH NEEDED FOR HEADACHE UP TO 2 TIMES A DAY 04/04/19 24 Active loteprednol (LOTEMAX) 0.5 % ophthalmic suspension INSTILL 1 DROP IN RIGHT EYE AT BEDTIME DIRECTED. 03/07/19 24 Active dilTIAZem XR (DILACOR XR) 240 mg 24 hr capsule Take 1 Capsule by mouth daily for 360 days. 03/14/19 24 Active albuterol HFA (PROAIR HFA ; PROVENTIL HFA ; VENTOLIN HFA) 90 mcg/actuation inhaler USE 2 INHALATIONS ORALLY EVERY 6 HOURS NEEDED FORCOUGH OR WHEEZING 07/08/19 23 Active buPROPion SR (WELLBUTRIN SR) 150 mg 12 hr tablet Take 1 Tablet by mouth daily. 03/22/19 23 Active atropine sulfate (ATROPINE-CAR E OPHT) apply to the eye 2 times daily. r eye Active zolpidem (AMBIEN) 10 mg tablet Take by mouth at bedtime as needed. Active calcium carbonate (CALCIUM 600 ORAL) Take 1 Tab by mouth 2 times daily. Active fexofenadine HCl (HUMA ORAL) Take by mouth. Activ e brimonidine (ALPHAGAN) 0.2 % ophthalmic solution 10/26/19 24 Active diclofenac sodium 3 % gel APPLY TOPICALLY TO THE AFFECTED AREA TWICE DAILY 08/08/19 24 Active azelastine (ASTELIN) 137 mcg (0.1 %) nasal spray USE 2 SPRAYS IN EACH NOSTRIL TWICE DAILY Active glucose blood test strip Test every day 10/25/19 24 025 Active tiZANidine (ZANAFLEX) 2 mg tablet TAKE 1 TABLET(2 MG) BY MOUTH AT BEDTIME NEEDED FOR MUSCLE SPASMS 30 tablet 03/22/19 25 Active budesonide-fo rmoteroL (Symbicort) 160-4.5 mcg/actuation inhaler Inhale 2 puffs by mouth 2 (two) times a day. 3 each 3 04/03/19 25 026 Active budesonide-fo rmoteroL (SYMBICORT) 160-4.5 mcg/actuation inhaler Inhale 2 Puffs into the lungs 2 times daily for 360 days. 07/28/19 24 025 Discontinued tiZANidine (ZANAFLEX) 2 mg tablet Take 1 tablet (2 mg total) by mouth at bedtime as needed for muscle spasms. 30 tablet 01/25/20 24 025 Discontinued(Re order) Symbicort 160-4.5 mcg/actuation inhaler USE 2 INHALATIONS ORALLY TWICE DAILY 30.6 g 3 04/02/19 25 025 Discontinued Active Problems Problem Noted Date Diagnosed Date [...] Overview (11/14/2023): Last Assessment & Plan: On Ambien Osteoarthritis of knee 12/24/2008 Overview (11/14/2023): Left > Right IBS (irritable bowel syndrome) 03/05/2007 Allergic rhinitis 08/08/2006 Encounters Date Type Department Care Team Description 03/05/2024 10:00 AM EST Consult Adult Medicine [address] [phone] Anuja Russo MD Preop cardiovascular exam (Primary Dx) 03/01/2024 9:46 AM EST - 03/01/2024 11:59 PM EST Hospital Encounter [address] [phone] Acute pain of right knee Discharge Disposition: Home or Self Care 03/01/2024 9:30 AM EST Office Visit Adult [address] [phone] Janeth Neal PA Urinary frequency (Primary Dx); Acute pain of right knee 02/16/2024 Telephone Adult Medicine [address] [phone] Anuja Russo MD Referral 02/16/2024 Telephone Adult Medicine [address] [phone] Mallorie Leal [place] faxed order ([facility] Physical Therapy Doc ID:[id number]) from Last 3 Months Immunizations Name Administration [...] op for a week SALPINGOOPHORECTOMY 03/08/2002 PROCEDURE: AL LAPAROSCOPY W/RMVL ADNEXAL STRUCTURES; COMMENT: diagnostic laparoscopy, [...] repeat in 10 yrs ESOPHAGOGASTRODUODENOSCOPY 01/02/2017 PROCEDURE: AL ESOPHAGOGASTRODUODENOSCOPY TRANSORAL DIAGNOSTIC; COMMENT: normal OTHER SURGICAL [...] for your loved ones. For example, child life assistant or elderly care for an older adult? [...] What is your living situation? 0 02/29/2024 Comments No Sex and Gender Information Value Date Recorded Sex Assigned at Female 12/15/2023 1:39 PM EST Legal Sex Female 5:52 AM EST Gender Identity Female 12/15/2023 1:39 PM EST Sexual Orientation Straight 12/15/2023 1: 39 PM EST Obstetrics History Last Filed Vital Signs Vital Sign Reading Time Taken Comments Blood Pressure 118/74 03/05/2024 10:00 AM EST Pulse 68 03/05/2024 10:00 AM EST Temperature 36.2 ??C (97.1 ??F) 03/05/2024 10:[address] Respiratory Rate 16 03/05/2024 10:00 AM EST Oxygen Saturation - - Inhaled Oxygen Concentration - - Weight 116 kg (256 lb 3.2 oz) 03/05/2024 10:00 A M EST Height 177.8 cm (5' 10 ) 03/01/2024 9:19 AM EST Body Mass Index 36.76 03/01/2024 9:19 AM EST Plan of Treatment Upcoming Encounters Date Type Department Care Team (Late st Contact Info) Description 05/29/2024 8:00 AM EDT Office Visit Pulmonolgy - [place] [address] [facility] [address] [place] [phone] Sarah Beckett MD [address] [address] 11/27/2024 7:30 AM EDT Office Visit Adult Medicine [facility] [address] [place] [address] Anuja Gale MD [address] [place] [address] Health Maintenance Due Date Last Done Comments Zoster Vaccines (2 of 2) 10/31/2018 019, 06/16/2018, 06/16/2018 HIV Screening 01/15/2022 RSV Immunization Patients 60+ Years Old (1 - Risk 60-74 years 1-dose series) 2024 Cervical Cancer Screening: Pap Smear 03/27/2024 03/27/2021 Hypertension/CHF/CAD Annual BMP Blood Test 10/17/2024 10/18/2023, 10/18/2023 Social Influencers of Health Screening 02/28/2025 02/29/2024 Depression Screening 03/01/2025 03/01/2024, 02/28/19 Breast Cancer Screening 04/13/2025 04/14/19, 04/12/2022, 04/07/2022, Additional history exists Colorectal Cancer Screening: Colonoscopy 01/02/2027 01/02/2017 DTaP,Tdap,and Td Vaccines (3 - Td or Tdap) 06/04/2028 06/04/2018, 03/05/2007 Cholesterol Screening (Lipid Panel) 10/17/2028 10/18/2023, 10/18/2023 Hepatitis C Screening Completed 09/04/2014 Varicella Vaccines Aged Out 09/05/2018 No longer eligible based on patient's age to complete this topic Pneumococcal Vaccine: 50+ Years Completed 12/28/2021, 12/28/2021, 10/19/2021, Additional history exists Pneumococcal Vaccine: Pediatrics (0 to 5 Years) [...] patient's age to complete this topic Hepatitis B Vaccines Aged Out No long er eligible [...] patient's age to complete this topic Meningococcal B Vacine Aged Out No lo nger eligible based on patient's age to complete this topic RSV Immunization Patients Under 20 months Aged Out No longer eligible based on patient's age to complete this topic Procedures Procedure Name Priority Date/Time Associated Diagnosis Comments MR KNEE WO CONTRAST RIGHT Routine 03/04/2024 8:50 AM EST XR KNEE 4+ VIEWS RIGHT STAT 03/01/2024 10:02 AM EST Acute pain of right knee POC URINE AUTO W/O MICRO Routine 03/01/2024 9:29 AM EST Urinary frequency ANNUAL BMP BLOOD TEST Routine 10/18/2023 LIPID PANEL Routine 10/18/2023 SCREENING MAMMOGRAPHY BI 2-VIEW BREAST INC CAD Routine 04/14/2023 10:01 AM EST Encounter for screening mammogram for malignant neoplasm of breast PAP SMEAR Routine 03/27/2021 COLONOSCOPY Routine 01/02/2017 HEPATITIS C SCREENING Routine 09/04/2014 from Last 3 Months or Most Recently Relevant to Health Maintenance Results * MR Knee wo Contrast Right (03/04/2024 8:50 AM EST) Anatomical Region Laterality Modality Lower Extremities, Knee Right Magnetic Resonance Historical Provider MD [facility]MAN MRI PROCEDURES Final Result * XR Knee 4+ Views Right (03/01/2024 10:02 AM EST) Anatomical Region Laterality Modality Lower Extremities, Knee Right [facility] 03/01/2024 11:1 1 AM EST Impressions 03/01/2024 11:13 AM EST No acute fracture or dislocation of the right knee. ?? Degenerative changes as above -------- FINAL REPORT -------- Dictated By: Tai Steven Dictated Date: 03/01/2024 11:11 ET Assigned Physician: Tai Steven Reviewed and Electronically Signed By: Tai Steven Signed Date: 03/01/2024 11:13 ET Workstation ID: [id number] Transcribed By: Self Edit Transcribed Date: 03/01/2024 [...] Signed Date: 03/01/2024 11:13 ET Workstation ID: [id number] Transcribed By: Self Edit Transcribed Date: 03/01/2024 11:11 ET Janeth BIANCHI IMG XR PROCEDURES Final Result * POC Urine Auto W/O Micro (03/01/2024 9:29 AM EST) Leukocytes UA POC Negative Negative Nitrite UA POC Negative Negative Urobilinogen UA POC Negative Negative Protein UA POC Negative Negative PH UA POC 7.0 5.0 - 9.0 Blood UA POC Negative Negative, Trace Specific [place] UA POC 1.005 1.001 - 1.035 Ketones UA POC Negative Negative Bilirubin UA POC Negative Negative Glucose UA POC Normal Normal, Trace Urine Urine specimen obtained by clean catch procedure / Unknown 03/01/2024 9:29 AM EST Janeth BIANCIH POINT OF CARE TEST ENTER/EDIT OR DERABLES Final Result * Annual BMP Blood Test (10/18/2023) Pathologist [facility] Annual BMP Blood Test Abstracted Historical Provider HEALTH MAINTENANCE Final Result * Lipid panel (10/18/2023) Pathologist [facility] LDL/HDL Ratio 2 0 - 4 Triglycerides 77 0 - 150 mg/dL Cholesterol 171 0 - 200 mg/dL HDL 79 >=40 mg/dL LDL Cholesterol 77 0 - 100 mg/dL Blood Venous blood specimen / Unknown Historical Provider LAB BLOOD ORDERABLES Elizabeth l Result * SCREENING MAMMOGRAPHY BI 2-VIEW BREAST INC [...] negative Eladia Miller MD IMG XR PROCEDURES Final Resu lt * Pap Smear (03/27/2021) Pap smear No interpretation , Abstracted Historical Provider HEALTH MAINTENANCE Final Result * Colonoscopy (01/02/2017) Colonoscopy No interpretation , Abstracted Anatomical Region Laterality Modality Other Historical Provider HEALTH MAINTENANCE Final Result * Hepatitis C Screening (09/04/2014) Hepatitis C Screening Abstracted Historical Provider HEALTH MAINTENANCE Final Result from Last 3 Months or Most Recently Relevant to Health Maintenance Insurance [facility] Advance Directives Documents on File Type Date Recorded Patient Tare Weigher Expl anation Health Care Decision (hx) 10/12/2020 [...] (hx) 10/12/2020 AD OLIVAS DIRECTIVE Care Teams Shot Polisher Relationship Specialty Start Date End Date Anuja Gale MD [address] [place] [id number] PCP - General Internal Medicine 08/13/21
--- OUTSIDE RECORDS SUMMARY | 2024-04-11 13:58 | XMS_ITS | Data Portability ---
Author Organization [place] [facility],, ELADIA MILLER MD Address [address] [address] Care Team Providers Care Rivet Passer Name Role Phone MURALI HOLLIS Primary Care Provider [phone] Assessment No assessment recorded. Plan of Treatment Reminders Order Date Submit Date Provider Last Modified By Organization Details Last Modified Time Details Appointments None recorded. Lab cytology report, thin prep, smear or scraping, cervical or vaginal 2024 025 BELKIS [facility] (Centralized Electronic Ordering - All Locations), Patient Can Go To The Location Of Their Choice, [id number] 5 18:15:55 hemoglobi n, gastroint estinal, stool 2024 025 [email or web address] 1 In-Office Order, Internal Use Only DO Not Attach Compendium DO Not Attach Compendium, Do Not Delete/merge, [id number] 5 11:05:22 pap test, thinprep, cervical 2022 023 [facility] (Centralized Electronic Ordering - All Locations), Patient Can Go To The Location Of Their Choice, [id number] 3 10:53:54 fecal occult blood, stool 2022 023 [email or web address] 1 In-Office Order, Internal Use Only DO Not Attach Compendium DO Not Attach Compendium, Do Not Delete/merge, [id number] 3 09:47:14 pap, LB, vaginal 2021 022 [email or web address] [facility] (Centralized Electronic Ordering - All Locations), Patient Can Go To The Location Of Their Choice, [id number] 2 07:42:30 fecal occult blood, stool 2021 022 [email or web address] 1 In-Office Order, Internal Use Only DO Not Attach Compendium DO Not Attach Compendium, Do Not Delete/merge, [id number] 2 12:50:14 pap test, thinprep, cervical 2020 021 [facility], Cytopathology Service, [address] [place], [address], 1 08:27:08 fecal occult blood, stool 2020 021 [email or web address] 1 In-Office Order, Internal Use Only DO Not Attach Compendium DO Not Attach Compendium, Do Not Delete/merge, [id number] 1 11:08:17 pap, LB, vaginal 2019 020 [email or web address] [facility], Cytopathology Service, [address] [place], [address], 0 07:51:18 fecal occult blood, stool 2019 020 [email or web address] In-Office Order, Internal Use Only DO Not Attach Compendium DO Not Attach Compendium, Do Not Delete/merge, [id number] 0 07:51:17 Referral None recorded. Procedures None recorded. Surgeries None recorded. Imaging MAMMO, screening , digital, bilateral [address] [facility] ([facility]), [address] [place], [address], 5 12:13:05 MAMMO, screening , digital, bilateral - Breast Aspiratio n and/or Biopsy if needed 2022 023 [facility] (Mammography), [address] [place], [address], 4 18:29:40 MAMMO, screening , digital, bilateral 2021 022 [facility] ([facility]), [address] [facility] [place], [address], 3 16:32:42 MAMMO, screening , digital, bilateral 2020 021 [facility] ([facility]), [address] [facility] [place], [address], 1 16:07:28 MAMMO, screening , digital, bilateral 2019 020 [facility] ([facility]), [address] [facility] [place], [address], 0 17:04:33 Medication Orders estradiol 1 mg tablet 2020 021 [facility], [address] [place] [address], [address], 3 09:18:39 estradiol 1 mg tablet 2019 020 [facility], [address] [place] [address], [address], 3 09:18:39 Patient TargetsNo targets recorded. Patient Instructions Encounter Date Encounter Id Patient Instructions Last Modified By Organization Details Last Modified Time 04/12/2019 [id number] She is here for annual exam, is [...] time postmenopausally. Not available 04/12/2019 11:38:11 12/28/2020 [id number] learning about healthy weight Not available 12/28/2020 11:08:18 She is here [...] the breast. Not available 12/28/2020 11:09:23 01/10/2022 [id number] learning about healthy weight Not available 01/10/2022 [...] the breast. Not available 01/10/2022 12:51:26 01/16/2023 [id number] learning about healthy weight Not available 01/16/2023 [...] in the breast. Not available 01/16/2023 09:47:06 03/06/2024 [id number] learning about healthy weight Not available 03/06/2024 11:05:22 She is here for annual. It has been a tough year. She is scheduled to have her right eye removed tomorrow, then will need to be fitted with a prosthesis. Also she needs right knee surgery, likely replacement. She is walking on crutches for now. Note from 2022: It has been a difficult year. she [...] is hainvg very significant depth perception issues. _ She appears to be doing well. She has developed mild incontinence and vaginal dryness, will return to discuss possible estradiol vaginal therapy, for now will try Replens. Monthly self breast exam was taught, and stressed, and is advised to call if she discovers any new mass in the breast. Not available 03/06/2024 11:07:18 Reason for Referral None Reported. Results Created Date Observation Date Name Description Value Unit Range Abnormal Flag Note LastModifiedBy Organization Detail LastModifiedTime 04/12/19 20 04/12/2019 fecal occul t blood , stool Occult Blood negati ve Not Available In-Office Order Internal Use Only DO Not Attach Compendium DO Not Attach Compendium, Do Not Delete/merge, [id number] 04/12/2019 11:15:42 04/12/1904/12/2019 pap, LB [id number] ThinP rep Pap, Image d: NEGAT CHRISTIANO FOR SQUAM OUS INTRA EPITH ELIAL LESIO N AND CARMELLA LOPEZ . Mica Peraza hers , CT( CP) (Case elect esau goldsmith rafaela d 04 16 2019) ADEQU ACY: Satis facto ry . SOURC E: ThinP rep Pap HPV IF ASCUS , Vagin al, Image d CLINI NNEKA INFOR MATIO N: HPV If Diagn osis of ASCUS . lps neg, hyste recto my, no cervi x, z12.4 , z01.4 19 Not Available [facility], Cytopathology Service [address] [facility], [place], [address], 04/16/2019 11:17:55 12/29/19 21 12/28/2020 PAP1C ASE [id number] ThinP rep Pap, Image d: NEGAT CHRISTIANO FOR SQUAM OUS INTRA EPITH ELIAL LESIO N AND CARMELLA LOPEZ . Note: The Pap test is a scree oc test with an inher ent false negat christiano rate. Autom ated presc reeni marlyn of all liqui d based speci mens is perfo rmed by the ThinP rep Imagi ng Syste m em[facility] s [facility] dMiriam Oates r , CT( CP) (Case elect esau goldsmith rafaela d 01 12 2021) ADEQU ACY: Satis facto ry . SOURC E: ThinP rep Pap HPV IF ASCUS , Vagin al, Image d CLINI NNEKA INFOR MATIO N: HPV If Diagn osis of ASCUS . LPS 0 neg, z01.4 19 Not Available [facility], Cytopathology Service [address] [place], [address], 01/12/2021 16:15:50 12/29/19 21 12/28/2020 fecal occul t blood , stool Occult Blood negati ve Not Available In-Office Order Internal Use Only DO Not Attach Compendium DO Not Attach Compendium, Do Not Delete/merge, [id number] 12/28/2020 10:03:41 01/11/20 22 01/10/2022 [facility] Kevin nt Name: ADRIAN LARKIN RA nt : 1965 (Age: 56) Lab Acces adriel #: [id number] Colle ction Date: 2021 Acces adriel Date: 2021 Sign Out Date: 2021 Tissu e Sourc e: 1: THINP REP [facility] [employer] PAP TEST, VAGIN AL: Final Diagn osis: NEGAT CHRISTIANO FOR INTRA EPITH ELIAL LESIO N OR MALASHANTI BASHIRCY . Satis facto ry for evalu ation [...] hernandez or ct mclaughlin Perfprasanth rmed at [facility] ate Refer ence Labor atory depar tment of Cytol ogy, [address] [place] Clini nneka Histo ry (othe r): z01.4 19, LPS 2 neg, routi ne scree n Phone #: [phone], On-Ca ll Patho logis t: [id number] Not Available [facility] (Centralized Electronic Ordering - All Locations) Patient Can Go To The Location Of Their Choice, [id number] 01/13/2022 15:20:05 01/11/20 22 01/10/2022 fecal occul t blood , stool Occult Blood negati ve Not Available In-Office Order Internal Use Only DO Not Attach Compendium DO Not Attach Compendium, Do Not Delete/merge, [id number] 01/10/2022 10:02:51 01/17/20 23 01/16/2023 [facility] results Patie nt Name: ADRIAN LARKIN RA nt : 1965 (Age: 57) Lab Acces adriel #: [id number] Colle ction Date: 01/16 Acces adriel Date: 01/16 Sign Out Date: 01/20 Tissu e Sourc e: 1: THINP REP [facility] [employer] PAP TEST, VAGIN AL: Final Diagn osis: [...] rep Imagi ng Syste m with carmel mazariegosr michelle hernandez or ct nugent. Perfo rmed at [facility] ate Refer ence Labor atory depar tment of Cytol ogy, [address] [place] Clini nneka Histo ry (othe r): Z01.4 19, routi ne scree n, LPS neg Phone #: [phone], On-Ca ll Patho logis t: [id number] Not Available [facility] (Centralized Electronic Ordering - All Locations) Patient Can Go To The Location Of Their Choice, [id number] 01/20/2023 11:19:57 01/17/20 23 01/16/2023 fecal occul t blood , stool Occult Blood negati ve Not Available In-Office Order Internal Use Only DO Not Attach Compendium DO Not Attach Compendium, Do Not Delete/merge, [id number] 01/16/2023 09:18:05 03/06/1903/07/2024 IGP, RFX APTIM A HPV ASCU diagnosis: Radha SHARPE CHRISTIANO FOR INTRA EPITH ELIAL LESIO N OR CARMELLA LOPEZ . THIS SPECI MEN WAS RESCR EENED PART OF OUR QUALI TY CONTR OL PROGR AM. Not Available [facility] ([facility]) [address] [place], [address], 03/07/2024 18:15:55 03/06/19 25 03/07/2024 IGP, RFX APTIM A HPV ASCU specimen adequacy: Radha torres for evalu ation . Not Available [facility] ([facility]) [address] [place], [address], 03/07/2024 18:15:55 03/06/19 25 03/07/2024 IGP, RFX APTIM A HPV ASCU clinician provided ICD10: Radha katz Z01.4 19 Not Available [facility] ([facility]) [address] [place], [address], 03/07/2024 18:15:55 03/06/19 25 03/07/2024 IGP, RFX APTIM A HPV ASCU performed by: Radha Munoz, Cytot echno logis t (ASCP ) Not Available [facility] ([facility]) [address] [place], [address], 03/07/2024 18:15:55 03/06/19 25 03/07/2024 IGP, RFX APTIM A HPV ASCU QC reviewed by: Radha Peralta , Cytot echno logis t (ASCP ) Not Available [facility] ([facility]) [address] [place], [address], 03/07/2024 18:15:55 03/06/19 25 03/07/2024 IGP, RFX APTIM A HPV ASCU . . Not Available [facility] ([facility]) [address] [place], [address], 03/07/2024 18:15:55 03/06/19 25 03/07/2024 IGP, RFX APTIM A HPV ASCU note: Commen t The Pap smear is a scree oc test jessica ross to aid in the detec tion of mya ligna nt and malig nant condi tions of the uteri ne cervi x. It is not a diagn ostic proce dure and shoul d not be used as the sole means of detec ting cervi nneka cance r. Both false -posi tive and false -nega tive repor ts do occur . Not Available [facility] ([facility]) [address] [place], [address], 03/07/2024 18:15:55 03/06/19 25 03/07/2024 IGP, RFX APTIM A HPV ASCU test methodology: Commen t This liqui d based ThinP rep(R ) pap test was scree vandana with the use of an image guide gee elliott. Not Available [facility] ([facility]) [address] [place], [address], 03/07/2024 18:15:55 03/06/19 25 03/07/2024 IGP, RFX APTIM A HPV ASCU . Commen t The HPV DNA refle x crite wilber were not met with this speci men resul t there fore, no HPV testi ng was perfo rmed. Not Available [facility] ([facility]) [address] [place], [address], 03/07/2024 18:15:55 03/06/19 25 03/06/2024 hemog lobin , gastr ointe randolph l, stool Occult Blood negati ve Not Available In-Office Order Internal Use Only DO Not Attach Compendium DO Not Attach Compendium, Do Not Delete/merge, [id number] 03/06/2024 10:47:16 11/25/19 20 11/23/2019 MAMMO , scree oc, [...] unila teral No observ ation record ed. [address], [address], 04/12/2022 13:56:26 04/14/19 24 04/14/2023 MAMMO , scree oc, digit al, bilat eral No observ ation record ed. [facility] [address] [place], [address], 04/16/2023 08:28:33 Result Notes None recorded. Problems Name Problem SNOMED Code Status Onset Date Resolution Date Notes Provider Name and Address Organization Details Recorded Time Menopausal syndrome 153460827 Active Eladia Miller MD [address], [place], [address], [place] [facility], 5 09:07:22 Candidal vulvovagini tis 72893918 Active Eladia Miller MD [address], [place], [address], [place] [facility], 5 09:40:02 Vaginitis 93285364 Active Eladia Miller MD [address], [place], [address], [place] [facility], 5 09:40:02 Insomnia 852120313 Active 2017 Eladia Miller MD [address], [place], [address], [place] [facility], 8 09:09:13 Hiatal hernia 12004449 Active 2020 Clarita chavez [place] - [facility], 1 10:14:30 Retinal detachment 87422706 Active 2020 Clarita chavez [place] - [facility], 1 10:14:37 Atrial fibrillatio n 33433842 Active 2021 Clarita chavez [place] - [facility], 2 10:11:52 Blind right eye 561029288 Active 2022 Clarita chavez [place] - [facility], 3 09:21:55 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 Eladia Miller MD [address], [place], [address], [place] [facility], 3 09:48:04 Tunnel vision of left eye 2331521829327 09 Active 2022 Eladia Miller MD [address], [place], [address], [place] [facility], 3 09:48:17 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 Spinal stenosis Problem Notes None recorded. Procedures Surgical History Date Name Laterality Status Provider Name and Address Organization Details Recorded Time 04/14/19 24 Most Recent Mammogram completed Jessica Wagner in [facility], 02/19/2024 08:31:03 09/22/19 22 primary fusion of cervical spine completed Clarita Wagner in [facility], 01/10/2022 10:13:43 07/20/19 22 Glaucoma surgery completed Clarita Wagner in [facility], 01/10/2022 10:13:36 02/17/19 22 Eye surgery follow-up add-on completed Clarita Wagner in [facility], 01/10/2022 10:12:52 09/23/19 21 procedure on retina completed Clarita Wagner in [facility], 12/28/2020 10:14:03 07/16/19 21 esophageal hiatus hernia repair completed Clarita Wagner in [facility], 12/28/2020 10:12:43 06/10/19 21 excision of synovial cyst completed Clarita Wagner in [facility], 12/28/2020 10:11:56 03/09/19 16 Other completed Jessica Wagner in [facility], 03/18/2016 08:27:52 03/09/19 14 Other completed Teresa Wagner in [facility], 09/22/2014 08:53:02 02/06/19 10 Other completed Jessica Anderson [place] - [facility], 10/24/2011 10:57:56 02/06/19 04 Other completed Jessica Anderson [place] - [facility], 10/24/2011 10:57:56 02/06/18 94 Hysterectomy completed Eladia Miller MD [address] [facility],[address], [place], [address], [place] - [facility], 02/07/2013 08:24:16 Imaging Results Imaging Date Name Status [facility]Modified [facility] Details LastModified Time 11/23/2019 MAMMO, screening, digital, bilateral completed Information not available 11/26/2019 08:49:03 01/19/2021 MAMMO, screening, digital, bilateral completed Information not available 01/21/2021 08:53:31 04/07/2022 MAMMO, screening, digital, bilateral completed Information not available 04/14/2022 14:06:51 04/12/2022 US, breast completed Information n ot available 04/12/2022 13:56:26 04/12/2022 MAMMO, diagnostic, digital, unilateral completed [address], [place], [address], 04/12/2022 13:56:26 04/14/2023 MAMMO, screening, digital, bilateral completed [address], [address], 04/16/2023 08:28:33 Procedure Notes None recorded. Medical Equipment None Reported. Allergies Allergen ID Allergen Name Allergen Category Reaction Reaction Severity Criticality Documentation Date Start Date Code Code System Note Provider Name and Address Organization Details Recorded Time 84242 dorzolami de medicatio n facial swelling severe high 01/10/2022 05012 RxNorm [place] Valentin in [facility], 2 10:03:35 4141 Inderal medicatio n Not available Not available Not available 10/24/2011 61702 0 RxNorm bad heada ches WILLY Marsh in [facility], 2 10:57:56 4142 Flonase medicatio n Not available Not available Not available 10/24/2011 51900 RxNorm throa t swell s [place] Marsh in [facility], 2 10:57:56 4143 fluticaso ne / salmetero l medicatio n Not available Not available Not available 10/24/2011 33743 5 RxNorm rash Jessica Meczywor null, [place] - [facility], 2 10:57:56 Medications Name Sig Start Date Stop Date Status Note LastModified by Organization Details LastModified Time celecoxib 200 mg capsule TAKE 1 CAPSULE BY MOUTH EVERY DAY 03/06 completed Not Available Not Available Not Available amoxicillin 500 mg capsule active Not Available Not Available Not Available latanoprost 0.005 % eye drops INSTILL 1 DROP IN RIGHT EYE AT BEDTIME 01/10 completed Not Available Not Available Not Available bupropion HCl SR 150 mg tablet,12 hr sustained-r elease TAKE 1 TABLET BY MOUTH DAILY DIRECTED active Not Available Not Available No t Available diclofenac 3 % topical gel APPLY TOPICALLY TO THE AFFECTED AREA TWICE DAILY 03/06 completed Not Available Not Available Not Available prednisone 10 mg tablet take 4 tablets by mouth every morning for 3 days then take 3 tabl... (REFER TO PRESCRIPT ION NOTES). 10/18 completed Not Available Not Available Not Available atorvastati n 20 mg tablet TAKE 1 TABLET DAILY active Not Available Not Available No t Available tizanidine 2 mg tablet TAKE 1 TABLET AT BEDTIME ASNEEDED FOR PAIN OR SPASM active Not Available Not Available No [...] Available Not Available prednisone 20 mg tablet TAKE 2 TABLETS BY MOUTH DAILY FOR 5 DAYS 03/06 completed Not Available Not Available Not Available [...] oxycodone-a cetaminophe n 5 mg-325 mg tablet TAKE 1 TABLET BY MOUTH EVERY 4 TO 6 HOURS NEEDED FOR PAIN active Not Available Not Available No t Available hydrocortis one 2.5 % topical cream with perineal applicator APPLY 1 APPLICATO R TOPICALLY TWO TIMES A DAY NEEDED FOR HEMORRHOI D active Not Available Not Available No t Available alprazolam 0.5 mg tablet 10/18 completed Not Available Not Available Not Available famotidine 20 mg tablet TAKE 1 TABLET BY MOUTH TWICE DAILY FOR 6 DAYS. AVOID EATING AND DRINKING FOR 10 MINUTES AFTER EACH DOSE 03/06 completed Not Available Not Available Not Available prednisolon e acetate 1 % eye [...] completed Not Available Not Available Not Available benzonatate 100 mg capsule TAKE 1 CAPSULE BY MOUTH THREE TIMES DAILY FOR UP TO 10 DAYS NEEDED FOR COUGH 03/06 completed Not Available Not Available Not Available cephalexin 500 mg capsule TAKE 1 CAPSULE BY MOUTH THREE TIMES DAILY AFTER SURGERY 03/06 completed Not Available Not Available Not Available pantoprazol e 40 mg tablet,pradeep yed release 04/11 completed Not Available Not Available Not Available erythromyci n 5 mg/gram (0.5 %) eye ointment APPLY THIN LAYER IN RIGHT EYE EVERY NIGHT AT BEDTIME active Not Available Not Available No t Available nortriptyli ne 10 mg capsule TAKE [...] 0.2 % eye drops INSTILL 1 DROP IN LEFT EYE TWICE DAILY AND 1 DROP RIGHT EYE THREE TIMES DAILY [...] mg capsule TAKE 1 CAPSULE BY MOUTH THREE TIMES DAILY NEEDED FOR HEADACHE active Not Available Not Available No t Available estradiol 2 mg tablet TAKE 1 TABLET DAILY (NEEDS APPOINTME NT) 10/18 completed Not Available Not Available Not Available montelukast 10 mg tablet TAKE 1 TABLET AT BEDTIME active Not Available Not Available No t Available loteprednol etabonate 0.5 % eye drops,suspe nsion SHAKE LIQUID AND INSTILL 1 DROP IN BOTH EYES TWICE DAILY active Not Available Not Available [...] 1 % eye drops INSTILL 1 DROP IN THE RIGHT EYE EVERY MORNING active Not Available Not Available No t [...] EVERY 8 HOURS NEEDED FOR SEVERE PAIN active Not Available Not Available No t Available Pneumovax-2 3 25 mcg/0.5 mL injection syringe inject 0.5 millilite r intramusc ularly active Not Available Not Available No t Available azithromyci n 500 mg tablet take 1 tablet by mouth once daily for 7 days 04/11 completed Not Available Not Available Not Available moxifloxaci n 0.5 % eye drops INSTILL 1 DROP IN RIGHT EYE FOUR TIMES DAILY active Not Available Not Available No t Available nitrofurant oin monohydrate /macrocryst als 100 mg capsule TAKE 1 CAPSULE BY MOUTH TWICE DAILY FOR 7 DAYS 03/06 completed Not Available Not Available Not Available DILT-XR 180 mg capsule, extended release active Not Available Not Available Not Available DILT-XR 240 mg capsule, extended release TAKE 1 CAPSULE DAILY active Not Available Not Available No t Available Alphagan P 0.1 % eye drops INSTILL 1 DROP LEFT EYE TWICE DAILY 01/16 completed Not Available Not Available Not Available Pulmicort Flexhaler 180 mcg/actuati on breath activated 12/28 completed Not Available Not Available Not Available Symbicort 160 mcg-4.5 mcg/actuati on HFA aerosol inhaler USE 2 INHALATIO NS ORALLY TWICE DAILY active Not Available Not Available No t Available diflupredna te 0.05 % eye drops INSTILL 1 DROP IN RIGHT EYE FOUR TIMES DAILY DIRECTED. DO NOT START UNTIL DIRECTED AFTER SURGERY active Not Available Not Available No t Available Gavilyte-C 240 gram-22.72 gram-6.72 gram-5.84 gram oral solution 12/28 completed Not Available Not Available Not Available Dulera 100 mcg-5 mcg/actuati on HFA aerosol inhaler active Not Available Not Available Not Available Lumigan 0.01 % eye drops INSTILL 1 DROP INTO BOTH EYES EVERY NIGHT AT BEDTIME active Not Available Not Available No t Available Combivent Respimat 20 mcg-100 mcg/actuati on solution for inhalation USE 1 INHALATIO N ORALLY EVERY 6 HOURS NEEDED FORWHEEZI NG FOR UP TO 30 DAYS active Not Available Not Available No t Available Linzess 145 mcg capsule TAKE 1 CAPSULE BY MOUTH DAILY 03/06 completed Not Available Not Available Not Available Eliquis 5 mg tablet TAKE 1 TABLET BY MOUTH TWICE DAILY 01/16 completed Not Available Not Available Not Available Fluvirin 2842-6527(P F) 45 mcg (15 mcg x3)/0.5 mL intramuscul ar syringe inject 0.5 millilite r intramusc ularly active Not Available Not Available No t Available Afluria (PF) 45 mcg (15 mcg x 3)/0.5 [...] active Not Available Not Available Not Available Paxlovid 300 mg (150 mg x 2)-100 mg tablets in a dose pack TAKE 3 TABLETS BY MOUTH TWICE DAILY FOR 5 DAYS active Not Available Not Available No t Available Vitals Date Recorded Body height Heart rate Body mass index (BMI) Body weight Systolic blood pressure Diastolic blood pressure Provider Name and Address Organization Details Last Updated DateTime 0 177.8 cm 76 /min 36.3 kg/m2 785578. 87 g 154 mm[Hg] 77 mm[Hg] Jessica Wagner in [facility], 0 11:09:01 Date Recorded Body height Body temperature Body mass index (BMI) Body weight Heart rate Systolic blood pressure Diastolic blood pressure Provider Name and Address Organization Details Last Updated DateTime 1 177.8 cm 97.2 [degF] 32.7 kg/m2 688027. 06 g 67 /min 132 mm[Hg] 63 mm[Hg] Clarita Wagner in [facility], 1 10:06:49 Date Recorded Body weight Body mass index (BMI) Body height Systolic blood pressure Diastolic blood pressure Provider Name and Address Organization Details Last Updated DateTime 01/10/2022 343600.0 9 g 35.9 kg/m2 177.8 cm 116 mm[Hg] 56 mm[Hg] Clarita Wagner in [facility], 2 10:08:08 Date Recorded Body weight Body mass index (BMI) Body height Heart rate Systolic blood pressure Diastolic blood pressure Provider Name and Address Organization Details Last Updated DateTime 3 559835. 02 g 33.4 kg/m2 177.8 cm 73 /min 133 mm[Hg] 66 mm[Hg] Clarita Hills [place] [facility] [facility] 09:21:16 Date Recorded Body height Body mass index (BMI) Body weight Heart rate Systolic blood pressure Diastolic blood pressure Provider Name and Address Organization Details Last Updated DateTime 5 177.8 cm 36.8 kg/m2 869610. 37 g 77 /min 136 mm[Hg] 74 mm[Hg] Jessica Anderson MA - [facility], 5 10:40:55 Social History Question Answer Notes LastModified by Organizat ion Details LastModified Time Tobacco Smoking Status Never Smoker Not Available [facility] 12/10/2019 03:19:40 What Is Your Level Of [...] Type Of Diet Are You Following? REGULAR [id number] Information not available 12/10/2019 Which Illicit Or Recreational Drugs Have You Used? No [id number] Information not available 12/10/2019 Do You Reside In Or Have You Traveled To An Area Where Ebola Virus Transmission Is Active? No [id number] Information not available 12/10/2019 Do You Or Have You Ever Used E-cigarettes Or Vape? Never Used Electronic Cigarettes [id number] Information not available 12/10/2019 Education 12 Information no t available 10/24/2011 What Is The Highest Grade Or Level Of School You Have Completed Or The Highest Degree You Have Received? [id number] Information not available 12/28/2020 What Is Your Occupation? Not Working At This Time. [id number] Information not available 12/10/2019 How Many Days [...] Date Of Your Most Recent Tobacco Screening? 03/06/2024 Information not available 03/06/2024 What Is Your Relationship Status? Information not available 12/28/2020 Are You Sexually Active? Yes [id number] Information not available 12/10/2019 Do You Or Have You Ever Used Smokeless Tobacco? Never Used Smokeless Tobacco [id number] Information not available 12/10/2019 How Much Tobacco Do You Smoke? No [id number] Information not available 12/10/2019 General Stress Level High Information not available 10/24/2011 Do You Feel Stressed (tense, Restless, Nervous, Or Anxious, Or Unable To Sleep At Night)? [id number] Information not available 12/28/2020 Do You Use Any Illicit Or Recreational Drugs? No Information not available 12/28/2020 How Many Years Have You Smoked Tobacco? 0 [id number] Information not available 12/10/2019 Have You Recently [...] Time What is your exercise level? None [id number] Information not available 12/10/2019 Mental Status None [...] for MyRisk panel N Autoimmune Condition N Kidney or Bladder Problems N Thyroid Problems N Depression N Lung Disease N GI Problems Y Defects or Inherited Disease N History of [...] unspecified formulation 3 completed WILLY Valentin in [facility], 01/16/2023 09:20:31 Influenza, split virus, trivalent, preservative 4 completed WILLY Khoury in [facility], 09/22/2014 08:54:38 Influenza, split virus, quadrivalent, preservative 6 completed WILLY Marsh in [facility], 03/18/2016 08:25:55 Influenza, split virus, quadrivalent, preservative 8 completed WILLY Valentin in [facility], 01/16/2023 09:20:31 Pneumococcal Conjugate, unspecified formulation 8 completed WILLY Valentin in [facility], 01/16/2023 09:20:32 varicella 9 completed WILLY Marsh in [facility], 04/12/2019 11:04:08 Influenza, split virus, quadrivalent, preservative 9 completed WILLY Valentin in [facility], 01/16/2023 09:20:31 COVID-19, mRNA, LNP-S, PF, 30 mcg/0.3 mL dose 1 WILLY Luna in [facility], 01/16/2023 09:20:31 COVID-19, mRNA, LNP-S, PF, 30 mcg/0.3 mL dose 1 completed Clarita [place] null, [place] - [facility], 01/16/2023 09:20:31 COVID-19, mRNA, LNP-S, PF, 30 mcg/0.3 mL dose 1 completed [place] null, [place] - [facility], 01/16/2023 09:20:31 Influenza, split virus, quadrivalent, preservative 1 completed [place] null, [place] - [facility], 01/16/2023 09:20:31 influenza, unspecified formulation 2 completed [place] null, [place] - [facility], 01/16/2023 09:20:31 Pneumococcal Conjugate, unspecified formulation 2 completed Clarita [place] null, [place] - [...] Care, 01/16/2023 09:20:31 Pneumococcal conjugate PCV20, polysaccharide BOM254 conjugate, adjuvant, PF 2 completed Clarita chavez MA - [facility], 01/16/2023 09:20:31 COVID-19, mRNA, LNP-S, PF, 30 mcg/0.3 mL dose, dmitri-sucrose 2 completed Clarita chavez, [place] - [facility], 01/16/2023 09:20:31 COVID-19, mRNA, LNP-S, bivalent, PF, 30 mcg/0.3 mL dose 2 completed Clarita chavez MA - [facility], 01/16/2023 09:20:31 pneumococcal polysaccharide PPV23 8 completed Clarita chavez MA - [facility], 01/16/2023 09:20:31 Tdap 8 completed Clarita chavez MA - [facility] [...] Influenza, split virus, trivalent, preservative 1 completed WILLY Valentin in [facility], 01/16/2023 09:20:32 Influenza, split virus, trivalent, preservative 3 completed WILLY Valentin in [facility], 01/16/2023 09:20:32 Influenza, split virus, trivalent, preservative 9 completed WILLY Valentin in [facility], 01/16/2023 09:20:32 Influenza, split virus, trivalent, PF 6 completed WILLY Valentin in [facility], 01/16/2023 09:20:32 Novel [id number], preservative-free 9 completed WILLY Valentin in [facility], 01/16/2023 09:20:32 Td (adult), 2 Lf tetanus toxoid, preservative free, adsorbed 9 completed WILLY Valentin in [facility], 01/16/2023 09:20:32 Influenza, split virus, quadrivalent, PF 8 completed WILLY Valentin in [facility], 01/16/2023 09:20:32 COVID-19, mRNA, LNP-S, PF, dmitri-sucrose, 30 mcg/0.3 mL 3 completed WILLY Marsh in [facility], 03/06/2024 10:41:19 Influenza, split virus, quadrivalent, PF 3 completed Jessicasammy Jorgeywor WILLY chavez in [facility], 03/06/2024 10:41:20 Past Encounters Encounter ID Performer Location Encounter Start Date Encounter Closed Date Diagnosis/Indication Diagnosis SNOMED-CT Code Diagnosis ICD10 Code Diagnosis Note [id number] MD ELADIA Page MD [address] [facility] [address] [place] [address] 10/24/2011 10:31:05 10/24/2011 15:38:00 [id number] Teresa Palafox ELADIA MILLER MD [address] [facility],[place] [address] 02/07/2013 07:52:20 02/07/2013 12:49:34 Specialized medical examination 15575802 Screening for malignant neoplasm of rectum 774738594 Screening mammography 53868328 Menopausal syndrome [id number] ELADIA MILLER MD [address] [facility] [address] 09/22/2014 08:35:54 09/22/2014 11:06:38 Specialized medical examination 99556157 Screening for malignant neoplasm of rectum 922452568 Screening mammography 91679506 Menopausal syndrome [id number] Jessica Justin MILLER MD [address] [facility] [address] 09/30/2014 08:19:34 09/30/2014 10:27:10 Candidal vulvovaginitis 85830811 Vaginitis [id number] MD ELADIA Page MD [address] [facility] [address] 03/18/2016 08:16:00 03/18/2016 11:30:40 Specialized medical examination 36019828 Z01.419 Screening for malignant neoplasm of rectum 302771316 Z12.12 Screening mammography 24 213811 Z12.31 Menopausal syndrome 1237 49731 N95.9 [id number] MD ELADIA Page MD [address] [facility] [address] 10/18/2017 08:07:22 10/18/2017 11:25:05 Specialized medical examination 27106202 Z01.419 Screening for malignant neoplasm of rectum 421526966 Z12.12 Screening mammography 24 898156 Z12.31 Menopausal syndrome 1237 35450 N95.1 Insomnia 609847637 G47.0 0 [id number] MD ELADIA Page MD [address] [facility] [address] 02/26/2018 12:51:24 02/26/2018 14:02:51 Atypical squamous cells of undetermined significance on cervical Papanicolaou smear 947769470 R87.610 [id number] MD ELADIA Page MD [address] [facility], [place] [address] 04/12/2019 10:45:52 04/12/2019 12:08:59 Menopausal syndrome 181570763 N95.1 Specialize d medical examination 76481296 Z01.419 Screening for malignant neoplasm of rectum 164977708 Z12.12 Screening mammography 24 164312 Z12.31 [id number] MD ELADIA Page MD [address] [place] [address], [place] [address] 12/28/2020 10:02:44 12/28/2020 11:37:50 Specialized medical examination 92569303 Z01.419 Screening for malignant neoplasm of rectum 329136136 Z12.12 Screening mammography 24 707492 Z12.31 Menopausal syndrome 1237 25674 N95.1 [id number] MD ELADIA Page MD [address] [place] [address], [place] [address] 01/10/2022 09:59:11 01/10/2022 13:57:13 Specialized medical examination 01487281 Z01.419 Screening for malignant neoplasm of rectum 483181408 Z12.12 Screening mammography 24 120511 Z12.31 [id number] MD ELADIA Page MD [address] [place] [address], [place] [address] 01/16/2023 09:13:08 01/16/2023 10:58:56 Specialized medical examination 48970939 Z01.419 Screening for malignant neoplasm of rectum 851075440 Z12.12 Screening mammography 24 131308 Z12.31 Complete b lindness of right eye 485527897 H54.415A Tunnel vis ion of left eye 6591264492 95607 H53.40 [id number] MD ELADIA Page MD [address] [facility], [place] [address] 03/06/2024 10:35:30 03/06/2024 12:13:05 Specialized medical examination 62661896 Z01.419 Screening for malignant neoplasm of rectum 484252415 Z12.12 Screening mammography 24 820481 Z12.31 Health Concerns Section Related Observation LastModified by Organization Detai ls LastModified Time None Recorded Concern Status LastModified by Organization Details LastModified Time None Recorded Advance Directives Directive None Recorded Payers Encounter Date Sequence Insurance Name Policy Number Policy Horne Covered Member ID Horne Member ID Guarantor Name 04/12/2019 1 [place] [facility] (HMO) [id number] Vicente Griggs [id number] Christen Novakyer 12/28/2020 1 [place] [facility] (HMO) [id number] Vicente Griggs [id number] Christen Griggs 01/10/2022 1 [place] [facility] (HMO) [id number] Vicente Griggs [id number] Christen Anson 01/16/2023 1 [place]UE [place] (HMO) [id number] Vicente Griggs [id number] Christen Novakyer 03/06/2024 1 [place] [facility] (HMO) [id number] Vicente Griggs [id number] Christen Griggs Notes Date Note Type Note Provider Name and Address Organization Details Recorded Time 04/12/2019 text/html She is here for annual [...] symptoms after a week! Eladia Miller MD [address] [place] [address],[address], [place], [address], [place] [facility], 04/12/2019 12:05:25 12/28/2020 text/html She is here [...] elects to continue. Eladia Miller MD [address] [facility],[address], [place], [address], [employer] [facility], 12/28/2020 11:09:53 01/10/2022 text/html She [...] day a week. Eladia Miller MD [address] [facility],[address], [place], [address], [employer] [facility], 01/10/2022 12:51:47 01/16/2023 text/html It [...] sto do so. Eladia Miller MD [address] [facility],[address], [place], [address], [place] - [facility], 01/16/2023 09:52:22 03/06/2024 text/html She is here for annual. It has been a tough year. She is scheduled to have her right eye removed tomorrow, then will need to be fitted with a prosthesis. Also she needs right knee surgery, likely replacement. She is walking on crutches for now. Note from 2022: It has been a difficult year. 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 Eladia Miller MD [address] [facility],[address], [place], [address], [place] - [facility], 03/06/2024 11:07:39 OBGyn Episode No OBEpisode recorded.
--- OUTSIDE RECORDS SUMMARY | 2024-04-11 13:58 | XMS_ITS | Encounter Summary ---
Author Organization [facility] Address [address] [place] [address] Care Team Providers Care Sugar Coating Hand Name Role Phone Anuja Gale MD Primary Care Prov ider Reason for Visit * Reason Onset Date Comments faxed order 02/16/2024 [facility] Doc ID:[id number] Encounter Details Date Type Department Care Team ([facility] Contact Info) Description 02/16/2024 Telephone Adult Medicine [address] [address] Mallorie Leal MA faxed order ([facility] Doc ID:[id number]) Social History Tobacco Use Types Packs/Day Years [...] for your loved ones. 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 [...] is your living situation? 0 02/29/2024 Comments Unknown Sex and Gender Information Value Date Recorded Sex Assigned at Female 12/15/2023 1:39 PM EST Legal Sex Female 5:52 AM EST Gender Identity Female 12/15/2023 1:39 PM EST Sexual Orientation Straight 12/15/2023 1: 39 PM EST documented as of this encounter Progress Notes * Mallorie Leal MA - 02/16/2024 9:31 AM EST Received orders from [facility] Physical Therapy Doc ID:[id number]. Please sign and fax to [phone] documented in this encounter Plan of Treatment Upcoming Encounters Date Type Department Care Team (Late st Contact Info) Description 05/29/2024 8:00 AM EDT Office Visit Pulmonolgy - [place] [address] [facility] [address] [place] [address] Sarah Beckett MD [address] [address] 11/27/2024 7:30 AM EDT Office Visit Adult Medicine [address] [address] Anuja Gale MD [address] [place] [address] documented as of this encounter Visit Diagnoses Not on filedocumented in this encounter Care Teams Sugar Coating Hand Relationship Specialty Start Date End Date Anuja Gale MD [address] [place] [address] PCP - General Internal Medicine 08/13/21 documented as of this encounter
== END 2024-04-11 12:10 | disposition home or self-care (01) ==
PROVIDERS: PCP Internal Medicine; Visit Provider Orthopaedic Surgery
DX: M23.91 Unspecified internal derangement of right knee (principal); S83.241A Other tear of medial meniscus, current injury, right knee, initial encounter
CPT/HCPCS: 99214

== ENCOUNTER 2024-05-30 14:05 | Outpatient (AMB) | payer BC, SELFPAY ==
--- NOTE | 2024-05-30 14:13 | MHC.OFFVIS ---
Intake Visit Reasons: Preop RT knee 06/05/24 NE Intake Note: Christen is a 59 year old female who preents today with her for a pre oertaive visit for a right knee scheduled for 06/05/[address] Russell Alvarado. Allergies timolol Allergy (Severe, Verified 05/30/24 14:19) Swelling fluticasone [From FLONASE] Allergy (Unknown, Verified 05/30/24 14:19) SWELLING TONGUE/THROAT propranolol [From INDERAL LA] Allergy (Unknown, Verified 05/30/24 14:19) HEADAACHE salmeterol [From ADVAIR DISKUS] Allergy (Unknown, Verified 05/30/24 14:19) RASH dorzolamide Allergy (Verified 05/30/24 14:19) Swelling HPI HPI Preop RT knee 06/05/24 NE: Details: Ms. Griggs is a 59-year-old left-hand dominant female who presents to the office today for her preoperative appointment pending right knee arthroscopy tentatively scheduled for 06/05/2024. However, when patient reported to the office today she reports extreme left shoulder pain accompanied by weakness and limited motion. This is new in onset and began while she was reaching to shave her legs in the shower. Additionally, she has noted that the pain has remained constant but more concerning she is unable to raise her arm actively and passively she is able to raise her arm without much difficulty. She had seen her primary care provider where they had ordered an MRI of the cervical spine but it was denied due to diagnosis of neck pain. Patient has growing anxiety regarding the weakness that seems to be progressing in the left upper extremity. She has spelled cups trying to drink from them due to shaking and weakness and difficulty using utensils to feed herself. She does have a prior history of C-spine stenosis as well as a cervical fusion that was done by Dr. Carlos. [facility] Medical History Eye abnormality Surgery, elective Glaucoma Hemidiaphragm paralysis Afib Detached retina Asthma Allergic rhinitis Surgical History History of total left knee replacement H/O: hysterectomy S/P cervical spinal fusion H/O eye surgery H/O hernia repair H/O Spinal surgery Social History Alcohol intake: never Patient Tobacco Use Status: Never used Tobacco service: No Current occupational status: unemployed Review of Systems Const All systems reviewed & are unremarkable except as noted in HPI and below Physical Exam Const General: cooperative, healthy appearing and no acute distress Resp Effort & Inspection: normal respiratory effort and able to speak in complete sentences Extrem Other: Left upper extremity 60 degrees of active forward flexion. 45 degrees of active abduction. Able to reach T12. Unable to perform cross body reach due to weakness. Positive drop-arm. 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 Denies numbness and tingling. Assessment & Plan Assessment & Plan (1) History of spinal fusion: Code(s): Z98.1 - Arthrodesis status Category: Surgical (2) Cervical stenosis of spinal canal: Code(s): M48.02 - Spinal stenosis, cervical region Category: Medical (3) Left arm weakness: Code(s): R29.898 - Other symptoms and signs involving the musculoskeletal system Category: Medical (4) Traumatic rupture of rotator cuff of left shoulder: Code(s): S46.012A - Strain of muscle(s) and tendon(s) of the rotator cuff of left shoulder, initial encounter Category: Medical (5) Painful arc syndrome of left shoulder: Code(s): M75.102 - Unspecified rotator cuff tear or rupture of left shoulder, not specified as traumatic Category: Medical Plan Ms. Griggs is a 59-year-old left-hand dominant female who presents to the office today for her preoperative appointment pending right knee arthroscopy tentatively scheduled for 06/05/2024. However, when patient reported to the office today she reports extreme left shoulder pain accompanied by weakness and limited motion. This is new in onset and began while she was reaching to shave her legs in the shower. Additionally, she has noted that the pain has remained constant but more concerning she is unable to raise her arm actively and passively she is able to raise her arm without much difficulty. She had seen her primary care provider where they had ordered an MRI of the cervical spine but it was denied due to diagnosis of neck pain. Patient has growing anxiety regarding the weakness that seems to be progressing in the left upper extremity. Over the past few days she has noticed that while attempting to drink from cups she develops shaking and weakness in the left upper extremity causing her to spill. She also experiences difficulty using utensils to feed herself. She does have a prior history of C-spine stenosis as well as a cervical fusion that was done by Dr. Carlos. While in the office today, we decided to postpone the right knee arthroscopy at this time due to the concerning weakness that is developing in the left upper extremity. I have ordered a stat MRI of the C-spine and left shoulder shoulder to further evaluate the integrity of these areas and surrounding structures. Additionally, I ordered a stat EMG study to evaluate a neurological component contributing to the left upper extremity weakness. Lastly, the patient is experiencing excruciating pain in the left shoulder which sometimes travels to the forearm and into the scapula. I provided her a prescription for hydrocodone-acetaminophen 5-325mg to be taken every 6 hours as needed for pain. After the studies are obtained I will touch base with the patient to discuss the further treatment plan. Orders: Orders NE electromyogram EMG w Botuli Today R29.898 - Other symptoms and signs involving the musculoskeletal system NE electromyogram (EMG) Today R29.898 - Other symptoms and signs involving the musculoskeletal system MR shoulder LT wo con Today M75.102 - Unspecified rotator cuff tear or rupture of left shoulder, not specified as traumatic, R29.898 - Other symptoms and signs involving the musculoskeletal system, S46.012A - Strain of muscle(s) and tendon(s) of the rotator cuff of left shoulder, initial encounter MR cervical spine wo con Today M48.02 - Spinal stenosis, cervical region, R29.898 - Other symptoms and signs involving the musculoskeletal system, Z98.1 - Arthrodesis status Medications: New hydrocodone-acetaminophen 5-325 mg Partial Fill upon patient request. 1 tab PO Q6H PRN 28 tabs 0RF pain 7 days Coding Level of Care Code Est Pt Level 4 (00912) Diagnoses History of spinal fusion Z98.1 Cervical stenosis of spinal canal M48.02 Left arm weakness R29.898 Traumatic rupture of rotator cuff of left shoulder S46.012A Painful arc syndrome of left shoulder M75.102
--- OUTSIDE RECORDS SUMMARY | 2024-05-30 16:34 | XMS_ITS | Data Portability ---
Author Organization [place] - [facility],, ELADIA MILLER MD Address [address] [address] Care Team Providers Care Teleradiologist Name Role Phone MURALI HOLLIS Primary Care Provider Assessment No assessment recorded. Plan of Treatment Reminders Order Date Submit Date Provider Last Modified By Organization Details Last Modified Time Details Appointments None recorded. Lab cytology report, thin prep, smear or scraping, cervical or vaginal 2024 025 BELKIS [facility] (Centralized Electronic Ordering - All Locations), Patient Can Go To The Location Of Their Choice, [id number] 5 18:15:55 hemoglobi n, gastroint estinal, stool 2024 025 [email or web address] 1 In-Office Order, Internal Use Only DO Not Attach Compendium DO Not Attach Compendium, Do Not Delete/merge, [id number] 5 11:05:22 pap test, thinprep, cervical 2022 023 [facility] (Centralized Electronic Ordering - All Locations), Patient Can Go To The Location Of Their Choice, [id number] 3 10:53:54 fecal occult blood, stool 2022 023 [email or web address] 1 In-Office Order, Internal Use Only DO Not Attach Compendium DO Not Attach Compendium, Do Not Delete/merge, [id number] 3 09:47:14 pap, LB, vaginal 2021 022 [email or web address] [facility] (Centralized Electronic Ordering - All Locations), Patient Can Go To The Location Of Their Choice, [id number] 2 07:42:30 fecal occult blood, stool 2021 022 [email or web address] 1 In-Office Order, Internal Use Only DO Not Attach Compendium DO Not Attach Compendium, Do Not Delete/merge, [id number] 2 12:50:14 pap test, thinprep, cervical 2020 021 [facility], Cytopathology Service, [address] [place], [address], 1 08:27:08 fecal occult blood, stool 2020 021 [email or web address] 1 In-Office Order, Internal Use Only DO Not Attach Compendium DO Not Attach Compendium, Do Not Delete/merge, [id number] 1 11:08:17 pap, LB, vaginal 2019 020 [email or web address] [facility], Cytopathology Service, [address] [place], [address], 0 07:51:18 fecal occult blood, stool 2019 020 [email or web address] In-Office Order, Internal Use Only DO Not Attach Compendium DO Not Attach Compendium, Do Not Delete/merge, [id number] 0 07:51:17 Referral None recorded. Procedures None recorded. Surgeries None recorded. Imaging MAMMO, screening , digital, bilateral 2024 025 [facility] ([facility]), [address] [place], [address], 5 12:13:05 MAMMO, screening , digital, bilateral - Breast Aspiratio n and/or Biopsy if needed 2022 023 [facility] (Mammography), [address] [place], [address], 4 18:29:40 MAMMO, screening , digital, bilateral 2021 022 [facility] ([facility]), [address] [facility] [place], [address], 3 16:32:42 MAMMO, screening , digital, bilateral 2020 021 [facility] ([facility]), [address] [facility] [place], [address], 1 16:07:28 MAMMO, screening , digital, bilateral 2019 020 [facility] ([facility]), [address] [facility] [place], [address], 0 17:04:33 Medication Orders estradiol 1 mg tablet 2020 021 [facility], [address] [place] [address], [address], 3 09:18:39 estradiol 1 mg tablet 2019 020 [facility], [address] [place] [address], [address], 3 09:18:39 Patient TargetsNo targets recorded. Patient Instructions Encounter Date Encounter Id Patient Instructions Last Modified By Organization Details Last Modified Time 04/12/2019 [id number] She is here for annual exam, is [...] time postmenopausally. Not available 04/12/2019 11:38:11 12/28/2020 [id number] learning about healthy weight Not available 12/28/2020 [...] the breast. Not available 12/28/2020 11:09:23 01/10/2022 [id number] learning about healthy weight Not available 01/10/2022 [...] the breast. Not available 01/10/2022 12:51:26 01/16/2023 [id number] learning about healthy weight Not available 01/16/2023 [...] the breast. Not available 01/16/2023 09:47:06 03/06/2024 [id number] learning about healthy weight Not available 03/06/2024 [...] DO Not Attach Compendium, Do Not Delete/merge, [id number] 04/12/2019 11:15:42 04/12/1904/12/2019 pap, LB [id number] ThinP rep Pap, Image d: NEGAT CHRISTIANO [...] x, z12.4 , z01.4 19 Not Available [facility], Cytopathology Service [address] [facility], [place], [address], 04/16/2019 11:17:55 12/29/19 21 12/28/2020 PAP1C ASE [id number] ThinP rep Pap, Image d: NEGAT CHRISTIANO FOR SQUAM OUS INTRA EPITH ELIAL LESIO N AND CARMELLA LOPEZ . Note: The Pap test is a scree oc test with an inher ent false negat christiano rate. Autom ated presc reeni marlyn of all liqui d based speci mens is perfo rmed by the ThinP rep Imagi ng Syste m [facility] d[facility] Oates r , CT( CP) (Case elect esau goldsmith rafaela d 01 12 2021) ADEQU ACY: Satis facto ry . SOURC E: ThinP rep Pap HPV IF ASCUS , Vagin al, Image d CLINI NNEKA INFOR MATIO N: HPV If Diagn osis of ASCUS . LPS 0 neg, z01.4 19 Not Available [facility], Cytopathology Service [address] [place], [address], 01/12/2021 16:15:50 12/29/19 21 12/28/2020 fecal occul t blood , stool Occult Blood negati ve Not Available In-Office Order Internal Use Only DO Not Attach Compendium DO Not Attach Compendium, Do Not Delete/merge, [id number] 12/28/2020 10:03:41 01/11/20 22 01/10/2022 [facility] results Kevin nt Name: ADRIAN LARKIN RA nt : 1965 (Age: 56) Lab Acces adriel #: [id number] Colle ction Date: 2021 Acces adriel Date: 2021 Sign Out Date: 2021 Tissu e Sourc e: 1: THINP REP BENCH MECHANIC PAP TEST, VAGIN AL: Final Diagn osis: [...] hernandez or ct mclaughlin Perfprasanth rmed at [facility] ate Refer ence Labor atory depar tment of Cytol ogy, [address] [place] Clini nneka Histo ry (othe r): z01.4 19, LPS 2 neg, routi ne scree n Phone #: [phone], On-Ca ll Patho logis t: [id number] Not Available [facility] (Centralized Electronic Ordering - All Locations) Patient Can Go To The Location Of Their Choice, [id number] 01/13/2022 15:20:05 01/11/20 22 01/10/2022 fecal occul t blood , stool Occult Blood negati ve Not Available In-Office Order Internal Use Only DO Not Attach Compendium DO Not Attach Compendium, Do Not Delete/merge, [id number] 01/10/2022 10:02:51 01/17/20 23 01/16/2023 [facility]TOL [facility]GY results Patie nt Name: ADRIAN LARKIN RA nt : 1965 (Age: 57) Lab Acces adriel #: [id number] Colle ction Date: 01/16 Acces adriel Date: 01/16 Sign Out Date: 01/20 Tissu e Sourc e: 1: THINP REP BENCH MECHANIC PAP TEST, VAGIN AL: Final Diagn osis: [...] hernandez or ct nugent. Perfo rmed at [facility] ate Refer ence Labor atory depar tment of Cytol ogy, [address] [place] Clini nneka Histo ry (othe r): Z01.4 19, routi ne scree n, LPS neg Phone #: [phone], On-Ca ll Patho logis t: [id number] Not Available [facility] (Centralized Electronic Ordering - All Locations) Patient Can Go To The Location Of Their Choice, [id number] 01/20/2023 11:19:57 01/17/20 23 01/16/2023 fecal occul t blood , stool Occult Blood negati ve Not Available In-Office Order Internal Use Only DO Not Attach Compendium DO Not Attach Compendium, Do Not Delete/merge, [id number] 01/16/2023 09:18:05 03/06/1903/07/2024 IGP, RFX APTIM A HPV ASCU diagnosis: Radha SHARPE CHRISTIANO FOR INTRA EPITH ELIAL LESIO N OR CARMELLA LOPEZ . THIS SPECI MEN WAS RESCR EENED PART OF OUR QUALI TY CONTR OL PROGR AM. Not Available [facility] ([facility]) [address] [place], [address], 03/07/2024 18:15:55 03/06/19 25 03/07/2024 IGP, RFX APTIM A HPV ASCU specimen adequacy: Radha torres for evalu ation . Not Available [facility] ([facility]) [address] [place], [address], 03/07/2024 18:15:55 03/06/19 25 03/07/2024 IGP, RFX APTIM A HPV ASCU clinician provided ICD10: Radha katz Z01.4 19 Not Available [facility] ([facility]) [address] [place], [address], 03/07/2024 18:15:55 03/06/19 25 03/07/2024 IGP, RFX APTIM A HPV ASCU performed by: Radha Munoz, Cytot echno logis t (ASCP ) Not Available [facility] ([facility]) [address] [place], [address], 03/07/2024 18:15:55 03/06/19 25 03/07/2024 IGP, RFX APTIM A HPV ASCU QC reviewed by: Radha Peralta , Cytot echno logis t (ASCP ) Not Available [facility] ([facility]) [address] [place], [address], 03/07/2024 18:15:55 03/06/19 25 03/07/2024 IGP, RFX APTIM A HPV ASCU . . Not Available [facility] ([facility]) [address] [place], [address], 03/07/2024 18:15:55 03/06/19 25 03/07/2024 IGP, RFX [...] ts do occur . Not Available [facility] ([facility]) [address] [place], [address], 03/07/2024 18:15:55 03/06/19 25 03/07/2024 IGP, RFX APTIM A HPV ASCU test methodology: Commen t This liqui d based ThinP rep(R ) pap test was scree vandana with the use of an image guide gee elliott. Not Available [facility] ([facility]) [address] [place], [address], 03/07/2024 18:15:55 03/06/19 25 03/07/2024 IGP, RFX APTIM A HPV ASCU . Commen t The HPV DNA refle x crite wilber were not met with this speci men resul t there fore, no HPV testi ng was perfo rmed. Not Available [facility] ([facility]) [address] [place], [address], 03/07/2024 18:15:55 03/06/19 25 03/06/2024 hemog lobin , gastr ointe randolph l, stool Occult Blood negati ve Not Available In-Office Order Internal Use Only DO Not Attach Compendium DO Not Attach Compendium, Do Not Delete/merge, [id number] 03/06/2024 10:47:16 11/25/19 20 11/23/2019 MAMMO , [...] teral No observ ation record ed. [address], [address], 04/12/2022 13:56:26 04/14/19 24 04/14/2023 MAMMO , scree oc, digit al, bilat eral No observ ation record ed. [facility] [address] [place], [address], 04/16/2023 08:28:33 Result Notes None recorded. Problems Name Problem SNOMED Code Status Onset Date Resolution Date Notes Provider Name and Address Organization Details Recorded Time Menopausal syndrome 615287534 Active Eladia Miller MD [address], [place], [address], [place] [facility], 5 09:07:22 Candidal vulvovagini tis 80041615 Active Eladia Miller MD [address], [place], [address], [place] [facility], 5 09:40:02 Vaginitis 53446750 Active Eladia Miller MD [address], [place], [address], [place] [facility], 5 09:40:02 Insomnia 432385897 Active 2017 Eladia Miller MD [address], [place], [address], [place] [facility], 8 09:09:13 Hiatal hernia 62243900 Active 2020 Clarita chavez [place] - [facility], 1 10:14:30 Retinal detachment 47026452 Active 2020 Clarita chavez [place] - [facility], 1 10:14:37 Atrial fibrillatio n 93347063 Active 2021 Clarita chavez [place] - [facility], 2 10:11:52 Blind right eye 747179774 Active 2022 Clarita chavez [place] - [facility], 3 09:21:55 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 Eladia Miller MD [address], [place], [address], [place] [facility], 3 09:48:04 Tunnel vision of left eye 6054424795297 09 Active 2022 Eladia Miller MD [address], [place], [address], [place] - [facility], 3 09:48:17 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 Spinal stenosis Problem Notes None recorded. Procedures Surgical History Date Name Laterality Status Provider Name and Address Organization Details Recorded Time 04/14/19 24 Most Recent Mammogram completed Jessica Wagner in [facility], 02/19/2024 08:31:03 09/22/19 22 primary fusion of cervical spine completed Clarita Wagner in [facility], 01/10/2022 10:13:43 07/20/19 22 Glaucoma surgery completed Clarita Wagner in [facility], 01/10/2022 10:13:36 02/17/19 22 Eye surgery follow-up add-on completed Clarita Wagner in [facility], 01/10/2022 10:12:52 09/23/19 21 procedure on retina completed Clarita Wagner in [facility], 12/28/2020 10:14:03 07/16/19 21 esophageal hiatus hernia repair completed Clarita Wagner in [facility], 12/28/2020 10:12:43 06/10/19 21 excision of synovial cyst completed Clarita Wagner in [facility], 12/28/2020 10:11:56 03/09/19 16 Other completed Jessica Wagner in [facility], 03/18/2016 08:27:52 03/09/19 14 Other completed Teresa Wagner in [facility], 09/22/2014 08:53:02 02/06/19 10 Other completed Jessica Anderson [place] - [facility], 10/24/2011 10:57:56 02/06/19 04 Other completed Jessica Anderson [place] - [facility], 10/24/2011 10:57:56 02/06/18 94 Hysterectomy completed Eladia Miller MD [address] [facility],[address], [place], [address], [place] - [facility], 02/07/2013 08:24:16 Imaging Results Imaging Date Name Status LastModified by [facility] Details LastModified Time 11/23/2019 MAMMO, screening, digital, bilateral completed Information not available 11/26/2019 08:49:03 01/19/2021 MAMMO, screening, digital, bilateral completed Information not available 01/21/2021 08:53:31 04/07/2022 MAMMO, screening, digital, bilateral completed Information not available 04/14/2022 14:06:51 04/12/2022 US, breast completed Information n ot available 04/12/2022 13:56:26 04/12/2022 MAMMO, diagnostic, digital, unilateral completed [address], [place], [address], 04/12/2022 13:56:26 04/14/2023 MAMMO, screening, digital, bilateral completed [address], [address], 04/16/2023 08:28:33 Procedure Notes None recorded. Medical Equipment None Reported. Allergies Allergen ID Allergen Name Allergen Category Reaction Reaction Severity Criticality Documentation Date Start Date Code Code System Note Provider Name and Address Organization Details Recorded Time 05175 dorzolami de medicatio n facial swelling severe high 01/10/2022 06908 RxNorm [place] Valentin in [facility], 2 10:03:35 4141 Inderal medicatio n Not available Not available Not available 10/24/2011 51146 0 RxNorm bad heada ches WILLY Marsh in [facility], 2 10:57:56 4142 Flonase medicatio n Not available Not available Not available 10/24/2011 67634 RxNorm throa t swell s WILLY Marsh in [facility], 2 10:57:56 4143 fluticaso ne / salmetero l medicatio n Not available Not available Not available 10/24/2011 50410 5 RxNorm rash Jessica Meczywor null, [place] [...] Not Available Not Available Not Available Fluvirin 3892-5578(P F) 45 mcg (15 mcg x3)/0.5 mL [...] 0 177.8 cm 76 /min 36.3 kg/m2 583301. 87 g 154 mm[Hg] 77 mm[Hg] Jessica Wagner in [facility], 0 11:09:01 Date Recorded Body height Body temperature Body mass index (BMI) Body weight Heart rate Systolic blood pressure Diastolic blood pressure Provider Name and Address Organization Details Last Updated DateTime 1 177.8 cm 97.2 [degF] 32.7 kg/m2 183350. 06 g 67 /min 132 mm[Hg] 63 mm[Hg] Clarita Wagner in [facility], 1 10:06:49 Date Recorded Body weight Body mass index (BMI) Body height Systolic blood pressure Diastolic blood pressure Provider Name and Address Organization Details Last Updated DateTime 01/10/2022 904709.0 9 g 35.9 kg/m2 177.8 cm 116 mm[Hg] 56 mm[Hg] Clarita Wagner in [facility], 2 10:08:08 Date Recorded Body weight Body mass index (BMI) Body height Heart rate Systolic blood pressure Diastolic blood pressure Provider Name and Address Organization Details Last Updated DateTime 3 768489. 02 g 33.4 kg/m2 177.8 cm 73 /min 133 mm[Hg] 66 mm[Hg] Clarita Hills [place] - [facility], 3 09:21:16 Date Recorded Body height Body mass index (BMI) Body weight Heart rate Systolic blood pressure Diastolic blood pressure Provider Name and Address Organization Details Last Updated DateTime 5 177.8 cm 36.8 kg/m2 222504. 37 g 77 /min 136 mm[Hg] 74 mm[Hg] Jessica Anderson [place] - [facility], 5 10:40:55 Social History Question Answer Notes LastModified by Organizat ion Details LastModified Time Tobacco Smoking Status Never Smoker Not Available [facility] 12/10/2019 03:19:40 What Is Your Level Of [...] Type Of Diet Are You Following? REGULAR [id number] Information not available 12/10/2019 Which Illicit Or Recreational Drugs Have You Used? No [id number] Information not available 12/10/2019 Do You Reside In Or Have You Traveled To An Area Where Ebola Virus Transmission Is Active? No [id number] Information not available 12/10/2019 Do You Or Have You Ever Used E-cigarettes Or Vape? Never Used Electronic Cigarettes [id number] Information not available 12/10/2019 Education 12 Information no t available 10/24/2011 What Is The Highest Grade Or Level Of School You Have Completed Or The Highest Degree You Have Received? [id number] Information not available 12/28/2020 What Is Your Occupation? Not Working At This Time. [id number] Information not available 12/10/2019 How Many Days [...] available 12/28/2020 Are You Sexually Active? Yes [id number] Information not available 12/10/2019 Do You Or Have You Ever Used Smokeless Tobacco? Never Used Smokeless Tobacco [id number] Information not available 12/10/2019 How Much Tobacco Do You Smoke? No [id number] Information not available 12/10/2019 General Stress Level High Information not available 10/24/2011 Do You Feel Stressed (tense, Restless, Nervous, Or Anxious, Or Unable To Sleep At Night)? [id number] Information not available 12/28/2020 Do You Use Any Illicit Or Recreational Drugs? No Information not available 12/28/2020 How Many Years Have You Smoked Tobacco? 0 [id number] Information not available 12/10/2019 Have You Recently [...] Time What is your exercise level? None [id number] Information not available 12/10/2019 Mental Status None [...] unspecified formulation 3 completed [place] Valentin in [facility], 01/16/2023 09:20:31 Influenza, split virus, trivalent, preservative 4 completed [place]Y Khoury in [facility], 09/22/2014 08:54:38 Influenza, split virus, quadrivalent, preservative 6 completed [place] Marsh in [facility], 03/18/2016 08:25:55 Influenza, split virus, quadrivalent, preservative 8 completed [place] Valentin in [facility], 01/16/2023 09:20:31 Pneumococcal Conjugate, unspecified formulation 8 completed [place] Valentin in [facility], 01/16/2023 09:20:32 varicella 9 completed [place] Marsh in [facility], 04/12/2019 11:04:08 Influenza, split virus, quadrivalent, preservative 9 completed [place] Valentin in [facility], 01/16/2023 09:20:31 COVID-19, mRNA, LNP-S, PF, 30 mcg/0.3 mL dose 1 [place] Luna in [facility], 01/16/2023 09:20:31 COVID-19, mRNA, LNP-S, PF, 30 [...] Care, 01/16/2023 09:20:31 Pneumococcal conjugate PCV20, polysaccharide [id number] conjugate, adjuvant, PF 2 completed Clarita chavez [...] trivalent, preservative 1 completed [place] Valentin in [facility], 01/16/2023 09:20:32 Influenza, split virus, trivalent, preservative 3 completed [place] Valentin in [facility], 01/16/2023 09:20:32 Influenza, split virus, trivalent, preservative 9 completed [place] Valentin in [facility], 01/16/2023 09:20:32 Influenza, split virus, trivalent, PF 6 completed [place] Valentin in [facility], 01/16/2023 09:20:32 Novel [id number], preservative-free 9 completed [place] Valentin in [facility], 01/16/2023 09:20:32 Td (adult), 2 Lf tetanus toxoid, preservative free, adsorbed 9 completed [place] Valentin in [facility], 01/16/2023 09:20:32 Influenza, split virus, quadrivalent, PF 8 completed [place] Valentin in [facility], 01/16/2023 09:20:32 COVID-19, mRNA, LNP-S, PF, dmitri-sucrose, 30 mcg/0.3 mL 3 completed [place] Marsh in [facility], 03/06/2024 10:41:19 Influenza, split virus, quadrivalent, PF 3 completed Jessicasammy Jorgeywor [place] chavez in [facility], 03/06/2024 10:41:20 Past Encounters Encounter ID Performer Location Encounter Start Date Encounter Closed Date Diagnosis/Indication Diagnosis SNOMED-CT Code Diagnosis ICD10 Code Diagnosis Note [id number] MD ELADIA Page MD [address] [facility] [address] [place] [address] 10/24/2011 10:31:05 10/24/2011 15:38:00 [id number] Teresa Palafox ELADIA MILLER MD [address] [facility],[place] [address] 02/07/2013 07:52:20 02/07/2013 12:49:34 Specialized medical examination [id number] Screening for malignant neoplasm of rectum 885682950 Screening mammography 20352038 Menopausal syndrome 750569630 [id number] ELADIA MILLER MD [address] [facility],[place] [address] 09/22/2014 08:35:54 09/22/2014 11:06:38 Specialized medical examination 37797790 Screening for malignant neoplasm of rectum 012467456 Screening mammography 06159103 Menopausal syndrome 095780432 [id number] Jessica Justin MILLER MD [address] [facility],[place] [address] 09/30/2014 08:19:34 09/30/2014 10:27:10 Candidal vulvovaginitis 76947866 Vaginitis 48870787 [id number] MD ELADIA Page MD [address] [facility],[place] [address] 03/18/2016 08:16:00 03/18/2016 11:30:40 Specialized medical examination 43092417 Z01.419 Screening for malignant neoplasm of rectum 365122276 Z12.12 Screening mammography 24 118879 Z12.31 Menopausal syndrome 1237 96241 N95.9 [id number] MD ELADIA Page MD [address] [facility],[place] [address] 10/18/2017 08:07:22 10/18/2017 11:25:05 Specialized medical examination 64289533 Z01.419 Screening for malignant neoplasm of rectum 116143082 Z12.12 Screening mammography 24 363839 Z12.31 Menopausal syndrome 1237 07642 N95.1 Insomnia 146092670 G47.0 0 [id number] MD ELADIA Page MD [address] [facility],[place] [address] 02/26/2018 12:51:24 02/26/2018 14:02:51 Atypical squamous cells of undetermined significance on cervical Papanicolaou smear 929774582 R87.610 [id number] MD ELADIA Page MD [address] [facility], [place] [address] 04/12/2019 10:45:52 04/12/2019 12:08:59 Menopausal syndrome 769886271 N95.1 Specialize d medical examination 62366215 Z01.419 Screening for malignant neoplasm of rectum 828954132 Z12.12 Screening mammography 24 280866 Z12.31 [id number] MD ELADIA Page MD [address] [place] [address], [place] [address] 12/28/2020 10:02:44 12/28/2020 11:37:50 Specialized medical examination 65907804 Z01.419 Screening for malignant neoplasm of rectum 091740643 Z12.12 Screening mammography 24 056728 Z12.31 Menopausal syndrome 1237 42487 N95.1 [id number] MD ELADIA Page MD [address] [place] [address], [place] [address] 01/10/2022 09:59:11 01/10/2022 13:57:13 Specialized medical examination [id number] Z01.419 Screening for malignant neoplasm of rectum [id number] Z12.12 Screening mammography 24 066612 Z12.31 [id number] MD ELADIA Page MD [address] [place] [address], [place] [address] 01/16/2023 09:13:08 01/16/2023 10:58:56 Specialized medical examination [id number] Z01.419 Screening for malignant neoplasm of rectum [id number] Z12.12 Screening mammography 24 205039 Z12.31 Complete b lindness of right eye [id number] H54.415A Tunnel vis ion of left eye [id number] 13830 H53.40 [id number] MD ELADIA Page MD [address] [facility], [place] [address] 03/06/2024 10:35:30 03/06/2024 12:13:05 Specialized medical examination [id number] Z01.419 Screening for malignant neoplasm of rectum [id number] Z12.12 Screening mammography 24 612622 Z12.31 Health Concerns Section Related Observation LastModified by Organization Detai ls LastModified Time None Recorded Concern Status LastModified by Organization Details LastModified Time None Recorded Advance Directives Directive None Recorded Payers Encounter Date Sequence Insurance Name Policy Number Policy Horne Covered Member ID Horne Member ID Guarantor Name 04/12/2019 1 [place] [facility] (HMO) [id number] Vicente Griggs [id number] Christen Novakyer 12/28/2020 1 [place] [facility] (HMO) [id number] Vicente Griggs [id number] Christen Griggs 01/10/2022 1 [place] [facility] (HMO) [id number] Vicente Griggs [id number] Christen Anson 01/16/2023 1 [place] (H[place]) [id number] Vicente Griggs [id number] Christen Novakyer 03/06/2024 1 [place] [facility] (HMO) [id number] Vicente Griggs [id number] Christen Griggs Notes Date Note Type [...] symptoms after a week! Eladia Miller MD [address] [place] [address],[address], [place], [address], [place] [facility], [...] elects to continue. Eladia Miller MD [address] [facility],[address], [place], [address], [employer] [facility], 12/28/2020 11:09:53 01/10/2022 text/html [...] day a week. Eladia Miller MD [address] [facility],[address], [place], [address], [employer] [facility], 01/10/2022 12:51:47 01/16/2023 text/html [...] sto do so. Eladia Miller MD [address] [facility],[address], [place], [address], [place] - [facility], 01/16/2023 09:52:22 03/06/2024 text/html She is here [...] depth perception issues. Eladia Miller MD [address] [facility],[address], [place], [address], [place] - [facility], 03/06/2024 11:07:39 OBGyn Episode No OBEpisode recorded.
--- OUTSIDE RECORDS SUMMARY | 2024-05-30 16:34 | XMS_ITS | Encounter Summary ---
Author Organization [facility] Address [id number] [place] [address] Care Team Providers Care Cattle Sprayer Name Role Phone Anuja Gale MD Primary Care Prov ider Reason for Referral * Other Medical (Routine) - Authorized Specialty Diagnoses / Procedures Referred By David katz Referred To Contact Sleep Medicine Diagnoses Other fatigue Procedures Home sleep test Sarah Beckett MD [address] [facility] 200 [place] [address] Phone: tel: fax: [facility] [address] [facility] [address] [place] [address] Phone: tel: fax: Referral ID Status Reason Start Date Expiration Date V isits Requested Visits Authorized [id number] Authorized 05/29/2024 07/28/2024 1 1 Reason for Visit * Consultation (Routine) - Authorized Specialty Diagnoses / Procedures Referred By Contdutch t Referred To Contact Pulmonology Diagnoses Disorders of diaphragm FOLLOW UP ASTHMA 12/21 lvm to confirm LC Procedures FOLLOW UP Anuja Gale MD [address] [place] [address] Phone: tel: fax: Sarah Beckett MD [address] [facility] [address] [place] [address] Phone: tel: fax: Referral ID Status Reason Start Date Expiration Date V isits Requested Visits Authorized [id number] Authorized 07/13/2023 07/12/2024 6 6 Encounter Details Date Type Department Care Team ([facility] Contact Info) Description 05/29/2024 8:00 AM EDT Office Visit Pulmonolgy - [place] 175 [facility] 200 [place] [id number] Sarah Beckett MD [address] [facility] 200 [place] [address] Moderate persistent asthma, unspecified whether complicated (Primary Dx); Loud snoring; Other fatigue; Obesity (BMI 35.0-39.9 without comorbidity) Social History Tobacco Use Types Packs/Day Years [...] do you feel lonely or isolated from ose around you? Never 02/29/2024 Food Risk [...] care for your loved ones. For example, teacher early childhood development or elderly care for an older adult? [...] PM EST documented as of this encounter Last Filed Vital Signs Vital Sign Reading Time Taken Comments Blood Pressure 125/74 05/29/2024 8:03 AM EDT Pulse 72 05/29/2024 8:03 AM EDT Temperature 36.2 ??C (97.2 ??F) 05/29/2024 8:03 AM ED T Respiratory Rate 16 05/29/2024 8:03 AM EDT Oxygen Saturation 99% 05/29/2024 8:03 AM EDT Inhaled Oxygen Concentration - - Weight 118 kg (261 lb) 05/29/2024 8:03 AM EDT Height 177.8 cm (5' 10 ) 05/29/2024 8:03 AM EDT Body Mass Index 37.45 05/29/2024 8:03 AM EDT documented in this encounter Ordered Prescriptions Prescription Sig Dispense Quantity Refills Last Filled Start Date End Date ipratropium-albute roL (Combivent Respimat) 20-100 mcg/actuation inhalerIndications :Moderate persistent asthma, unspecified whether complicated Inhale 1 puff by mouth 4 (four) times a day. 1 each 6 05/29/2024 6 budesonide-formote roL (SYMBICORT) 160-4.5 mcg/actuation inhalerIndications :Moderate persistent asthma, unspecified whether complicated Inhale 2 puffs by mouth 2 (two) times a day. Rinse mouth with water after use to reduce aftertaste and incidence of candidiasis. Do not swallow. 3 each 2 05/29/2024 6 documented in this encounter Progress Notes * Sarah Beckett MD - 05/29/2024 8:00 AM EDT ADULT PULMONARY Followup CHIEF COMPLAINT or REASON FOR CONSULTATION: No chief complaint on file. Last seen 07/28/2023 HISTORY OF PRESENT ILLNESS: Christen Griggs is a 59 y.o. 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 COVID Vaccination: Pfizer. 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 No occupational chemical or fume exposure. Pets: dog. No exposure to TB or abestosis. FH: Father lung cancer. Brother with lupus. ACT: 22. [place] Sleepiness Scale Sitting and reading: Would never doze Watching TV: Would never doze Sitting, inactive in a public place (e.g. a theatre or a meeting): Would never doze As a passenger in a car for an hour without a break: Would never doze Lying down to rest in the afternoon when circumstances permit: Slight chance of dozing Sitting and talking to someone: Would never doze Sitting quietly after a lunch without alcohol: Would never doze In a car, while stopped for a few minutes in traffic: Would never doze Total score: 1 Since last seen: -Chest x-ray 07/27/2023 unremarkable. -Issues w/ knee issues requiring surgery and eye surgery. -Wasn't able to proceed with sleep study. REVIEW OF SYSTEMS: Review of Systems Constitutional: Negative for chills, decreased appetite, diaphoresis, fever, malaise/fatigue, nightsweats and weight loss. HENT: Negative for congestion. Cardiovascular: Negative for chest pain, dyspnea on exertion, irregular heartbeat and leg swelling. Respiratory: Positive for snoring and wheezing. Negative for cough, hemoptysis, shortness of breathand sputum production. Endocrine: Negative for cold intolerance and heat intolerance. Skin: Negative for rash. Musculoskeletal: Negative for myalgias. Gastrointestinal: Positive for abdominal pain. Negative for anorexia, constipation, diarrhea, dysphagia, flatus, hematochezia, melena, nausea and vomiting. Genitourinary: Negative for dysuria, frequency and hematuria. Neurological: Negative for headaches. ALLERGIES: Allergies Allergen Reactions Dorzolamide Other reaction(s): Facial Swelling Mometasone-Formoterol Other Has sore throat Fluticasone Propion-Salmeterol Other Reaction(s): Rash/Dermatitis Fluticasone Propionate Other Reaction(s): Numbness, tingling or swelling of the lips, tongue or mouth Propranolol Hcl Headache ACTIVE MEDICATIONS: Outpatient Medications Marked as Taking for the 05/29/24 encounter (Office Visit) with Sarah Beckett MD Medication Sig Dispense Refill albuterol HFA (PROAIR HFA ; PROVENTIL HFA ; VENTOLIN HFA) 90 mcg/actuation inhaler USE 2 INHALATIONS ORALLY EVERY 6 HOURS NEEDED FORCOUGH OR WHEEZING atorvastatin (LIPITOR) 20 mg tablet TAKE 1 TABLET DAILY 90 tablet 1 bimatoprost (Lumigan) 0.01 % ophthalmic drops INSTIL 1 DROP IN BOTH EYES AT BEDTIME DIRECTED budesonide-formoteroL (Symbicort) 160-4.5 mcg/actuation inhaler Inhale 2 puffs by mouth 2 (two) times a day. 3 each 3 buPROPion SR (WELLBUTRIN SR) 150 mg 12 hr tablet Take 1 Tablet by mouth daily. calcium carbonate (CALCIUM 600 ORAL) Take 1 Tab by mouth 2 times daily. diclofenac sodium 3 % gel APPLY TOPICALLY TO THE AFFECTED AREA TWICE DAILY EPINEPHrine (EpiPen 2-Jd) 0.3 mg/0.3 mL injection Inject 0.3 mg as directed as needed (As needed for anaphylaxis). Use as directed fexofenadine HCl (HUMA ORAL) Take by mouth. gabapentin (NEURONTIN) 300 mg capsule TAKE 1 CAPSULE BY MOUTH NEEDED FOR HEADACHE UP TO 2 TIMES A DAY hydrocortisone (ANUSOL-HC) 2.5 % rectal cream APPLY 1 APPLICATOR TOPICALLY TWO TIMES A DAY NEEDED FOR HEMORRHOID ipratropium-albuteroL (Combivent Respimat) 20-100 mcg/actuation inhaler Inhale 1 Puff into the lungs every 6 hours as needed for Other (wheezing) for up to 363 days. montelukast (SINGULAIR) 10 mg tablet TAKE 1 TABLET AT BEDTIME 90 tablet 1 pantoprazole (PROTONIX) 40 mg EC tablet Take 1 tablet (40 mg total) by mouth 2 (two) times a day. Do not crush, chew, or split. 180 each 3 traMADoL (ULTRAM) 50 mg tablet Take 1 tablet (50 mg total) by mouth 2 (two) times a day if needed for severe pain. Max Daily Amount: 100 mg 15 tablet 0 zolpidem (AMBIEN) 10 mg tablet Take by mouth at bedtime as needed. PROVIDER ATTESTS THAT THE MEDICATION LIST WAS OBTAINED, REVIEWED AND UPDATED. PAST MEDICAL HISTORY: Patient Active Problem List Diagnosis Date Noted Complete blindness of right eye 01/16/2023 Diaphragmatic paralysis 08/16/2022 PAC (premature atrial contraction) 05/25/2022 SOB (shortness of breath) 05/25/2022 Atrial fibrillation ([facility] V24, [facility] V28) 12/20/2021 Atrial tachycardia ([facility] V24) 12/20/2021 Hyperlipidemia 12/20/2021 Palpitations 12/20/2021 PAF (paroxysmal atrial fibrillation) ([facility] V24, [facility] V28) 09/27/2021 Tachycardia 09/27/2021 Esophageal dysmotility 04/07/2020 HTN (hypertension), benign 12/24/2018 Severe obesity (BMI 35.0-39.9) with comorbidity ([facility] V24, [facility] V28) 10/06/2018 Benign essential tremor 06/04/2018 Musculoskeletal neck pain 06/04/2018 Vasovagal syncope 06/04/2018 Allergic rhinitis due to cat hair 03/09/2018 Allergic rhinitis due to pollen 03/09/2018 Hiatal hernia 03/09/2018 Moderate persistent asthma 03/09/2018 Pure hypercholesterolemia 10/12/2017 Retinal detachment 03/09/2015 Insomnia 12/19/2011 Osteoarthritis of knee 12/24/2008 IBS (irritable bowel syndrome) 03/05/2007 Allergic rhinitis 08/08/2006 Past Surgical History: Procedure Laterality Date BREAST BIOPSY 10/2006 PROCEDURE: BX BREAST; PERC NEEDLE CORE W/IMAG GUID; COMMENT: rt bx neg-fibroadenoma COLONOSCOPY 01/02/2017 PROCEDURE: HISTORICAL COLONOSCOPY; COMMENT: tics and hemorrhoids; repeat in 10 yrs ESOPHAGOGASTRODUODENOSCOPY 01/02/2017 PROCEDURE: SD ESOPHAGOGASTRODUODENOSCOPY TRANSORAL DIAGNOSTIC; COMMENT: normal EYE SURGERY PROCEDURE: HISTORICAL EYE SURGERY; COMMENT: retina and cataract surgery left EYE SURGERY Right 03/10/2015 PROCEDURE: HISTORICAL EYE SURGERY; COMMENT: Dr. Rojo retinal Detachment KNEE SURGERY 06/2009 PROCEDURE: HISTORICAL KNEE SURGERY; COMMENT: Left knee KNEE SURGERY Right meniscus OTHER SURGICAL HISTORY age 28 PROCEDURE: HISTORICAL TOTAL HYSTERECTOMY W/O BSO; COMMENT: ZORAN ?TVH combined procedure due to adhesions, was in hospital post op for a week OTHER SURGICAL HISTORY 08/28/2020 PROCEDURE: HISTORY OTHER; COMMENT: hiatal hernia procedure SALPINGOOPHORECTOMY 03/08/2002 PROCEDURE: SD LAPAROSCOPY W/RMVL ADNEXAL STRUCTURES; COMMENT: diagnostic laparoscopy, no pathology found, no adhesions or endometriosis Past Surgical History: Procedure Laterality Date BREAST BIOPSY 10/2006 PROCEDURE: BX BREAST; PERC NEEDLE CORE W/IMAG GUID; COMMENT: rt bx neg-fibroadenoma COLONOSCOPY 01/02/2017 PROCEDURE: HISTORICAL COLONOSCOPY; COMMENT: tics and hemorrhoids; repeat in 10 yrs ESOPHAGOGASTRODUODENOSCOPY 01/02/2017 PROCEDURE: SD ESOPHAGOGASTRODUODENOSCOPY TRANSORAL DIAGNOSTIC; COMMENT: normal EYE SURGERY PROCEDURE: HISTORICAL EYE SURGERY; COMMENT: retina and cataract surgery left EYE SURGERY Right 03/10/2015 PROCEDURE: HISTORICAL EYE SURGERY; COMMENT: Dr. Rojo retinal Detachment KNEE SURGERY 06/2009 PROCEDURE: HISTORICAL KNEE SURGERY; COMMENT: Left knee KNEE SURGERY Right meniscus OTHER SURGICAL HISTORY age 28 PROCEDURE: HISTORICAL TOTAL HYSTERECTOMY W/O BSO; COMMENT: ZORAN ?TVH combined procedure due to adhesions, was in hospital post op for a week OTHER SURGICAL HISTORY 08/28/2020 PROCEDURE: HISTORY OTHER; COMMENT: hiatal hernia procedure SALPINGOOPHORECTOMY 03/08/2002 PROCEDURE: SD LAPAROSCOPY W/RMVL ADNEXAL STRUCTURES; COMMENT: diagnostic laparoscopy, no pathology found, no adhesions or endometriosis FAMILY HISTORY: Family History Problem Relation Name Age of [...] cancer Neg Hx Colon cancer Neg Hx SOCIAL HISTORY Social History Socioeconomic History Marital status: Spouse name: Not on file Number of children: Not on file Years of education: Not on file Highest education level: Not on file Occupational History Not on file Tobacco Use Smoking status: Never Smokeless tobacco: Never Substance and Sexual Activity Alcohol use: Yes Drug use: No Sexual activity: Not on file Comment: partial hysterectomy Other Topics Concern Not on file Social History Narrative 10/16 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 [employer] 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/2014 - [employer] 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 12/19/2019 - stopped working due to occupational exposure(was having anaphylaxis symptoms to something at wo rk) IMMUNIZATION: Immunization History Administered Date(s) Administered COVID-19 (Pfizer/Comirnaty) 12yo and older 02/24/2024 H1N1 Inj Preservative Free 01/12/2009 Influenza Quadravalent, MDCK, 0.5ml, preservative free (Flucelvax) 6mo and older 09/27/2019, 10/19/2021, 10/13/2023 Influenza Quadravalent, MDCK, 0.5ml, with preservative (Flucelvax) 6mo and older 11/24/2016, 10/15/2020, 11/05/2022 Influenza trivalent, 0.5mL, preservative free (Fluarix; FluLaval; Fluzone) ages 6mo and older (Afluria) 3 years and older 02/07/2015 Influenza trivalent, with preservative (Fluzone; Afluria) 6mo and older 01/12/2009, 10/19/2009, 02/06/2011, 10/18/2011, 11/12/2012, 11/24/2013, 02/07/2015, 10/26/2015, 11/10/2015, 11/24/2016, 10/02/2017, 11/06/2018, 11/06/2018, 09/27/2019, 10/15/2020, 11/11/2020, 10/19/2021, 11/16/2021 Influenza, Unspecified 10/02/2017, 10/19/2021 Pfizer (ages 12 & older) Bivalent, COVID-19 12/09/2021 Pfizer SARS-CoV-2 COVID-19, mRNA, LNP-S, preservative free 02/27/2020, 03/19/2020, 11/04/2020, 05/20/2021, 11/05/2022 Pneumococcal conjugate 13 valent (Prevnar 13, PCV13) 2mo and older 10/02/2017, 12/28/2021 Pneumococcal conjugate 20 valent (Prevnar 20, PCV 20) 2mo and older 10/19/2021 Pneumococcal polysaccharide 23 valent (Pneumovax 23) 2yo and older 10/02/2017, 12/28/2021 Td Tetanus diptheria (Tdvax) 7yo and older 06/04/2018 Tdap Tetanus diptheria acellular pertussis (Boostrix; Adacel) 7yo and older 03/05/2007 Varicella live (Varivax) 12mo and older 09/05/2018 Zoster recombinant (Shingrix) 19yo and older 06/16/2018, 06/16/2018 PHYSICAL EXAM: Visit Vitals BP 125/74 Pulse 72 Temp 36.2 ??C (97.2 ??F) (Temporal) Resp 16 Ht 1.778 m (70 ) Wt 118 kg (261 lb) SpO2 99% BMI 37.45 kg/m?? OB Status Premenopausal Smoking Status Never BSA 2.33 m?? Physical Exam Constitutional: General: She is not in acute distress. Appearance: Normal appearance. She is obese. She is not ill-appearing. HENT: Head: Normocephalic and atraumatic. Comments: Right eye abnormality w/ focus Nose: Nose normal. No congestion or rhinorrhea. Mouth/Throat: Mouth: Mucous membranes are moist. Pharynx: No oropharyngeal exudate or posterior oropharyngeal erythema. Comments: Mallampati class II Eyes: Pupils: Pupils are equal, round, and reactive to light. Cardiovascular: Rate and Rhythm: Normal rate and regular rhythm. Pulses: Normal pulses. Heart sounds: No murmur heard. Pulmonary: Effort: Pulmonary effort is normal. No respiratory distress. Breath sounds: Normal breath sounds. No stridor. No wheezing, rhonchi or rales. Abdominal: General: Bowel sounds are normal. Palpations: Abdomen is soft. Tenderness: There is no abdominal tenderness. Musculoskeletal: Right lower leg: No edema. Left lower leg: No edema. Neurological: Mental Status: She is alert. Diagnostic: CURRENTS ICD-10 PULMONARY DIAGNOSIS 1. Moderate persistent asthma, unspecified whether complicated 2. Loud snoring 3. Other fatigue 4. Obesity (BMI 35.0-39.9 without comorbidity) ASSESSMENT/PLAN: 1. Moderate persistent asthma -Pathophysiology of asthma was discussed. Treatment options of the various inhalers, along with techniques of use, and side effects were discussed. Maintenace of care of obstructive lung disease health such as various vaccinations, smoking cessation & avoidance of chemicals/fumes/inhalants were discussed. All questions were answered. - Continue current Symbicort 160/4.5, 2 puffs twice a day. -Patient feels that his Combivent works better than the albuterol for rescue. Continue current Combivent 1 puff every 6 hours as needed. -Issues of side effects regarding Singulair were discussed. Patient unsure, but will address with her PCP whether or not to continue. 2. Loud snoring, suspicion for ARRON with elevated BMI of 38. -Pathophysiology, diagnostic, and various treatment options regarding sleep apnea (ARRON/CSA/mixed apnea/OHS) were discussed. Risks and benefits of CPAP/Bipap/iVaps use along with risks of nontreatmentwere discussed. Patient agreed not to drive or operate heavy machinery if he/she should feel sleepy, tack puller to a safe part of the road and not resume until fully awake. Both the medical and financial implications of poor compliance with NIPPV were discussed. All issues regarding financial aspects of NIPPV to be addressed w/ DME vendor, and insurance company. All questions were answered. -Patient wish to proceed with sleep study, order placed. -Proceed w/ TSH & reflex free T4. -Follow up with Anuja Walker MD for the other co-morbilities. RETURN TO THE NEXT VISIT: Based on physical exam, symptomatology, tests requested and baseline pulmonary evaluation/disease, I instructed the patient to come back to see me in 6 months for reevaluation after the test has beendone or earlier if the patient needed. Thanks Anuja Walker MD for allowing me to have the opportunity to assist in the careof this patient. This chart was generated by the [employer] EMR system and [email or web address] speech recognition software and may contain inherent errors or omissions not intended by the user. Grammatical errors, random word insertions, deletions, pronoun errors and incomplete sentences are occasional consequences of this technologydue to software limitations. Not all errors are caught or corrected. If there are questions or concerns about the content of this note or information contained within the body of this dictation they should be addressed directly with the author for clarification. @ELECSIG@ documented in this encounter Plan of Treatment Upcoming Encounters Date Type Department Care Team (Late st Contact Info) Description 08/01/2024 8:15 AM EDT Appointment [facility] Xray [address] [place] [address] 11/27/2024 7:30 AM EDT Office Visit Adult Medicine [facility] [address] [place] [phone] Anuja Gale MD [address] [place] [address] 11/29/2024 9:30 AM EDT [facility] [address] [phone] Sarah Beckett MD [address] [address] Scheduled Orders Name Type Priority Associated Diagnoses Orde r Schedule Home sleep test Sleep Center Routine Other fatigue Expected: 05/29/2024, Expires: 05/29/2025 documented as of this encounter Visit Diagnoses Diagnosis Moderate persistent asthma, unspecified whether complicated- Primary Loud snoring Other fatigue Obesity (BMI 35.0-39.9 without comorbidity) documented in this encounter Discontinued Medications Medication Sig Discontinue Reason Start Date End Da te methocarbamoL (ROBAXIN) 500 mg tablet Take 1 tablet (500 mg total) by mouth 3 (three) times a day if needed for muscle spasms. 05/21/2024 05/29/2024 loteprednol (LOTEMAX) 0.5 % ophthalmic suspension INSTILL 1 DROP IN RIGHT EYE AT BEDTIME DIRECTED. 03/07/2023 05/29/2024 azelastine (ASTELIN) 137 mcg (0.1 %) nasal spray USE 2 SPRAYS IN EACH NOSTRIL TWICE DAILY 05/29/2024 documented as of this encounter Orders Lab Orders Without Results Count Last Ordered D ate First Ordered Date THYROID STIMULATING HORMONE WITH REFLEX FREE T4 1 05/29/2024 documented in this encounter Additional Health Concerns Assessment Noted Time PHQ-9 Depression Total Score: 0 02/28/19 25 5:30 PM EST documented as of this encounter Care Teams Cattle Sprayer Relationship Specialty Start Date End Date Anuja Gale MD [address] [place] [address] PCP - General Internal Medicine 08/13/21 documented as of this encounter
--- OUTSIDE RECORDS SUMMARY | 2024-05-30 16:34 | XMS_ITS | Encounter Summary ---
Author Organization [facility] Address [id number] [place] [phone] Care Team Providers Care Engine Manager Name Role Phone Anuja Gale MD Primary Care Prov ider Reason for Referral * Imaging (Emergency) - Pending Review Specialty Diagnoses / Procedures Referred By Contac t Referred To Contact Radiology Diagnoses Cervical radiculopathy Cervical stenosis of spine H/O cervical spine surgery Neck pain with history of cervical spinal surgery Procedures MR Cervical Spine wo Contrast MR Cervical Spine wo Contrast Anuja Gale MD [address] [place] [address] Phone: tel: fax: [address] [address] Phone: tel: Referral ID Status Reason Start Date Expiration Date V isits Requested Visits Authorized [id number] Pending Review 05/29/2024 05/29/2025 1 1 Reason for Visit * Reason Onset Date Comments MRI order 05/29/2024 Encounter Details Date Type Department Care Team (Late st Contact Info) Description 05/29/2024 Telephone Adult Medicine [address] [phone] Anuja Gale MD [address] [place] [address] MRI order Social History Tobacco Use Types Packs/Day Years [...] care for your loved ones. For example, childhood teacher or elderly care for an older adult? [...] as of this encounter Progress Notes * Eladia Giron RN - 05/30/2024 8:33 AM EDT Pt is aware * Anuja Glae MD - 05/30/2024 7:57 AM EDT New order was placed * Shari Diallo RN - 05/29/2024 4:[address] this order as urgent * Anuja Gale MD - 05/29/2024 12:56 PM EDT New order was placed. * Shari Diallo RN - 05/29/2024 10:00 AM EDT Will send request for new order to PCP Castro Tillman denied the patient MRI due to the reasoning being to vague. The patient was told to haveus resubmit it stating that she has severe arm and neck pain, lost of function in left arm, historyof cervical neck stenosis. It needs to be rushed or it can take another 2-3 weeks to get approved. Please call patient with any questions. * Anna Chauhan - 05/29/2024 9:36 AM EDT [employer] denied the patient MRI due to the reasoning being to vague. The patient was told to haveus resubmit it stating that she has severe arm and neck pain, lost of function in left arm, historyof cervical neck stenosis. It needs to be rushed or it can take another 2-3 weeks to get approved. Please call patient with any questions. documented in this encounter Plan of Treatment Upcoming Encounters Date Type Department Care Team (Late st Contact Info) Description 08/01/2024 8:15 AM EDT Appointment [facility] Xray [address] [place] [address] 11/27/2024 7:30 AM EDT Office Visit Adult Medicine [facility] [address] [place] [address] Anuja Gale MD [address] [place] [address] 11/29/2024 9:30 AM EDT [facility] [address] [phone] Sarah Beckett MD [address] [address] Scheduled Orders Name Type Priority Associated Diagnoses Orde r Schedule MR Cervical Spine wo Contrast Imaging STAT Cervical radiculopathy Cervical stenosis of spine H/O cervical spine surgery Neck pain with history of cervical spinal surgery Expected: 05/30/2024, Expires: 05/29/2025 documented as of this encounter Visit Diagnoses Diagnosis Cervical radiculopathy- Primary Brachial neuritis or radiculitis nos Cervical stenosis of spine Spinal stenosis in cervical region H/O cervical spine surgery Neck pain with history of cervical spinal surgery documented in this encounter Additional Health Concerns Assessment Noted Time PHQ-9 Depression Total Score: 0 02/28/19 25 5:30 PM EST documented as of this encounter Care Teams Engine Manager Relationship Specialty Start Date End Date Anuja Gale MD [address] [place] [id number] PCP - General Internal Medicine 08/13/21 documented as of this encounter
--- OUTSIDE RECORDS SUMMARY | 2024-05-30 16:34 | XMS_ITS | Clinical Summary ---
Author Organization [facility] Address [address] [place] [address] Phone Care Team Providers Care Waste Elimination Name Role Phone Anuja Gale MD Primary Care Prov ider Allergies Active Allergy Reactions Criticality Noted Date Comments Dorzolamide High 06/29/2021 Other reaction(s): Facial Swelling Fluticasone Propion-Salmeterol 07/19/2005 Other Reaction(s): Rash/Dermatitis Fluticasone Propionate 03/10/2005 Other Reaction(s): Numbness, tingling or swelling of the lips, tongue or mouth Mometasone-Formoterol Other Medium 03/23/2023 Has sore throat Propranolol Hcl Headache 03/10/2005 Medications hydrocortisone (ANUSOL-HC) 2.5 % rectal cream APPLY 1 APPLICATOR TOPICALLY TWO TIMES A DAY NEEDED FOR HEMORRHOID 11/13/19 24 Active EPINEPHrine (EpiPen 2-Jd) 0.3 mg/0.3 mL injection Inject 0.3 mg as directed as needed (As needed for anaphylaxis). Use as directed 10/20/19 24 Active ipratropium-al buteroL (Combivent Respimat) 20-100 mcg/actuation inhaler Inhale 1 Puff into the lungs every 6 hours as needed for Other (wheezing) for up to 363 days. 07/28/19 24 025 Active bimatoprost (Lumigan) 0.01 % ophthalmic drops INSTIL 1 DROP IN BOTH EYES AT BEDTIME DIRECTED 03/07/19 24 Active gabapentin (NEURONTIN) 300 mg capsule TAKE 1 CAPSULE BY MOUTH NEEDED FOR HEADACHE UP TO 2 TIMES A DAY 04/04/19 24 Active dilTIAZem XR (DILACOR XR) 240 [...] mouth daily. 03/22/19 23 Active atropine sulfate (ATROPINE-CARE OPHT) apply to the eye 2 times daily. r eye Active zolpidem (AMBIEN) 10 mg tablet Take by mouth at bedtime as needed. Active calcium carbonate (CALCIUM 600 ORAL) Take 1 Tab by mouth 2 times daily. Active fexofenadine HCl (MARIEL ORAL) Take by mouth. Activ e brimonidine (ALPHAGAN) 0.2 % ophthalmic solution 10/26/19 24 Active diclofenac sodium 3 % gel APPLY TOPICALLY TO THE AFFECTED AREA TWICE DAILY 08/08/19 24 Active glucose blood test strip Test every day 10/25/19 24 025 Active budesonide-for moteroL (Symbicort) 160-4.5 mcg/actuation inhaler Inhale 2 puffs by mouth 2 (two) times a day. 3 each 3 04/03/19 25 026 Active montelukast (SINGULAIR) 10 mg tablet TAKE 1 TABLET AT BEDTIME 90 tablet 1 04/12/19 25 Active atorvastatin (LIPITOR) 20 mg tablet TAKE 1 TABLET DAILY 90 tablet 1 04/12/19 25 Active traMADoL (ULTRAM) 50 mg tablet Take 1 tablet (50 mg total) by mouth 2 (two) times a day if needed for severe pain. Max Daily Amount: 100 mg 15 tablet 05/22/19 25 Active pantoprazole (PROTONIX) 40 mg EC tablet Take 1 tablet (40 mg total) by mouth 2 (two) times a day. Do not crush, chew, or split. 180 each 3 05/28/19 25 026 Active budesonide-for moteroL (SYMBICORT) 160-4.5 mcg/actuation inhalerIndicat ions:Moderate persistent asthma, unspecified whether complicated Inhale 2 puffs by mouth 2 (two) times a day. Rinse mouth with water after use to reduce aftertaste and incidence of candidiasis. Do not swallow. 3 each 2 05/30/19 25 Active ipratropium-al buteroL (Combivent Respimat) 20-100 mcg/actuation inhalerIndicat ions:Moderate persistent asthma, unspecified whether complicated Inhale 1 puff by mouth 4 (four) times a day. 1 each 6 05/30/19 25 026 Active pantoprazole (PROTONIX) 40 mg EC tablet Take 1 Tablet by mouth 2 times daily for 360 days. 05/10/19 24 loteprednol (LOTEMAX) 0.5 % ophthalmic suspension INSTILL 1 DROP IN RIGHT EYE AT BEDTIME DIRECTED. 03/07/19 24 025 Discontinued azelastine (ASTELIN) 137 mcg (0.1 %) nasal spray USE 2 SPRAYS IN EACH NOSTRIL TWICE DAILY 025 Discontinued tiZANidine (ZANAFLEX) 2 mg tablet TAKE 1 TABLET AT BEDTIME ASNEEDED FOR PAIN OR SPASM 30 tablet 1 04/24/19 025 Discontinued(T herapy completed) methocarbamoL (ROBAXIN) 500 mg tablet Take 1 tablet (500 mg total) by mouth 3 (three) times a day if needed for muscle spasms. 40 tablet 05/22/19 025 Discontinued Active Problems Problem Noted Date [...] SOB (shortness of breath) 05/25/2022 Atrial fibrillation (CMS/HCC V24, CMS/HCC V28) 1 02/19/2021 Atrial tachycardia ([facility] V24) 12/20/2021 Hyperlipidemia 12/20/2021 Palpitations 12/20/2021 PAF (paroxysmal atrial fibri llation) ([facility] V24, [facility] V28) 09/27/2021 Tachycardia 09/27/2021 Esophageal dysmotility 04/07/2020 HTN (hypertension), benign 12/24/2018 Severe obesity (BMI 35.0-39. 9) with comorbidity ([facility] V24, [facility] V28) 10/06/2018 Benign essential tremor 06/04/2018 Musculoskeletal neck pain 06/04/2018 Vasovagal syncope 06/04/2018 Allergic rhinitis due to cat hair 03/09/2018 Overview (11/14/2023): Last Assessment & Plan: Continue with Mariel every day as indicated Allergic rhinitis due [...] Encounters Date Type Department Care Team Description 05/29/2024 8:50 AM EDT Lab Draw Station - [address] [phone] Obesity (Primary Dx) 05/29/2024 8:00 AM EDT Office Visit Pulmonolgy - [address] [place] [address] Sarah Beckett MD Moderate persistent asthma, unspecified whether complicated (Primary Dx); Loud snoring; Other fatigue; Obesity (BMI 35.0-39.9 without comorbidity) 05/29/2024 Telephone Adult Medicine [address] [phone] Anuja Gale MD MRI order 05/27/2024 9:45 AM EDT Office Visit Bariatric Surgery [address] [phone] Briana Junior MD Gastroesophageal reflux disease, unspecified whether esophagitis present (Primary Dx); Hiatal hernia; Joint hypermobility syndrome involving hand; Hx of hiatal hernia; Umbilical hernia without obstruction and without gangrene; Hx of tear of meniscus of knee joint; Right retinal detachment 05/24/[address] [phone] Anuja Gale MD 05/23/[address] [phone] Anuja Gale MD Arm Pain 05/21/2024 10:33 AM EDT - 05/21/2024 11:59 PM EDT Hospital Encounter [address] [phone] Neck pain; Chronic left shoulder pain Discharge Disposition: Home or Self Care 05/21/2024 10:32 AM EDT - 05/21/2024 11:59 PM EDT Hospital Encounter [address] [phone] Neck pain; Chronic left shoulder pain Discharge Disposition: Home or Self Care 05/21/2024 10:00 AM EDT Office Visit [address] [phone] Anuja Gale MD Neck pain (Primary Dx); Chronic left shoulder pain 05/20/2024 Telephone Adult Medicine [address] [phone] Anuja Gale MD Arm Pain; Neck Pain 03/05/2024 10:00 AM EST Consult Adult [address] [phone] Anuja Gale MD Preop cardiovascular exam (Primary Dx) 03/01/2024 9:46 AM EST - 03/01/2024 11:59 PM EST Hospital Encounter [address] [phone] Acute pain of right knee Discharge Disposition: Home or Self Care 03/01/2024 9:30 AM EST Office Visit [address] [phone] Janeth Neal PA Urinary frequency (Primary Dx); Acute pain of right knee from Last 3 Months Immunizations Name Administration [...] op for a week SALPINGOOPHORECTOMY 03/08/2002 PROCEDURE: WI LAPAROSCOPY W/RMVL ADNEXAL STRUCTURES; COMMENT: diagnostic laparoscopy, [...] repeat in 10 yrs ESOPHAGOGASTRODUODENOSCOPY 01/02/2017 PROCEDURE: WI ESOPHAGOGASTRODUODENOSCOPY TRANSORAL DIAGNOSTIC; COMMENT: normal OTHER SURGICAL [...] DX:Hormone replacement therapy (HRT) Mild major depression (CMS/HCC V24) DX:Mild major depression (HCC) Moderate persistent asthma [...] your loved ones. For example, early childhood aide classroom or elderly care for an older adult? [...] Mass Index 37.45 05/29/2024 8:03 AM EDT Plan of Treatment Upcoming Encounters Date Type Department Care Team (Late st Contact Info) Description 08/01/2024 8:15 AM EDT Appointment [facility] Xray [address] [place] [address] 11/27/2024 7:30 AM EDT Office Visit Adult Medicine [address] [phone] Anuja Gale MD [address] [place] [address] 11/29/2024 9:30 AM EDT Office Visit Pulmonolgy - [place] [address] [facility] [address] [place] [address] Sarah Beckett MD 175 [facility] [address] [place] [address] Health Maintenance Due Date Last Done Comments Zoster Vaccines (2 of 2) 10/31/2018 019, 06/16/2018, 06/16/2018 HIV Screening 01/15/2022 RSV Immunization Adult Patients (1 - Risk 60-74 years 1-dose series) [...] age to complete this topic Meningococcal B Vaccine Aged Out No l onger eligible based on patient's age to complete this topic RSV Immunization Patients Under 20 months Aged Out No longer eligible based on patient's age to complete this topic Procedures Procedure Name Priority Date/Time Associated Diagnosis Comments TRIIODOTHYRONINE FREE Routine 05/29/2024 8:51 AM EDT Obesity FREE THYROXINE WITH REFLEX TO FREE TRIIODOTHYRONINE Routine 05/29/2024 8:51 AM EDT Obesity THYROID STIMULATING HORMONE WITH REFLEX TO FREE T4 AND FREE T3 Routine 05/29/2024 8:51 AM EDT Obesity XR SHOULDER 2+ VIEWS LEFT Routine 05/21/2024 10:43 AM EDT Neck pain Chronic left shoulder pain XR CERVICAL SPINE 4-5 VIEWS Routine 05/21/2024 10:43 AM EDT Neck pain Chronic left shoulder pain MR KNEE WO CONTRAST RIGHT Routine 03/04/2024 8:50 AM EST XR KNEE 4+ VIEWS RIGHT STAT 10:02 AM EST Acute pain of right knee POC URINE AUTO W/O MICRO Routine 025 9:29 AM EST Urinary frequency ANNUAL BMP BLOOD TEST Routine 10/18/2023 LIPID PANEL Routine 10/18/2023 SCREENING MAMMOGRAPHY BI 2-VIEW BREAST INC CAD Routine 04/14/2023 10:01 AM EST Encounter for screening mammogram for malignant neoplasm of breast PAP SMEAR Routine 03/27/2021 COLONOSCOPY Routine 01/02/2017 HEPATITIS C SCREENING Routine 09/04/2014 from Last 3 Months or Most Recently Relevant to Health Maintenance Results * (ABNORMAL) Thyroid stimulating hormone with reflex to free t4 and free t3 (05/29/2024 8:51 AM EDT) TSH 5.10(H) 0.40 - 4.00 mcIU/mL LAB CHEMISTRY METHOD 05/29/2024 2:01 PM EDT [facility] Blood Venous blood specimen / Unknown Venipuncture / Unknown 05/29/2024 8:51 AM EDT 05/29/2024 8:51 AM EDT us Sarah Beckett MD LAB BLOOD ORDERABLES Final Resul t [facility] [address] [place] [address], [place] [phone] * Free thyroxine with reflex to free triiodothyronine (05/29/2024 8:51 AM EDT) Free T4 1.33 0.70 - 1.80 ng/dL LAB CHEMISTRY METHOD 05/29/2024 2:39 PM EDT [facility] Blood Venous blood specimen / Unknown Venipuncture / Unknown 05/29/2024 8:51 AM EDT 05/29/2024 8:51 AM EDT us Sarah Beckett MD LAB BLOOD ORDERABLES Final Resul t Performing Organization Address City/[facility]/ZIP Co de Phone Number [facility] [address] [place] [address], [place] [phone] * Triiodothyronine free (05/29/2024 8:51 AM EDT) T3, Free 345 230 - 420 pcg/dL LAB CHEMISTRY METHOD 05/29/2024 3:12 PM EDT [facility] Blood Venous blood specimen / Unknown Venipuncture / Unknown 05/29/2024 8:51 AM EDT 05/29/2024 8:51 AM EDT Sarah Beckett MD LAB BLOOD ORDERABLES Final Resul t Performing Organization Address [facility] Co de Phone Number [facility] [address] [place] [address], [place] [phone] * XR Shoulder 2+ Views Left (05/21/2024 10:43 AM EDT) Anatomical Region Laterality Modality Upper Extremities, Shoulder Left Radi ographic Imaging 05/21/2024 7:05 PM EDT Impressions 05/21/2024 7:08 PM EDT Mild degenerative changes. POS - [id number] -------- FINAL REPORT -------- Dictated By: Johnna Mansfield Dictated Date: 05/21/2024 19:05 ET Assigned Physician: Johnna Mansfield Reviewed and Electronically Signed By: Johnna Mansfield Signed Date: 05/21/2024 19:08 ET Workstation ID: [id number] Transcribed By: Self Edit Transcribed Date: 05/21/2024 19:05 ET Narrative 05/21/2024 7:08 PM EDT EXAM: Left shoulder x-ray HISTORY: Left shoulder pain. COMPARISON: 06/02/2022 FINDINGS: 4 views performed. Mild degenerative changes again noted at the acromioclavicular joint. ??Minimal degenerative changes at the glenohumeral joint. ??No evidence of an acute fracture or dislocation. ??No destructive bone lesion. ??No soft tissue calcifications. Procedure Note Johnna Mansfield MD - 05/21/2024 EXAM: Left shoulder x-ray HISTORY: Left shoulder pain. COMPARISON: 06/02/2022 FINDINGS: 4 views performed. Mild degenerative changes again noted at the acromioclavicular joint.Minimal degenerative changes at the glenohumeral joint. No evidence of anacute fracture or dislocation. No destructive bone lesion. No softtissue calcifications. IMPRESSION: Mild degenerative changes. POS - [id number] -------- FINAL REPORT -------- Dictated By: Johnna Mansfield Dictated Date: 05/21/2024 19:05 ET Assigned Physician: Johnna Mansfield Reviewed and Electronically Signed By: Johnna Mansfield Signed Date: 05/21/2024 19:08 ET Workstation ID: [id number] Transcribed By: Self Edit Transcribed Date: 05/21/2024 19:05 ET Anuja Gale MD IMG XR PROCEDURES Final Result * XR Cervical Spine 4-5 Views (05/21/2024 10:43 AM EDT) Anatomical Region Laterality Modality Spine, C-spine Radiographic Ivory ging 05/21/2024 6:56 PM EDT Impressions 05/21/2024 7:05 PM EDT Interval changes of anterior spinal fusion at C5-6 without a complication evident. ??Multilevel degenerative changes. ??Progressive disc space narrowing at C4-5. ??Right-sided neural foraminal encroachment. POS - [id number] -------- FINAL REPORT -------- Dictated By: Johnna Mansfield Dictated Date: 05/21/2024 18:56 ET Assigned Physician: Johnna Mansfield Reviewed and Electronically Signed By: Johnna Mansfield Signed Date: 05/21/2024 19:05 ET Workstation ID: [id number] Transcribed By: Self Edit Transcribed Date: 05/21/2024 18:56 ET Narrative 05/21/2024 7:05 PM EDT EXAM: Cervical spine x-ray HISTORY: Neck pain. ??Chronic left shoulder pain. ??No known trauma. COMPARISON: 03/22/2021 FINDINGS: 4 views performed. Cervical spine is visualized through the upper aspect of C7 on the lateral projection. No compression deformities. ??Chronic straightening of the normal cervical lordosis. New changes of anterior spinal fusion at C5-6 with an intervertebral disc prosthesis. ??Fusion hardware appears intact without surrounding lucency to indicate loosening or infection. Progressive mild disc space narrowing at C4-5. ??Multilevel uncovertebral spurring and facet arthropathy. ??On the right, severe right neural foraminal encroachment at C5-6 and moderate at C2-3. ??On the left, no significant neural foraminal encroachment. Atlantoaxial distance is within normal limits. ??No abnormal thickening of the prevertebral soft tissues. Procedure Note Johnna Mansfield MD - 05/21/2024 EXAM: Cervical spine x-ray HISTORY: Neck pain. Chronic left shoulder pain. No known trauma. COMPARISON: 03/22/2021 FINDINGS: 4 views performed. Cervical spine is visualized through the upper aspect of C7 on the lateralprojection. No compression deformities. Chronic straightening of thenormal cervical lordosis. New changes of anterior spinal fusion at C5-6 with an intervertebral discprosthesis. Fusion hardware appears intact without surrounding lucency toindicate loosening or infection. Progressive mild disc space narrowing at C4-5. Multilevel uncovertebralspurring and facet arthropathy. On the right, severe right neuralforaminal encroachment at C5-6 and moderate at C2-3. On the left, nosignificant neural foraminal encroachment. Atlantoaxial distance is within normal limits. No abnormal thickening ofthe prevertebral soft tissues. IMPRESSION: Interval changes of anterior spinal fusion at C5-6 without a complicationevident. Multilevel degenerative changes. Progressive disc spacenarrowing at C4-5. Right- sided neural foraminal encroachment. POS - [id number] -------- FINAL REPORT -------- Dictated By: Johnna Mansfield Dictated Date: 05/21/2024 18:56 ET Assigned Physician: Johnna Mansfield Reviewed and Electronically Signed By: Johnna Mansfield Signed Date: 05/21/2024 19:05 ET Workstation ID: [id number] Transcribed By: Self Edit Transcribed Date: 05/21/2024 18:56 ET Anuja Gale MD [facility] XR PROCEDURES Final Result * MR Knee wo Contrast Right (03/04/2024 8:50 AM EST) Anatomical Region Laterality Modality Lower Extremities, Knee Right Magnetic Resonance Historical Provider [facility] MRI PROCEDURES Final Result * XR Knee [...] Tai Steven Reviewed and Electronically Signed By: aTi Steven Signed Date: 03/01/2024 11:13 ET Workstation ID: [id number] Transcribed By: Self Edit Transcribed Date: 03/01/2024 [...] Signed Date: 03/01/2024 11:13 ET Workstation ID: [id number] Transcribed By: Self Edit Transcribed Date: 03/01/2024 11:11 ET Janeth BIANCHI IMG XR PROCEDURES Final Result * POC Urine Auto W/O Micro (03/01/2024 9:29 AM EST) [facility] Leukocytes UA POC Negative Negative Nitrite UA POC Negative Negative Urobilinogen UA POC Negative Negative Protein UA POC Negative Negative PH UA POC 7.0 5.0 - 9.0 Blood UA POC Negative Negative, Trace Specific [place] UA POC 1.005 1.001 - 1.035 Ketones UA POC Negative Negative Bilirubin UA POC Negative Negative Glucose UA POC Normal Normal, Trace Urine Urine specimen obtained by clean catch procedure / Unknown 03/01/2024 9:29 AM EST Janeth BINACHI POINT OF CARE TEST ENTER/EDIT OR DERABLES Final Result * Annual BMP Blood Test (10/18/2023) [facility] Annual BMP Blood Test Abstracted Historical Provider HEALTH MAINTENANCE Final Result * Lipid panel (10/18/2023) [facility] LDL/HDL Ratio 2 0 - 4 Triglycerides 77 0 - 150 mg/dL Cholesterol 171 0 - 200 mg/dL HDL 79 >=40 mg/dL LDL Cholesterol 77 0 - 100 mg/dL Blood Venous blood specimen / Unknown Historical Provider LAB BLOOD ORDERABLES Elizabeth ibrahim Result * SCREENING MAMMOGRAPHY BI 2-VIEW BREAST [...] IMG XR PROCEDURES Final Resu lt * Hm Pap Smear (03/27/2021) HM Pap smear No interpretation , Abstracted us Historical Provider HEALTH MAINTENANCE Final Result * Colonoscopy (01/02/2017) Colonoscopy No interpretation , Abstracted Anatomical Region Laterality Modality Other Historical Provider HEALTH MAINTENANCE Final Result * Hepatitis C Screening (09/04/2014) Hepatitis C Screening Abstracted Historical Provider HEALTH MAINTENANCE Final Result from Last 3 Months or Most Recently Relevant to Health Maintenance Insurance [facility] Advance Directives Documents on File Type Date Recorded Patient Information Support Project Manager Expl anation Health Care Decision (hx) 10/12/2020 [...] (hx) 10/12/2020 AD OLIVAS DIRECTIVE Care Teams Waste Elimination Relationship Specialty Start Date End Date Anjua Gale MD [address] [place] [phone] PCP - General Internal Medicine 08/13/21
--- OUTSIDE RECORDS SUMMARY | 2024-05-30 16:34 | XMS_ITS | Encounter Summary ---
Author Organization [facility] Address [address] [place] [address] Care Team Providers Care Locomotive Crane Engineer Name Role Phone Anuja Gale MD Primary Care Prov ider Encounter Details Date Type Department Care Team (Late st Contact Info) Description 05/24/2024 Telephone Adult [facility] [address] [place] [phone] Anuja Gale MD [address] [place] [address] Social History Tobacco Use Types Packs/Day Years [...] as of this encounter Progress Notes * Gabrielle Rivas MA - 05/24/2024 4:12 PM EDT Nurse spoke to pt this AM, she was given recommendations from provider and the advised MRI was scheduled. * Anuja Gale MD - 05/24/2024 3:57 PM EDT Please see recommendations from yesterday. documented in this encounter Plan of Treatment Upcoming Encounters Date Type Department Care Team (Late st Contact Info) Description 08/01/2024 8:15 AM EDT Appointment [facility] Xray [address] [place] [address] 11/27/2024 7:30 AM EDT Office Visit Adult Medicine [facility] [address] [place] [address] Anuja Gale MD [address] [place] [address] 11/29/2024 9:30 AM EDT Office Visit Pulmonolgy [facility] [address] [address] Sarah Beckett MD [address] [address] documented as of this encounter Visit Diagnoses Not on filedocumented in this encounter Additional Health Concerns Assessment Noted Time PHQ-9 Depression Total Score: 0 02/28/19 25 5:30 PM EST documented as of this encounter Care Teams Locomotive Crane Engineer Relationship Specialty Start Date End Date Anuja Gale MD [address] [place] [address] PCP - General Internal Medicine 08/13/21 documented as of this encounter
--- OUTSIDE RECORDS SUMMARY | 2024-05-30 16:34 | XMS_ITS | Encounter Summary ---
Author Organization [facility] Address [address] [place] [address] Care Team Providers Care Aboriginal Education Teacher Name Role Phone Anuja Gale MD Primary Care Prov ider Reason for Referral * Consultation (Routine) - Pending Review Specialty Diagnoses / Procedures Referred By David katz Referred To Contact Genetics Diagnoses Joint hypermobility syndrome involving hand Hx of hiatal hernia Umbilical hernia without obstruction and without gangrene Hx of tear of meniscus of knee joint Right retinal detachment Briana Junior MD [address] [address] Phone: tel: fax: Referral ID Status Reason Start Date Expiration Date Visits Requested Visits Authorized [id number] Pending Review Specialty Services Required 05/27/2024 05/27/2025 1 1 * Imaging (Routine) - Pending Review Specialty Diagnoses / Procedures Referred By David katz Referred To Contact Radiology Diagnoses Gastroesophageal reflux disease, unspecified whether esophagitis present Procedures XR UGI w Single Contrast Briana Junior MD [address] [address] Phone: tel: fax: [facility] Referral ID Status Reason Start Date Expiration Date V isits Requested Visits Authorized [id number] Pending Review 05/27/2024 05/27/2025 1 1 Reason for Visit * Reason Comments Follow-up FU * Consultation (Routine) - Authorized Specialty Diagnoses / Procedures Referred By David katz Referred To Contact Diagnoses Body mass index (BMI) 37.0-37.9, adult Procedures [place] CONSULTATION OFFICE NEW/ESTAB PATIENT 30 MIN Anuja Gale MD [address] [place] [address] Phone: tel: fax: Briana Junior MD [address] [address] Phone: tel: fax: Referral ID Status Reason Start Date Expiration Date V isits Requested Visits Authorized [id number] Authorized 05/24/2024 05/24/2025 12 12 Encounter Details Date Type Department Care Team (Late st Contact Info) Description 05/27/2024 9:45 AM EDT Office Visit Bariatric Surgery - [place] [address] [address] Briana Junior MD [address] [address] Gastroesophageal reflux disease, unspecified whether esophagitis present (Primary Dx); Hiatal hernia; Joint hypermobility syndrome involving hand; Hx of hiatal hernia; Umbilical hernia without obstruction and without gangrene; Hx of tear of meniscus of knee joint; Right retinal detachment Social History Tobacco Use Types Packs/Day Years [...] care for your loved ones. For example, children librarian or elderly care for an older adult? [...] Sign Reading Time Taken Comments Blood Pressure 139/88 05/27/2024 9:45 AM EDT Pulse 75 05/27/2024 9:45 AM EDT Temperature 36.2 ??C (97.1 ??F) 05/27/2024 9:45 AM ED T Respiratory Rate - - Oxygen Saturation - - Inhaled Oxygen Concentration - - Weight 119 kg (262 lb) 05/27/2024 9:45 AM EDT Height 177.8 cm (5' 10 ) 05/27/2024 9:45 AM EDT Body Mass Index 37.59 05/27/2024 9:45 AM EDT documented in this encounter Ordered Prescriptions Prescription Sig Dispense Quantity Refills Last Filled Start Date End Date pantoprazole (PROTONIX) 40 mg EC tablet Take 1 tablet (40 mg total) by mouth 2 (two) times a day. Do not crush, chew, or split. 180 each 3 05/27/2024 05/22/2025 documented in this encounter Progress Notes * Briana Junior MD - 05/27/2024 9:45 AM EDT Last seen in office in July 2021 for hiatal hernia. Was interested in surgical repair however unfortunately had subsequent multiple other health issues which took precedence. Since that time, continues to have multiple health difficulties, including Has right knee replacement scheduled in June 05. Had additional eye surgeries, complicate by catastrophic hemorrhage. 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 More recently, has been having left arm numbness and tingling, and difficulty raising arm. She is left handed dominant. Has MRI ordered Had hx of a-fib s/p ablation. Regarding her hiatal hernia and reflux: Now within the past month or so has been experiencing worsening food regurgitation. Eating steak causes pretty severe epigastric pain which then resolves spontaneously. Solid foods cause similar symptoms. Soft foods such as mashed potatoes and soups are much better tolerated. This is associate with burning esophageal pain. No esophageal spasms-on diltiazam and PPI Has an umbilical hernia too which is occasionally painful Timeline/Workup: August 2020 : PEH repair surgery September 2020: UGI does not show any recurrence Oct 2020: CT chest shows small PEH Vitals: 05/27/24 0945 BP: 139/88 BP Location: Right arm Patient Position: Sitting BP Cuff Size: Adult Pulse: 75 Temp: 36.2 ??C (97.1 ??F) TempSrc: Temporal Weight: 119 kg (262 lb) Height: 1.778 m (70 ) A/P: 59F with repair of hiatal hernia and fundoplication in 2020, with subsequent recurrence, and worsening symptoms of reflux. Unfortunately has been having a multitude of severe health issues and complications, which put the acid reflux on the back burner. Her GERD symptoms have been worsening. Continue GERD diet and PPI. Continue on trying to lose weight. Difficult due to bedrest needed for her eye surgeries and symptomatic meniscus tear. Will reorder UGI study, to re-evaluate anatomy, as it has been about 4 years since her last study. Worrisome that she continues to have so many complications after her surgeries. Given her constelation of symptoms and diagnoses, hernias, ocular issues, ligament tears, ...), perhaps she has some type of connective tissue dysfunction. She does state that she had hypermobile joints in her hands, alt fabien to a lesser degree now. May be worthwhile sending her to a baseball pitcher to evaluate for possible need for genetic testing for Lorenzo purvis ? documented in this encounter Plan of Treatment Upcoming Encounters Date Type Department Care Team (Late st Contact Info) Description 08/01/2024 8:15 AM EDT Appointment [facility] Xray [address] [place] [address] 11/27/2024 7:30 AM EDT Office Visit Adult Medicine [facility] [address] [place] [phone] Anuja Gale MD [address] [place] [address] 11/29/2024 9:30 AM EDT [facility] [address] [phone] Sarah Beckett MD [address] [address] Scheduled Orders Name Type Priority Associated Diagnoses Orde r Schedule XR UGI w Single Contrast Imaging Routine Gastroesophageal reflux disease, unspecified whether esophagitis present Expected: 05/27/2024, Expires: 05/27/2025 Scheduled Referrals Name Type Priority Associated Diagnoses Orde r Schedule Ambulatory referral to Genetics Outpatient Referral Routine Joint hypermobility syndrome involving hand Hx of hiatal hernia Umbilical hernia without obstruction and without gangrene Hx of tear of meniscus of knee joint Right retinal detachment 1 Occurrences starting 05/27/2024 until 05/27/2025 documented as of this encounter Visit Diagnoses Diagnosis Gastroesophageal reflux disease, unspecified whether esophagitis present- Primary Hiatal hernia Diaphragmatic hernia without mention of obstruction or gangrene Joint hypermobility syndrome involving hand Hx of hiatal hernia Umbilical hernia without obstruction and without gangrene Hx of tear of meniscus of knee joint Right retinal detachment Unspecified retinal detachment documented in this encounter Additional Health Concerns Assessment Noted Time PHQ-9 Depression Total Score: 0 02/28/19 25 5:30 PM EST documented as of this encounter Care Teams Aboriginal Education Teacher Relationship Specialty Start Date End Date Anuja Gale MD [address] [place] [address] PCP - General Internal Medicine 08/13/21 documented as of this encounter
--- OUTSIDE RECORDS SUMMARY | 2024-05-30 16:34 | XMS_ITS | Encounter Summary ---
Author Organization [facility] Address [address] [place] [address] Care Team Providers Care Grievance Coordinator Name Role Phone Anuja Gale MD Primary Care Prov ider Encounter Details Date Type Department Care Team (Late st Contact Info) Description 05/29/2024 8:50 AM EDT Lab Draw Station - [address] [address] Obesity (Primary Dx) Social History Tobacco Use Types Packs/Day Years [...] for your loved ones. For example, child adolescent care or elderly care for an older adult? [...] as of this encounter Progress Notes * Sarah Beckett MD - 05/29/2024 8:50 AM EDT Please call inform patient TSH slightly elevated but free T3 and free T4 looks okay no new intervention needed. documented in this encounter Plan of Treatment Upcoming Encounters Date Type Department Care Team (Late st Contact Info) Description 08/01/2024 8:15 AM EDT Appointment [facility] [address] [place] [phone] 11/27/2024 7:30 AM EDT Office Visit Adult Medicine [facility] [address] [place] [address] Anuja Gale MD [address] [place] [address] 11/29/2024 9:30 AM EDT Office Visit Pulmonolgy - [place] [address] [address] Sarah Beckett MD [address] [address] documented as of this encounter Procedures Procedure Name Priority Date/Time Associated Diagnosis Comments THYROID STIMULATING HORMONE WITH REFLEX TO FREE T4 AND FREE T3 Routine 05/29/2024 8:51 AM EDT Obesity FREE THYROXINE WITH REFLEX TO FREE TRIIODOTHYRONINE Routine 05/29/2024 8:51 AM EDT Obesity TRIIODOTHYRONINE FREE Routine 05/29/2024 8:51 AM EDT Obesity documented in this encounter Results * Triiodothyronine free (05/29/2024 8:51 AM EDT) T3, Free 345 230 - 420 pcg/dL LAB CHEMISTRY METHOD 05/29/2024 3:12 PM EDT [facility] Blood Venous blood specimen / Unknown Venipuncture / Unknown 05/29/2024 8:51 AM EDT 05/29/2024 8:51 AM EDT us Sarah Beckett MD LAB BLOOD ORDERABLES Final Resul t [facility] [address] [place] [address], [place] [phone] * Free thyroxine with reflex to free triiodothyronine (05/29/2024 8:51 AM EDT) Free T4 1.33 0.70 - 1.80 ng/dL LAB CHEMISTRY METHOD 05/29/2024 2:39 PM EDT [facility] Blood Venous blood specimen / Unknown Venipuncture / Unknown 05/29/2024 8:51 AM EDT 05/29/2024 8:51 AM EDT Sarah Beckett MD LAB BLOOD ORDERABLES Final Resul t Performing Organization Address City/[facility]/ZIP Co de Phone Number [facility] [address] [place] [address], [place] [phone] * (ABNORMAL) Thyroid stimulating hormone with reflex to free t4 and free t3 (05/29/2024 8:51 AM EDT) TSH 5.10(H) 0.40 - 4.00 mcIU/mL LAB CHEMISTRY METHOD 05/29/2024 2:01 PM EDT [facility] Blood Venous blood specimen / Unknown Venipuncture / Unknown 05/29/2024 8:51 AM EDT 05/29/2024 8:51 AM EDT us Sarah Beckett MD LAB BLOOD ORDERABLES Final Resul t Performing Organization Address [facility] Co de Phone Number [facility] [address] [place] [address], [place] [phone] documented in this encounter Visit Diagnoses Diagnosis Obesity- Primary Obesity, unspecified documented in this encounter Additional Health Concerns Assessment Noted Time PHQ-9 Depression Total Score: 0 02/28/19 25 5:30 PM EST documented as of this encounter Care Teams Grievance Coordinator Relationship Specialty Start Date End Date Anuja Gale MD [address] [place] [address] PCP - General Internal Medicine 08/13/21 documented as of this encounter
== END 2024-05-30 14:45 | disposition home or self-care (01) ==
PROVIDERS: PCP Internal Medicine; Visit Provider Physician Assistant
DX: S46.012A Strain of muscle(s) and tendon(s) of the rotator cuff of left shoulder, initial encounter (principal); Z98.1 Arthrodesis status; R29.898 Other symptoms and signs involving the musculoskeletal system; M48.02 Spinal stenosis, cervical region; M75.102 Unspecified rotator cuff tear or rupture of left shoulder, not specified as traumatic
CPT/HCPCS: 99214

== ENCOUNTER → 2024-06-01 16:03 | Outpatient (BNV) | payer BC, SELFPAY | PROVIDERS: PCP Internal Medicine; Visit Provider Radiology Diagnostic Radiology | DX: M25.78 Osteophyte, vertebrae (principal); M48.02 Spinal stenosis, cervical region; M75.102 Unspecified rotator cuff tear or rupture of left shoulder, not specified as traumatic | CPT/HCPCS: 72156; 73221 ==

== ENCOUNTER 2024-06-01 16:04 | Outpatient (REF) | payer BC, SELFPAY ==
--- NOTE | ~2024-06-01 | MR_ITS ---
CLINICAL HISTORY: M75.102 - Unspecified rotator cuff tear or rupture of left shoulder, not... MRI left shoulder without contrast Comparison: None Findings: Motion artifact and body habitus limit assessment. Minimal abnormal signal distal supraspinatus tendon. Probable tendinopathy without tear. Remaining rotator cuff tendons are unremarkable. Glenoid labrum blurred by motion artifact. Biceps tendon is nondisplaced, but not well visualized. No acute bony signal abnormality. Degenerative change AC joint. Impression: Motion artifact limits assessment Probable supraspinatus tendinopathy as above This document has been electronically signed by: Yaw Bateman MD on 06/01/2024 19:57:40
--- NOTE | ~2024-06-01 | MR_ITS ---
CLINICAL HISTORY: Z98.1 - Arthrodesis status MRI cervical spine without/with contrast Comparison: None Findings: Anterior C5-6 fusion hardware with artifact. No acute bony signal abnormality noted. Posterior bony alignment is normal. C4-5 transverse osteophyte with moderate spinal stenosis. C6-7 transverse osteophyte with mild spinal stenosis. Bilateral neural foraminal narrowing both levels. Remaining levels demonstrate no significant disease. There are no abnormal areas of contrast enhancement. Impression: C4-5 and C6-7 spinal stenosis as above This document has been electronically signed by: Yaw Bateman MD on 06/01/2024 19:45:53
--- OUTSIDE RECORDS SUMMARY | 2024-06-01 16:15 | XMS_ITS | Encounter Summary ---
Author Organization [facility] Address [address] [place] [address] Care Team Providers Care Building Performance Specialist Name Role Phone Anuja Gale MD Primary Care Prov ider Reason for Referral * Consultation (Routine) - Pending Review Specialty Diagnoses / Procedures Referred By David katz Referred To Contact Genetics Diagnoses Joint hypermobility syndrome involving hand Hx of hiatal hernia Umbilical hernia without obstruction and without gangrene Hx of tear of meniscus of knee joint Right retinal detachment Briana Junior MD [address] [address] Phone: tel: fax: Referral ID Status Reason Start Date Expiration Date Visits Requested Visits Authorized [id number] Pending Review Specialty Services Required 05/27/2024 05/27/2025 1 1 * Imaging (Routine) - Pending Review Specialty Diagnoses / Procedures Referred By David katz Referred To Contact Radiology Diagnoses Gastroesophageal reflux disease, unspecified whether esophagitis present Procedures XR UGI w Single Contrast Briana Junior MD [address] [address] Phone: tel: fax: [facility] Referral ID Status Reason Start Date Expiration Date V isits Requested Visits Authorized [id number] Pending Review 05/27/2024 05/27/2025 1 1 Reason for Visit * Reason Comments Follow-up FU * Consultation (Routine) - Authorized Specialty Diagnoses / Procedures Referred By David katz Referred To Contact Diagnoses Body mass index (BMI) 37.0-37.9, adult Procedures [place] CONSULTATION OFFICE NEW/ESTAB PATIENT 30 MIN Anuja Gale MD [address] [place] [address] Phone: tel: fax: Briana Junior MD [address] [address] Phone: tel: fax: Referral ID Status Reason Start Date Expiration Date V isits Requested Visits Authorized [id number] Authorized 05/24/2024 05/24/2025 12 12 Encounter Details Date Type Department Care Team (Late st Contact Info) Description 05/27/2024 9:45 AM EDT Office Visit Bariatric Surgery - [place] [address] [address] Briana Junior MD [address] [address] Gastroesophageal reflux disease, unspecified whether [...] your loved ones. For example, early childhood special educator or elderly care for an older adult? [...] May be worthwhile sending her to a house admin to evaluate for possible need for genetic testing for Lorenzo purvis ? documented in this encounter Plan of Treatment Upcoming Encounters Date Type Department Care Team (Late st Contact Info) Description 08/01/2024 8:15 AM EDT Appointment [facility] Xray [address] [place] [address] 11/27/2024 7:30 AM EDT Office Visit Adult Medicine [facility] [address] [place] [phone] Anuja Gale MD [address] [place] [address] 11/29/2024 9:30 AM EDT [facility] [address] [phone] Sarah Beckett MD [address] [address] Scheduled Orders Name Type Priority Associated Diagnoses [...] documented as of this encounter Care Teams Building Performance Specialist Relationship Specialty Start Date End Date Anuja Gale MD [address] [place] [address] PCP - General Internal Medicine 08/13/21 documented as of this encounter
--- OUTSIDE RECORDS SUMMARY | 2024-06-01 16:15 | XMS_ITS | Encounter Summary ---
Author Organization [facility] Address [address] [place] [address] Care Team Providers Care Pin Sorter And Bagger Name Role Phone Anuja Gale MD Primary Care Prov ider Reason for Referral * Other Medical (Routine) - Authorized Specialty Diagnoses / Procedures Referred By David katz Referred To Contact Sleep Medicine Diagnoses Other fatigue Procedures Home sleep test Sarah Beckett MD 175 [facility] [address] [place] [address] Phone: tel: fax: [facility] [address] [facility] [address] [place] [address] Phone: tel: fax: Referral ID Status Reason Start Date Expiration Date V isits Requested Visits Authorized [id number] Authorized 05/29/2024 07/28/2024 1 1 Reason for Visit * Consultation (Routine) - Authorized Specialty Diagnoses / Procedures Referred By Contdutch t Referred To Contact Pulmonology Diagnoses Disorders of diaphragm FOLLOW UP ASTHMA 12/21 lvm to confirm LC Procedures FOLLOW UP Anuja Gale MD [address] [place] [address] Phone: tel: fax: Sarah Beckett MD 175 [facility] [address] [place] [address] Phone: tel: fax: Referral ID Status Reason Start Date Expiration Date V isits Requested Visits Authorized [id number] Authorized 07/13/2023 07/12/2024 6 6 Encounter Details Date Type Department Care Team ([facility] Contact Info) Description 05/29/2024 8:00 AM EDT Office Visit Pulmonolgy - [place] 175 [facility] 200 [place] [phone] Sarah Beckett MD 175 [facility] [address] [place] [address] Moderate persistent asthma, unspecified whether complicated (Primary [...] care for your loved ones. For example, school child care attendant or elderly care for an older adult? [...] COVID Vaccination: Pfizer. 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 No occupational chemical or fume exposure. Pets: dog. No exposure to TB or abestosis. FH: Father lung cancer. Brother with lupus. ACT: 22. [place] Sleepiness Scale Sitting and reading: Would never [...] SOB (shortness of breath) 05/25/2022 Atrial fibrillation ([facility] V24, [facility] V28) 12/20/2021 Atrial tachycardia ([facility] V24) 12/20/2021 Hyperlipidemia 12/20/2021 Palpitations 12/20/2021 PAF (paroxysmal atrial fibrillation) ([facility] V24, [facility] V28) 09/27/2021 Tachycardia 09/27/2021 Esophageal dysmotility 04/07/2020 HTN (hypertension), benign 12/24/2018 Severe obesity (BMI 35.0-39.9) with comorbidity ([facility] V24, [facility] V28) 10/06/2018 Benign essential tremor 06/04/2018 Musculoskeletal [...] repeat in 10 yrs ESOPHAGOGASTRODUODENOSCOPY 01/02/2017 PROCEDURE: NM ESOPHAGOGASTRODUODENOSCOPY TRANSORAL DIAGNOSTIC; COMMENT: normal EYE SURGERY [...] COMMENT: hiatal hernia procedure SALPINGOOPHORECTOMY 03/08/2002 PROCEDURE: NM LAPAROSCOPY W/RMVL ADNEXAL STRUCTURES; COMMENT: diagnostic laparoscopy, no pathology found, no adhesions or endometriosis Past Surgical History: Procedure Laterality Date BREAST BIOPSY 10/2006 PROCEDURE: BX BREAST; PERC NEEDLE CORE W/IMAG GUID; COMMENT: rt bx neg-fibroadenoma COLONOSCOPY 01/02/2017 PROCEDURE: HISTORICAL COLONOSCOPY; COMMENT: tics and hemorrhoids; repeat in 10 yrs ESOPHAGOGASTRODUODENOSCOPY 01/02/2017 PROCEDURE: NM ESOPHAGOGASTRODUODENOSCOPY TRANSORAL DIAGNOSTIC; COMMENT: normal EYE SURGERY [...] COMMENT: hiatal hernia procedure SALPINGOOPHORECTOMY 03/08/2002 PROCEDURE: NM LAPAROSCOPY W/RMVL ADNEXAL STRUCTURES; COMMENT: diagnostic laparoscopy, [...] file Social History Narrative 10/16 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 This chart was generated by the [employer] EMR system and [employer] speech recognition software and may contain inherent [...] Info) Description 08/01/2024 8:15 AM EDT Appointment [facility] Xray [address] [place] [address] 11/27/2024 7:30 AM EDT Office Visit Adult Medicine [facility] [address] [place] [phone] Anuja Gale MD 444 [place] [address] 11/29/2024 9:30 AM EDT [facility] [address] [phone] Sarah Beckett MD [address] [address] Scheduled Orders Name Type Priority Associated Diagnoses [...] documented as of this encounter Care Teams Pin Sorter And Bagger Relationship Specialty Start Date End Date Anuja Gale MD [address] [place] [address] PCP - General Internal Medicine 08/13/21 documented as of this encounter
--- OUTSIDE RECORDS SUMMARY | 2024-06-01 16:15 | XMS_ITS | Encounter Summary ---
Author Organization [facility] Address [address] [place] [address] Care Team Providers Care Shirt Marker Name Role Phone Anuja Gale MD Primary [...] Cervical Spine wo Contrast Anuja Gale MD [address] [place] [address] Phone: tel: fax: [address] [address] Phone: tel: Referral ID Status Reason Start Date Expiration Date V isits Requested Visits Authorized [id number] Pending Review 05/29/2024 05/29/2025 1 1 Reason for Visit * Reason Onset Date Comments MRI order 05/29/2024 Encounter Details Date Type Department Care Team (Late st Contact Info) Description 05/29/2024 Telephone Adult Medicine [address] [phone] Anuja Gale MD [address] [place] [address] MRI order Social History Tobacco Use Types [...] care for your loved ones. For example, director of child welfare services or elderly care for an older adult? [...] AM EDT Pt is aware * Anuja Gale MD - 05/30/2024 7:57 AM EDT New [...] Info) Description 08/01/2024 8:15 AM EDT Appointment [facility] Xray [address] [place] [address] 11/27/2024 7:30 AM EDT Office Visit Adult Medicine [facility] [address] [place] [address] Anuja Gale MD 444 [place] [address] 11/29/2024 9:30 AM EDT [facility] [address] [phone] Sarah Beckett MD [address] [address] Scheduled Orders Name Type Priority Associated Diagnoses [...] documented as of this encounter Care Teams Shirt Marker Relationship Specialty Start Date End Date Anuja Gale MD [address] [place] [address] PCP - General Internal Medicine 08/13/21 documented as of this encounter
--- OUTSIDE RECORDS SUMMARY | 2024-06-01 16:15 | XMS_ITS | Encounter Summary ---
Author Organization [facility] Address [address] [place] [address] Care Team Providers Care Band Manager Name Role Phone Anuja Gale MD Primary Care Prov ider Encounter Details Date Type Department Care Team (Late st Contact Info) Description 05/29/2024 8:50 AM EDT Lab Draw Station - [address] [phone] Obesity (Primary Dx) Social History Tobacco Use [...] your loved ones. For example, child care lead teacher or elderly care for an older [...] 8:15 AM EDT Appointment [facility] [address] [place] [phone] 11/27/2024 7:30 AM EDT Office Visit Adult Medicine [facility] [address] [place] [address] Anuja Gale MD [address] [place] [address] 11/29/2024 9:30 AM EDT Office Visit Pulmonolgy - [place] [address] [phone] Sarah Beckett MD [address] [address] documented as of this encounter Procedures Procedure [...] Final Resul t [facility] [address] [place] [address], [place] [phone] * Free thyroxine with reflex to free triiodothyronine (05/29/2024 8:51 AM EDT) Free T4 1.33 0.70 - 1.80 ng/dL LAB CHEMISTRY METHOD 05/29/2024 2:39 PM EDT [facility] Blood Venous blood specimen / Unknown Venipuncture / Unknown 05/29/2024 8:51 AM EDT 05/29/2024 8:51 AM EDT Sarah Beckett MD LAB BLOOD ORDERABLES Final Resul t Performing Organization Address City/[facility]/ZIP Co de Phone Number [facility] [address] [place] [address], [place] [phone] * (ABNORMAL) Thyroid stimulating hormone with reflex to free t4 and free t3 (05/29/2024 8:51 AM EDT) TSH 5.10(H) 0.40 - 4.00 mcIU/mL LAB CHEMISTRY METHOD 05/29/2024 2:01 PM EDT [facility] Blood Venous blood specimen / Unknown Venipuncture / Unknown 05/29/2024 8:51 AM EDT 05/29/2024 8:51 AM EDT us Sarah Beckett MD LAB BLOOD ORDERABLES Final Resul t Performing Organization Address [facility] Co de Phone Number [facility] [address] [place] [address], [place] [phone] documented in this encounter Visit Diagnoses Diagnosis Obesity- Primary Obesity, unspecified documented in this encounter Additional Health Concerns Assessment Noted Time PHQ-9 Depression Total Score: 0 02/28/19 25 5:30 PM EST documented as of this encounter Care Teams Band Manager Relationship Specialty Start Date End Date Anuja Gale MD [address] [place] [phone] PCP - General Internal Medicine 08/13/21 documented as of this encounter
--- OUTSIDE RECORDS SUMMARY | 2024-06-01 16:15 | XMS_ITS | Encounter Summary ---
Author Organization [facility] Address [address] [place] [address] Care Team Providers Care Caustic Room Attendant Name Role Phone Anuja Gale MD Primary Care Prov ider Encounter Details Date Type Department Care Team (Late st Contact Info) Description 05/24/2024 Telephone Adult [facility] [address] [place] [phone] Anuja Gale MD [address] [place] [phone] Social History Tobacco Use Types Packs/Day Years [...] for your loved ones. For example, child watch attendant or elderly care for an older [...] Info) Description 08/01/2024 8:15 AM EDT Appointment [facility] Xray [address] [place] [address] 11/27/2024 7:30 AM EDT Office Visit Adult Medicine [facility] [address] [place] [address] Anuja Gale MD [address] [place] [address] 11/29/2024 9:30 AM EDT Office Visit Pulmonolgy [facility] [address] [phone] Sarah Beckett MD [address] [address] documented as of this encounter Visit Diagnoses Not on filedocumented in this encounter Additional Health Concerns Assessment Noted Time PHQ-9 Depression Total Score: 0 02/28/19 25 5:30 PM EST documented as of this encounter Care Teams Caustic Room Attendant Relationship Specialty Start Date End Date Anuja Gale MD [address] [place] [phone] PCP - General Internal Medicine 08/13/21 documented as of this encounter
--- OUTSIDE RECORDS SUMMARY | 2024-06-01 16:15 | XMS_ITS | Clinical Summary ---
Author Organization [address] [facility] Address [address] [place] [address] Phone Care Team Providers Care Bankruptcy Manager Name Role Phone Anuja Glae MD Primary Care Prov ider Allergies Active [...] V24, CMS/HCC V28) 1 02/19/2021 Atrial tachycardia ([facility] V24) 12/20/2021 Hyperlipidemia 12/20/2021 Palpitations 12/20/2021 PAF (paroxysmal atrial fibri llation) ([facility] V24, [facility] V28) 09/27/2021 Tachycardia 09/27/2021 Esophageal dysmotility 04/07/2020 HTN (hypertension), benign 12/24/2018 Severe obesity (BMI 35.0-39. 9) with comorbidity ([facility] V24, [facility] V28) 10/06/2018 Benign essential tremor [...] 8:50 AM EDT Lab Draw Station - [address] [address] Obesity (Primary Dx) 05/29/2024 8:00 AM EDT Office Visit Pulmonolgy - [address] [place] [address] Sarah Beckett MD Moderate persistent asthma, unspecified whether complicated (Primary Dx); Loud snoring; Other fatigue; Obesity (BMI 35.0-39.9 without comorbidity) 05/29/2024 Telephone Adult Medicine [address] [phone] Anuja Gale MD MRI order 05/27/2024 9:45 AM EDT Office Visit Bariatric Surgery [address] [address] Briana Junior MD Gastroesophageal reflux disease, unspecified whether esophagitis present (Primary Dx); Hiatal hernia; Joint hypermobility syndrome involving hand; Hx of hiatal hernia; Umbilical hernia without obstruction and without gangrene; Hx of tear of meniscus of knee joint; Right retinal detachment 05/24/[address] [phone] Anuja Gale MD 05/23/[address] [phone] Anuja Gale MD Arm Pain 05/21/2024 10:33 AM EDT - 05/21/2024 11:59 PM EDT Hospital Encounter [address] [phone] Neck pain; Chronic left shoulder pain Discharge Disposition: Home or Self Care 05/21/2024 10:32 AM EDT - 05/21/2024 11:59 PM EDT Hospital Encounter [address] [phone] Neck pain; Chronic left shoulder pain Discharge Disposition: Home or Self Care 05/21/2024 10:00 AM EDT Office Visit [address] [phone] Anuja Gale MD Neck pain (Primary Dx); Chronic left shoulder pain 05/20/2024 Telephone Adult Medicine [address] [phone] Anuja Gale MD Arm Pain; Neck Pain 03/05/2024 10:00 AM EST Consult Adult Medicine [address] [phone] Anuja Gale MD Preop cardiovascular exam (Primary Dx) from Last 3 Months Immunizations Name Administration [...] op for a week SALPINGOOPHORECTOMY 03/08/2002 PROCEDURE: [place] LAPAROSCOPY W/RMVL ADNEXAL STRUCTURES; COMMENT: diagnostic laparoscopy, [...] repeat in 10 yrs ESOPHAGOGASTRODUODENOSCOPY 01/02/2017 PROCEDURE: MI ESOPHAGOGASTRODUODENOSCOPY TRANSORAL DIAGNOSTIC; COMMENT: normal OTHER SURGICAL [...] care for your loved ones. For example, childcare administrator or elderly care for an older [...] Info) Description 08/01/2024 8:15 AM EDT Appointment [facility] Xray [address] [place] [address] 11/27/2024 7:30 AM EDT Office Visit Adult Medicine [facility] [address] [place] [address] Anuja Gale MD [address] [place] [address] 11/29/2024 9:30 AM EDT [facility] [address] [phone] Sarah Beckett MD [address] [address] Health Maintenance Due Date Last Done Comments [...] CONTRAST RIGHT Routine 03/04/2024 8:50 AM EST ANNUAL BMP BLOOD TEST Routine 10/18/2023 LIPID [...] LAB CHEMISTRY METHOD 05/29/2024 2:01 PM EDT [facility] Blood Venous blood specimen / Unknown Venipuncture / Unknown 05/29/2024 8:51 AM EDT 05/29/2024 8:51 AM EDT us Sarah Beckett MD LAB BLOOD ORDERABLES Final Resul t Performing Organization Address City/[facility]/ZIP Co de Phone Number [facility] [address] [place] [address], [place] [phone] * Free thyroxine with reflex to free triiodothyronine (05/29/2024 8:51 AM EDT) Free T4 1.33 0.70 - 1.80 ng/dL LAB CHEMISTRY METHOD 05/29/2024 2:39 PM EDT [facility] Blood Venous blood specimen / Unknown Venipuncture / Unknown 05/29/2024 8:51 AM EDT 05/29/2024 8:51 AM EDT us Sarah Beckett MD LAB BLOOD ORDERABLES Final Resul t [facility] [address] [place] [address], [place] [phone] * Triiodothyronine free (05/29/2024 8:51 AM EDT) T3, Free 345 230 - 420 pcg/dL LAB CHEMISTRY METHOD 05/29/2024 3:12 PM EDT [facility] Blood Venous blood specimen / Unknown Venipuncture / Unknown 05/29/2024 8:51 AM EDT 05/29/2024 8:51 AM EDT us Sarah Beckett MD LAB BLOOD ORDERABLES Final Resul t [facility] [address] [place] [address], * XR Shoulder 2+ Views Left (05/21/2024 10:43 AM EDT) Anatomical Region Laterality Modality Upper Extremities, Shoulder Left Radi ographic Imaging 05/21/2024 7:05 PM EDT Impressions 05/21/2024 7:08 PM EDT Mild degenerative changes. POS - [id number] -------- FINAL REPORT -------- Dictated By: Johnna Mansfield Dictated Date: 05/21/2024 19:05 ET Assigned Physician: Johnna Mansfield Reviewed and Electronically Signed By: Johnna Mansfield Signed Date: 05/21/2024 19:08 ET Workstation ID: [id number] Transcribed By: Self Edit Transcribed Date: 05/21/2024 [...] calcifications. IMPRESSION: Mild degenerative changes. POS - [id number] -------- FINAL REPORT -------- Dictated By: Johnna Mansfield Dictated Date: 05/21/2024 19:05 ET Assigned Physician: Johnna Mansfield Reviewed and Electronically Signed By: Johnna Mansfield Signed Date: 05/21/2024 19:08 ET Workstation ID: [id number] Transcribed By: Self Edit Transcribed Date: 05/21/2024 [...] C4-5. ??Right-sided neural foraminal encroachment. POS - [id number] -------- FINAL REPORT -------- Dictated By: Johnna Mansfield Dictated Date: 05/21/2024 18:56 ET Assigned Physician: Johnna Mansfield Reviewed and Electronically Signed By: Johnna Mansfield Signed Date: 05/21/2024 19:05 ET Workstation ID: [id number] Transcribed By: Self Edit Transcribed Date: 05/21/2024 [...] Right- sided neural foraminal encroachment. POS - [id number] -------- FINAL REPORT -------- Dictated By: Johnna Mansfield Dictated Date: 05/21/2024 18:56 ET Assigned Physician: Johnna Mansfield Reviewed and Electronically Signed By: Johnna Mansfield Signed Date: 05/21/2024 19:05 ET Workstation ID: [id number] Transcribed By: Self Edit Transcribed Date: 05/21/2024 18:56 ET Anuja Gale MD IMG XR PROCEDURES Final Result * MR Knee wo Contrast Right (03/04/2024 8:50 AM EST) Anatomical Region Laterality Modality Lower Extremities, Knee Right Magnetic Resonance Historical Provider MD [facility] MRI PROCEDURES Final Result * Annual BMP Blood Test (10/18/2023) Annual BMP Blood Test Abstracted Historical Provider HEALTH MAINTENANCE Final Result * Lipid panel (10/18/2023) LDL/HDL Ratio 2 0 - 4 Triglycerides [...] Most Recently Relevant to Health Maintenance Insurance [facility] Advance Directives Documents on File Type Date Recorded Patient 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
--- OUTSIDE RECORDS SUMMARY | 2024-06-01 16:15 | XMS_ITS | Data Portability ---
Author Organization [place] - [facility],, ELADIA MILLER MD Address [address] [address] Care Team Providers Care Broke Beater Operator Name Role Phone MURALI HOLLIS Primary Care Provider Assessment No assessment recorded. Plan of Treatment Reminders Order Date Submit Date Provider Last Modified By Organization Details Last Modified Time Details Appointments None recorded. Lab cytology report, thin prep, smear or scraping, cervical or vaginal 2024 025 BELKIS [facility] (Centralized Electronic Ordering - All Locations), Patient Can Go To The Location Of Their Choice, [id number] 5 18:15:55 hemoglobi n, gastroint estinal, stool 2024 025 [email or web address] 1 In-Office Order, Internal Use Only DO Not Attach Compendium DO Not Attach Compendium, Do Not Delete/merge, [id number] 5 11:05:22 pap test, thinprep, cervical 2022 023 [facility] (Centralized Electronic Ordering - All Locations), Patient Can Go To The Location Of Their Choice, [id number] 3 10:53:54 fecal occult blood, stool 2022 023 [email or web address] 1 In-Office Order, Internal Use Only DO Not Attach Compendium DO Not Attach Compendium, Do Not Delete/merge, [id number] 3 09:47:14 pap, LB, vaginal 2021 022 [email or web address] [facility] (Centralized Electronic Ordering - All Locations), Patient Can Go To The Location Of Their Choice, [id number] 2 07:42:30 fecal occult blood, stool 2021 022 [email or web address] 1 In-Office Order, Internal Use Only DO Not Attach Compendium DO Not Attach Compendium, Do Not Delete/merge, [id number] 2 12:50:14 pap test, thinprep, cervical 2020 021 [facility], Cytopathology Service, [address] [place], [address], 1 08:27:08 fecal occult blood, stool 2020 021 [email or web address] 1 In-Office Order, Internal Use Only DO Not Attach Compendium DO Not Attach Compendium, Do Not Delete/merge, [id number] 1 11:08:17 pap, LB, vaginal 2019 020 [email or web address] [facility], Cytopathology Service, [address] [place], [address], 0 07:51:18 fecal occult blood, stool 2019 020 [email or web address] In-Office Order, Internal Use Only DO Not Attach Compendium DO Not Attach Compendium, Do Not Delete/merge, [id number] 0 07:51:17 Referral None recorded. Procedures None recorded. Surgeries None recorded. Imaging MAMMO, screening , digital, bilateral 2024 025 [facility] ([place] [facility]), [address] [place], [address], 5 12:13:05 MAMMO, screening , digital, bilateral - Breast Aspiratio n and/or Biopsy if needed 2022 023 [facility] (Mammography), [address] [place], [address], 4 18:29:40 MAMMO, screening , digital, bilateral 2021 022 [facility] ([place] [facility]), [address] [facility] [place], [address], 3 16:32:42 MAMMO, screening , digital, bilateral 2020 021 [facility] ([place] [facility]), [address] [facility] [place], [address], 1 16:07:28 MAMMO, screening , digital, bilateral 2019 020 [facility] ([place] [place] [facility]), [address] [facility] [place], [address], 0 17:04:33 Medication Orders estradiol 1 mg tablet 2020 021 [facility], [address] [place] [address], [address], 3 09:18:39 estradiol 1 mg tablet 2019 020 [facility], [address] [place] [address], [address], 3 09:18:39 Patient TargetsNo targets recorded. Patient Instructions Encounter Date Encounter Id Patient Instructions Last Modified By Organization Details Last Modified Time 04/12/2019 [id number] She is here for annual exam, is [...] time postmenopausally. Not available 04/12/2019 11:38:11 12/28/2020 [id number] learning about healthy weight Not available 12/28/2020 [...] the breast. Not available 12/28/2020 11:09:23 01/10/2022 [id number] learning about healthy weight Not available 01/10/2022 [...] the breast. Not available 01/10/2022 12:51:26 01/16/2023 [id number] learning about healthy weight Not available 01/16/2023 [...] the breast. Not available 01/16/2023 09:47:06 03/06/2024 [id number] learning about healthy weight Not available 03/06/2024 [...] DO Not Attach Compendium, Do Not Delete/merge, [id number] 04/12/2019 11:15:42 04/12/1904/12/2019 pap, LB [id number] ThinP rep Pap, Image d: NEGAT CHRISTIANO [...] x, z12.4 , z01.4 19 Not Available [facility], Cytopathology Service [address] [facility], [place], [address], 04/16/2019 11:17:55 12/29/19 21 12/28/2020 PAP1C ASE [id number] ThinP rep Pap, Image d: NEGAT CHRISTIANO FOR SQUAM OUS INTRA EPITH ELIAL LESIO N AND CARMELLA LOPEZ . Note: The Pap test is a scree oc test with an inher ent false negat christiano rate. Autom ated presc reeni marlyn of all liqui d based speci mens is perfo rmed by the ThinP rep Imagi ng Syste m emelyn s [facility] dMiriam Oates r , [place]( CP) (Case elect esau goldsmith rafaela d 01 12 2021) ADEQU ACY: Satis facto ry . SOURC E: ThinP rep Pap HPV IF ASCUS , Vagin al, Image d CLINI NNEKA INFOR MATIO N: HPV If Diagn osis of ASCUS . LPS 0 neg, z01.4 19 Not Available [facility], Cytopathology Service [address] [place], [address], 01/12/2021 16:15:50 12/29/19 21 12/28/2020 fecal occul t blood , stool Occult Blood negati ve Not Available In-Office Order Internal Use Only DO Not Attach Compendium DO Not Attach Compendium, Do Not Delete/merge, [id number] 12/28/2020 10:03:41 01/11/20 22 01/10/2022 [facility] [place] Kevin nt Name: ADRIAN LARKIN RA nt : 1965 (Age: 56) Lab Acces adriel #: [id number] Colle ction Date: 2021 Acces adriel Date: 2021 Sign Out Date: 2021 Tissu e Sourc e: 1: THINP REP SANITATION SUPERINTENDENT PAP TEST, VAGIN AL: Final Diagn osis: [...] hernandez or ct mclaughlin Perfprasanth rmed at [facility] ate Refer ence Labor atory depar tment of Cytol ogy, [address] [place] Clini nneka Histo ry (othe r): z01.4 19, LPS 2 neg, routi ne scree n Phone #: [phone], On-Ca ll Patho logis t: [id number] Not Available [facility] (Centralized Electronic Ordering - All Locations) Patient Can Go To The Location Of Their Choice, [id number] 01/13/2022 15:20:05 01/11/20 22 01/10/2022 fecal occul t blood , stool Occult Blood negati ve Not Available In-Office Order Internal Use Only DO Not Attach Compendium DO Not Attach Compendium, Do Not Delete/merge, [id number] 01/10/2022 10:02:51 01/17/20 23 01/16/2023 [facility] CYTOL [facility]GY results Patie nt Name: ADRIAN LARKIN RA nt : 1965 (Age: 57) Lab Acces adriel #: [id number] Colle ction Date: 01/16 Acces adriel Date: 01/16 Sign Out Date: 01/20 Tissu e Sourc e: 1: THINP REP SANITATION SUPERINTENDENT PAP TEST, VAGIN AL: Final Diagn osis: [...] hernandez or ct nugent. Perfo rmed at [facility] ate Refer ence Labor atory depar tment of Cytol ogy, [address] [place] Clini nneka Histo ry (othe r): Z01.4 19, routi ne scree n, LPS neg Phone #: [phone], On-Ca ll Patho logis t: [id number] Not Available [facility] (Centralized Electronic Ordering - All Locations) Patient Can Go To The Location Of Their Choice, [id number] 01/20/2023 11:19:57 01/17/20 23 01/16/2023 fecal occul t blood , stool Occult Blood negati ve Not Available In-Office Order Internal Use Only DO Not Attach Compendium DO Not Attach Compendium, Do Not Delete/merge, [id number] 01/16/2023 09:18:05 03/06/1903/07/2024 IGP, RFX APTIM A HPV ASCU diagnosis: Radha SHARPE CHRISTIANO FOR INTRA EPITH ELIAL LESIO N OR CARMELLA LOPEZ . THIS SPECI MEN WAS RESCR EENED PART OF OUR QUALI TY CONTR OL PROGR AM. Not Available [facility] ([facility]) [address] [place], [address], 03/07/2024 18:15:55 03/06/19 25 03/07/2024 IGP, RFX APTIM A HPV ASCU specimen adequacy: Radha torres for evalu ation . Not Available [facility] ([facility]) [address] [place], [address], 03/07/2024 18:15:55 03/06/19 25 03/07/2024 IGP, RFX APTIM A HPV ASCU clinician provided ICD10: Radha katz Z01.4 19 Not Available [facility] ([facility]) [address] [place], [address], 03/07/2024 18:15:55 03/06/19 25 03/07/2024 IGP, RFX APTIM A HPV ASCU performed by: Radha Munoz, Cytot echno logis t (ASCP ) Not Available [facility] ([facility]) [address] [place], [address], 03/07/2024 18:15:55 03/06/19 25 03/07/2024 IGP, RFX APTIM A HPV ASCU QC reviewed by: Radha Peralta , Cytot echno logis t (ASCP ) Not Available [facility] ([facility]) [address] [place], [address], 03/07/2024 18:15:55 03/06/19 25 03/07/2024 IGP, RFX APTIM A HPV ASCU . . Not Available [facility] ([facility]) [address] [place], [address], 03/07/2024 18:15:55 03/06/19 25 03/07/2024 IGP, RFX [...] ts do occur . Not Available [facility] ([facility]) [address] [place], [address], 03/07/2024 18:15:55 03/06/19 25 03/07/2024 IGP, RFX APTIM A HPV ASCU test methodology: Commen t This liqui d based ThinP rep(R ) pap test was scree vandana with the use of an image guide gee elliott. Not Available [facility] ([facility]) [address] [place], [address], 03/07/2024 18:15:55 03/06/19 25 03/07/2024 IGP, RFX APTIM A HPV ASCU . Commen t The HPV DNA refle x crite wilber were not met with this speci men resul t there fore, no HPV testi ng was perfo rmed. Not Available [facility] ([facility]) [address] [place], [address], 03/07/2024 18:15:55 03/06/19 25 03/06/2024 hemog lobin , gastr ointe randolph l, stool Occult Blood negati ve Not Available In-Office Order Internal Use Only DO Not Attach Compendium DO Not Attach Compendium, Do Not Delete/merge, [id number] 03/06/2024 10:47:16 11/25/19 20 11/23/2019 MAMMO , [...] unila teral No observ ation record ed. [address], [address], 04/12/2022 13:56:26 04/14/19 24 04/14/2023 MAMMO , scree oc, digit al, bilat eral No observ ation record ed. [facility] [address] [place], [address], 04/16/2023 08:28:33 Result Notes None recorded. Problems Name Problem SNOMED Code Status Onset Date Resolution Date Notes Provider Name and Address Organization Details Recorded Time Menopausal syndrome 555765568 Active Eladia Miller MD [address], [place], [address], [place] [facility], 5 09:07:22 Candidal vulvovagini tis 36717930 Active Eladia Miller MD [address], [place], [address], [place] [facility], 5 09:40:02 Vaginitis 21818729 Active Eladia Miller MD [address], [place], [address], [place] [facility], 5 09:40:02 Insomnia 712561958 Active 2017 Eladia Miller MD [address], [place], [address], [place] [facility], 8 09:09:13 Hiatal hernia 92977368 Active 2020 Clarita chavez [place] - [facility], 1 10:14:30 Retinal detachment 10997345 Active 2020 Clarita chavez [place] - [facility], 1 10:14:37 Atrial fibrillatio n 73018109 Active 2021 Clarita chavez [place] - [facility], 2 10:11:52 Blind right eye 505776168 Active 2022 Clarita chavez [place] - [facility], 3 09:21:55 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 Eladia Miller MD [address], [place], [address], [place] - [facility], 3 09:48:04 Tunnel vision of left eye 5378851969707 09 Active 2022 Eladia Miller MD [address], [place], [address], [place] [facility], 3 09:48:17 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 Spinal stenosis Problem Notes None recorded. Procedures Surgical History Date Name Laterality Status Provider Name and Address Organization Details Recorded Time 04/14/19 24 Most Recent Mammogram completed Jessica Wagner in [facility], 02/19/2024 08:31:03 09/22/19 22 primary fusion of cervical spine completed Clarita Wagner in [facility], 01/10/2022 10:13:43 07/20/19 22 Glaucoma surgery completed Clarita Wagner in [facility], 01/10/2022 10:13:36 02/17/19 22 Eye surgery follow-up add-on completed Clarita Wagner in [facility], 01/10/2022 10:12:52 09/23/19 21 procedure on retina completed Clarita Wagner in [facility], 12/28/2020 10:14:03 07/16/19 21 esophageal hiatus hernia repair completed Clarita Wagner in [facility], 12/28/2020 10:12:43 06/10/19 21 excision of synovial cyst completed Clarita Wagner in [facility], 12/28/2020 10:11:56 03/09/19 16 Other completed Jessica Wagner in [facility], 03/18/2016 08:27:52 03/09/19 14 Other completed Teresa Wagner in [facility], 09/22/2014 08:53:02 02/06/19 10 Other completed Jessica Anderson [place] - [facility], 10/24/2011 10:57:56 02/06/19 04 Other completed Jessica Anderson [place] - [facility], 10/24/2011 10:57:56 02/06/18 94 Hysterectomy completed Eladia Miller MD [address] [facility],[address], [place], [address], [place] - [facility], 02/07/2013 08:24:16 Imaging Results Imaging Date Name Status [facility]Modified [facility] Details LastModified Time 11/23/2019 MAMMO, screening, digital, bilateral completed Information not available 11/26/2019 08:49:03 01/19/2021 MAMMO, screening, digital, bilateral completed Information not available 01/21/2021 08:53:31 04/07/2022 MAMMO, screening, digital, bilateral completed Information not available 04/14/2022 14:06:51 04/12/2022 US, breast completed Information n ot available 04/12/2022 13:56:26 04/12/2022 MAMMO, diagnostic, digital, unilateral completed [address], [place], [address], 04/12/2022 13:56:26 04/14/2023 MAMMO, screening, digital, bilateral completed [address], [address], 04/16/2023 08:28:33 Procedure Notes None recorded. Medical Equipment None Reported. Allergies Allergen ID Allergen Name Allergen Category Reaction Reaction Severity Criticality Documentation Date Start Date Code Code System Note Provider Name and Address Organization Details Recorded Time 30726 dorzolami de medicatio n facial swelling severe high 01/10/2022 71534 RxNorm [place] Valentin in [facility], 2 10:03:35 4141 Inderal medicatio n Not available Not available Not available 10/24/2011 27110 0 RxNorm bad heada ches WILLY Marsh in [facility], 2 10:57:56 4142 Flonase medicatio n Not available Not available Not available 10/24/2011 45141 RxNorm throa t swell s WILL[place] Marsh in [facility], 2 10:57:56 4143 fluticaso ne / salmetero l medicatio n Not available Not available Not available 10/24/2011 47555 5 RxNorm rash Jessica Meczywor null, [place] [...] Not Available Not Available Not Available Fluvirin 2541-5370(P F) 45 mcg (15 mcg x3)/0.5 mL [...] 0 177.8 cm 76 /min 36.3 kg/m2 352742. 87 g 154 mm[Hg] 77 mm[Hg] Jessica Wagner in [facility], 0 11:09:01 Date Recorded Body height Body temperature Body mass index (BMI) Body weight Heart rate Systolic blood pressure Diastolic blood pressure Provider Name and Address Organization Details Last Updated DateTime 1 177.8 cm 97.2 [degF] 32.7 kg/m2 877125. 06 g 67 /min 132 mm[Hg] 63 mm[Hg] Clarita Wagner in [facility], 1 10:06:49 Date Recorded Body weight Body mass index (BMI) Body height Systolic blood pressure Diastolic blood pressure Provider Name and Address Organization Details Last Updated DateTime 01/10/2022 644322.0 9 g 35.9 kg/m2 177.8 cm 116 mm[Hg] 56 mm[Hg] Clarita Wagner in [facility], 2 10:08:08 Date Recorded Body weight Body mass index (BMI) Body height Heart rate Systolic blood pressure Diastolic blood pressure Provider Name and Address Organization Details Last Updated DateTime 3 495411. 02 g 33.4 kg/m2 177.8 cm 73 /min 133 mm[Hg] 66 mm[Hg] Clarita Hills [place] - [facility], 3 09:21:16 Date Recorded Body height Body mass index (BMI) Body weight Heart rate Systolic blood pressure Diastolic blood pressure Provider Name and Address Organization Details Last Updated DateTime 5 177.8 cm 36.8 kg/m2 234023. 37 g 77 /min 136 mm[Hg] 74 mm[Hg] Jessica Anderson [place] - [facility], 5 10:40:55 Social History Question Answer Notes LastModified by Organizat ion Details LastModified Time Tobacco Smoking Status Never Smoker Not Available [facility] 12/10/2019 03:19:40 What Is Your Level [...] Type Of Diet Are You Following? REGULAR [id number] Information not available 12/10/2019 Which Illicit Or Recreational Drugs Have You Used? No [id number] Information not available 12/10/2019 Do You Reside In Or Have You Traveled To An Area Where Ebola Virus Transmission Is Active? No [id number] Information not available 12/10/2019 Do You Or Have You Ever Used E-cigarettes Or Vape? Never Used Electronic Cigarettes [id number] Information not available 12/10/2019 Education 12 Information no t available 10/24/2011 What Is The Highest Grade Or Level Of School You Have Completed Or The Highest Degree You Have Received? [id number] Information not available 12/28/2020 What Is Your Occupation? Not Working At This Time. [id number] Information not available 12/10/2019 How Many Days [...] available 12/28/2020 Are You Sexually Active? Yes [id number] Information not available 12/10/2019 Do You Or Have You Ever Used Smokeless Tobacco? Never Used Smokeless Tobacco [id number] Information not available 12/10/2019 How Much Tobacco Do You Smoke? No [id number] Information not available 12/10/2019 General Stress Level High Information not available 10/24/2011 Do You Feel Stressed (tense, Restless, Nervous, Or Anxious, Or Unable To Sleep At Night)? [id number] Information not available 12/28/2020 Do You Use Any Illicit Or Recreational Drugs? No Information not available 12/28/2020 How Many Years Have You Smoked Tobacco? 0 [id number] Information not available 12/10/2019 Have You Recently [...] Time What is your exercise level? None [id number] Information not available 12/10/2019 Mental Status None [...] Other) Not available 09/30/2014 09:39:31 Father Malignant neoplasm of lung previo usly record ed as [...] available 09/30/2014 09:39:31 Medical History Condition Response High Blood Pressure N Autoimmune Condition N Depression N History of Ovarian Cancer N Anxiety Disorder N Arthritis Y Infertility N Kidney or Bladder Problems N Osteopenia N Asthma Y Hepatitis N Anesthesia complications N Candidate for MyRisk panel N Lung Disease N Defects or Inherited Disease N BRCA testing in past N History of Cancer N Endometriosis N Thyroid Problems N GI Problems Y Anemia N History of Breast Cancer N LC exposure N Psychiatric Illness N Diabetes N Headaches or Migraines N Heart Disease N Hypertension N Osteoporosis [...] unspecified formulation 3 completed [place] Valentin in [facility], 01/16/2023 09:20:31 Influenza, split virus, trivalent, preservative 4 completed [place] Khoury in [facility], 09/22/2014 08:54:38 Influenza, split virus, quadrivalent, preservative 6 completed [place] Marsh in [facility], 03/18/2016 08:25:55 Influenza, split virus, quadrivalent, preservative 8 completed [place] Valentin in [facility], 01/16/2023 09:20:31 Pneumococcal Conjugate, unspecified formulation 8 completed [place] Valentin in [facility], 01/16/2023 09:20:32 varicella 9 completed [place] Marsh in [facility], 04/12/2019 11:04:08 Influenza, split virus, quadrivalent, preservative 9 completed [place] Valentin in [facility], 01/16/2023 09:20:31 COVID-19, mRNA, LNP-S, PF, 30 mcg/0.3 mL dose 1 completed [place] Valentin in [facility], 01/16/2023 09:20:31 COVID-19, mRNA, LNP-S, PF, [...] Care, 01/16/2023 09:20:31 Pneumococcal conjugate PCV20, polysaccharide [id number] conjugate, adjuvant, PF 2 completed Clarita chavez [...] trivalent, preservative 1 completed [place] Valentin in [facility], 01/16/2023 09:20:32 Influenza, split virus, trivalent, preservative 3 completed [place] Valentni in [facility], 01/16/2023 09:20:32 Influenza, split virus, trivalent, preservative 9 completed [place] Valentin in [facility], 01/16/2023 09:20:32 Influenza, split virus, trivalent, PF 6 completed [place] Valentin in [facility], 01/16/2023 09:20:32 Novel [id number], preservative-free 9 completed [place] Valentin in [facility], 01/16/2023 09:20:32 Td (adult), 2 Lf tetanus toxoid, preservative free, adsorbed 9 completed [place] Valentin in [facility], 01/16/2023 09:20:32 Influenza, split virus, quadrivalent, PF 8 completed [place] Valentin in [facility], 01/16/2023 09:20:32 COVID-19, mRNA, LNP-S, PF, dmitri-sucrose, 30 mcg/0.3 mL 3 completed [place] Marsh in [facility], 03/06/2024 10:41:19 Influenza, split virus, quadrivalent, PF 3 completed Jessicasammy Jorgeywor [place] chavez in [facility], 03/06/2024 10:41:20 Past Encounters Encounter ID Performer Location Encounter Start Date Encounter Closed Date Diagnosis/Indication Diagnosis SNOMED-CT Code Diagnosis ICD10 Code Diagnosis Note [id number] MD ELADIA Page MD [address] [facility] [address] [place] [address] 10/24/2011 10:31:05 10/24/2011 15:38:00 [id number] Teresa Palafox ELADIA MILLER MD [address] [facility],[place] [address] 02/07/2013 07:52:20 02/07/2013 12:49:34 Specialized medical examination 77588430 Screening for malignant neoplasm of rectum 349593240 Screening mammography 31103182 Menopausal syndrome 522739774 [id number] ELADIA MILLER MD [address] [facility],[place] [address] 09/22/2014 08:35:54 09/22/2014 11:06:38 Specialized medical examination 88530042 Screening for malignant neoplasm of rectum 531299456 Screening mammography 02824913 Menopausal syndrome 967469585 [id number] Jessica Justin MILLER MD [address] [facility],[place] [address] 09/30/2014 08:19:34 09/30/2014 10:27:10 Candidal vulvovaginitis 00777319 Vaginitis 53112129 [id number] MD ELADIA Page MD [address] [facility],[place] [address] 03/18/2016 08:16:00 03/18/2016 11:30:40 Specialized medical examination 51620620 Z01.419 Screening for malignant neoplasm of rectum 784516783 Z12.12 Screening mammography 24 015259 Z12.31 Menopausal syndrome 1237 24063 N95.9 [id number] MD ELADIA Page MD [address] [facility],[place] [address] 10/18/2017 08:07:22 10/18/2017 11:25:05 Specialized medical examination 90008158 Z01.419 Screening for malignant neoplasm of rectum 376462567 Z12.12 Screening mammography 24 452907 Z12.31 Menopausal syndrome 1237 22330 N95.1 Insomnia 924904394 G47.0 0 [id number] MD ELADIA Page MD [address] [facility],[place] [address] 02/26/2018 12:51:24 02/26/2018 14:02:51 Atypical squamous cells of undetermined significance on cervical Papanicolaou smear 116532627 R87.610 [id number] MD ELADIA Page MD [address] [facility], [place] [address] 04/12/2019 10:45:52 04/12/2019 12:08:59 Menopausal syndrome 805371014 N95.1 Specialize d medical examination 49675146 Z01.419 Screening for malignant neoplasm of rectum 867459702 Z12.12 Screening mammography 24 384337 Z12.31 [id number] MD ELADIA Page MD [address] [place] [address], [address] [place] [address] 12/28/2020 10:02:44 12/28/2020 11:37:50 Specialized medical examination [id number] Z01.419 Screening for malignant neoplasm of rectum [id number] Z12.12 Screening mammography 24 560471 Z12.31 Menopausal syndrome 1237 08786 N95.1 10626 MD ELADIA Page MD [address] [place] [address], [place] [address] 5 01/10/2022 09:59:11 01/10/2022 13:57:13 Specialized medical examination [id number] Z01.419 Screening for malignant neoplasm of rectum [id number] Z12.12 Screening mammography 24 112549 Z12.31 44462 MD ELADIA Page MD [address] [place] [address], [place] [address] 5 01/16/2023 09:13:08 01/16/2023 10:58:56 Specialized medical examination [id number] Z01.419 Screening for malignant neoplasm of rectum 189058213 Z12.12 Screening mammography 24 336784 Z12.31 Complete b lindness of right eye 221121975 H54.415A Tunnel vis ion of left eye [id number] 98823 H53.40 [id number] MD ELADIA Page MD [address] [facility], [place] [address] 03/06/2024 10:35:30 03/06/2024 12:13:05 Specialized medical examination [id number] Z01.419 Screening for malignant neoplasm of rectum 739541276 Z12.12 Screening mammography 24 550813 Z12.31 Health Concerns Section Related Observation LastModified by Organization Detai ls LastModified Time None Recorded Concern Status LastModified by Organization Details LastModified Time None Recorded Advance Directives Directive None Recorded Payers Encounter Date Sequence Insurance Name Policy Number Policy Horne Covered Member ID Horne Member ID Guarantor Name 04/12/2019 1 [place] [facility] (HMO) [id number] Vicente Griggs [id number] Christen Novakyer 12/28/2020 1 [place] [facility] (HMO) [id number] Vicente Griggs [id number] Christen Griggs 01/10/2022 1 [place] [facility] (HMO) [id number] Vicente Griggs [id number] Christen Anson 01/16/2023 1 [place] [id number] Vicente Griggs [id number] Christen Novakyer 03/06/2024 1 [place] [facility] (HMO) [id number] Vicente Griggs [id number] Christen Griggs Notes Date Note Type [...] symptoms after a week! Eladia Miller MD [address] [place] [address],[address], [place], [address], [place] [facility], [...] elects to continue. Eladia Miller MD [address] [facility],[address], [place], [address], [employer], 12/28/2020 11:09:53 01/10/2022 text/html She is [...] day a week. Eladia Miller MD [address] [facility],[address], [place], [address], [employer] [facility], 01/10/2022 12:51:47 01/16/2023 text/html It has [...] sto do so. Eladia Miller MD [address] [facility],[address], [place], [address], [place] [facility], 01/16/2023 09:52:22 03/06/2024 text/html She is [...] depth perception issues. Eladia Miller MD [address] [facility],[address], [place], [address], [place] [facility], 03/06/2024 11:07:39 OBGyn Episode No OBEpisode recorded.
[2024-06-01] MEDS: gadobutroL 10 ML VIAL IVPUSH (17:25)
== END 2024-06-01 16:05 | disposition home or self-care (01) ==
LOC: HO.MRI 16:04
PROVIDERS: PCP Internal Medicine; Visit Provider Physician Assistant
DX: M75.102 Unspecified rotator cuff tear or rupture of left shoulder, not specified as traumatic (principal); R29.898 Other symptoms and signs involving the musculoskeletal system; M48.02 Spinal stenosis, cervical region; Z98.1 Arthrodesis status
CPT/HCPCS: 72156; 73221; A9585

== ENCOUNTER 2024-06-05 10:49 | Outpatient (REF) | payer BC, SELFPAY ==
--- NOTE | 2024-06-05 10:52 | EMG_ITS ---
Chief complaint: Around 2 weeks ago, 05/19/2024, patient bent forward, then had sudden onset pain/burning from left shoulder/upper extremity down to her fingers. With tingling on forearm but not on the fingers/digits. Since then, the sharp pain has lessened, but she has noted weakness on left shoulder/upper arm. She remembers that, 1 month prior to onset, she had a fleeting burning sensation on left upper extremity. No atrophy. No symptoms on left lower extremity. No symptoms on right side. Denies recent vaccination. Denies recent viral illness. Exam does not show any atrophy or hyperreflexia. Reason for referral: Evaluate for radiculopathy or brachial plexopathy Referred by: Farrah BIANCHI Procedure done: Left upper extremity NCS/EMG Precautions and/or limitations: Previous cervical fusion. The limb temperature was monitored continuously and remained between 32-36 degrees C during the performance of the NCS. Nerve Conduction Studies Anti Sensory Summary Table ?Stim Site NR Onset (ms) Norm Onset (ms) Peak (ms) Norm Peak (ms) O-P Amp (?V) Norm O-P Amp Site1 Site2 Delta-0 (ms) Dist (cm) Edwin (m/s) Norm Edwin (m/s) Left Median Anti Sensory (2nd Digit) Wrist ? 2.6 3.3 <3.6 23.8 >10 Wrist 2nd Digit 2.6 14.0 54 Left Radial Anti Sensory (Thumb) Forearm ? 1.7 2.3 <3.1 21.0 Forearm Thumb 1.7 0.0 Left Ulnar Anti Sensory (5th Digit) Wrist ? 2.3 2.9 <3.7 22.4 >15.0 Wrist 5th Digit 2.3 14.0 61 Motor Summary Table ?Stim Site NR Onset (ms) Norm Onset (ms) O-P Amp (mV) Norm O-P Amp iAmp (mV) Amp (1st) (%) Site1 Site2 Delta-0 (ms) Dist (cm) Edwin (m/s) Norm Edwin (m/s) Left Median Motor (Abd Poll Brev) Wrist ? 3.4 <3.9 12.5 >4.5 14.7 100.0 Elbow Wrist 3.9 22.0 56 >45 Elbow ? 7.3 11.5 13.4 92.0 Left Ulnar Motor (Abd Dig Minimi) Wrist ? 2.8 <3.0 9.4 >5 10.7 100.0 B Elbow Wrist 3.7 21.0 57 >45 B Elbow ? 6.5 8.6 10.0 91.5 A Elbow B Elbow 1.4 10.0 71 >45 A Elbow ? 7.9 8.4 9.8 89.4 EMG ?Side Muscle Nerve Root Ins Act Fibs Psw Amp Dur Poly Recrt Int Pat Comment Left 1stDorInt Ulnar C8-T1 Nml Nml Nml Nml Nml 0 Nml Complete Left FlexCarRad Median C6-7 Nml Nml Nml Nml Nml 0 Nml Complete Left Biceps Musculocut C5-6 Incr 1+ 1+ Nml Nml 0 Nml Complete Left Triceps Radial C6-7-8 Nml Nml Nml Nml Nml 0 Nml Complete Left Deltoid Axillary C5-6 Incr 1+ 1+ Nml Nml 0 Reduced Complete Left Supraspinatus SupraScap C5-6 Nml Nml Nml Nml Nml 0 Nml Complete Paraspinal EMG ?Side Muscle Nerve Root Ins Act Fibs Psw Comment Left Cervical Upper Rami Nml Nml Nml Left Cervical Mid Rami Incr 1+ 1+ Left Cervical Lower Rami Nml Nml Nml FINDINGS: All motor and sensory nerves tested showed normal latencies, amplitudes and conduction velocities. Concentric needle EMG was performed in selected muscles of the left upper extremity and cervical paraspinals. Study revealed signs of electric abnormalities as shown in the table above. Left deltoid showed increased insertional activity, PSWs and fibrillations, with reduced recruitment. Left biceps showed increased insertional activity, PSWs and fibrillations. Left mid cervical paraspinals showed increased insertional activity, PSWs and fibrillations. IMPRESSION: 1. This is an abnormal study. 2. There are electrodiagnostic findings suggestive of left acute cervical radiculopathy 3. There is no electrodiagnostic evidence for median neuropathy, ulnar neuropathy, or brachial plexopathy. CLINICAL COMMENT: Reviewed images of cervical MRI. Recommend referral back to spine/neurosurgeon. Thank you for your kind referral. Kaylynn Martinez MD, HUE Board Certified, [place] [employer] and Rehabilitation (ABPMR) Board Certified, [place] Board of Electrodiagnostic Medicine (ABEM) [place] [address] [facility]
--- OUTSIDE RECORDS SUMMARY | 2024-06-05 12:16 | XMS_ITS | Clinical Summary ---
Author Organization [address] [facility] Address [address] [place] [address] Phone Care Team Providers Care Policy Cancellation Clerk Name Role Phone Anuja Gale MD Primary [...] not swallow. 3 each 2 05/30/19 25 026 Active ipratropium-al buteroL (Combivent Respimat) 20-100 mcg/actuation inhalerIndicat ions:Moderate persistent asthma, unspecified whether complicated Inhale 1 puff by mouth 4 (four) times a day. 1 each 6 05/30/19 25 026 Active loteprednol (LOTEMAX) 0.5 % ophthalmic suspension INSTILL 1 DROP IN RIGHT EYE AT BEDTIME DIRECTED. 03/07/19 24 025 Discontinued azelastine (ASTELIN) 137 mcg (0.1 %) nasal spray USE 2 SPRAYS IN EACH NOSTRIL TWICE DAILY 025 Discontinued tiZANidine (ZANAFLEX) 2 mg tablet TAKE 1 TABLET AT BEDTIME ASNEEDED FOR PAIN OR SPASM 30 tablet 1 04/24/19 25 025 Discontinued(T herapy completed) methocarbamoL (ROBAXIN) 500 [...] V24, CMS/HCC V28) 1 02/19/2021 Atrial tachycardia (CMS/HCC V24) 12/20/2021 Hyperlipidemia 12/20/2021 Palpitations 12/20/2021 PAF (paroxysmal atrial fibri llation) ([facility] V24, [facility] V28) 09/27/2021 Tachycardia 09/27/2021 Esophageal dysmotility 04/07/2020 HTN (hypertension), benign 12/24/2018 Severe obesity (BMI 35.0-39. 9) with comorbidity ([facility] V24, [facility] V28) 10/06/2018 Benign essential tremor 06/04/2018 [...] Encounters Date Type Department Care Team Description 06/04/2024 Telephone Adult Medicine [facility] [address] [place] [phone] Anuja Gale MD Referral 05/29/2024 8:50 AM EDT Lab Draw Station - [address] [address] Obesity (Primary Dx) 05/29/2024 8:00 AM EDT Office Visit Pulmonolgy - [place] [address] [facility] [address] [place] [address] Sarah Beckett MD Moderate persistent asthma, unspecified whether complicated (Primary Dx); Loud snoring; Other fatigue; Obesity (BMI 35.0-39.9 without comorbidity) 05/29/2024 Telephone Adult Medicine [address] [phone] Anuja Gale MD MRI order 05/27/2024 9:45 AM EDT Office Visit Bariatric Surgery [address] [place] [address] Briana Junior MD Gastroesophageal reflux disease, unspecified whether esophagitis present (Primary Dx); Hiatal hernia; Joint hypermobility syndrome involving hand; Hx of hiatal hernia; Umbilical hernia without obstruction and without gangrene; Hx of tear of meniscus of knee joint; Right retinal detachment 05/24/[address] [phone] Anuja Gale MD 05/23/2024 Telephone Adult [address] [phone] Anuja Gale MD Arm Pain 05/21/2024 10:33 AM EDT - 05/21/2024 11:59 PM EDT Hospital Encounter [address] [phone] Neck pain; Chronic left shoulder pain Discharge Disposition: Home or Self Care 05/21/2024 10:32 AM EDT - 05/21/2024 11:59 PM EDT Hospital Encounter [address] [phone] Neck pain; Chronic left shoulder pain Discharge Disposition: Home or Self Care 05/21/2024 10:00 AM EDT Office Visit Adult [address] [phone] Anuja Gale MD Neck pain (Primary Dx); Chronic left shoulder pain 05/20/2024 Telephone Adult Medicine [facility] [address] [place] [phone] Anuja Gale MD Arm Pain; Neck Pain from Last 3 Months Immunizations Name Administration [...] op for a week SALPINGOOPHORECTOMY 03/08/2002 PROCEDURE: MA LAPAROSCOPY W/RMVL ADNEXAL STRUCTURES; COMMENT: diagnostic laparoscopy, [...] repeat in 10 yrs ESOPHAGOGASTRODUODENOSCOPY 01/02/2017 PROCEDURE: MA ESOPHAGOGASTRODUODENOSCOPY TRANSORAL DIAGNOSTIC; COMMENT: normal OTHER SURGICAL [...] care for your loved ones. For example, professor of early childhood education or elderly care for an older adult? [...] Info) Description 08/01/2024 8:15 AM EDT Appointment [facility] Xray [address] [place] [address] 11/27/2024 7:30 AM EDT Office Visit Adult Medicine [facility] [address] [place] [phone] Anuja Gale MD [address] [place] [address] 11/29/2024 9:30 AM EDT [facility] [address] [phone] Sarah Beckett MD [address] [address] Health Maintenance Due Date Last Done Comments [...] EDT Neck pain Chronic left shoulder pain ANNUAL BMP BLOOD TEST Routine 10/18/2023 LIPID [...] LAB CHEMISTRY METHOD 05/29/2024 2:01 PM EDT [facility] Blood Venous blood specimen / Unknown Venipuncture / Unknown 05/29/2024 8:51 AM EDT 05/29/2024 8:51 AM EDT us Sarah Beckett MD LAB BLOOD ORDERABLES Final Resul t Performing Organization Address [facility] Co de Phone Number [facility] [address] [place] [address], [place] [phone] * Free thyroxine with reflex to free triiodothyronine (05/29/2024 8:51 AM EDT) Free T4 1.33 0.70 - 1.80 ng/dL LAB CHEMISTRY METHOD 05/29/2024 2:39 PM EDT [facility] Blood Venous blood specimen / Unknown Venipuncture / Unknown 05/29/2024 8:51 AM EDT 05/29/2024 8:51 AM EDT us Sarah Beckett MD LAB BLOOD ORDERABLES Final Resul t Performing Organization Address [facility] de Phone Number [facility] [address] [place] [address], [place] [phone] * Triiodothyronine free (05/29/2024 8:51 AM EDT) T3, Free 345 230 - 420 pcg/dL LAB CHEMISTRY METHOD 05/29/2024 3:12 PM EDT [facility] Blood Venous blood specimen / Unknown Venipuncture / Unknown 05/29/2024 8:51 AM EDT 05/29/2024 8:51 AM EDT us Sarah Beckett MD LAB BLOOD ORDERABLES Final Resul t Performing Organization Address [facility] Co de Phone Number [facility] [address] [place] [address], [place] [phone] * XR Shoulder 2+ Views Left (05/21/2024 10:43 AM EDT) Anatomical Region Laterality Modality Upper Extremities, Shoulder Left Radi ographic Imaging 05/21/2024 7:05 PM EDT Impressions 05/21/2024 7:08 PM EDT Mild degenerative changes. POS - [id number] -------- FINAL REPORT -------- Dictated By: Johnna Mansfield Dictated Date: 05/21/2024 19:05 ET Assigned Physician: Johnna Mansfield Reviewed and Electronically Signed By: Johnna Mansfield Signed Date: 05/21/2024 19:08 ET Workstation ID: [id number] Transcribed By: Self Edit Transcribed Date: 05/21/2024 [...] calcifications. IMPRESSION: Mild degenerative changes. POS - [id number] -------- FINAL REPORT -------- Dictated By: Johnna Mansfield Dictated Date: 05/21/2024 19:05 ET Assigned Physician: Johnna Mansfield Reviewed and Electronically Signed By: Johnna Mansfield Signed Date: 05/21/2024 19:08 ET Workstation ID: [id number] Transcribed By: Self Edit Transcribed Date: 05/21/2024 19:05 ET us Anuja Aparna Gale MD IMG XR PROCEDURES Final Result * XR Cervical Spine 4-5 Views (05/21/2024 10:43 AM EDT) Anatomical Region Laterality Modality Spine, C-spine Radiographic Ivory ging 05/21/2024 6:56 PM EDT Impressions 05/21/2024 7:05 PM EDT Interval changes of anterior spinal fusion at C5-6 without a complication evident. ??Multilevel degenerative changes. ??Progressive disc space narrowing at C4-5. ??Right-sided neural foraminal encroachment. POS - [id number] -------- FINAL REPORT -------- Dictated By: Johnna Mansfield Dictated Date: 05/21/2024 18:56 ET Assigned Physician: Johnna Mansfield Reviewed and Electronically Signed By: Johnna Mansfield Signed Date: 05/21/2024 19:05 ET Workstation ID: [id number] Transcribed By: Self Edit Transcribed Date: 05/21/2024 [...] Right- sided neural foraminal encroachment. POS - [id number] -------- FINAL REPORT -------- Dictated By: Johnna Mansfield Dictated Date: 05/21/2024 18:56 ET Assigned Physician: Johnna Mansfield Reviewed and Electronically Signed By: Johnna Mansfield Signed Date: 05/21/2024 19:05 ET Workstation ID: [id number] Transcribed By: Self Edit Transcribed Date: 05/21/2024 18:56 ET Anuja Gale MD IMG XR PROCEDURES Final Result * Annual BMP Blood Test (10/18/2023) Pathologist Replaced by [facility] Annual BMP Blood Test Abstracted Historical Provider HEALTH MAINTENANCE Final Result * Lipid panel (10/18/2023) [facility] LDL/HDL Ratio 2 0 - 4 [...] C Screening (09/04/2014) Hepatitis C Screening Abstracted us Historical Provider HEALTH MAINTENANCE Final Result from Last 3 Months or Most Recently Relevant to Health Maintenance Insurance [facility] Advance Directives Documents on File Type Date Recorded 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
--- OUTSIDE RECORDS SUMMARY | 2024-06-05 12:16 | XMS_ITS | Encounter Summary ---
Author Organization [facility] Address [address] [place] [address] Care Team Providers Care Shrink Pit Supervisor Name Role Phone Anuja Gale MD Primary Care Prov ider Reason for Referral * Consultation (Routine) - Authorized Specialty Diagnoses / Procedures Referred By Contac t Referred To Contact Pulmonary Disease / Pulmonology Diagnoses Moderate persistent asthma, unspecified whether complicated Anuja Gale MD [address] [place] [address] Phone: tel: fax: [address] [place] [address] Phone: tel: fax: Referral ID Status Reason Start Date Expiration Date Visits Requested Visits Authorized [id number] Authorized Specialty Services Required 06/04/2024 06/04/2025 1 1 Reason for Visit * Reason Onset Date Comments Referral 06/04/2024 Encounter Details Date Type Department Care Team ([facility] st Contact Info) Description 06/04/2024 Telephone Adult Medicine [address] [phone] Anuja Gale MD [address] [place] [address] Referral Social History Tobacco Use Types Packs/Day [...] as of this encounter Progress Notes * Kamron Phillips - 06/04/2024 3:13 PM EDT Patient has a appointment on: 11/29/2024 @9:[address] Beckett [address] [place] [phone] [address] referral order to obtain insurance referral. documented in this encounter Plan of Treatment Upcoming Encounters Date Type Department Care Team (Late st Contact Info) Description 08/01/2024 8:15 AM EDT Appointment [facility] Xray [address] [place] [address] 11/27/2024 7:30 AM EDT Office Visit Adult Medicine [facility] [address] [place] [phone] Anuja Gale MD [address] [place] [address] 11/29/2024 9:30 AM EDT [facility] [address] [address] Sarah Beckett MD [address] [address] Scheduled Referrals Name Type Priority Associated Diagnoses Order Schedule Ambulatory referral to Pulmonology Outpatient Referral Routine Moderate persistent asthma, unspecified whether complicated 1 Occurrences starting 06/04/2024 until 06/04/2025 documented as of this encounter Visit Diagnoses Diagnosis Moderate persistent asthma, unspecified whether complicated- Primary documented in this encounter Additional Health Concerns Assessment Noted Time PHQ-9 Depression Total Score: 0 02/28/19 25 5:30 PM EST documented as of this encounter Care Teams Shrink Pit Supervisor Relationship Specialty Start Date End Date Anuja Gale MD [address] [place] [address] PCP - General Internal Medicine 08/13/21 documented as of this encounter
--- OUTSIDE RECORDS SUMMARY | 2024-06-05 12:16 | XMS_ITS | Data Portability ---
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 Plan of Treatment Reminders Order Date Submit Date Provider Last Modified By Organization Details Last Modified Time Details Appointments None recorded. Lab cytology report, thin prep, smear or scraping, cervical or vaginal 2024 025 BELKIS [facility] (Centralized Electronic Ordering - All Locations), Patient Can Go To The Location Of Their Choice, [id number] 5 18:15:55 hemoglobi n, gastroint estinal, stool 2024 025 [email or web address] 1 In-Office Order, Internal Use Only DO Not Attach Compendium DO Not Attach Compendium, Do Not Delete/merge, [id number] 5 11:05:22 pap test, thinprep, cervical 2022 023 [facility] (Centralized Electronic Ordering - All Locations), Patient Can Go To The Location Of Their Choice, [id number] 3 10:53:54 fecal occult blood, stool 2022 023 [email or web address] 1 In-Office Order, Internal Use Only DO Not Attach Compendium DO Not Attach Compendium, Do Not Delete/merge, [id number] 3 09:47:14 pap, LB, vaginal 2021 022 [email or web address] [facility] (Centralized Electronic Ordering - All Locations), Patient Can Go To The Location Of Their Choice, [id number] 2 07:42:30 fecal occult blood, stool 2021 022 [email or web address] 1 In-Office Order, Internal Use Only DO Not Attach Compendium DO Not Attach Compendium, Do Not Delete/merge, [id number] 2 12:50:14 pap test, thinprep, cervical 2020 021 [facility], Cytopathology Service, [address] [place], [address], 1 08:27:08 fecal occult blood, stool 2020 021 [email or web address] 1 In-Office Order, Internal Use Only DO Not Attach Compendium DO Not Attach Compendium, Do Not Delete/merge, [id number] 1 11:08:17 pap, LB, vaginal 2019 020 [email or web address] [facility], Cytopathology Service, [address] [place], [address], 0 07:51:18 fecal occult blood, stool 2019 020 [email or web address] In-Office Order, Internal Use Only DO Not Attach Compendium DO Not Attach Compendium, Do Not Delete/merge, [id number] 0 07:51:17 Referral None recorded. Procedures None recorded. Surgeries None recorded. Imaging MAMMO, screening , digital, bilateral 2024 025 [facility] ([place] [facility]), [address] [place], [address], 5 12:13:05 MAMMO, screening , digital, bilateral - Breast Aspiratio n and/or Biopsy if needed 2022 023 [facility] (Mammography), [address] [place], [address], 4 18:29:40 MAMMO, screening , digital, bilateral 2021 022 [facility] ([facility]), [address] [facility] [place], [address], 3 16:32:42 MAMMO, screening , digital, bilateral 2020 021 [facility] ([facility]), [address] [facility] [place], [address], 1 16:07:28 MAMMO, screening , digital, bilateral 2019 020 [facility] ([facility]), [address] [facility] [place], [address], 0 17:04:33 Medication Orders estradiol 1 mg tablet 2020 021 [facility], [address] [place] [address], [address], 3 09:18:39 estradiol 1 mg tablet 2019 020 [facility], [address] [place] [address], [address], 3 09:18:39 Patient TargetsNo targets recorded. Patient Instructions Encounter Date Encounter Id Patient Instructions Last Modified By Organization Details Last Modified Time 04/12/2019 [id number] She is here for annual exam, is [...] time postmenopausally. Not available 04/12/2019 11:38:11 12/28/2020 [id number] learning about healthy weight Not available 12/28/2020 [...] the breast. Not available 12/28/2020 11:09:23 01/10/2022 [id number] learning about healthy weight Not available 01/10/2022 [...] the breast. 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 The afib is finally gone, though. She [...] the breast. Not available 01/16/2023 09:47:06 03/06/2024 [id number] learning about healthy weight Not available 03/06/2024 [...] DO Not Attach Compendium, Do Not Delete/merge, [id number] 04/12/2019 11:15:42 04/12/1904/12/2019 pap, LB [id number] ThinP rep Pap, Image d: NEGAT CHRISTIANO [...] x, z12.4 , z01.4 19 Not Available [facility], Cytopathology Service [address] [facility], [place], [address], 04/16/2019 11:17:55 12/29/19 21 12/28/2020 PAP1C ASE [id number] ThinP rep Pap, Image d: NEGAT CHRISTIANO FOR SQUAM OUS INTRA EPITH ELIAL LESIO N AND CARMELLA LOPEZ . Note: The Pap test is a scree oc test with an inher ent false negat christiano rate. Autom ated presc reeni marlyn of all liqui d based speci mens is perfo rmed by the ThinP rep Imagi ng Syste m emelyn s [facility] dMiriam Oates r , CT( CP) (Case elect esau goldsmith rafaela d 01 12 2021) ADEQU ACY: Satis facto ry . SOURC E: ThinP rep Pap HPV IF ASCUS , Vagin al, Image d CLINI NNEKA INFOR MATIO N: HPV If Diagn osis of ASCUS . LPS 0 neg, z01.4 19 Not Available [facility], Cytopathology Service [address] [place], [address], 01/12/2021 16:15:50 12/29/19 21 12/28/2020 fecal occul t blood , stool Occult Blood negati ve Not Available In-Office Order Internal Use Only DO Not Attach Compendium DO Not Attach Compendium, Do Not Delete/merge, [id number] 12/28/2020 10:03:41 01/11/20 22 01/10/2022 [facility] CYTOL OGY results Kevin nt Name: ADRIAN LARKIN RA nt : 1965 (Age: 56) Lab Acces adriel #: [id number] Colle ction Date: 2021 Acces adriel Date: 2021 Sign Out Date: 2021 Tissu e Sourc e: 1: THINP REP OVERCOIL STEPPER PAP TEST, VAGIN AL: Final Diagn osis: [...] hernandez or ct mclaughlin Perfprasanth rmed at [facility] ate Refer ence Labor atory depar tment of Cytol ogy, [address] [place] Clini nneka Histo ry (othe r): z01.4 19, LPS 2 neg, routi ne scree n Phone #: [phone], On-Ca ll Patho logis t: [id number] Not Available [facility] (Centralized Electronic Ordering - All Locations) Patient Can Go To The Location Of Their Choice, [id number] 01/13/2022 15:20:05 01/11/20 22 01/10/2022 fecal occul t blood , stool Occult Blood negati ve Not Available In-Office Order Internal Use Only DO Not Attach Compendium DO Not Attach Compendium, Do Not Delete/merge, [id number] 01/10/2022 10:02:51 01/17/20 23 01/16/2023 [facility] CYTOL OGY results Patie nt Name: ADRIAN LARKIN RA nt : 1965 (Age: 57) Lab Acces adriel #: [id number] Colle ction Date: 01/16 Acces adriel Date: 01/16 Sign Out Date: 01/20 Tissu e Sourc e: 1: THINP REP OVERCOIL STEPPER PAP TEST, VAGIN AL: Final Diagn osis: [...] ThinP rep Imagi ng Syste m with carmle mazariegosr michelle hernandez or ct nugent. Perfo rmed at [facility] ate Refer ence Labor atory depar tment of Cytol ogy, [address] [place] Clini nneka Histo ry (othe r): Z01.4 19, routi ne scree n, LPS neg Phone #: [phone], On-Ca ll Patho logis t: [id number] Not Available [facility] (Centralized Electronic Ordering - All Locations) Patient Can Go To The Location Of Their Choice, [id number] 01/20/2023 11:19:57 01/17/20 23 01/16/2023 fecal occul t blood , stool Occult Blood negati ve Not Available In-Office Order Internal Use Only DO Not Attach Compendium DO Not Attach Compendium, Do Not Delete/merge, [id number] 01/16/2023 09:18:05 03/06/1903/07/2024 IGP, RFX APTIM A HPV ASCU diagnosis: Radha SHARPE CHRISTIANO FOR INTRA EPITH ELIAL LESIO N OR CARMELLA LOPEZ . THIS SPECI MEN WAS RESCR EENED PART OF OUR QUALI TY CONTR OL PROGR AM. Not Available [facility] ([facility]) [address] [place], [address], 03/07/2024 18:15:55 03/06/19 25 03/07/2024 IGP, RFX APTIM A HPV ASCU specimen adequacy: Radha torres for evalu ation . Not Available [facility] ([facility]) [address] [place], [address], 03/07/2024 18:15:55 03/06/19 25 03/07/2024 IGP, RFX APTIM A HPV ASCU clinician provided ICD10: Radha katz Z01.4 19 Not Available [facility] ([facility]) [address] [place], [address], 03/07/2024 18:15:55 03/06/19 25 03/07/2024 IGP, RFX APTIM A HPV ASCU performed by: Radha Munoz, Cytot echno logis t (ASCP ) Not Available [facility] ([facility]) [address] [place], [address], 03/07/2024 18:15:55 03/06/19 25 03/07/2024 IGP, RFX APTIM A HPV ASCU QC reviewed by: Radha Peralta , Cytot echno logis t (ASCP ) Not Available [facility] ([facility]) [address] [place], [address], 03/07/2024 18:15:55 03/06/19 25 03/07/2024 IGP, RFX APTIM A HPV ASCU . . Not Available [facility] ([facility]) [address] [place], [address], 03/07/2024 18:15:55 03/06/19 25 03/07/2024 IGP, RFX [...] ts do occur . Not Available [facility] ([facility]) [address] [place], [address], 03/07/2024 18:15:55 03/06/19 25 03/07/2024 IGP, RFX APTIM A HPV ASCU test methodology: Commen t This liqui d based ThinP rep(R ) pap test was scree vandana with the use of an image guide gee elliott. Not Available [facility] ([facility]) [address] [place], [address], 03/07/2024 18:15:55 03/06/19 25 03/07/2024 IGP, RFX APTIM A HPV ASCU . Commen t The HPV DNA refle x crite wilber were not met with this speci men resul t there fore, no HPV testi ng was perfo rmed. Not Available [facility] ([facility]) [address] [place], [address], 03/07/2024 18:15:55 03/06/19 25 03/06/2024 hemog lobin , gastr ointe randolph l, stool Occult Blood negati ve Not Available In-Office Order Internal Use Only DO Not Attach Compendium DO Not Attach Compendium, Do Not Delete/merge, [id number] 03/06/2024 10:47:16 11/25/19 20 11/23/2019 MAMMO , [...] unila teral No observ ation record ed. [address], [address], 04/12/2022 13:56:26 04/14/19 24 04/14/2023 MAMMO , scree oc, digit al, bilat eral No observ ation record ed. [facility] [address] [place], [address], 04/16/2023 08:28:33 Result Notes None recorded. Problems Name Problem SNOMED Code Status Onset Date Resolution Date Notes Provider Name and Address Organization Details Recorded Time Menopausal syndrome 531558005 Active Eladia Miller MD [address], [place], [address], [place] [facility], 5 09:07:22 Candidal vulvovagini tis 92189267 Active Eladia Miller MD [address], [place], [address], [place] [facility], 5 09:40:02 Vaginitis 01520367 Active Eladia Miller MD [address], [place], [address], [place] [facility], 5 09:40:02 Insomnia 824118347 Active 2017 Eladia Miller MD [address], [place], [address], [place] [facility], 8 09:09:13 Hiatal hernia 53807885 Active 2020 Clarita chavez [place] - [facility], 1 10:14:30 Retinal detachment 73632340 Active 2020 Clarita chavez [place] - [facility], 1 10:14:37 Atrial fibrillatio n 73671261 Active 2021 Clarita chavez [place] - [facility], 2 10:11:52 Blind right eye 431263962 Active 2022 Clarita chavez [place] - [facility], 3 09:21:55 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 Eladia Miller MD [address], [place], [address], [place] [facility], 3 09:48:04 Tunnel vision of left eye 9521819957986 09 Active 2022 Eladia Miller MD [address], [place], [address], [place] [facility], 3 09:48:17 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 Spinal stenosis Problem Notes None recorded. Procedures Surgical History Date Name Laterality Status Provider Name and Address Organization Details Recorded Time 04/14/19 24 Most Recent Mammogram completed Jessica Wagner in [facility], 02/19/2024 08:31:03 09/22/19 22 primary fusion of cervical spine completed Clarita Wagner in [facility], 01/10/2022 10:13:43 07/20/19 22 Glaucoma surgery completed Clarita Wagner in [facility], 01/10/2022 10:13:36 02/17/19 22 Eye surgery follow-up add-on completed Clarita Wagner in [facility], 01/10/2022 10:12:52 09/23/19 21 procedure on retina completed Clarita Wagner in [facility], 12/28/2020 10:14:03 07/16/19 21 esophageal hiatus hernia repair completed Clarita Wagner in [facility], 12/28/2020 10:12:43 06/10/19 21 excision of synovial cyst completed Clarita Wagner in [facility], 12/28/2020 10:11:56 03/09/19 16 Other completed Jessica Wagner in [facility], 03/18/2016 08:27:52 03/09/19 14 Other completed Teresa Wagner in [facility], 09/22/2014 08:53:02 02/06/19 10 Other completed Jessica Anderson [place] - [facility], 10/24/2011 10:57:56 02/06/19 04 Other completed Jessica Anderson [place] - [facility], 10/24/2011 10:57:56 02/06/18 94 Hysterectomy completed Eladia Miller MD [address] [facility],[address], [place], [address], [place] - [facility], 02/07/2013 08:24:16 Imaging Results Imaging Date Name Status [facility]Modified [facility] Details LastModified Time 11/23/2019 MAMMO, screening, digital, bilateral completed Information not available 11/26/2019 08:49:03 01/19/2021 MAMMO, screening, digital, bilateral completed Information not available 01/21/2021 08:53:31 04/07/2022 MAMMO, screening, digital, bilateral completed Information not available 04/14/2022 14:06:51 04/12/2022 US, breast completed Information n ot available 04/12/2022 13:56:26 04/12/2022 MAMMO, diagnostic, digital, unilateral completed [address], [place], [address], 04/12/2022 13:56:26 04/14/2023 MAMMO, screening, digital, bilateral completed [address], [address], 04/16/2023 08:28:33 Procedure Notes None recorded. Medical Equipment None Reported. Allergies Allergen ID Allergen Name Allergen Category Reaction Reaction Severity Criticality Documentation Date Start Date Code Code System Note Provider Name and Address Organization Details Recorded Time 77948 dorzolami de medicatio n facial swelling severe high 01/10/2022 79346 RxNorm [place] Valentin in [facility], 2 10:03:35 4141 Inderal medicatio n Not available Not available Not available 10/24/2011 32117 0 RxNorm bad heada ches WILLY Marsh in [facility], 2 10:57:56 4142 Flonase medicatio n Not available Not available Not available 10/24/2011 92554 RxNorm throa t swell s WILLY Marsh in [facility], 2 10:57:56 4143 fluticaso ne / salmetero l medicatio n Not available Not available Not available 10/24/2011 72242 5 RxNorm rash Jessica Meczywor null, [place] [...] Not Available Not Available Not Available Fluvirin 0999-8454(P F) 45 mcg (15 mcg x3)/0.5 mL [...] 0 177.8 cm 76 /min 36.3 kg/m2 934142. 87 g 154 mm[Hg] 77 mm[Hg] Jessica Wagner in [facility], 0 11:09:01 Date Recorded Body height Body temperature Body mass index (BMI) Body weight Heart rate Systolic blood pressure Diastolic blood pressure Provider Name and Address Organization Details Last Updated DateTime 1 177.8 cm 97.2 [degF] 32.7 kg/m2 854390. 06 g 67 /min 132 mm[Hg] 63 mm[Hg] Clarita Wagner in [facility], 1 10:06:49 Date Recorded Body weight Body mass index (BMI) Body height Systolic blood pressure Diastolic blood pressure Provider Name and Address Organization Details Last Updated DateTime 01/10/2022 557652.0 9 g 35.9 kg/m2 177.8 cm 116 mm[Hg] 56 mm[Hg] Clarita Wagner in [facility], 2 10:08:08 Date Recorded Body weight Body mass index (BMI) Body height Heart rate Systolic blood pressure Diastolic blood pressure Provider Name and Address Organization Details Last Updated DateTime 3 778863. 02 g 33.4 kg/m2 177.8 cm 73 /min 133 mm[Hg] 66 mm[Hg] Clarita Hills [place] - [facility], 3 09:21:16 Date Recorded Body height Body mass index (BMI) Body weight Heart rate Systolic blood pressure Diastolic blood pressure Provider Name and Address Organization Details Last Updated DateTime 5 177.8 cm 36.8 kg/m2 078758. 37 g 77 /min 136 mm[Hg] 74 mm[Hg] Jessica Anderson [place] - [facility], 5 10:40:55 Social History Question Answer Notes LastModified by Organizat ion Details LastModified Time Tobacco Smoking Status Never Smoker Not Available [facility] 12/10/2019 03:19:40 What Is Your Level [...] Type Of Diet Are You Following? REGULAR [id number] Information not available 12/10/2019 Which Illicit Or Recreational Drugs Have You Used? No [id number] Information not available 12/10/2019 Do You Reside In Or Have You Traveled To An Area Where Ebola Virus Transmission Is Active? No [id number] Information not available 12/10/2019 Do You Or Have You Ever Used E-cigarettes Or Vape? Never Used Electronic Cigarettes [id number] Information not available 12/10/2019 Education 12 Information no t available 10/24/2011 What Is The Highest Grade Or Level Of School You Have Completed Or The Highest Degree You Have Received? UM13444-7 Information not available 12/28/2020 What Is Your Occupation? Not Working At This Time. [id number] Information not available 12/10/2019 How Many Days [...] available 12/28/2020 Are You Sexually Active? Yes [id number] Information not available 12/10/2019 Do You Or Have You Ever Used Smokeless Tobacco? Never Used Smokeless Tobacco [id number] Information not available 12/10/2019 How Much Tobacco Do You Smoke? No [id number] Information not available 12/10/2019 General Stress Level High Information not available 10/24/2011 Do You Feel Stressed (tense, Restless, Nervous, Or Anxious, Or Unable To Sleep At Night)? [id number] Information not available 12/28/2020 Do You Use Any Illicit Or Recreational Drugs? No Information not available 12/28/2020 How Many Years Have You Smoked Tobacco? 0 [id number] Information not available 12/10/2019 Have You Recently [...] Time What is your exercise level? None [id number] Information not available 12/10/2019 Mental Status None [...] Problems Y Defects or Inherited Disease N Anemia N History of Ovarian Cancer N History of Breast Cancer N LC [...] unspecified formulation 3 completed [place] Valentin in [facility], 01/16/2023 09:20:31 Influenza, split virus, trivalent, preservative 4 completed [place] Khoury in [facility], 09/22/2014 08:54:38 Influenza, split virus, quadrivalent, preservative 6 completed [place] Marsh in [facility], 03/18/2016 08:25:55 Influenza, split virus, quadrivalent, preservative 8 completed [place] Valentin in [facility], 01/16/2023 09:20:31 Pneumococcal Conjugate, unspecified formulation 8 completed [place] Valentin in [facility], 01/16/2023 09:20:32 varicella 9 completed [place] Marsh in [facility], 04/12/2019 11:04:08 Influenza, split virus, quadrivalent, preservative 9 completed [place] Valentin in [facility], 01/16/2023 09:20:31 COVID-19, mRNA, LNP-S, PF, 30 mcg/0.3 mL dose 1 completed [place] Valentin in [facility], 01/16/2023 09:20:31 COVID-19, mRNA, LNP-S, PF, 30 [...] Care, 01/16/2023 09:20:31 Pneumococcal conjugate PCV20, polysaccharide [id number] conjugate, adjuvant, PF 2 completed Clarita chavez [...] trivalent, preservative 1 completed [place] Valentin in [facility], 01/16/2023 09:20:32 Influenza, split virus, trivalent, preservative 3 completed [place] Valentin in [facility], 01/16/2023 09:20:32 Influenza, split virus, trivalent, preservative 9 completed [place] Valentin in [facility], 01/16/2023 09:20:32 Influenza, split virus, trivalent, PF 6 completed [place] Valentin in [facility], 01/16/2023 09:20:32 Novel [id number], preservative-free 9 completed [place] Valentin in [facility], 01/16/2023 09:20:32 Td (adult), 2 Lf tetanus toxoid, preservative free, adsorbed 9 completed [place] Valentin in [facility], 01/16/2023 09:20:32 Influenza, split virus, quadrivalent, PF 8 completed [place] Valentin in [facility], 01/16/2023 09:20:32 COVID-19, mRNA, LNP-S, PF, dmitri-sucrose, 30 mcg/0.3 mL 3 completed [place] Marsh in [facility], 03/06/2024 10:41:19 Influenza, split virus, quadrivalent, PF 3 completed Jessicasammy Jorgeywor [place] chavez in [facility], 03/06/2024 10:41:20 Past Encounters Encounter ID Performer Location Encounter Start Date Encounter Closed Date Diagnosis/Indication Diagnosis SNOMED-CT Code Diagnosis ICD10 Code Diagnosis Note [id number] MD ELADIA Page MD [address] [facility] [address] [place] [address] 10/24/2011 10:31:05 10/24/2011 15:38:00 [id number] MD ELADIA Page MD [address] [place] [address],[address] [place] [address] 02/07/2013 07:52:20 02/07/2013 12:49:34 Specialized medical examination 35632428 Screening for malignant neoplasm of rectum 633613571 Screening mammography 33164018 Menopausal syndrome 143057233 [id number] MD ELADIA Page MD [address] [place] [address],[address] [place] [address] 09/22/2014 08:35:54 09/22/2014 11:06:38 Specialized medical examination 82441336 Screening for malignant neoplasm of rectum 817896092 Screening mammography 54523968 Menopausal syndrome 230037205 [id number] MD ELADIA Page MD [address] [place] [address],[place] [address] 09/30/2014 08:19:34 09/30/2014 10:27:10 Candidal vulvovaginitis 64704245 Vaginitis 33372172 [id number] MD ELADIA Page MD [address] [place] [address],[place] [address] 03/18/2016 08:16:00 03/18/2016 11:30:40 Specialized medical examination 28032538 Z01.419 Screening for malignant neoplasm of rectum 083959021 Z12.12 Screening mammography 24 975113 Z12.31 Menopausal syndrome 1237 47771 N95.9 [id number] MD ELADIA Page MD [address] [place] [address],[place] [address] 10/18/2017 08:07:22 10/18/2017 11:25:05 Specialized medical examination 34475550 Z01.419 Screening for malignant neoplasm of rectum 384894810 Z12.12 Screening mammography 24 281442 Z12.31 Menopausal syndrome 1237 74084 N95.1 Insomnia 474539615 G47.0 0 [id number] MD ELADIA Page MD [address] [place] [address],[place] [address] 02/26/2018 12:51:24 02/26/2018 14:02:51 Atypical squamous cells of undetermined significance on cervical Papanicolaou smear 121655806 R87.610 [id number] MD ELADIA Page MD [address] [place], [place] [address]E [place] [address] 04/12/2019 10:45:52 04/12/2019 12:08:59 Menopausal syndrome 794220535 N95.1 Specialize d medical examination 87354196 Z01.419 Screening for malignant neoplasm of rectum 474281469 Z12.12 Screening mammography 24 643327 Z12.31 [id number] MD ELADIA Page MD [address] [place] [address] [place] [address] 12/28/2020 10:02:44 12/28/2020 11:37:50 Specialized medical examination 83330945 Z01.419 Screening for malignant neoplasm of rectum 201615856 Z12.12 Screening mammography 24 068810 Z12.31 Menopausal syndrome 1237 73715 N95.1 [id number] MD ELADIA Page MD [address] [place] [address] [place] [address] 01/10/2022 09:59:11 01/10/2022 13:57:13 Specialized medical examination 13491553 Z01.419 Screening for malignant neoplasm of rectum [id number] Z12.12 Screening mammography 24 [id number] Z12.31 [id number] MD ELADIA Page MD [address] [place], [place] [address]E [place] [address] 01/16/2023 09:13:08 01/16/2023 10:58:56 Specialized medical examination [id number] Z01.419 Screening for malignant neoplasm of rectum [id number] Z12.12 Screening mammography 24 [id number] Z12.31 Complete b lindness of right eye [id number] H54.415A Tunnel vis ion of left eye [id number] 90475 H53.40 [id number] MD ELADIA Page MD [address] [place], [place] [address] [place] [address] 03/06/2024 10:35:30 03/06/2024 12:13:05 Specialized medical examination [id number] Z01.419 Screening for malignant neoplasm of rectum [id number] Z12.12 Screening mammography 24 [id number] Z12.31 Health Concerns Section Related Observation LastModified by Organization Detai ls LastModified Time None Recorded Concern Status LastModified by Organization Details LastModified Time None Recorded Advance Directives Directive None Recorded Payers Encounter Date Sequence Insurance Name Policy Number Policy Horne Covered Member ID Horne Member ID Guarantor Name 04/12/2019 1 [place] [facility] (O) [id number] Vicente Griggs [id number] Christen Novakyer 12/28/2020 1 [place] [facility] (HMO) [id number] Vicente Griggs [id number] Christen Novakyer 01/10/2022 1 [place] [facility] (HMO) [id number] Vicente Griggs [id number] Christen Griggs 01/16/2023 1 [place] [facility] (HMO) [id number] Vicente Griggs [id number] Christen Novakyer 03/06/2024 1 [place] [facility] (HMO) [id number] Vicente Griggs [id number] Christen Griggs Notes Date Note Type [...] after a week! Eladia Miller MD [address] [facility],[address], [place], [address], [place] [facility], [...] [address], [place], [address], [place] - [facility], 12/28/2020 11:09:53 01/10/2022 text/html She is here [...] day a week. Eladia Miller MD [address], [place], [address], [place] - [facility], 01/10/2022 12:51:47 01/16/2023 text/html It has been [...] sto do so. Eladia Miller MD [address] [facility],[address], [place], [address], [place] - [facility], 01/16/2023 09:52:22 03/06/2024 text/html She is here [...] depth perception issues. Eladia Miller MD [address] [facility],[address], [place], [address], [place] - [facility], 03/06/2024 11:07:39 OBGyn Episode No OBEpisode recorded.
== END 2024-06-05 10:50 | disposition home or self-care (01) ==
LOC: HO.NEURO 10:49
PROVIDERS: PCP Internal Medicine; Visit Provider Physician Assistant
DX: R29.898 Other symptoms and signs involving the musculoskeletal system (principal); Z98.1 Arthrodesis status; M48.02 Spinal stenosis, cervical region; R94.131 Abnormal electromyogram [EMG]
CPT/HCPCS: 95886; 95909

== ENCOUNTER → 2024-06-05 10:52 | Outpatient (BNV) | payer BC, SELFPAY | PROVIDERS: PCP Internal Medicine; Visit Provider Physical Medicine & Rehabilitation | DX: M54.12 Radiculopathy, cervical region (principal) | CPT/HCPCS: 95886; 95909 ==

== ENCOUNTER 2024-08-22 08:18 | Outpatient (AMB) | payer BC, SELFPAY ==
--- OUTSIDE RECORDS SUMMARY | 2024-08-17 23:59 | XMS_ITS | Continuity of Care Document ---
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 Name Role Phone Kailey Walker MD, Anuja Mai Primary Care Physicia n Encounter [facility] [place](s): 07/18/24 - 08/17/24 [facility] [address] [place] [address] Drive [address] [place], [place] [address] Encounter Type: Triage Allergies, Adverse Reactions, Alerts Substance Criticality Severity Reaction Reaction Severity Status dorzolamide ophthalmic facial swelling Active Flonase tongue swells Active Inderal Severe Headache Acti ve Advair Diskus rash Active Timolol Maleate 1 cannot mckenzie e r/t asthma history facial swelling and itching Active 1timolol maleate eye drops. Immunizations Given and Recorded Vaccine Date Status Refusal Reason [id number] 12y+ bivalent booster vax 12/09/21 Recorded pneumococcal 20-valent conjugate vaccine 10/19/21 Recorded influenza virus vaccine, inactivated 10/19/21 Blade rded influenza virus vaccine, inactivated 11/11/20 Blade rded influenza virus vaccine, inactivated 09/27/19 Blade rded influenza virus vaccine, inactivated 11/06/18 Blade rded influenza virus vaccine, inactivated 10/02/17 Blade rded influenza virus vaccine, inactivated 11/10/15 Blade rded influenza virus vaccine, inactivated 10/26/15 Blade rded influenza virus vaccine, inactivated 02/07/15 Blade rded influenza virus vaccine, inactivated 11/24/13 Blade rded influenza virus vaccine, inactivated 11/12/12 Blade rded influenza virus vaccine, inactivated 10/18/11 Blade rded influenza virus vaccine, inactivated 02/06/11 Blade rded influenza virus vaccine, inactivated 10/19/09 Blade rded influenza virus vaccine, inactivated 01/12/09 Blade rded SARS-CoV-2 mRNA ([id number]) vax 05/20/21 Recorded SARS-CoV-2 (COVID-19) mRNA BNT-162b2 vac 11/04/20 Recorded SARS-CoV-2 (COVID-19) mRNA BNT-162b2 vac 03/19/20 Recorded SARS-CoV-2 (COVID-19) mRNA BNT-162b2 vac 02/27/20 Recorded Varicella Virus Vaccine 09/05/18 Recorded zoster vaccine, inactivated 06/16/18 Recorded tetanus-diphtheria toxoids (Td) 06/04/18 Recorded pneumococcal 13-valent vaccine 10/02/17 Recorded pneumococcal 23-valent vaccine 10/02/17 Recorded Influenza Virus Vaccine (oldterm) 11/24/16 Recorde d tetanus/diphtheria/pertussis, acel(Tdap) 03/05/07 Recorded Medications acetaminophen-HYDROcodone 325 mg-5 mg oral tablet 1 tablet, By Mouth, Every 6 hours, PRN Pain , Severe, # 28 tablet, 0 Refills, Maintenance, 07/17/24 6:17:00 PM EDT, Tablet, [facility] upon patient request if the prescription is for a schedule II opioid drug., 1 tablet By Mouth Every 6 hours,PRN:Pain , Severe, 178, cm, 07/15/24 7:32:00 EDT, Height, 117.5, kg, 07/17/24 13:20:00 EDT, Dry Weight Start Date: 07/17/24 Status: Ordered Quantity: 28.0 Unit: tablet Repeat number: 1 BuPROPion (Eqv-Wellbutrin SR) 150 mg/12 hours oral tablet, extended release By Mouth, Daily, 0 Refills, Maintenance, 05/15/23 8:02:00 AM EDT, Partial fill upon patient request if the prescription is for a schedule II opioid drug. Start Date: 05/15/23 Status: Ordered Repeat number: 1 Calcium 600 +D oral tablet 1 tablet, By Mouth, 2 times a day, Maintenance, 05/17/17 6:46:15 PM EDT, Tablet Start Date: 05/17/17 Status: Ordered Repeat number: 1 Combivent Respimat 20 mcg-100 mcg/inh inhalation aerosol 1 puffs, Inhalation, Daily, # 4 Gm, 0 Refills, Maintenance, 07/28/22 11:23:00 PM EDT, Aerosol, Partial fill upon patient request if the prescription is for a schedule II opioid drug. Start Date: 07/28/22 Status: Ordered Quantity: 4.0 Unit: g Repeat number: 1 Dilt-XR 240 mg/24 hours oral capsule, extended release 0 Refills, Maintenance, 05/15/23 8:04:00 AM EDT, Partial fill upon patient request if the prescription is for a schedule II opioid drug. Start Date: 05/15/23 Status: Ordered Repeat number: 1 gabapentin 300 mg oral capsule 1, capsule, By Mouth, 3 times a day, PRN, for Dr. Nair pt, # 90 capsule, Refills 3, Tot. Refills 3, Maintenance, NEEDED FOR HEADACHE UP TO, 06/25/24 3:38:00 PM EDT, Route to Pharmacy Electronically, [id number], 178, cm, 06/25/24 13:38:00 EDT, Height, 116, kg, 06/25/24 13:38:00 EDT, Dry Weight Start Date: 06/25/24 Stop Date: 10/23/24 Status: Ordered Quantity: 90.0 Unit: capsule Repeat number: 4 Lipitor 20 mg oral tablet 1 tablet = 20 mg, By Mouth, Daily at bedtime, # 90 tablet, 0 Refills, Maintenance, 06/05/20 9:15:00 AM EDT, Tablet, Partial fill upon patient request if the prescription is for a schedule II opioid drug. Start Date: 06/05/20 Status: Ordered Quantity: 90.0 Unit: tablet Repeat number: 1 Lumigan 0.01% ophthalmic solution INSTILL 1 DROP INTO BOTH EYES EVERY NIGHT AT BEDTIME Start Date: 06/26/24 Status: Ordered Repeat number: 1 Protonix 40 mg oral delayed release tablet 1 tablet = 40 mg, By Mouth, 2 times a day, # 60 tablet, 0 Refills, Maintenance, 12/24/21 12:23:00 PM EST, CR Tablet Start Date: 12/24/21 Status: Ordered Quantity: 60.0 Unit: tablet Repeat number: 1 Singulair 10 mg oral tablet 1 tablet = 10 mg, By Mouth, Daily at bedtime, # 30 tablet, 0 Refills, Maintenance, 09/21/10 11:36:02AM EDT Start Date: 09/21/10 Status: Ordered Quantity: 30.0 Unit: tablet Repeat number: 1 Symbicort 160mcg/4.5mcg Inhaler 2, puffs, Inhalation, 2 times a day, # 10.2 Gm, Refills 5, Tot. Refills 5, Maintenance, 04/29/19 11:01:00 AM EDT, Aerosol, Route to Pharmacy Electronically, [id number], [facility] #[id number], 178, cm, 10/31/18 13:57:00 EDT, Height, 113.2, kg, 03/05/18 17:30:00 EST, Dry Weight Start Date: 04/29/19 Status: Ordered Quantity: 10.2 Unit: g Repeat number: 6 tiZANidine 2 mg oral tablet 2 mg, 1, tablet, By Mouth, 3 times a day, # 90 tablet, Refills 0, Tot. Refills 0, Maintenance, 07/17/24 6:17:00 PM EDT, Route to Pharmacy Electronically, [facility], Partial fill upon patient request if the prescription is for a schedule II opioid drug., 178, cm, 07/15/24 7:32:00 EDT, Height, 117.5, kg, 07/17/24 13:20:00 EDT, Dry Weight Start Date: 07/17/24 Status: Ordered Quantity: 90.0 Unit: tablet Repeat number: 1 tiZANidine 2 mg oral tablet 2 mg, 1, tablet, By Mouth, Every 6 hours, # 120 tablet, Refills 0, Tot. Refills 0, Maintenance, 08/13/24 3:14:00 PM EDT, Route to Pharmacy Electronically, [facility] #[id number], Partial fill uponpatient request if the prescription is for a schedule II opioid drug., 178, cm, 08/13/24 14:51:00 EDT, Height, 117.5, kg, 07/17/24 13:20:00 EDT, Dry Weight Start Date: 08/13/24 Status: Ordered Quantity: 120.0 Unit: tablet Repeat number: 1 Problem List Condition Confirmation Course Effective Dates Status Health Status Informant Allergic rhinitis Confirmed Active Asthma Confirmed Active Chronic insomnia Confirmed Active COVID-19 1 Confirmed 09/13/21 Active Hormone replacement therapy Confirmed Active Benign essential tremor Confirmed Active Acid reflux disease Confirmed Active Glaucoma Confirmed Active H/O retinal detachment Confirmed Active Hemorrhoids Confirmed Active Esophagus hernia Confirmed Active Hypercholesteremia Confirmed Active Hyperlipidemia Confirmed Active HTN (hypertension) Confirmed Active IBS (irritable bowel syndrome) Confirmed Active Mild major depression Confirmed Active Anxiety and depression Confirmed Active Moderate persistent asthma Confirmed Active Moderate persistent asthma Confirmed Active Paroxysmal atrial fibrillation Confirmed Active Paroxysmal A-fib Confirmed Active Primary insomnia Confirmed Active Other retinal detachments Confirmed Active Severe obesity (BMI 35.0-39.9) with comorbidity Confirmed Active 1Problem added by Discern Expert Social History Social History Type Response Tobacco Other: Lifetime non- smoker. Sex Sex Representation Female (finding) Patient Care team information Care Team Personnel Name: Cecily Weiss RN Position: S RN Member Role: Primary Care Nurse Name: Radu Mercado RN Position: S RN Member Role: Primary Care Nurse Name: Barbara Campos RN Position: S RN Member Role: Primary Care Nurse Name: Kailey Walker MD, Anuja Mai Position: Reference Physician Member Role: PCP Address: [address] [place] [address] Telecom: Care Team Related Persons Name: SU ZARATE Name: ILENE ZARATE Insurance Providers Guarantor name: ABDIRASHID ZARATE Health Plan Information #: 1 Payer: MEDICARE B Payer Identifier: NA Member Number: [id number] Group Number: NA Subscriber Identifier: [id number] Relationship to Subscriber: self Coverage Type: NA Coverage Verification Date: NA Telecom: NA Address: Health Plan Information #: 2 Payer: [employer] SECONDARY ONLY Payer Identifier: NA Member Number: [id number] Group Number: [id number] Subscriber Identifier: [id number] Relationship to Subscriber: self Coverage Type: Medicare Other Coverage Verification Date: NA Telecom: NA Address:
[2024-08-22 08:24] VITALS: BMI 35.9
--- NOTE | 2024-08-22 08:24 | MHC.OFFVIS ---
Vital Signs 08/22/24 08:24 Height 5 ft 10 in Weight 250 lb BMI 35.9 Intake Visit Reasons: OV - Right Medial Meniscus Root Repair - 09/06/23 Intake Note: Christen is a 59 year old female who presents today for a follow up of her right knee. She was booked for a Right Knee Arthroscopy on 06/05/2024 but was postponed due to growing concerns of left shoulder pain, weakness and limited ROM. An MRI of the C Spine and Left shoulder were ordered as well as an EMG of left upper extremity. Referred to Dr. Carlos at [facility] for results of studies. She had surgery on July [address] Carlos at [facility] Left Shoulder MRI: 1.Motion artifact limits assessment 2. Probable supraspinatus tendinopathy as above C Spine MRI: 1. C4-5 and C6-7 spinal stenosis as above Allergies timolol Allergy (Severe, Verified 05/30/24 14:19) Swelling fluticasone (From FLONASE) Allergy (Unknown, Verified 05/30/24 14:19) SWELLING TONGUE/THROAT propranolol (From INDERAL LA) Allergy (Unknown, Verified 05/30/24 14:19) HEADAACHE salmeterol (From ADVAIR DISKUS) Allergy (Unknown, Verified 05/30/24 14:19) RASH dorzolamide Allergy (Verified 05/30/24 14:19) Swelling adhesive tape Adverse Reaction (Intermediate, Verified 08/22/24 08:29) blisters HPI HPI OV - Right Medial Meniscus Root Repair - 09/06/23: Details: Right knee s/p meniscal repair. Has been having locking episodes but these are decreasing in severity and regularity. She would like to be more active but has medial sided knee pain intermittantly while walking. It is slowly improving compared to prior. [facility] Medical History Eye abnormality Surgery, elective Glaucoma Hemidiaphragm paralysis Afib Detached retina Asthma Allergic rhinitis Surgical History (Updated 08/22/24 @ 08:34 by Mila Ricks CMA) History of total left knee replacement H/O: hysterectomy S/P cervical spinal fusion (~07/17/24) H/O eye surgery H/O hernia repair H/O Spinal surgery Social History Alcohol intake: never Patient Tobacco Use Status: Never used Tobacco service: No Current occupational status: unemployed Physical Exam Vital Signs: BMI result Body Mass Index 35.9 Extrem Other: mild medial compartment ttp but neg [facility] Procedures Joint Inj/Aspir; Non-Pain Clin Joint Injection/Drain Details: Injected 1 mL of Decadron and 3 mL 1% lidocaine and 3 mL of 0.25% Marcaine. Site was prepped using aseptic technique. Patient tolerated the procedure well. Shoulders, Hips, Knees, Knee Large Joint Injection : Right Knee Coding Procedure code (CPT) selection complete Assessment & Plan Assessment & Plan (1) S/P medial meniscal repair: Code(s): Z98.890 - Other specified postprocedural states Category: Surgical Plan: Status post meniscal repair. This is likely failed as she had locking symptoms develop proximally 6 months postop. These have been decreasing however and we had a long discussion regarding the best next steps. Certainly partial meniscectomy would be a surgical solution to her symptoms. If she does not continue to improve and/or worsens we will likely operate but for now we agreed to inject the knee and see how she does through gentle increase in activity and strengthening. Coding Level of Care Code Est Pt Level 3 (60079) Diagnoses S/P medial meniscal repair Z98.890 CPT Codes Shoulders, Hips, Knees, - Knee Large Joint Injection : Right Knee ([id number])
--- OUTSIDE RECORDS SUMMARY | 2024-08-22 08:24 | XMS_ITS | Clinical Summary ---
Author Organization [address] [facility] Address [address] [place] [address] Phone Care Team Providers Care Bleach Analyst Name Role Phone Anuja Gale MD [...] TWO TIMES A DAY NEEDED FOR HEMORRHOID 4 Active EPINEPHrine (EpiPen 2-Jd) 0.3 mg/0.3 mL injection Inject 0.3 mg as directed as needed (As needed for anaphylaxis). Use as directed 4 Active ipratropium-alb uteroL (Combivent Respimat) 20-100 mcg/actuation inhaler Inhale 1 Puff into the lungs every 6 hours as needed for Other (wheezing) for up to 363 days. 4 Active bimatoprost (Lumigan) 0.01 % ophthalmic drops INSTIL 1 DROP IN BOTH EYES AT BEDTIME DIRECTED 4 Active gabapentin (NEURONTIN) 300 mg capsule TAKE 1 CAPSULE BY MOUTH NEEDED FOR HEADACHE UP TO 2 TIMES A DAY 4 Active dilTIAZem XR (DILACOR XR) 240 mg 24 hr capsule Take 1 Capsule by mouth daily for 360 days. 4 Active albuterol HFA (PROAIR HFA ; PROVENTIL HFA ; VENTOLIN HFA) 90 mcg/actuation inhaler USE 2 INHALATIONS ORALLY EVERY 6 HOURS NEEDED FORCOUGH OR WHEEZING 3 Active buPROPion SR (WELLBUTRIN SR) 150 mg 12 hr tablet Take 1 Tablet by mouth daily. 3 Active zolpidem (AMBIEN) 10 mg tablet Take by mouth at bedtime as needed. Active calcium carbonate (CALCIUM 600 ORAL) Take 1 Tab by mouth 2 times daily. Active fexofenadine HCl (MARIEL ORAL) Take by mouth. Activ e diclofenac sodium 3 % gel APPLY TOPICALLY TO THE AFFECTED AREA TWICE DAILY 4 Active budesonide-form oteroL (Symbicort) 160-4.5 mcg/actuation inhaler Inhale 2 puffs by mouth 2 (two) times a day. 3 each 3 5 026 Active montelukast (SINGULAIR) 10 mg tablet TAKE 1 TABLET AT BEDTIME 90 tablet 1 5 Active atorvastatin (LIPITOR) 20 mg tablet TAKE 1 TABLET DAILY 90 tablet 1 5 Active pantoprazole (PROTONIX) 40 mg EC tablet Take 1 tablet (40 mg total) by mouth 2 (two) times a day. Do not crush, chew, or split. 180 each 3 5 026 Active budesonide-form oteroL (SYMBICORT) 160-4.5 mcg/actuation inhalerIndicati ons:Moderate persistent asthma, unspecified whether complicated Inhale 2 puffs by mouth 2 (two) times a day. Rinse mouth with water after use to reduce aftertaste and incidence of candidiasis. Do not swallow. 3 each 2 5 026 Active ipratropium-alb uteroL (Combivent Respimat) 20-100 mcg/actuation inhalerIndicati ons:Moderate persistent asthma, unspecified whether complicated Inhale 1 puff by mouth 4 (four) times a day. 1 each 6 5 026 Active traMADoL (ULTRAM) 50 mg tablet Take 1 tablet (50 mg total) by mouth 2 (two) times a day if needed for severe pain. Max Daily Amount: 100 mg 15 tablet 5 Active tiZANidine (ZANAFLEX) 4 mg tablet Take 1 tablet (4 mg total) by mouth 2 (two) times a day if needed for muscle spasms. 30 tablet 5 Active atropine sulfate (ATROPINE-CARE OPHT) apply to the eye 2 times daily. r eye 025 Discontin ued(Thera py completed ) brimonidine (ALPHAGAN) 0.2 % ophthalmic solution 4 025 Discontin ued(Thera py completed ) glucose blood test strip Test every day 4 025 Discontin ued(Thera py completed ) sucralfate (CARAFATE) 100 mg/mL suspension Take 10 mL (1 g total) by mouth 4 (four) times a day (before meals and nightly). 1200 mL 5 025 Discontin ued(Thera py completed ) Active Problems Problem Noted Date Diagnosed Date [...] Palpitations 12/20/2021 PAF (paroxysmal atrial fibri llation) (CMS/HCC V24, CMS/HCC V28) 09/27/2021 Tachycardia 09/27/2021 Esophageal dysmotility 04/07/2020 HTN (hypertension), benign 12/24/2018 Severe obesity (BMI 35.0-39. 9) with comorbidity (CMS/HCC V24, CMS/HCC V28) 10/06/2018 Benign essential tremor 06/04/2018 Musculoskeletal [...] Encounters Date Type Department Care Team Description 08/07/2024 2:40 PM EDT Office Visit [facility] - [facility] [address] [facility] [address] [place] [address] Annmarie Figueroa PA CAD (coronary artery disease) (Primary Dx); Diaphragmatic paralysis; Paroxysmal atrial fibrillation (CMS/[facility] V24, CMS/[facility] V28); HTN (hypertension), benign 08/02/2024 10:30 AM EDT Office Visit Adult Medicine [address] [phone] Anuja Gale MD Hospital discharge follow-up (Primary Dx); H/O cervical spine surgery; Imbalance; TIA (transient ischemic attack) 07/24/2024 Telephone Adult [address] [phone] Anuja Gale MD Referral (Cardiology Insurance Referral) 07/12/2024 Telephone Adult [address] [phone] Anuja Gale MD Referral (Pain Medicine Insurance Referral) 07/10/[address] [phone] Anuja Gale MD Hospital Follow-up 06/27/2024 Telephone Adult [address] [phone] Eladia Giron RN 06/27/2024 Telephone [facility] - [facility] [address] [address] Annmarie Figueroa PA Hospital Follow-up 06/19/[address] [phone] Anuja Gale MD faxed order ([facility] PT - #[id number]) 06/06/2024 [place] Adult [address] [phone] Anuja Gale MD referral 06/04/2024 Telephone Adult [address] [phone] Anuja Gale MD Referral 05/29/2024 8:50 AM EDT Lab Draw Station - [address] [phone] Obesity (Primary Dx) 05/29/2024 8:00 AM EDT Office Visit Pulmonolgy - [address] [place] [phone] Sarah Beckett MD Moderate persistent asthma, unspecified whether complicated (Primary Dx); Loud snoring; Other fatigue; Obesity (BMI 35.0-39.9 without comorbidity) 05/29/2024 Telephone Adult Medicine [address] [phone] Anuja Gale MD MRI order 05/27/2024 9:45 AM EDT Office Visit Bariatric Surgery [facility] 175 [facility] [address] [place] [address] Briana Junior MD Gastroesophageal reflux disease, unspecified whether esophagitis present (Primary Dx); Hiatal hernia; Joint hypermobility syndrome involving hand; Hx of hiatal hernia; Umbilical hernia without obstruction and without gangrene; Hx of tear of meniscus of knee joint; Right retinal detachment 05/24/2024 Telephone Adult Medicine [address] [phone] Anuja Gale MD 05/23/2024 Telephone Adult [address] [phone] Anuja Gale MD Arm Pain from Last 3 Months Immunizations Name [...] Date Site/Laterality Comments OTHER SURGICAL HISTORY age 28 PROCEDURE: HISTORICAL TOTAL HYSTERECTOMY W/O BSO; COMMENT: ZORAN ?TVH combined procedure due to adhesions, was in hospital post op for a week SALPINGOOPHORECTOMY 03/08/2002 PROCEDURE: GA LAPAROSCOPY W/RMVL ADNEXAL STRUCTURES; COMMENT: diagnostic laparoscopy, [...] repeat in 10 yrs ESOPHAGOGASTRODUODENOSCOPY 01/02/2017 PROCEDURE: GA ESOPHAGOGASTRODUODENOSCOPY TRANSORAL DIAGNOSTIC; COMMENT: normal OTHER SURGICAL [...] Other retinal detachments DX:Oth er retinal detachments Hypertension Family History Medical History Relation Name Comments [...] Sign Reading Time Taken Comments Blood Pressure 110/80 08/07/2024 2:23 PM EDT Pulse 65 08/07/2024 2:23 PM EDT Temperature 36.8 C (98.2 F) 08/02/2024 10:32 AM EDT Respiratory Rate 12 08/02/2024 10:32 AM EDT Oxygen Saturation 98% 08/07/2024 2:23 PM EDT Inhaled Oxygen Concentration - - Weight 120 kg (265 lb) 08/07/2024 2:23 PM EDT Height 177.8 cm (5' 10 ) 08/07/2024 2:23 PM EDT Body Mass Index 38.02 08/07/2024 2:23 PM EDT Plan of Treatment Upcoming Encounters Date Type Department Care Team (Late st Contact Info) Description 09/26/2024 7:45 AM EDT Appointment [facility] Xray [address] [place] [address] 11/27/2024 7:30 AM EDT Office Visit Adult Medicine East - [address] [phone] Anuja Gale MD [address] [place] [address] 11/29/2024 9:30 AM EDT Office Visit Pulmonolgy - [place] [address] [phone] Sarah Beckett MD [address] [address] 12/06/2024 2:00 PM EDT Appointment Radiology Department - [address] [phone] Health Maintenance Due Date Last Done Comments Zoster Vaccines (2 of 2) 10/31/2018 019, 06/16/2018, 06/16/2018 HIV Screening 01/15/2022 Medicare Annual Wellness Visit 01/15/2022 RSV Immunization Adult Patients (1 - Risk 60-74 years 1-dose series) 2024 Cervical Cancer Screening: Pap Smear 03/27/2024 03/27/2021 Influenza Vaccine (#1) 2024 , 11/05/2022, 11/16/2021, Additional history exists Social Influencers of Health Screening 02/28/2025 02/29/2024 Depression Screening 03/01/2025 03/01/2024, 02/28/19 25 Breast Cancer Screening 04/13/2025 04/14/19 24, 04/12/2022, 04/07/2022, Additional history exists Hypertension/CHF/CAD Annual BMP Blood Test 08/06/2025 08/06/2024, 10/18/2023, 10/18/2023 Colorectal Cancer Screening: Colonoscopy 01/02/2027 01/02/2017 DTaP,Tdap,and Td Vaccines (3 - Td or Tdap) 06/04/2028 06/04/2018, 03/05/2007 Cholesterol Screening (Lipid Panel) 08/06/2029 08/06/2024, 10/18/2023, 10/18/2023 Hepatitis C Screening Completed 09/04/2014 Varicella Vaccines Aged Out 09/05/2018 No longer eligible based on patient's age to complete this topic Pneumococcal Vaccine: 50+ Years Completed 12/28/2021, 12/28/2021, 10/19/2021, Additional history exists COVID-19 Vaccine Completed 02/24/2024, [...] Procedure Name Priority Date/Time Associated Diagnosis Comments LIPID PANEL WITH REFLEX TO DIRECT LDL Routine 08/06/2024 10:33 AM EDT Imbalance TIA (transient ischemic attack) COMPREHENSIVE METABOLIC PANEL Routine 08/06/2024 10:33 AM EDT Imbalance TIA (transient ischemic attack) EXTERNAL CLINICAL LAB Routine 06/25/2024 3:35 PM EDT MR CERVICAL SPINE WO AND W CONTRAST Routine 06/01/2024 3:36 PM EDT TRIIODOTHYRONINE FREE Routine 05/29/2024 8:51 AM EDT Obesity FREE THYROXINE WITH REFLEX TO FREE TRIIODOTHYRONINE Routine 05/29/2024 8:51 AM EDT Obesity THYROID STIMULATING HORMONE WITH REFLEX TO FREE T4 AND FREE T3 Routine 05/29/2024 8:51 AM EDT Obesity SCREENING MAMMOGRAPHY BI 2-VIEW BREAST INC CAD Routine 04/14/2023 10:01 AM EST Encounter for screening mammogram for malignant neoplasm of breast HM PAP SMEAR Routine 03/27/2021 COLONOSCOPY Routine 01/02/2017 HEPATITIS C SCREENING Routine 09/04/2014 from Last 3 Months or Most Recently Relevant to Health Maintenance Results * Lipid panel with reflex to direct LDL (08/06/2024 10:33 AM EDT) Cholesterol 171 0 - 200 mg/dL LAB CHEMISTRY METHOD 08/06/2024 2:10 PM EDT [facility] Triglycerides 80 0 - 150 mg/dL LAB CHEMISTRY METHOD 08/06/2024 2:10 PM T [facility] HDL 82 >=40 mg/dL LAB CHEMISTRY METHOD 08/06/2024 2:10 PM [facility] LDL Calculated 73 0 - 100 mg/dL LAB CHEMISTRY METHOD 08/06/2024 2:10 PM [facility] VLDL Cholesterol Horace 16 mg/dL LAB CHEMISTRY METHOD 08/06/2024 2:10 PM T [facility] Non HDL Chol. (LDL+VLDL) 89 <145 mg/dL LAB CHEMISTRY METHOD 08/06/2024 2:10 PM [facility] Chol/HDL Ratio 2.1 0.0 - 4.4 LAB CHEMISTRY METHOD 08/06/2024 2:10 PM [facility] Blood Venous blood specimen / Unknown Venipuncture / Unknown 08/06/2024 10:33 AM EDT 08/06/2024 10:33 AM EDT us Anuja Gale MD LAB BLOOD ORDERABL ES Final Result [facility] [address] [place] [address], [place] [phone] * Comprehensive metabolic panel (08/06/2024 10:33 AM EDT) Sodium 143 133 - 145 mmol/L LAB CHEMISTRY METHOD 08/06/2024 2:06 PM [facility] Potassium 4.0 3.5 - 5.5 mmol/L LAB CHEMISTRY METHOD 08/06/2024 2:06 PM [facility] Chloride 110 96 - 110 mmol/L LAB CHEMISTRY METHOD 08/06/2024 2:06 PM [facility] CO2 29 21 - 32 mmol/L LAB CHEMISTRY METHOD 08/06/2024 2:06 PM [facility] Anion Gap 4 3 - 11 LAB CHEMISTRY METHOD 08/06/2024 2:06 PM [facility] Glucose 87 70 - 100 mg/dL LAB CHEMISTRY METHOD 08/06/2024 2:06 PM [facility] BUN 8 5 - 25 mg/dL LAB CHEMISTRY METHOD 08/06/2024 2:06 PM [facility] Creatinine 0.76 0.50 - 1.10 mg/dL LAB CHEMISTRY METHOD 08/06/2024 2:06 PM [facility] eGFR 90 >=60 mL/min/1. 73m2 LAB CHEMISTRY METHOD 08/06/2024 2:06 PM [facility] Comment:Calculation based on the Chronic Kidney Disease Epidemiology Collaboration (CKD-EPI) equation refit without adjustment for race. BUN/Creatinine Ratio 10.5 LAB CHEMISTRY METHOD 08/06/2024 2:06 PM [facility] Calcium 9.6 8.5 - 10.5 mg/dL LAB CHEMISTRY METHOD 08/06/2024 2:06 PM EDT [facility] AST (SGOT) 18 10 - 42 unit/L LAB CHEMISTRY METHOD 08/06/2024 2:06 PM EDT [facility] ALT (SGPT) 26 10 - 60 unit/L LAB CHEMISTRY METHOD 08/06/2024 2:06 PM EDT [facility] Alkaline Phosphatase 106 42 - 121 unit/L LAB CHEMISTRY METHOD 08/06/2024 2:06 PM EDT [facility] Total Protein 6.6 6.0 - 8.0 g/dL LAB CHEMISTRY METHOD 08/06/2024 2:06 PM EDT [facility] Albumin 3.6 3.2 - 5.0 g/dL LAB CHEMISTRY METHOD 08/06/2024 2:06 PM EDT [facility] Total Bilirubin 0.6 0.0 - 1.4 mg/dL LAB CHEMISTRY METHOD 08/06/2024 2:06 PM EDT [facility] Blood Venous blood specimen / Unknown Venipuncture / Unknown 08/06/2024 10:33 AM EDT 08/06/2024 10:33 AM EDT Anuja Gale MD LAB BLOOD ORDERABL ES Final Result [facility] [address] [place] [address], * External clinical lab (06/25/2024 3:35 PM EDT) Historical Provider LAB BLOOD ORDERABLES Elizabeth l Result * MR Cervical Spine wo and w Contrast (06/01/2024 3:36 PM EDT) Anatomical Region Laterality Modality C-spine, Spine Magnetic Resonan ce Yaw Bateman MD IMG MRI PROCEDURES Final Resul t * (ABNORMAL) Thyroid stimulating hormone with reflex to free t4 and free t3 (05/29/2024 8:51 AM EDT) TSH 5.10(H) 0.40 - 4.00 mcIU/mL LAB CHEMISTRY METHOD 05/29/2024 2:01 PM EDT [facility] Blood Venous blood specimen / Unknown Venipuncture / Unknown 05/29/2024 8:51 AM EDT 05/29/2024 8:51 AM EDT Sarah Beckett MD LAB BLOOD ORDERABLES Final Resul t Performing Organization Address City/[facility] Co de Phone Number [facility] [address] [place] [address], [place] [phone] * Free thyroxine with reflex to free triiodothyronine (05/29/2024 8:51 AM EDT) Free T4 1.33 0.70 - 1.80 ng/dL LAB CHEMISTRY METHOD 05/29/2024 2:39 PM EDT [facility] Blood Venous blood specimen / Unknown Venipuncture / Unknown 05/29/2024 8:51 AM EDT 05/29/2024 8:51 AM EDT Sarah Beckett MD LAB BLOOD ORDERABLES Final Resul t Performing Organization Address City/[facility]/ZIP Co de Phone Number [facility] [address] [place] [address], [place] [phone] * Triiodothyronine free (05/29/2024 8:51 AM EDT) T3, Free 345 230 - 420 pcg/dL LAB CHEMISTRY METHOD 05/29/2024 3:12 PM EDT [facility] Blood Venous blood specimen / Unknown Venipuncture / Unknown 05/29/2024 8:51 AM EDT 05/29/2024 8:51 AM EDT us Sarah Beckett MD LAB BLOOD ORDERABLES Final Resul t CECIL CONTRERAS NM ([facility]) [facility] [address] [place] [address], * SCREENING MAMMOGRAPHY BI 2-VIEW BREAST INC [...] interpreted with the aid of computer-aided detection. Comparison is made with 04/07/2022 and as far back as 11/17/2018. Breast parenchyma is composed of scattered fibroglandular densities. No new suspicious mass, architectural distortion, or suspicious [...] evidence of malignancy. BI-RADS 1 - negative us Eladia Miller MD IMG XR PROCEDURES Final Resu lt * Hm Pap Smear (03/27/2021) Pathologist [facility] Pap smear No interpretation , Abstracted Historical Provider HEALTH MAINTENANCE Final Result * Colonoscopy (01/02/2017) Pathologist [facility] Colonoscopy No interpretation , Abstracted Anatomical Region Laterality Modality Other Historical Provider HEALTH MAINTENANCE Final Result * Hepatitis C Screening (09/04/2014) Pathologist [facility] Hepatitis C Screening Abstracted Historical Provider HEALTH MAINTENANCE Final Result from Last 3 Months or Most Recently Relevant to Health Maintenance Insurance MEDICARE [facility] Advance Directives Documents on File Type Date Recorded Patient Employment Advisor Expl anation Health Care Decision (hx) 10/12/2020 AD OLIVAS DIRECTIVE Health Care Decision (hx) 10/12/2020 AD OLIAVS DIRECTIVE Health Care Decision (hx) 10/12/2020 AD [...] (hx) 10/12/2020 AD OLIVAS DIRECTIVE Care Teams Bleach Analyst Relationship Specialty Start Date End Date Anuja Gale MD [address] [place] [id number] PCP - General Internal Medicine 08/13/21
--- OUTSIDE RECORDS SUMMARY | 2024-08-22 08:24 | XMS_ITS | Data Portability ---
Author Organization [place] [facility],, ELADIA MILLER MD Address [address] [address] Care Team Providers Care Php Lamp Developer Name Role Phone MURALI HOLLIS Primary Care Provider Assessment No assessment recorded. Plan of Treatment Reminders Order Date Submit Date Provider Last Modified By Organization Details Last Modified Time Details Appointments None recorded. Lab cytology report, thin prep, smear or scraping, cervical or vaginal 2024 025 BELKIS [facility] (Centralized Electronic Ordering - All Locations), Patient Can Go To The Location Of Their Choice, [id number] 5 18:15:55 hemoglobi n, gastroint estinal, stool 2024 025 [email or web address] 1 In-Office Order, Internal Use Only DO Not Attach Compendium DO Not Attach Compendium, Do Not Delete/merge, [id number] 5 11:05:22 pap test, thinprep, cervical 2022 023 [facility] (Centralized Electronic Ordering - All Locations), Patient Can Go To The Location Of Their Choice, [id number] 3 10:53:54 fecal occult blood, stool 2022 023 [email or web address] 1 In-Office Order, Internal Use Only DO Not Attach Compendium DO Not Attach Compendium, Do Not Delete/merge, [id number] 3 09:47:14 pap, LB, vaginal 2021 022 [email or web address] [facility] (Centralized Electronic Ordering - All Locations), Patient Can Go To The Location Of Their Choice, [id number] 2 07:42:30 fecal occult blood, stool 2021 022 [email or web address] 1 In-Office Order, Internal Use Only DO Not Attach Compendium DO Not Attach Compendium, Do Not Delete/merge, [id number] 2 12:50:14 pap test, thinprep, cervical 2020 021 [facility], Cytopathology Service, [address] [place], [address], 1 08:27:08 fecal occult blood, stool 2020 021 [email or web address] 1 In-Office Order, Internal Use Only DO Not Attach Compendium DO Not Attach Compendium, Do Not Delete/merge, [id number] 1 11:08:17 pap, LB, vaginal 2019 020 [email or web address] [facility], Cytopathology Service, [address] [place], [address], 0 07:51:18 fecal occult blood, stool 2019 020 [email or web address] In-Office Order, Internal Use Only DO Not Attach Compendium DO Not Attach Compendium, Do Not Delete/merge, [id number] 0 07:51:17 Referral None recorded. Procedures None recorded. Surgeries None recorded. Imaging MAMMO, screening , digital, bilateral 2024 025 [facility] ([facility]), [address] [place], [address], 5 12:13:05 MAMMO, screening , digital, bilateral - Breast Aspiratio n and/or Biopsy if needed [address] [facility] (Mammography), [address] [place], [address], 4 18:29:40 MAMMO, screening , digital, bilateral 2021 022 [facility] ([facility]), [address] [facility] [place], [address], 3 16:32:42 MAMMO, screening , digital, bilateral 2020 021 [facility] ([facility]), [address] [place], [address], 1 16:07:28 MAMMO, screening , digital, bilateral 2019 020 [facility] ([facility]), [address] [place], [address], 0 17:04:33 Medication Orders estradiol 1 mg tablet 2020 021 [facility], [address] [place] [address], [address], 3 09:18:39 estradiol 1 mg tablet 2019 020 [facility], [address] [place] [address], [address], 3 09:18:39 Patient TargetsNo targets recorded. Patient Instructions Encounter Date Encounter Id Patient Instructions Last Modified By Organization Details Last Modified Time 04/12/2019 [id number] She is here for annual exam, is [...] time postmenopausally. Not available 04/12/2019 11:38:11 12/28/2020 [id number] learning about healthy weight Not available 12/28/2020 [...] the breast. Not available 12/28/2020 11:09:23 01/10/2022 [id number] learning about healthy weight Not available 01/10/2022 [...] the breast. Not available 01/10/2022 12:51:26 01/16/2023 [id number] learning about healthy weight Not available 01/16/2023 [...] the breast. Not available 01/16/2023 09:47:06 03/06/2024 [id number] learning about healthy weight Not available 03/06/2024 [...] DO Not Attach Compendium, Do Not Delete/merge, 11215 04/12/2019 11:15:42 04/12/1904/12/2019 pap, LB [id number] ThinP rep Pap, Image d: NEGAT CHRISTIANO FOR SQUAM OUS INTRA EPITH ELIAL LESIO N AND CARMELLA LOPEZ . Mica singh , CT( CP) (Case elect esau rupal rafaela d 04 16 2019) ADEQU ACY: Satis facto ry . SOURC E: ThinP rep Pap HPV IF ASCUS , Vagin al, Image d CLINI NNEKA INFOR MATIO N: HPV If Diagn osis of ASCUS . lps neg, hyste recto my, no cervi x, z12.4 , z01.4 19 Not Available [facility], Cytopathology Service [address] [facility], [place], [address], 04/16/2019 11:17:55 12/29/19 21 12/28/2020 PAP1C ASE [id number] ThinP rep Pap, Image d: NEGAT CHRISTIANO FOR SQUAM OUS INTRA EPITH ELIAL LESIO N AND CARMELLA LOPEZ . Note: The Pap test is a scree oc test with an inher ent false negat christiano rate. Autom ated presc reeni ng of all liqui d based speci mens is perfo rmed by the ThinP rep Imagi ng Syste m emelyn nur [facility] kenia larsen , CT( CP) (Case elect esau goldsmith rafaela d 01 12 2021) ADEQU ACY: Satis facto ry . SOURC E: ThinP rep Pap HPV IF ASCUS , Vagin al, Image d CLINI NNEKA INFOR MATLINA N: HPV If Diagn osis of ASCUS . LPS 0 neg, z01.4 19 Not Available [facility], Cytopathology Service [address] [place], [address], 01/12/2021 16:15:50 12/29/19 21 12/28/2020 fecal occul t blood , stool Occult Blood negati ve Not Available In-Office Order Internal Use Only DO Not Attach Compendium DO Not Attach Compendium, Do Not Delete/merge, [id number] 12/28/2020 10:03:41 01/11/20 22 01/10/2022 [facility]OL OGY results Kevin nt Name: LAI Larsen ADRIAN RA Brown nt : 1965 (Age: 56) Lab Acces adriel #: [id number] Colle ction Date: 2021 Acces adriel Date: 2021 Sign Out Date: 2021 Tissu e Sourc e: 1: THINP REP DISASTER RECOVERY COORDINATOR PAP TEST, VAGIN AL: Final Diagn osis: NEGAT CHRISTIANO FOR INTRA EPITH ELIAL LESIO N OR CARMELLA LOPEZ . Satis facto ry for evalu ation . Clini nneka Histo ry: Date of Last Menst rual Perio d: not avail able Menst rual Histo ry: Hyste recto my Post- menop ausal Contr acept christiano Histo ry: not avail able Ancil radha Testi ng: HPV (ASCU S) Case image d by the ThinP rep Imagi ng Syste m with carmel hernandez or ct [facility]ley at [facility] ate Refer ence Labor atory depar tment of Cytol ogy, [address] [place] Clini nneka Histo ry (othe r): z01.4 19, LPS 2 neg, routi ne scree n Phone #: [phone], On-Ca ll Patho logis t: [id number] Not Available [facility] (Centralized Electronic Ordering - All Locations) Patient Can Go To The Location Of Their Choice, [id number] 01/13/2022 15:20:05 01/11/20 22 01/10/2022 fecal occul t blood , stool Occult Blood negati ve Not Available In-Office Order Internal Use Only DO Not Attach Compendium DO Not Attach Compendium, Do Not Delete/merge, [id number] 01/10/2022 10:02:51 01/17/2001/16/2023 [facility]OL [facility]GY results Patie nt Name: ADRIAN LARKIN RA nt : 1965 (Age: 57) Lab Acces adriel #: [id number] Colle ction Date: 01/16 Acces adriel Date: 01/16 Sign Out Date: 01/20 Tissu e Sourc e: 1: THINP REP DISASTER RECOVERY COORDINATOR PAP TEST, VAGIN AL: Final Diagn osis: [...] hernandez or ct mclaughlin Perfo rmed at [facility] ate Refer ence Labor atory depar tment [facility] Cytol ogy, [address] [place] Clini nneka Histo ry (othe r): Z01.4 19, routi ne scree n, LPS neg Phone #: [phone], On-Ca ll Patho logis t: [id number] Not Available [facility] (Centralized Electronic Ordering - All Locations) Patient Can Go To The Location Of Their Choice, [id number] 01/20/2023 11:19:57 01/17/20 23 01/16/2023 fecal occul t blood , stool Occult Blood negati ve Not Available In-Office Order Internal Use Only DO Not Attach Compendium DO Not Attach Compendium, Do Not Delete/merge, [id number] 01/16/2023 09:18:05 03/06/1903/07/2024 IGP, RFX APTIM A HPV ASCU diagnosis: Radha katz NEGAT CHRISTIANO FOR INTRA EPITH ELIAL LESIO N OR CARMELLA LOPEZ . THIS SPECI MEN WAS RESCR EENED PART OF OUR QUALI TY CONTR OL PROGR AM. Not Available [facility] ([facility]) [address] [place], [address], 03/07/2024 18:15:55 03/06/1903/07/2024 IGP, RFX APTIM A HPV ASCU specimen adequacy: Radha katz Satis facto melissa for evalu ation . Not Available [facility] ([facility]) [address] [place], [address], 03/07/2024 18:15:55 03/06/19 25 03/07/2024 IGP, RFX APTIM A HPV ASCU clinician provided ICD10: Radha katz Z01.4 19 Not Available [facility] ([facility]) [address] [place], [address], 03/07/2024 18:15:55 03/06/19 25 03/07/2024 IGP, RFX APTIM A HPV ASCU performed by: Radha Munoz, Cytot echno logis t (ASCP ) Not Available [facility] ([facility]) [address] [place], [address], 03/07/2024 18:15:55 03/06/1903/07/2024 IGP, RFX APTIM A HPV ASCU QC reviewed by: Radha Peralta , Cytot echno logis t (ASCP ) Not Available [facility] ([facility]) [address] [place], [address], 03/07/2024 18:15:55 03/06/19 25 03/07/2024 IGP, RFX APTIM A HPV ASCU . . Not Available [facility] ([facility]) [address] [place], [address], 03/07/2024 18:15:55 03/06/19 25 03/07/2024 IGP, RFX [...] ts do occur . Not Available [facility] ([facility]) [address] [place], [address], 03/07/2024 18:15:55 03/06/19 25 03/07/2024 IGP, RFX APTIM A HPV ASCU test methodology: Commen t This liqui d based ThinP rep(R ) pap test was scree vandana with the use of an image guide gee elliott. Not Available [facility] ([facility]) [address] [place], [address], 03/07/2024 18:15:55 03/06/19 25 03/07/2024 IGP, RFX APTIM A HPV ASCU . Commen t The HPV DNA refle x crite wilber were not met with this speci men resul t there fore, no HPV testi ng was perfo rmed. Not Available [facility] ([facility]) [address] [place], [address], 03/07/2024 18:15:55 03/06/19 25 03/06/2024 hemog lobin , gastr ointe randolph l, stool Occult Blood negati ve Not Available In-Office Order Internal Use Only DO Not Attach Compendium DO Not Attach Compendium, Do Not Delete/merge, [id number] 03/06/2024 10:47:16 11/25/19 20 11/23/2019 MAMMO , [...] unila teral No observ ation record ed. [address], [address], 04/12/2022 13:56:26 04/14/19 24 04/14/2023 MAMMO , scree oc, digit al, bilat eral No observ ation record ed. [facility] [address] [place], [address], 04/16/2023 08:28:33 Result Notes None recorded. Problems Name Problem SNOMED Code Status Onset Date Resolution Date Notes Provider Name and Address Organization Details Recorded Time Menopausal syndrome 974389090 Active Eladia Miller MD [address], [place], [address], [place] [facility], 5 09:07:22 Candidal vulvovagini tis 69561045 Active Eladia Miller MD [address], [place], [address], [place] [facility], 5 09:40:02 Vaginitis 66849613 Active Eladia Miller MD [address], [place], [address], [place] [facility], 5 09:40:02 Insomnia 524089110 Active 2017 Eladia Miller MD [address], [place], [address], [place] [facility], 8 09:09:13 Hiatal hernia 80151003 Active 2020 Clarita chavez [place] - [facility], 1 10:14:30 Retinal detachment 72478006 Active 2020 Clarita chavez [place] [facility], 1 10:14:37 Atrial fibrillatio n 97586661 Active 2021 Clarita chavez [place] - [facility], 2 10:11:52 Blind right eye 617759494 Active 2022 Clarita chavez [place] - [facility], 3 09:21:55 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 Spinal stenosis Problem Notes None recorded. Procedures Surgical History Date Name Laterality Status Provider Name and Address Organization Details Recorded Time 04/14/19 24 Most Recent Mammogram completed Jessica Wagner in [facility], 02/19/2024 08:31:03 09/22/19 22 primary fusion of cervical spine completed Clarita Wagner in [facility], 01/10/2022 10:13:43 07/20/19 22 Glaucoma surgery completed Clarita Wagner in [facility], 01/10/2022 10:13:36 02/17/19 22 Eye surgery follow-up add-on completed Clarita Wagner in [facility], 01/10/2022 10:12:52 09/23/19 21 procedure on retina completed Clarita Wagner in [facility], 12/28/2020 10:14:03 07/16/19 21 esophageal hiatus hernia repair completed Clarita Wagner in [facility], 12/28/2020 10:12:43 06/10/19 21 excision of synovial cyst completed Clarita Wagner in [facility], 12/28/2020 10:11:56 03/09/19 16 Other completed Jessica Wagner in [facility], 03/18/2016 08:27:52 03/09/19 14 Other completed Teresa Wagner in [facility], 09/22/2014 08:53:02 02/06/19 10 Other completed Jessica Wagner in [facility], 10/24/2011 10:57:56 02/06/19 04 Other completed Jessica Wagner in [facility], 10/24/2011 10:57:56 02/06/18 94 Hysterectomy completed Eladia Miller MD [address] [place] [address],[address], [place], [address], [place] [facility], 02/07/2013 08:24:16 Imaging Results None recorded. Procedure Notes None recorded. Medical Equipment None Reported. Allergies Allergen ID Allergen Name Allergen Category Reaction Reaction Severity Criticality Documentation Date Start Date Code Code System Note Provider Name and Address Organization Details Recorded Time 93224 dorzolami de medicatio n facial swelling severe high 01/10/2022 91184 RxNorm Clarita Jeana WILL[place] chavez in [facility], 2 10:03:35 4141 Inderal medicatio n Not available Not available Not available 10/24/2011 33952 0 RxNorm bad heada ches WILLY Marsh in [facility], 2 10:57:56 4142 Flonase medicatio n Not available Not available Not available 10/24/2011 28441 RxNorm throa t swell s WILLY Marsh in [facility], 2 10:57:56 4143 fluticaso ne / salmetero l medicatio n Not available Not available Not available 10/24/2011 84180 5 RxNorm rash WILYL Marsh in [facility], 2 10:57:56 Medications Name Sig Start Date [...] Not Available Not Available Not Available Fluvirin 8189-8334(P F) 45 mcg (15 mcg x3)/0.5 mL [...] t Available Vitals Date Recorded Body height Body mass index (BMI) Body weight Heart rate Systolic And Diastolic Provider Name and Address Organization Details Last Updated DateTime 03/06/2024 177.8 cm 36.8 kg/m2 794926.3 7 g 77 /min 136/74 mm[Hg] Jessica Anderson [place] - [facility] in [facility], 03/06/2024 10:40:55 Date Recorded Body height Heart rate Body mass index (BMI) Body weight Systolic And Diastolic Provider Name and Address Organization Details Last Updated DateTime 04/12/2019 177.8 cm 76 /min 36.3 kg/m2 701156.8 7 g 154/77 mm[Hg] Jessica Wagner in [facility], 04/12/2019 11:09:01 Date Recorded Body height Body temperature Body mass index (BMI) Body weight Heart rate Systolic And Diastolic Provider Name and Address Organization Details Last Updated DateTime 177.8 cm 97.2 [degF] 32.7 kg/m2 102855. 06 g 67 /min 132/63 mm[Hg] Clarita Wagner in [facility], 1 10:06:49 Date Recorded Body weight Body mass index (BMI) Body height Systolic And Diastolic Provider Name and Address Organization Details Last Updated DateTime 01/10/2022 832889.09 g 35.9 kg/m2 177.8 cm 116/56 mm[Hg] Clarita Wagner in [facility], 01/10/2022 10:08:08 Date Recorded Body weight Body mass index (BMI) Body height Heart rate Systolic And Diastolic Provider Name and Address Organization Details Last Updated DateTime 01/16/2023 098727.0 2 g 33.4 kg/m2 177.8 cm 73 /min 133/66 mm[Hg] Clarita Wagenr in [facility], 01/16/2023 09:21:16 Social History Question Answer Notes LastModified by Organizat ion Details LastModified Time Tobacco Smoking Status Never Smoker Not Available [facility] 12/10/2019 03:19:40 How Many Years Have You Consumed Alcohol? 35 Information not available 12/28/2020 What Is Your Level Of Caffeine Consumption? None Information not available 01/10/2022 In The 14 Days Before Symptom Onset, Have You Had Close Contact With A Laboratory-confirm ed COVID-19 While That Case Was Ill? No Information n ot available 01/10/2022 In The 14 Days Before Symptom Onset, Have You Had Close Contact With A Person Who Is Under Investigation For COVID-19 While That Person Was Ill? No Information not available 12/28/2020 Have You Been To An Area Known To Be High Risk For COVID-19? No Information not available 12/28/2020 What Type Of Diet Are You Following? REGULAR [id number] Information n ot available 12/10/2019 Which Illicit Or Recreational Drugs Have You Used? No [id number] Information not available 12/10/2019 Do You Reside In Or Have You Traveled To An Area Where Ebola Virus Transmission Is Active? No [id number] Information not available 12/10/2019 Education 12 Information no t available 10/24/2011 What Is The Highest Grade Or Level Of School You Have Completed Or The Highest Degree You Have Received? [id number] Information not available 12/28/2020 How Many Days In The Past Year Have You Had A Heavy Drinking Consumption (4+ Female, 5+ Male)? 3 Information no t available 04/12/2019 Are There Any Guns Present In Your Home? No Information not available 12/28/2020 High Number Of Sexual Partners No Information not available 03/18/2016 To Which Gender Do You Self-identify? Female Information n ot available 03/18/2016 Marital Status Informatio n not available 10/24/2011 What Was The Date Of Your Most Recent Tobacco Screening? 03/06/2024 Information not available 03/06/2024 What Is Your Relationship Status? Information not available 12/28/2020 Are You Sexually Active? Yes [id number] Information not available 12/10/2019 How Much Tobacco Do You Smoke? No [id number] Information not available 12/10/2019 General Stress Level High Information not available 10/24/2011 How Many Years Have You Smoked Tobacco? 0 [id number] Information not available 12/10/2019 Have You Recently (within The Last 12 Weeks, Or During A Current ) Traveled To Or Lived In A Zika-affected Area? No Information not available 03/18/2016 How Many Days In The Past Year Have You Consumed 4 Or More Drinks? 0 Information not available 12/28/2020 Sex: Female Functional Status Question Answer Note LastModified by Organizat ion Details LastModified Time Do you use any illicit or recreational drugs? No Information not available 12/28/2020 Do you or have you ever used any other forms of tobacco or nicotine? No Information not available 12/28/2020 What is your level of alcohol consumption? None Information not available 01/10/2022 Do you or have you ever used smokeless tobacco? Never used smokeless tobacco [id number] Information not available 12/10/2019 Are you currently employed? No Information not available 12/28/2020 What is your occupation? not working at this time. [id number] Information not available 12/10/2019 Do you or have you ever used e-cigarettes or vape? Never used electronic cigarettes [id number] Information not available 12/10/2019 What is your exercise level? None [id number] Information not available 12/10/2019 Mental Status Question Answer Note LastModified by Organization D etails LastModified Time Do you feel stressed (tense, restless, nervous, or anxious, or unable to sleep at night)? [id number] Information not available 12/28/2020 Family History Relationship Description Onset Age of [...] Anemia N History of Breast Cancer N CL exposure N Psychiatric Illness N Diabetes N [...] quadrivalent, preservative 6 completed [place] Marsh in [facility], 03/18/2016 08:25:55 Influenza, split virus, quadrivalent, preservative 8 completed Clarita Hills null, [place] - [facility], 01/16/2023 09:20:31 Pneumococcal Conjugate, unspecified formulation 8 completed Clarita [place] null, [place] [facility], 01/16/2023 09:20:32 varicella 9 completed Jessica Anderson null, [place] [facility], 04/12/2019 11:04:08 Influenza, split virus, quadrivalent, preservative 9 completed Clarita chavez, [place] [facility], 01/16/2023 09:20:31 COVID-19, mRNA, LNP-S, PF, 30 mcg/0.3 mL dose 1 completed Clarita chavez, [place] - [facility] [...] Influenza, MDCK, quadrivalent, PF 2 completed Clarita Simpsonne null, [place] [facility] [...] Care, 01/16/2023 09:20:31 Pneumococcal conjugate PCV20, polysaccharide [id number] conjugate, adjuvant, PF 2 completed Clarita Hills [...] Pneumococcal conjugate PCV 13 8 completed Clarita [place] null, [place] - [facility], 01/16/2023 09:20:32 Novel [id number], preservative-free 9 completed Clarita chavez [place] - [facility], 01/16/2023 09:20:32 Td (adult), 2 Lf tetanus toxoid, preservative free, adsorbed 9 completed Clarita chavez [place] - [facility], 01/16/2023 09:20:32 Influenza, split virus, quadrivalent, PF 8 completed WILLY Valentin in [facility], 01/16/2023 09:20:32 COVID-19, mRNA, LNP-S, PF, dmitri-sucrose, 30 mcg/0.3 mL 3 completed WILLY Marsh in [facility], 03/06/2024 10:41:19 Influenza, split virus, quadrivalent, PF 3 completed Jessica Meczywor WILLY chavez in [facility], 03/06/2024 10:41:20 Past Encounters Encounter ID Performer Location Encounter Start Date Encounter Closed Date Diagnosis/Indication Diagnosis SNOMED-CT Code Diagnosis ICD10 Code Diagnosis Note [id number] MD ELADIA Page MD [address] [place] [address] 10/24/2011 10:31:05 10/24/2011 15:38:00 [id number] MD ELADIA Page MD [address] [facility],[address] [place] [address] 02/07/2013 07:52:20 02/07/2013 12:49:34 Specialized medical examination 14758238 Screening for malignant neoplasm of rectum 077348940 Screening mammography 53388914 Menopausal syndrome 468301828 [id number] MD ELADIA Page MD [address] [place] [address] 09/22/2014 08:35:54 09/22/2014 11:06:38 Specialized medical examination 29531713 Screening for malignant neoplasm of rectum 095172874 Screening mammography 28577890 Menopausal syndrome 251297180 [id number] MD ELADIA Page MD [address] [facility] [place] [address] 09/30/2014 08:19:34 09/30/2014 10:27:10 Candidal vulvovaginitis 44823073 Vaginitis 87215420 [id number] MD ELADIA Page MD [address] [place] [address], [address] [place] [address] 03/18/2016 08:16:00 03/18/2016 11:30:40 Specialized medical examination 33434964 Z01.419 Screening for malignant neoplasm of rectum 098798533 Z12.12 Screening mammography 24 792826 Z12.31 Menopausal syndrome 1237 73570 N95.9 [id number] MD ELADIA Page MD [address] [place] [address], [address] [place] [address] 10/18/2017 08:07:22 10/18/2017 11:25:05 Specialized medical examination 37862868 Z01.419 Screening for malignant neoplasm of rectum 684744426 Z12.12 Screening mammography 24 299618 Z12.31 Menopausal syndrome 1237 [address] N95.1 [facility] [id number] G47.0 0 [id number] MD ELADIA Page MD [address] [place] [address], [place] [address] 02/26/2018 12:51:24 02/26/2018 14:02:51 Atypical squamous cells of undetermined significance on cervical Papanicolaou smear [id number] R87.610 [id number] MD ELADIA Page MD [address] [place] [address], [place] [address] 04/12/2019 10:45:52 04/12/2019 12:08:59 Menopausal syndrome [id number] N95.1 Specialize d medical examination [id number] Z01.419 Screening for malignant neoplasm of rectum 497860504 Z12.12 Screening mammography 24 212798 Z12.31 [id number] MD ELADIA Page MD [address] [place] [address], [place] [address] 12/28/2020 10:02:44 12/28/2020 11:37:50 Specialized medical examination [id number] Z01.419 Screening for malignant neoplasm of rectum 860052500 Z12.12 Screening mammography 24 565430 Z12.31 Menopausal syndrome 1237 64137 N95.1 [id number] MD ELADIA Page MD [address] [place] [address], [place] [address] 01/10/2022 09:59:11 01/10/2022 13:57:13 Specialized medical examination [id number] Z01.419 Screening for malignant neoplasm of rectum 176733034 Z12.12 Screening mammography 24 968941 Z12.31 [id number] MD ELADIA Page MD [address] [place] [address], [place] [address] 01/16/2023 09:13:08 01/16/2023 10:58:56 Specialized medical examination 01388899 Z01.419 Screening for malignant neoplasm of rectum 697257477 Z12.12 Screening mammography 24 001246 Z12.31 Complete b lindness of right eye 716566428 H54.415A Tunnel vis ion of left eye [id number] 38740 H53.40 [id number] MD ELADIA Page MD [address] [facility], [place] [address] 03/06/2024 10:35:30 03/06/2024 12:13:05 Specialized medical examination 10785283 Z01.419 Screening for malignant neoplasm of rectum 066050654 Z12.12 Screening mammography 24 845288 Z12.31 Health Concerns Section Related Observation LastModified by Organization Detai ls LastModified Time None Recorded Concern Status LastModified by Organization Details LastModified Time None Recorded Advance Directives Directive None Recorded Payers Insurance Date Sequence Insurance Name Policy Number Policy Horne Covered Member ID Horne Member ID Guarantor Name 03/04/2024 1 [facility] [id number] Vicente Griggs [id number] Christen Griggs Notes Date Note Type [...] a week! Eladia Miller MD [address], [place], [address], [facility], 04/12/2019 12:05:25 12/28/2020 text/html She is [...] to continue. Eladia Miller MD [address], [place], [address], [facility], 12/28/2020 11:09:53 01/10/2022 text/html She is [...] [address], [place], [address], [place] [facility], 01/10/2022 12:51:47 01/16/2023 text/html It has [...] sto do so. 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 Eladia Miller MD [address] [facility],[address], [place], [address], [place] - [facility] in [facility], 03/06/2024 11:07:39 OBGyn Episode No OBEpisode recorded.
== END 2024-08-22 09:27 | disposition home or self-care (01) ==
LOC: HO.HOS 08:19
PROVIDERS: PCP Internal Medicine; Visit Provider Orthopaedic Surgery
DX: M25.561 Pain in right knee (principal); Z98.890 Other specified postprocedural states
CPT/HCPCS: 20610; 99213

== ENCOUNTER → 2024-08-22 08:18 | Outpatient (BNVA) | payer BC, SELFPAY | PROVIDERS: PCP Internal Medicine; Visit Provider Orthopaedic Surgery | DX: M25.561 Pain in right knee (principal) | CPT/HCPCS: 20610; J0665; J1100; J2003 ==